=== PATIENT | female | born 1940 | race Caucasian/White ===

== ENCOUNTER → 2022-07-02 | Outpatient (REF) | payer MEDICARE, SELFPAY ==
[2022-07-02 08:35] LABS: Hematocrit 31.5 % (37-47); Hemoglobin 9.5 g/dL (12.0-15.0); Mean Corp Hgb Conc 30.2 g/dL (32-36); Mean Corpuscular Hgb 27.4 pg (27.0-32.0); Mean Corpuscular Volume 90.8 fL (81-99); Mean Platelet Vol. 10.4 fl (6.2-12.0); Platelet Count 353 K/mm3 (150-450); RBC Distribution Width CV 15.1 % (11.6-14.6); RBC Distribution Width SD 50.3 fl (35.1-43.9); Red Blood Count 3.47 M/mm3 (4.2-5.4); White Blood Count 7.6 K/mm3 (4.4-11.0)
[2022-07-02 08:52] LABS: Vitamin B12 322 pg/mL (211-911); Vitamin D,25 Hydroxy 29.4 ng/mL
[2022-07-02 08:53] LABS: Hemoglobin A1c 5.7 % (3.8-5.6)
[2022-07-02 09:10] LABS: Anion Gap 8 (5-15); BUN 31 mg/dL (7-18); BUN/Creat Ratio 37.1 RATIO (10-20); Calcium,Total 9.1 mg/dL (8.5-10.1); Chloride 106 mmol/L (98-107); Cholesterol 157 mg/dL (200); Creatinine, Serum 0.84 mg/dL (0.55-1.02); EST Glomerular Filtration Rate 69 mL/min (>60); Est Glom Filt Rate - Afr Amer 84 mL/min (>60); Glucose 108 mg/dL (74-106); High Density Lipoprotein 48 mg/dL; Potassium 4.1 mmol/L (3.5-5.1); Sodium Level 137 mmol/L (136-145); Triglycerides 130 mg/dL; Very Low Density Lipoprotein 26 mg/dL (5-40)
== END ==
LOC: OLS.SW 05:00
PROVIDERS: Visit Provider Internal Medicine
DX: I12.9 Hypertensive chronic kidney disease with stage 1 through stage 4 chronic kidney disease, or unspecified chronic kidney disease (principal); E78.5 Hyperlipidemia, unspecified; N18.9 Chronic kidney disease, unspecified; E55.9 Vitamin D deficiency, unspecified; Z86.73 Personal history of transient ischemic attack (TIA), and cerebral infarction without residual deficits; Z85.3 Personal history of malignant neoplasm of breast; Z79.899 Other long term (current) drug therapy
CPT/HCPCS: 36415; 80048; 80061; 82306; 82607; 83036; 84443; 85027

== ENCOUNTER → 2022-07-14 | Outpatient (REF) | payer MEDICARE, SELFPAY ==
[2022-07-14 08:37] LABS: Absolute Lymphocyte Count 1.99 X10^3/uL (0.83-4.51); Absolute Neutrophil Count 3.3 X10^3/uL (2.0-7.7); Basophil# 0.05 X10^3/uL; Basophil% 0.8 % (0-1); Eosinophil# 0.06 X10^3/uL; Hemoglobin 9.5 g/dL (12.0-15.0); Lymphocyte # 1.99 X10^3/ul (0.83-4.51); Lymphocyte % 33.3 % (19-41); Mean Corp Hgb Conc 27.9 g/dL (32-36); Mean Corpuscular Hgb 26.8 pg (27.0-32.0); Mean Corpuscular Volume 95.8 fL (81-99); Mean Platelet Vol. 10.7 fl (6.2-12.0); Monocyte# 0.58 X10^3/uL; Monocyte% 9.7 % (0-10); NRBC Flagged by Analyzer 0 % (0-5); Neutrophil # 3.28 X10^3/uL (2.7-7.7); Neutrophil % 54.9 % (47-70); Platelet Count 228 K/mm3 (150-450); RBC Distribution Width CV 16.3 % (11.6-14.6); RBC Distribution Width SD 57.5 fl (35.1-43.9); Red Blood Count 3.55 M/mm3 (4.2-5.4)
[2022-07-14 08:56] LABS: Anion Gap 8 (5-15); BUN 66 mg/dL (7-18); BUN/Creat Ratio 61.7 RATIO (10-20); Calcium,Total 8.7 mg/dL (8.5-10.1); Chloride 116 mmol/L (98-107); Creatinine, Serum 1.07 mg/dL (0.55-1.02); EST Glomerular Filtration Rate 52 mL/min (>60); Est Glom Filt Rate - Afr Amer 63 mL/min (>60); Glucose 97 mg/dL (74-106); Potassium 4.7 mmol/L (3.5-5.1); Sodium Level 142 mmol/L (136-145)
== END ==
LOC: OLS.SW 05:00
PROVIDERS: Visit Provider Internal Medicine
DX: I10 Essential (primary) hypertension (principal); E87.6 Hypokalemia; E78.5 Hyperlipidemia, unspecified
CPT/HCPCS: 36415; 80048; 85025

== ENCOUNTER → 2022-07-21 | Outpatient (REF) | payer MEDICARE, MEDICAID, SELFPAY ==
[2022-07-21 08:21] LABS: Absolute Lymphocyte Count 1.92 X10^3/uL (0.83-4.51); Absolute Neutrophil Count 5.2 X10^3/uL (2.0-7.7); Basophil# 0.02 X10^3/uL; Basophil% 0.2 % (0-1); Eosinophil# 0.11 X10^3/uL; Eosinophils% 1.4 % (0-5); Hematocrit 28.3 % (37-47); Hemoglobin 8.6 g/dL (12.0-15.0); Lymphocyte # 1.92 X10^3/ul (0.83-4.51); Lymphocyte % 23.9 % (19-41); Mean Corp Hgb Conc 30.4 g/dL (32-36); Mean Corpuscular Hgb 27.8 pg (27.0-32.0); Mean Corpuscular Volume 91.6 fL (81-99); Monocyte# 0.76 X10^3/uL; Monocyte% 9.5 % (0-10); NRBC Flagged by Analyzer 0 % (0-5); Neutrophil % 64.8 % (47-70); Platelet Count 198 K/mm3 (150-450); RBC Distribution Width CV 17.2 % (11.6-14.6); RBC Distribution Width SD 57.5 fl (35.1-43.9); Red Blood Count 3.09 M/mm3 (4.2-5.4)
[2022-07-21 08:38] LABS: Anion Gap 6 (5-15); BUN 69 mg/dL (7-18); Calcium,Total 8.9 mg/dL (8.5-10.1); Chloride 113 mmol/L (98-107); Creatinine, Serum 1.15 mg/dL (0.55-1.02); EST Glomerular Filtration Rate 48 mL/min (>60); Est Glom Filt Rate - Afr Amer 58 mL/min (>60); Glucose 112 mg/dL (74-106); Potassium 4.1 mmol/L (3.5-5.1); Sodium Level 142 mmol/L (136-145)
== END ==
LOC: OLS.SW 05:00
PROVIDERS: Visit Provider Internal Medicine
DX: I63.9 Cerebral infarction, unspecified (principal)
CPT/HCPCS: 36415; 80048; 85025

== ENCOUNTER → 2022-07-25 | Outpatient (REF) | payer MEDICARE, MEDICAID, SELFPAY | LOC: OLS.SW 05:00 | PROVIDERS: Visit Provider Internal Medicine | DX: A04.71 Enterocolitis due to Clostridium difficile, recurrent (principal) | CPT/HCPCS: 87493 ==

== ENCOUNTER → 2022-08-18 | Outpatient (REF) | payer MEDICARE, MEDICAID, SELFPAY ==
[2022-08-18 09:04] LABS: Ferritin 35 ng/mL (8-252); Iron 32 ug/dL (50-170)
== END ==
LOC: OLS.SW 05:00
PROVIDERS: Visit Provider Internal Medicine
DX: E46 Unspecified protein-calorie malnutrition (principal); R53.1 Weakness; I10 Essential (primary) hypertension; E78.5 Hyperlipidemia, unspecified; Z79.899 Other long term (current) drug therapy
CPT/HCPCS: 36415; 82728; 83540

== ENCOUNTER → 2023-02-22 | Outpatient (REF) | payer MEDICARE, MEDICAID, SELFPAY ==
[2023-02-22 09:20] LABS: Absolute Lymphocyte Count 1.99 X10^3/uL (0.83-4.51); Absolute Neutrophil Count 2.7 X10^3/uL (2.0-7.7); Basophil# 0.02 X10^3/uL; Basophil% 0.4 % (0-1); Eosinophil# 0.06 X10^3/uL; Eosinophils% 1.1 % (0-5); Hematocrit 32.2 % (37-47); Hemoglobin 9.4 g/dL (12.0-15.0); Lymphocyte # 1.99 X10^3/ul (0.83-4.51); Lymphocyte % 35.9 % (19-41); Mean Corp Hgb Conc 29.2 g/dL (32-36); Mean Corpuscular Volume 92.5 fL (81-99); Mean Platelet Vol. 11.3 fl (6.2-12.0); Monocyte# 0.72 X10^3/uL; NRBC Flagged by Analyzer 0 % (0-5); Neutrophil # 2.74 X10^3/uL (2.7-7.7); Neutrophil % 49.2 % (47-70); Platelet Count 249 K/mm3 (150-450); RBC Distribution Width CV 15.6 % (11.6-14.6); RBC Distribution Width SD 52.8 fl (35.1-43.9); Red Blood Count 3.48 M/mm3 (4.2-5.4); White Blood Count 5.6 K/mm3 (4.4-11.0)
[2023-02-22 09:45] LABS: Anion Gap 6 (5-15); BUN 24 mg/dL (7-18); BUN/Creat Ratio 22.6 RATIO (10-20); Calcium,Total 9.2 mg/dL (8.5-10.1); Chloride 109 mmol/L (98-107); Creatinine, Serum 1.06 mg/dL (0.55-1.02); EST Glomerular Filtration Rate 53 mL/min (>60); Est Glom Filt Rate - Afr Amer 64 mL/min (>60); Glucose 103 mg/dL (74-106); Potassium 4.5 mmol/L (3.5-5.1); Sodium Level 141 mmol/L (136-145)
== END ==
LOC: OLS.SW 05:00
PROVIDERS: Visit Provider Internal Medicine
DX: I10 Essential (primary) hypertension (principal); E78.5 Hyperlipidemia, unspecified
CPT/HCPCS: 36415; 80048; 85025

== ENCOUNTER → 2023-03-22 | Outpatient (REF) | payer MEDICARE, MEDICAID, SELFPAY ==
[2023-03-23 09:23] LABS: Color, Urine Yellow (Yellow); Glucose, Dipstick Normal (Normal); Ketone-Dipstick Negative (Negative); Leukocyte Esterase-Dipstick 500 /ul (Negative); Nitrite-Dipstick Positive (Negative); Occult Blood-Urine 50 /ul (Negative); Protein-Dipstick 100 mg/dl (Negative); Urine Clarity Cloudy (Clear); Urine Urobilinogen Normal (Normal)
[2023-03-23 09:25] LABS: Urine Bilirubin Dipstick 1 mg/dL (Negative)
== END ==
LOC: OLS.SW 08:56
PROVIDERS: Visit Provider Internal Medicine
DX: R41.82 Altered mental status, unspecified (principal); R39.81 Functional urinary incontinence
CPT/HCPCS: 81002; 87077; 87086; 87088; 87186

== ENCOUNTER 2023-04-16 20:44 | Inpatient (IN) | payer MEDICARE, MEDICAID, SELFPAY ==
[2023-04-16] VITALS (7 sets, daily range): BP systolic 126–196; BP diastolic 62–101; PULSE 80–91; RESP 15–26; TEMP 36.2–37.4; O2SAT 91–99; BMI 23.1
--- NOTE | 2023-04-16 21:09 | RAD_ITS ---
STUDY: X-RAY - PELVIS REASON FOR EXAM: Female, 83 years old. fall/pain TECHNIQUE: One view of the pelvis was obtained. COMPARISON: None. FINDINGS: There is a non-specific bowel gas pattern. Normal visualized soft tissue structures. Normal bilateral iliac wings, sacroiliac joints and visualized sacrum. Normal visualized bilateral superior and inferior pubic rami. Normal pubic symphysis. Normal ischial tuberosities. Normal visualized right femoral head. Normal right acetabulum. Normal right hip joint. Normal visualized left femoral head. Normal left acetabulum. Normal left hip joint. RAD/Pelvis 1 or 2 Views IMPRESSION: Normal x-ray examination of the pelvis. Electronically Signed: Isaac Scanlon MD at 22:23 [facility] ,
--- NOTE | 2023-04-16 21:09 | RAD_ITS ---
STUDY: X-RAY - LUMBAR SPINE REASON FOR EXAM: Female, 83 years old. fall/pain TECHNIQUE: 2 view(s) of the lumbar spine were obtained. COMPARISON: None FINDINGS: Normal lumbar lordosis. There is no substantial scoliosis. Status post transpedicular fixation from L2 through S1 with anatomic alignment. Normal vertebral bodies and endplates. Focal disc space narrowing and osteophyte formation at L1/L2 with 5 mm retrolisthesis of L1 on L2. The soft tissue structures are unremarkable. RAD/Lumbar Spine 2 or 3 Views IMPRESSION: 1. No acute fracture or subluxation. 2. Status post transpedicular fixation from L2 through S1. 3. Focal degenerative disc disease L1/L2 with 5 mm retrolisthesis of L1 on L2. Electronically Signed: Isaac Scanlon MD at 22:22 EST ,
--- NOTE | 2023-04-16 21:10 | EKG12_ITS ---
Test Reason : DYSRHYTHMIA Blood Pressure : / mmHG Vent. Rate : 078 BPM Atrial Rate : 078 BPM P-R Int : 150 ms QRS Dur : 092 ms QT Int : 386 ms P-R-T Axes : 076 -26 101 degrees QTc Int : 440 ms Normal sinus rhythm ST & T wave abnormality, consider lateral ischemia Abnormal ECG Confirmed by HENRIETTA SINHA, SIMA ([id number]), photography editor KELVIN CADENA ([id number]) on 04/20/2023 8:28:43 AM Referred By: Mauricio Byrd Confirmed By:SIMA SHRESTHA MD
--- NOTE | 2023-04-16 21:12 | EDS_ITS ---
HPI HPI - Fall History of Present Illness Chief Complaint: Fall Informant: patient, family (son) and EMS Narrative Narrative: Patient states she was in her apartment and fell while heading toward the bathroom. She was on not carpeted floor, she does not know what made her fall but she denies any prodromal symptoms such as lightheadedness, headache, chest pain, shortness of breath although she admits she is short of breath right now, she has not felt like she has had an illness lately, no coughing more than usual, no chest discomfort. She fell onto her buttocks, states that is where she has pain. She denies injury elsewhere. Son is here with her and states she is at her baseline mental status, she has been a little confused ever since she had a skull fracture/traumatic intracranial injury earlier this year and resides in a senior care, not at home in an apartment. Today at the senior care her oxygen saturations were down to 80% so they applied oxygen to her which she is not usually on. [facility] Medical History (Updated 04/16/23 @ 23:[address] Mauricio Byrd MD) Full code status Generalized anxiety disorder Generalized muscle weakness Hyperlipidemia Hypertension Major depressive disorder, recurrent, unspecified Traumatic subarachnoid hemorrhage Unspecified protein-calorie malnutrition Home Medications aluminum-magnesium hydroxide 200 mg-200 mg/5 mL oral suspension 30 ml PO Q4H PRN GI distress 04/16/23 [History Last Taken Unknown] aspirin 25 mg-dipyridamole 200 mg capsule,ext.release 12 hr multiphase 1 cap PO BID 04/16/23 [History Last Taken Unknown] buspirone 5 mg tablet 2.5 mg PO DAILY 04/16/23 [History Last Taken Unknown] docusate sodium 100 mg capsule (Col-Rite) 100 mg PO BID 04/16/23 [History Last Taken Unknown] ergocalciferol (vitamin D2) 50 mcg (2,000 unit) capsule 50 mcg PO DAILY 04/16/23 [History Last Taken Unknown] escitalopram oxalate 20 mg tablet (Lexapro) 20 mg PO DAILY 04/16/23 [History Last Taken Unknown] glucagon HCl 1 mg solution for injection (Glucagon (HCl) Emergency Kit) 1 mg IM Q20M PRN hypoglycemia 04/16/23 [History Last Taken Unknown] guaifenesin 100 mg/5 mL oral liquid (Adult Tussin Chest Congestion) 200 mg PO Q4H PRN congestion 04/16/23 [History Last Taken Unknown] losartan 100 mg tablet 100 mg PO DAILY 04/16/23 [History Last Taken Unknown] magnesium hydroxide 400 mg/5 mL oral suspension (Dulcolax (magnesium hydroxide)) 30 ml PO DAILY PRN constipation 04/16/23 [History Last Taken Unknown] melatonin 3 mg capsule 3 mg PO QHS 04/16/23 [History Last Taken Unknown] memantine 5 mg tablet 5 mg PO BID 04/16/23 [History Last Taken Unknown] metoprolol tartrate 50 mg tablet 50 mg PO BID 04/16/23 [History Last Taken Unknown] mirtazapine 15 mg tablet (Remeron) 15 mg PO QHS 04/16/23 [History Last Taken Unknown] omega 9-yjz-lpw-fish oil 300 mg-1,000 mg capsule (Fish Oil) 1 cap PO DAILY 04/16/23 [History Last Taken Unknown] potassium chloride 10 mEq tablet,extended release 10 meq PO BID 04/16/23 [History Last Taken Unknown] simvastatin 80 mg tablet 80 mg PO QHS 04/16/23 [History Last Taken Unknown] Allergy/AdvReac Type Severity Reaction Status Date / Time lisinopril Allergy Unknown PT UNABLE Verified 04/16/23 20:48 TO RESPOND-NEEDS F/U Milk Containing Products Allergy Unknown PT UNABLE Verified 04/16/23 20:48 (Dairy) TO RESPOND-NEEDS F/U morphine Allergy Unknown PT UNABLE Verified 04/16/23 20:48 TO RESPOND-NEEDS F/U Social History Smoking Status: Never smoker ROS ROS ED Constitutional Constitutional ED: Denies chills or fever(s) Eyes Eyes: Denies change in vision or diplopia ENT ENT ED: Denies ear pain, epistaxis, facial pain or rhinorrhea Cardiovascular Cardiovascular: Denies chest pain or palpitations Respiratory/Chest Respiratory/Chest: Reports cough, dyspnea and other Details: Chronic cough unchanged Gastrointestinal Gastrointestinal: Denies abdominal pain, diarrhea, melena, nausea or vomiting Genitourinary Genitourinary ED: Denies dysuria or hematuria Musculoskeletal Musculoskeletal: Reports back pain; Denies extremity pain or neck pain Integumentary Denies abscess, Abrasions, laceration or rash Neurologic Neurologic: Denies confusion, headache(s), paresthesias or weakness EXAM Physical Exam Const Vital Signs: 04/16/23 20:48 04/16/23 21:19 04/16/23 20:59 Temperature 97.2 F L Temperature Source Temporal Pulse Rate 81 80 80 Respiratory Rate 20 H 26 H 24 H Respiratory Effort Respiratory Depth Respiratory Pattern Tachypnea Blood Pressure 196/101 H 151/68 H Blood Pressure Mean 132 95 Pulse Ox 96 93 Oxygen Delivery Method Nasal Cannula Nasal Cannula Oxygen Flow Rate (L/min) 4 4 04/16/23 22:09 04/16/23 22:22 04/16/23 22:24 Temperature Temperature Source Pulse Rate Respiratory Rate Respiratory Effort Short of Breath Short of Breath Respiratory Depth Normal Normal Respiratory Pattern Tachypnea Tachypnea Blood Pressure Blood Pressure Mean Pulse Ox 92 99 Oxygen Delivery Method Room Air Nasal Cannula Oxygen Flow Rate (L/min) 4 04/16/23 23:06 04/16/23 23:06 04/16/23 23:25 Temperature 99.4 F H Temperature Source Oral Pulse Rate 90 90 91 Respiratory Rate 18 18 15 Respiratory Effort Respiratory Depth Respiratory Pattern Blood Pressure 126/62 H 126/62 H 126/62 H Blood Pressure Mean 83 83 83 Pulse Ox 94 95 93 Oxygen Delivery Method Nasal Cannula Nasal Cannula Oxygen Flow Rate (L/min) 2 2 Positive well nourished and well developed General Appearance ED: well developed and NAD HEENT Reports TM's clear and nasal mucous membranes and turbinates normal atraumatic Face and Sinus: Negative for facial tenderness Tympanic Membrane ED: Yes TM's clear Eyes PERRL and EOMs intact bilaterally Visual Acuity: other Other Details: no entrapment or pain with extraocular movements Neck full ROM and supple General: Negative for tenderness Chest Wall inspection of chest normal and palpation of chest normal Chest: symmetrical chest wall rise; Negative for crepitus or tenderness Resp Resp Narrative: Tachypneic without respiratory distress, but some accessory muscle use. Coarse breath sounds in all miller. Equal breath sounds bilaterally. Percussion: other equal BS bilat Cardio no murmurs Rate: regular rate Rhythm: regular rhythm GI normal to inspection, nondistended, normoactive bowel sounds, soft to palpation and non-tender Back/Spine normal ROM Back/Spine Narrative: Tenderness in the lumbar midline where there is a well-healed surgical scar, no palpable step-off, she does not have tenderness in the pelvic brim over the sacrum otherwise, but there is tenderness in the right ischial tuberosity and the left ASIS. Pelvis is stable to AP compression. Cervical Spine: Negative for cervical spine tenderness Thoracic Spine / Upper Back: Negative for thoracic spinal tenderness Lumbar Spine / Lower Back: lumbar spinal tenderness Extremity normal to inspection and full ROM Extremity Narrative: Full range of motion all joints of all 4 extremities without pain. General Extremety ED: Negative for tenderness Neuro oriented x3, CN's II-XII intact bilaterally, moves all extremities, no focal motor deficits and no sensory deficits noted [place] Coma Scale: document GCS findings Spontaneous Obeys Commands Oriented 15 Sensorium / Orientation: awake and alert Psych mental status grossly normal and thought process normal Skin no wounds Lesions: no lesions Rashes: no rashes MDM MDM MDM Narrative Medical decision making narrative: X-rays of the patient's injuries are all negative for fractures on my interpretation, 1 view pelvis, 3 view lumbosacral. Radiology in agreement. Patient is a lot of pain trying to sit up, I reevaluated her back, she has no tenderness higher up than where she first indicated and we x-rayed. She still not able to sit up at all due to pain, but I think this is probably due to contusion in context. 1 view chest x-ray appears to show an infiltrate in right lower lobe, this is consistent with her dyspnea. After nebulizer treatment she is breathing a little better but still requiring more nebulizer treatment, after removing her oxygen after this she desatted quick to the mid 80s, so I placed her back on 2 L she is 92% there. Given all of this and the fact that it is acute, she will need to be admitted to the hospital acutely. Antibiotic started. Apparently the [facility] new COVID and influenza testing includes RSV as well, and although these 2 were negative, her RSV antigen returned positive. She still is hypoxemic and HCAP antibiotics are indicated. Lab Data Attestation: I reviewed the patient's lab results. Labs: Laboratory Results - last 24 hr 04/16/23 21:00 WBC 11.7 H RBC 3.49 L Hgb 9.8 L Hct 31.4 L MCV 90.0 MCH 28.1 MCHC 31.2 L RDW Std Deviation 50.0 H RDW Coeff of Han 15.2 H Plt Count 196 MPV 11.6 Immature Gran % (Auto) 0.900 Neut % (Auto) 74.5 H Lymph % (Auto) 14.8 L Piatt % (Auto) 9.6 Eos % (Auto) 0.0 Baso % (Auto) 0.2 Absolute Neuts (auto) 8.7 H Absolute Lymphs (auto) 1.74 Nucleated RBC % 0 Sodium 138 Potassium 4.6 Chloride 109 H Carbon Dioxide 23.0 Anion Gap 6 BUN 43 H Creatinine 1.30 H Estim Creat Clear Calc 28.99 Est GFR (MDRD) Af Amer 50 L Est GFR (MDRD) Non-Af 42 L BUN/Creatinine Ratio 33.1 H Glucose 156 H Calcium 9.1 Troponin I High Sens 12 B-Natriuretic Peptide 89.1 Radiography Diagnostic Testing: Clinical Impression(s) from Imaging Studies Lumbar Spine X-Ray 04/16/23 21:09 IMPRESSION: 1. No acute fracture or subluxation. 2. Status post transpedicular fixation from L2 through S1. 3. Focal degenerative disc disease L1/L2 with 5 mm retrolisthesis of L1 on L2. Electronically Signed: Isaac Scanlon MD at 22:22 EST Reading Location ID and State: [employer] / [employer] Tel , Service support , Pelvis X-Ray 04/16/23 21:09 IMPRESSION: Normal x-ray examination of the pelvis. Electronically Signed: Isaac Scanlon MD at 22:23 EST Reading Location ID and State: [employer] / [employer] Tel , Service support , Chest X-Ray 04/16/23 21:51 IMPRESSION: 1. Focal right lower lobe pneumonia or atelectasis.. 2. Cardiomegaly. Electronically Signed: Isaac Scanlon MD at 22:21 EST Reading Location ID and State: [employer] / [employer] Tel , Service support , Rhythm Strip Rhythm Strip: Sinus Rhythm Rate: 80 Ectopy: None EKG Initial EKG: Attestation: I personally reviewed and interpreted this EKG as follows: Interpretation: Sinus Rhythm, No Acute Injury Pattern and Non-Specific ST Changes (laterally) Prior EKG tracings: not available for review Prior: No Prior Management Discussion w/another healthcare provider: Hospitalist Discharge Plan Dx/Rx/DC Orders Clinical Impression: Acute renal insufficiency, HCAP (healthcare-associated pneumonia), Acute hypoxemic respiratory failure, Contusion of lower back and pelvis, initial encounter, Fall, RSV infection Disposition Disposition: Acute Care Hospital [facility]
[2023-04-16] MEDS: Ipratropium/Albuterol Sulfate 3 ML AMPUL.NEB INHALATION (21:19)
[2023-04-16 21:45] LABS: Absolute Lymphocyte Count 1.74 X10^3/uL (0.83-4.51); Absolute Neutrophil Count 8.7 X10^3/uL (2.0-7.7); Basophil# 0.02 X10^3/uL; Basophil% 0.2 % (0-1); Hematocrit 31.4 % (37-47); Hemoglobin 9.8 g/dL (12.0-15.0); Lymphocyte # 1.74 X10^3/ul (0.83-4.51); Lymphocyte % 14.8 % (19-41); Mean Corp Hgb Conc 31.2 g/dL (32-36); Mean Corpuscular Hgb 28.1 pg (27.0-32.0); Mean Platelet Vol. 11.6 fl (6.2-12.0); Monocyte# 1.13 X10^3/uL; Monocyte% 9.6 % (0-10); NRBC Flagged by Analyzer 0 % (0-5); Neutrophil # 8.72 X10^3/uL (2.7-7.7); Neutrophil % 74.5 % (47-70); Platelet Count 196 K/mm3 (150-450); RBC Distribution Width CV 15.2 % (11.6-14.6); Red Blood Count 3.49 M/mm3 (4.2-5.4); White Blood Count 11.7 K/mm3 (4.4-11.0)
--- NOTE | 2023-04-16 21:51 | RAD_ITS ---
STUDY: X-RAY CHEST REASON FOR EXAM: Female, 83 years old. sob TECHNIQUE: Single AP portable view of the chest. COMPARISON: None. FINDINGS: Alveolar opacity in the lower right lung consistent with focal pneumonia or atelectasis. There is no demonstrated pleural abnormality. There is moderate cardiac enlargement. Normal mediastinum and carl. Normal visualized pulmonary arteries. Normal visualized aortic arch and descending thoracic aorta. Normal visualized thoracic spine. Normal visualized ribs, clavicles, and shoulders. There is no demonstrated abnormality of the visualized soft tissue structures of the upper abdomen. RAD/Chest 1 View (Portable) IMPRESSION: 1. Focal right lower lobe pneumonia or atelectasis.. 2. Cardiomegaly. Electronically Signed: Isaac Scanlon MD at 22:21 EST ,
[2023-04-16 21:58] LABS: Anion Gap 6 (5-15); BUN 43 mg/dL (7-18); BUN/Creat Ratio 33.1 RATIO (10-20); Calcium,Total 9.1 mg/dL (8.5-10.1); Chloride 109 mmol/L (98-107); EST Glomerular Filtration Rate 42 mL/min (>60); Est Glom Filt Rate - Afr Amer 50 mL/min (>60); Estimated Creatinine Clearance 28.99 ml/min; Glucose 156 mg/dL (74-106); Potassium 4.6 mmol/L (3.5-5.1); Sodium Level 138 mmol/L (136-145); Troponin-I HS 12 pg/mL (3.0-54.0)
[2023-04-16] MEDS: Albuterol 2.5 MG/3 ML VIAL.NEB. INHALATION ×3 (22:03→22:38)
--- OUTSIDE RECORDS SUMMARY | 2023-04-16 22:53 | XMS RPT_ITS | CCD ---
Author Name Unknown Address [id number] [place] [address] Organization [facility] Care Team Providers Care Staff Development Manager Name Role Phone JEREMIAS VALERIO DO Primary Care Physician JEREMIAS VALERIO DO Attending Unavailable JEREMIAS VALERIO DO Primary Care Unavailable JEREMIAS VALERIO DO Attending Unavailable JEREMIAS VALERIO DO Primary Care Unavailable TRISTON RODRIGUEZ Admitting Unavai JEREMIAS Montiel DO Primary Care Unavailable CARLOS QUESADA, DR DANIELS Attending Unavailable JEREMIAS VALERIO DO Primary Care Unavailable ADALID HOFF Attending Unavailable CLAUDETTE LIMON MD Attending Unavailable JEREMIAS VALERIO DO Primary Care Unavailable JEREMIAS VALERIO DO Attending Unavailable JEREMIAS VALERIO DO Primary Care Unavailable JEREMIAS VALERIO DO Attending Unavailable JEREMIAS VALERIO DO Primary Care Unavailable JEREMIAS VALERIO DO Primary Care Unavailable WES JUSTIN MD Admitting Unavailable CARLOS QUESADA, DR DANIELS Attending Unavailable NATALIO RICHARDSON MD Consulting Unavailable JIMMY CAMARILLO MD Consulting Unavailable CHOLO CRAIG MD Consulting Unavailable ARMAAN VERDIN DMD Consulting UnaJACOBY Ivey MD, I Consulting Unavailable RENETTA FANG MD Consulting Unavailable DR GERARDO SIDHU MD Consulting Unavailable JEREMIAS VALERIO DO Attending Unavailable JEREMIAS VALERIO DO Primary Care Unavailable JEREMIAS VALERIO DO Attending Unavailable JEREMIAS VALERIO DO Primary Care Unavailable Allergies Allergy Classification Reported Allergen(s) Allergy Type Date of Onset Reaction(s) Facility (8 sources) Lisinopril; Translations: [lisinopril] Drug Allergy Cough [facility] Work Phone: (8 sources) Morphine; Translations: [morphine] Drug Allergy Paranoid [facility] Work Phone: (8 sources) Milk Products Food allergy Diarrhea - Adult [facility] Work Phone: Medications Current Medications Medication Drug Class(es) Dates Sig (Normalized) Sig (Original) acetaminophen 500 mg / diphenhydrAMINE hydrochloride 25 mg oral tablet (7 sources) Histamine-1 Receptor Antagonist Start: 01-18-2014 take 1 tablet by mouth once daily at bedtime as needed for sleep Tylenol PM Extra Strength oral tablet Dose = 1 tab(s), Oral, qHS, PRN for sleep, 0 Refill(s) Start Date: 01/18/14 Status: Ordered 12 hr aspirin 25 mg / dipyridamole 200 mg extended release oral capsule (7 sources) Platelet Aggregation Inhibitor, Nonsteroidal Anti-inflammatory Drug Start: 07-01-2022 take 1 capsule by mouth twice daily Aggrenox 25-200 mg oral capsule Dose = 1 cap(s), Oral, BID, 0 Refill(s) Start Date: 07/01/22 Status: Ordered Completed/Discontinued Medications Medication Drug Class(es) Dates Sig (Normalized) Sig (Original) Augmentin (1 source) Penicillin-class Antibacterial Start: 06-17-2022 End: 06-21-2022 Augmentin Dose : 875 mg = 1 tab(s), Oral, BIDM, 0 Refill(s), 56.1 Start Date: 06/17/22 Stop Date: 06/21/22 Status: Ordered 1 ml denosumab 60 mg/ml prefilled syringe (1 source) RANK Ligand Inhibitor Start: 08-12-2021 Prolia 60 mg/mL subcutaneous solution Dose : 60 mg = 1 mL, Subcutaneous, q6mo, # 1 mL, 1 Refill(s) Start Date: 08/12/21 Status: Ordered metoprolol tartrate 25 mg oral tablet (5 sources) beta-Adrenergic Patrizia Start: 06-30-2022 End: 07-01-2022 Metoprolol Tartrate 25 mg oral tablet Start: 07/01/22 8:00:00 EDT, Dose = 50 mg, = 2 tab(s), Oral, 06/18/22 13:50:00 EST Start Date: 07/01/22 Stop Date: 07/01/22 Status: Completed Problems Problem Classification Problem Date Documented Date Episodic/Chronic Acute cerebrovascular disease (3 sources) Cerebrovascular accident; Translations: [Cerebral infarction] Onset: 06-14-2022 08-04-2019 Chronic Cancer of breast (8 sources) History of malignant neoplasm of breast 03-09-2019 Episodic Chronic kidney disease (9 sources) Chronic kidney disease stage 3B ; Translations: [Chronic kidney disease] 01-31-2021 Chronic Chronic ulcer of skin (1 source) Pressure ulcer of buttock stage 3; Translations: [Pressure ulcer of right buttock, stage 3] Chronic Coagulation and hemorrhagic disorders (1 source) Blood coagulation disorder; Translations: [Coagulation defect, unspecified] Chronic Disorders of lipid metabolism (9 sources) Mixed hyperlipidemia; Translations: [Hyperlipidemia] Onset: 06-14-2022 08-04-2019 Chronic E Codes: Fall (1 source) Fall on same level; Translations: [Fall on same level, unspecified, initial encounter] Episodic E Codes: Fall (3 sources) Fall in home 06-01-2022 Essential hypertension (11 sources) Essential hypertension; Translations: [Essential (primary) hypertension] Onset: 06-14-2022 03-09-2019 Chronic Fluid and electrolyte disorders (16 sources) Hypokalemia; Translations: [Hyponatremia] 03-09-2019 Episodic Genitourinary symptoms and ill-defined conditions (2 sources) Unspecified abnormal findings in urine; Translations: [Unspecified abnormal findings in urine] Onset: 06-01-2022 Episodic Hypertension with complications and secondary hypertension (1 source) Chronic kidney disease due to hypertension; Translations: [Hypertensive chronic kidney disease with stage 1 through stage 4 chronic kidney disease, or unspecified chronic kidney disease] Chronic Intracranial injury (1 source) Subarachnoid hemorrhage due to traumatic injury; Translations: [Traumatic subarachnoid hemorrhage without loss of consciousness, initial encounter] Episodic Late effects of cerebrovascular disease (1 source) Aphasia as late effect of cerebrovascular accident; 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 Malaise and fatigue (2 sources) Asthenia; Translations: [Weakness] Onset: 05-04-2022 Episodic Nutritional deficiencies (8 sources) Vitamin D deficiency 08-04-2019 Chronic Open wounds of head; neck; and trunk (1 source) Laceration of head; Translations: [Laceration without foreign body of other part of head, initial encounter] Episodic Osteoporosis (9 sources) Osteoporosis; Translations: [Primary osteoporosis] 03-09-2019 Chronic Other circulatory disease (11 sources) History of cerebrovascular accident 03-09-2019 Episodic Other circulatory disease (1 source) History of transient ischemic attack; Translations: [Personal history of transient ischemic attack (TIA), and cerebral infarction without residual deficits] Onset: 06-26-2022 Episodic Other connective tissue disease (3 sources) Muscle weakness 05-21-2022 Episodic Other injuries and conditions due to external causes (1 source) Injury of head; Translations: [Unspecified injury of head, initial encounter] Episodic Other lower respiratory disease (1 source) Abnormal breathing; Translations: [Other abnormalities of breathing] Onset: 06-22-2022 Episodic Other nervous system disorders (1 source) Disorder of brain; Translations: [Encephalopathy, unspecified] Chronic Other nervous system disorders (1 source) Aphasia; Translations: [Aphasia] Chronic Other nervous system disorders (3 sources) Abnormal gait 05-21-2022 Episodic Other non-traumatic joint disorders (8 sources) Hip pain 01-31-2021 Episodic Residual codes; unclassified (8 sources) Immunization due 01-31-2021 Episodic Residual codes; unclassified (7 sources) Edema 08-11-2021 Episodic Residual codes; unclassified (3 sources) At high risk for fall 05-21-2022 Episodic Residual codes; unclassified (1 source) Altered mental status; Translations: [Altered mental status, unspecified] Onset: 06-14-2022 Episodic Residual codes; unclassified (1 source) Amnesia; Translations: [Other amnesia] Onset: 06-18-2022 Episodic Skull and face fractures (3 sources) Fracture of zygoma; Translations: [Zygomatic fracture, left side, sequela] Onset: 06-14-2022 Episodic Superficial injury; contusion (1 source) Right knee abrasion; Translations: [Abrasion, right knee, initial encounter] Episodic Unclassified (8 sources) Patient encounter status 02-02-2020 Urinary tract infections (3 sources) Escherichia coli urinary tract infection 06-04-2022 Episodic Results Test Name Value Interpretation Reference Range Facil ity Vital Signs Date Time Vital Sign Value Performing Clinician Slick peña 07-01-2022 09:48-0400 Heart rate 84 /min TRISTON CHICAS [facility] 06-30-2022 21:10-0400 Body temperature 97.16 [degF] TRISTON CHATMAN SENIOR JAVASCRIPT DEVELOPER-MACHINE DESIGN ENGINEER [facility] 06-30-2022 21:10-0400 Diastolic Blood Pressure Non-Invasive 70 1 TRISTON CHATMAN SENIOR JAVASCRIPT DEVELOPER-MACHINE DESIGN ENGINEER [facility] 06-30-2022 21:10-0400 Heart rate 83 /min TRISTON CHATMAN SENIOR JAVASCRIPT DEVELOPER-MACHINE DESIGN ENGINEER [facility] 06-30-2022 21:10-0400 Reason For Taking VItal Signs TRISTON CHATMAN SENIOR JAVASCRIPT DEVELOPER-MACHINE DESIGN ENGINEER [facility] 06-30-2022 21:10-0400 Respiratory rate 18 /min TRISTON CHTAMAN SENIOR JAVASCRIPT DEVELOPER-MACHINE DESIGN ENGINEER [facility] 06-30-2022 21:10-0400 Systolic Blood Pressure Non-Invasive 153 1 TRISTON CHATMAN SENIOR JAVASCRIPT DEVELOPER-MACHINE DESIGN ENGINEER [facility] 06-30-2022 17:36-0400 Heart rate 92 /min TRISTON CHATMAN SENIOR JAVASCRIPT DEVELOPER-MACHINE DESIGN ENGINEER [facility] 06-30-2022 11:30-0400 Body temperature 99.68 [degF] TRISTON CHATMAN SENIOR JAVASCRIPT DEVELOPER-MACHINE DESIGN ENGINEER [facility] 06-30-2022 11:30-0400 Diastolic Blood Pressure Non-Invasive 74 1 TRISTON CHATMAN SENIOR JAVASCRIPT DEVELOPER-MACHINE DESIGN ENGINEER [facility] 06-30-2022 11:30-0400 Heart rate 104 /min TRISTON CHATMAN SENIOR JAVASCRIPT DEVELOPER-MACHINE DESIGN ENGINEER [facility] 06-30-2022 11:30-0400 Reason For Taking VItal Signs TRISTON CHATMAN SENIOR JAVASCRIPT DEVELOPER-MACHINE DESIGN ENGINEER [facility] 06-30-2022 11:30-0400 Respiratory rate 18 /min TRISTON CHATMAN SENIOR JAVASCRIPT DEVELOPER-MACHINE DESIGN ENGINEER [facility] 06-30-2022 11:30-0400 Systolic Blood Pressure Non-Invasive 153 1 TRISTON CHATMAN SENIOR JAVASCRIPT DEVELOPER-MACHINE DESIGN ENGINEER [facility] 06-30-2022 06:25-0400 Body temperature 98.42 [degF] TRISTON CHATMAN SENIOR JAVASCRIPT DEVELOPER-MACHINE DESIGN ENGINEER [facility] 06-30-2022 06:25-0400 Diastolic Blood Pressure Non-Invasive 94 1 TRISTON CHATMAN SENIOR JAVASCRIPT DEVELOPER-MACHINE DESIGN ENGINEER [facility] 06-30-2022 06:25-0400 Heart rate 88 /min TRISTON CHATMAN SENIOR JAVASCRIPT DEVELOPER-MACHINE DESIGN ENGINEER [facility] 06-30-2022 06:25-0400 Reason For Taking VItal Signs TRISTON CHATMAN SENIOR JAVASCRIPT DEVELOPER-MACHINE DESIGN ENGINEER [facility] 06-30-2022 06:25-0400 Respiratory rate 18 /min TRISTON CHATMAN SENIOR JAVASCRIPT DEVELOPER-MACHINE DESIGN ENGINEER [facility] 06-30-2022 06:25-0400 Systolic Blood Pressure Non-Invasive 155 1 TRISTON CHATMAN SENIOR JAVASCRIPT DEVELOPER-MACHINE DESIGN ENGINEER [facility] 06-29-2022 15:45-0400 Heart rate 79 /min TRISTON CHATMAN SENIOR JAVASCRIPT DEVELOPER-MACHINE DESIGN ENGINEER [facility] 06-29-2022 07:30-0400 Heart rate 89 /min TRISTON CHATMAN SENIOR JAVASCRIPT DEVELOPER-MACHINE DESIGN ENGINEER [facility] 03-13-2023 04:47-0400 Heart rate 81 /min TRISTON CHATMAN SENIOR JAVASCRIPT DEVELOPER-MACHINE DESIGN ENGINEER [facility] 06-28-2022 19:41-0400 Heart rate 89 /min TRISTON CHATMAN SENIOR JAVASCRIPT DEVELOPER-MACHINE DESIGN ENGINEER [facility] 06-26-2022 06:00-0500 Body weight 54.2 kg TRISTON CHATMAN SENIOR JAVASCRIPT DEVELOPER-MACHINE DESIGN ENGINEER [facility] 06-23-2022 10:08-0500 Blood Pressure Cuff Size TRISTON CHATMAN SENIOR JAVASCRIPT DEVELOPER-MACHINE DESIGN ENGINEER [facility] 06-23-2022 10:08-0500 Blood Pressure Location TRISTONDELMY CHATMAN SENIOR JAVASCRIPT DEVELOPER-MACHINE DESIGN ENGINEER [facility] 06-23-2022 10:08-0500 Blood Pressure Method TRISTONDELMY RUBION SENIOR JAVASCRIPT DEVELOPER-MACHINE DESIGN ENGINEER [facility] 06-23-2022 07:39-0500 Blood Pressure Cuff Size TRISTON CHATMAN SENIOR JAVASCRIPT DEVELOPER-MACHINE DESIGN ENGINEER [facility] 06-23-2022 07:39-0500 Blood Pressure Location TRISTONDELMY CHATMAN SENIOR JAVASCRIPT DEVELOPER-MACHINE DESIGN ENGINEER [facility] 06-23-2022 07:39-0500 Blood Pressure Method TRISTON CHATMAN SENIOR JAVASCRIPT DEVELOPER-MACHINE DESIGN ENGINEER [facility] 06-23-2022 06:15-0500 Body temperature 98.24 [degF] TRISTON CHATMAN SENIOR JAVASCRIPT DEVELOPER-MACHINE DESIGN ENGINEER [facility] 06-23-2022 04:30-0500 Body temperature 97.52 [degF] TRISTONDELMY RUBION SENIOR JAVASCRIPT DEVELOPER-MACHINE DESIGN ENGINEER [facility] 06-22-2022 02:45-0500 Body temperature 97.52 [degF] TRISTON CHATMAN SENIOR JAVASCRIPT DEVELOPER-MACHINE DESIGN ENGINEER [facility] 06-21-2022 19:31-0500 Blood Pressure Location TRISTON CHATMAN SENIOR JAVASCRIPT DEVELOPER-MACHINE DESIGN ENGINEER [facility] 06-21-2022 19:31-0500 Blood Pressure Method TRISTON CHATMAN SENIOR JAVASCRIPT DEVELOPER-MACHINE DESIGN ENGINEER [facility] 06-19-2022 05:03-0500 Body weight 54 kg TRISTON CHATMAN SENIOR JAVASCRIPT DEVELOPER-MACHINE DESIGN ENGINEER [facility] 06-18-2022 12:36-0500 Body height 162.6 cm TRISTON CHATMAN SENIOR JAVASCRIPT DEVELOPER-MACHINE DESIGN ENGINEER [facility] 06-18-2022 12:36-0500 Body weight 55.6 kg TRISTON CHATMAN SENIOR JAVASCRIPT DEVELOPER-MACHINE DESIGN ENGINEER [facility] 06-18-2022 12:36-0500 Body weight 21.03 kg/m2 TRISTON CHATMAN SENIOR JAVASCRIPT DEVELOPER-MACHINE DESIGN ENGINEER [facility] 06-18-2022 07:54-0500 Heart rate 98 /min DR WES JUSTIN MD [facility] 06-18-2022 07:38-0500 Body temperature 98.24 [degF] DR WES JUSTIN MD [facility] 06-18-2022 07:38-0500 Diastolic Blood Pressure Non-Invasive [address] WES JUST[address] [facility] 06-18-2022 07:38-0500 Heart rate 95 /min DR WES JUSTIN MD [facility] 06-18-2022 07:38-0500 Mean blood pressure 81 mm[Hg] DR WES JUSTIN MD [facility] 06-18-2022 07:38-0500 Reason For Taking VItal Signs DR WES JUSTIN MD [address] [place] [address] 06-18-2022 07:38-0500 Respiratory rate 19 /min DR WES JUSTIN MD [address] [place] [address] 06-18-2022 07:38-0500 Systolic Blood Pressure Non-Invasive [address] WES JUSTIN MD [address] [place] [address] 06-18-2022 03:58-0500 Body temperature 98.6 [degF] DR WES JUSTIN MD [address] [place] [address] 06-18-2022 03:58-0500 Diastolic Blood Pressure Non-Invasive [address] WES JUSTIN MD [address] [place] [address] 06-18-2022 03:58-0500 Heart rate 77 /min DR WES JUSTIN MD [address] [place] [address] 06-18-2022 03:58-0500 Mean blood pressure 65 mm[Hg] DR WES JUSTIN MD [address] [place] [address] 06-18-2022 03:58-0500 Reason For Taking VItal Signs DR WES JUSTIN MD [address] [place] [address] 06-18-2022 03:58-0500 Respiratory rate 16 /min DR WES JUSTIN MD [address] [place] [address] 06-18-2022 03:58-0500 Systolic Blood Pressure Non-Invasive [address] WES JUSTIN MD [address] 06-18-2022 02:02-0500 Diastolic Blood Pressure Non-Invasive [address] WES JUSTIN MD [address] [place] [address] 06-18-2022 02:02-0500 Heart rate 88 /min DR WES JUSTIN MD [address] 06-18-2022 02:02-0500 Mean blood pressure 90 mm[Hg] DR WES JUSTIN MD [address] [place] [address] 06-18-2022 02:02-0500 Respiratory rate 24 /min DR WES JUSTIN MD [address] [place] [address] 06-18-2022 02:02-0500 Systolic Blood Pressure Non-Invasive [address] WES JUSTIN MD [address] [place] [address] 06-17-2022 23:27-0500 Body temperature 98.78 [degF] DR WES JUSTIN MD [address] [place] [address] 06-17-2022 23:27-0500 Heart rate 91 /min DR WES JUSTIN MD [address] [place] [address] 06-17-2022 23:27-0500 Reason For Taking VItal Signs DR WES JUSTIN MD [address] [place] [address] 06-17-2022 21:10-0500 Heart rate 80 /min DR WES JUSTIN MD [address] [place] [address] 06-16-2022 08:09-0500 Heart rate 93 /min DR WES JUSTIN MD [address] [place] [address] 06-16-2022 06:36-0500 Heart rate 97 /min DR WES JUSTIN MD [address] [place] [address] 06-15-2022 08:00-0500 Body temperature 98.42 [degF] DR WES JUSTIN MD [address] [place] [address] 06-15-2022 00:30-0500 Body temperature 98.24 [degF] DR WES JUSTIN MD [address] [place] [address] 06-12-2022 13:55-[address] WES JUSTIN MD [address] [place] [address] 06-12-2022 13:55-0500 Body temperature 98.78 [degF] DR WES JUSTIN MD [address] [place] [address] 06-12-2022 11:43-[address] WES JUSTIN MD [address] [place] [address] 06-10-2022 14:30-0500 Body height [address] WES JUSTIN MD [facility] 06-10-2022 14:30-0500 Body weight 56.[address] WES JUSTIN MD [facility] 06-10-2022 14:30-0500 Body weight 21.11 kg/m2 DR WES JUSTIN MD [facility] 06-10-2022 11:06-0500 Body weight 56.[address] WES JUSTIN MD [facility] 06-10-2022 11:06-0500 Heart rate 112 /min DR WES JUSTIN MD [facility] 06-10-2022 10:04-0500 Diastolic Blood Pressure Non-Invasive 99 1 ADALID HOFF MD [facility] 06-10-2022 10:04-0500 Heart rate 123 /min ADALID HOFF MD [facility] 06-10-2022 10:04-0500 Systolic Blood Pressure Non-Invasive 134 1 ADALID HOFF MD [facility] 06-10-2022 07:54-0500 Body height 167.6 cm ADALID HOFF MD [facility] 06-10-2022 07:54-0500 Body temperature 98.42 [degF] ADALID HOFF MD [facility] 06-10-2022 07:54-0500 Body weight 75 kg ADALID HOFF MD [facility] 06-10-2022 07:54-0500 Diastolic Blood Pressure Non-Invasive 99 1 ADALID HOFF MD [facility] 06-10-2022 07:54-0500 Heart rate 133 /min ADALID HOFF MD [facility] 06-10-2022 07:54-0500 Systolic Blood Pressure Non-Invasive 171 1 ADALID HOFF MD [facility] 05-04-2022 15:33-0500 Diastolic Blood Pressure Non-Invasive 78 1 CLAUDETTE LIMON MD [facility] 05-04-2022 15:33-0500 Heart rate 96 /min CLAUDETTE LIMON MD [facility] 05-04-2022 15:33-0500 Reason For Taking VItal Signs CLAUDETTE LIMON MD [facility] 05-04-2022 15:33-0500 Respiratory rate 20 /min CLAUDETTE LIMON MD [facility] 05-04-2022 15:33-0500 Systolic Blood Pressure Non-Invasive 145 1 CLAUDETTE LIMON MD [facility] 05-04-2022 14:53-0500 Diastolic Blood Pressure Non-Invasive 69 1 CLAUDETTE LIMON MD [facility] 05-04-2022 14:53-0500 Heart rate 108 /min CLAUDETTE LIMON MD [facility] 05-04-2022 14:53-0500 Reason For Taking VItal Signs CLAUDETTE LIMON MD [facility] 05-04-2022 14:53-0500 Respiratory rate 20 /min CLAUDETTE LIMON MD [facility] 05-04-2022 14:53-0500 Systolic Blood Pressure Non-Invasive 143 1 CLAUDETTE LIMON MD [facility] 05-04-2022 12:30-0500 Body temperature 97.88 [degF] CLAUDETTE LIMON MD [facility] 05-04-2022 12:30-0500 Diastolic Blood Pressure Non-Invasive 75 1 CLAUDETTE LIMON MD [facility] 05-04-2022 12:30-0500 Heart rate 114 /min CLAUDETTE LIMON MD [facility] 05-04-2022 12:30-0500 Respiratory rate 24 /min CLAUDETTE LIMON MD [facility] 05-04-2022 12:30-0500 Systolic Blood Pressure Non-Invasive 165 1 CLAUDETTE LIMON MD [facility] Encounters Encounter Date Encounter Type Care Provider Facility Start: 06-18-2022 End: 07-01-2022 Evaluation and management of inpatient TRISTON CHATMAN SENIOR JAVASCRIPT DEVELOPER-MACHINE DESIGN ENGINEER Facility:B Start: 06-18-2022 End: 07-01-2022 Evaluation and management of inpatient TRISTON CHATMAN SENIOR JAVASCRIPT DEVELOPER-MACHINE DESIGN ENGINEER [facility] Start: 06-10-2022 End: 06-18-2022 Evaluation and management of inpatient JEREMIAS AMADOY Facility:A Start: 06-10-2022 End: 06-18-2022 Evaluation and management of inpatient DR WES JUSTIN MD [facility] Start: 06-10-2022 End: 06-10-2022 Emergency department patient visit JEREMIAS VALERIO Facility:[facility] Start: 06-10-2022 End: 06-10-2022 Emergency department patient visit ADALID HOFF MD [facility] Start: 06-01-2022 End: 06-06-2022 ambulatory JEREMIAS TEODORO DO Facility:[facility] Start: 05-27-2022 End: 06-18-2022 ambulatory JEREMIAS VALERIO DO Facility:R Start: 05-04-2022 End: 05-04-2022 Emergency department patient visit CLAUDETTE LIMON MD Facility:B Start: 05-04-2022 End: 05-04-2022 Emergency department patient visit CLAUDETTE LIMON MD [facility] Start: 03-13-2022 End: 03-14-2022 ambulatory JEREMIAS VALERIO DO Facility:B Start: 03-13-2022 End: 03-13-2022 Patient encounter procedure JEREMIAS VALERIO DO [facility] Start: 02-09-2022 End: 02-10-2022 ambulatory JEREMIAS VALERIO DO Facility:B Start: 02-09-2022 End: 02-09-2022 Patient encounter procedure JEREMIAS VALERIO DO [facility] Start: 08-18-2021 End: 08-19-2021 ambulatory JEREMIAS VALERIO DO Facility:B Start: 08-18-2021 End: 08-18-2021 Patient encounter procedure JEREMIAS VALERIO DO [facility] Start: 08-11-2021 End: 08-12-2021 ambulatory JEREMIAS VALERIO DO Facility:B Start: 01-31-2021 End: 01-31-2021 Patient encounter procedure JEREMIAS VALERIO DO [facility] Procedures Date Procedure Procedure Detail Performing Clinician Back fusion JEREMIAS VALERIO DO Lumpectomy of breast DR LEANA JUSTIN MD Immunizations Immunization Date Immunization Notes Care Provider Fa cility 06-10-2022 tetanus toxoid, redu melquiades diphtheria toxoid, and acellular pertussis vaccine, adsorbed ADALID HOFF MD [facility] 02-09-2022 influenza, high dose seasonal, preservative-free JEREMIAS VALERIO DO [facility] 03-24-2021 COVID-19, mRNA, LNP- S, PF, 100 mcg or 50 mcg dose; Translations: [Moderna COVID-19 Vaccine] JEREMIAS VALERIO DO [facility] 01-31-2021 influenza, high dose seasonal, preservative-free; Translations: [Fluad Quadrivalent PF ] JEREMIAS VALERIO DO [facility] 06-12-2020 COVID-19, mRNA, LNP- S, PF, 100 mcg/ 0.5 mL dose; Translations: [Moderna COVID-19 Vaccine] JEREMIAS VALERIO DO [facility] Payers Date Payer Category Payer Medicare [id number] 2021 Unknown [id number] 1940 Unknown [id number] 2.16.8 [id number] 1940 Unknown [id number] 2.16.8 [id number] 1939 Unknown [id number] 2.16.8 [id number] 1939 Unknown [id number] 2.16.8 [id number] 1939 Unknown [id number] 2.16.8 [id number] 1939 Unknown [id number] 2.16.8 [id number] 1939 Unknown [id number] 2.16.8 [id number] 1939 Unknown [id number] 2.16.8 [id number] 1939 Unknown [id number] 2.16.8 [id number] Social History Date Type Detail Facility Start: 01-31-2019 Never smoked t obacco (finding) [facility] Sex Assigned At [facility] Functional Status Date Assessment Result Facility 07-01-2022 Functional Status Room check performed [facility] 07-01-2022 Functional Status [facility] 07-01-2022 Functional Status Demonstrates C orrect Call Light Use No [facility] 06-30-2022 Functional Status 50 [facility] 06-29-2022 Functional Status SCD Removed/Of f bilateral knee high [facility] 06-29-2022 Functional Status [facility] 06-29-2022 Functional Status Assistive Shae ce Gait belt, Walker, Wheelchair, Sit to stand aid [facility] 06-29-2022 Functional Status [facility] 06-29-2022 Functional Status [facility] 06-29-2022 Functional Status [facility] 06-29-2022 [facility] Status [facility] Functional Status [facility] 06-27-2022 [facility] 06-26-2022 Functional Status [facility] 06-26-2022 Functional Status [facility] 06-26-2022 Functional Status Annyjos busby [facility] 06-25-2022 Functional Status Annyjos busby [facility] 06-25-2022 Functional Status Max A Anny Guerra [facility] 06-25-2022 Functional Status SCD On/Re-appl ied bilateral knee high [facility] 06-25-2022 Functional Status Protective ointment [facility] 06-25-2022 Functional Status Anny busby [facility] 06-24-2022 Functional Status Anny Guerra [facility] 06-24-2022 Functional Status Anny Guerra [facility] 06-23-2022 Functional Status Anny Guerra [facility] 06-22-2022 Functional Status Anny Guerra [facility] 06-22-2022 Functional Status [facility] 06-22-2022 Functional Status Anny Guerra [facility] 06-19-2022 Functional Status Anny Guerra [facility] 06-19-2022 Functional Status Living Situati on Home with family care [facility] 06-19-2022 Functional Status Anny Guerra [facility] 06-18-2022 Functional Status Family present during evaluation and able to answer majority of questions regarding prior level of function and baseline status. [facility] 06-18-2022 Functional Status Anny Guerra [facility] 06-18-2022 Functional Status Unable to assess [facility] 06-18-2022 Functional Status Room check performed [facility] 06-18-2022 Functional Status [facility]ny [facility] 06-18-2022 Functional Status [facility]ny [facility] 06-17-2022 Functional Status Refused Anny Gu[facility] 06-17-2022 Functional Status Total 7 Anny Guerra [facility] 06-16-2022 Functional Status An[facility] 06-16-2022 Functional Status Lunch Percent 25 [facility] 06-16-2022 Functional Status Anny [facility] 06-16-2022 Functional Status Anny [facility] 06-16-2022 Functional Status Anny [facility] 06-16-2022 Functional Status COVID 19 Surge in Effec t Yes [facility] 06-15-2022 Functional Status [facility] 06-15-[facility] [facility] [address] [facility]-15[facility]2022 Functional Status Anny [facility] 06-15-2022 Functional Status Anny [facility] 06-14-[address] [facility] [address] [facility] 06-13-[address] [facility] [address] [facility] 06-12-[address] [facility] [address] [facility] 06-12-[address] [facility] 06-11-2022 Functional Status [facility] 06-11-2022 Functional Status Oral Care Oral care pro tocol [facility] 06-11-2022 Functional Status Family present during evaluation and able to answer majority of questions regarding prior level of function and baseline status. [facility] 06-10-2022 Functional Status Sensory Deficits None A [facility] 06-10-2022 Functional Status Resting [facility] 05-04-2022 Functional Status ID band on, Call device within reach, Bed in low position, Wheels locked, Bedside Cart Locked, Visitor at bedside, Safety level maintained [facility] 05-04-2022 Functional Status [facility] Mental Status Date Assessment Result Facility 07-01-2022 Mental Status Orientation Not oriented to place, Not oriented to time, Not oriented to situation, Forgetful, Follows simple commands [facility] 06-30-2022 Mental Status Orientation Asse ssment Oriented x 4 [facility] 06-30-2022 Mental Status [facility] 06-29-2022 Mental Status [facility] 06-29-2022 Mental Status [facility] 06-18-2022 Mental Status Orientation Oriented x 4 [facility] 06-18-2022 Mental Status [facility] 06-18-2022 Mental Status [facility] 06-17-2022 Mental Status Confused, Not oriented to situation, Oriented to person, Oriented to place, Oriented to time [facility] 06-16-2022 Mental Status [facility] 06-10-2022 Mental Status Orientation Disoriented x 4 [facility] 05-04-2022 Mental Status Orientation Oriented x 4 [facility] 05-04-2022 Mental Status [facility] Clinical Notes 05-04-2022 to 07-01-2022 Note Date & Type Note Facility 07-01-2022 Nurse Discharge summary Discharged to [facility]. Transported by [facility] service. Left at 1315. [facility] 07-01-2022 Note Discharge Instructions Thank you for allowing [facility] to assist you with your healthcare needs. The following is important discharge information regarding your hospital visit. Your Care Team JEREMIAS VALERIO LISA APRN-AB Your Diagnosis Asthenia Essential hypertension Memory impairment Status post CVA Abnormal breath sounds What to do next Scheduled Follow-Up Appointments Appointment Type When With Where Contact InformationPC OV 08/03/2022 09:30 AM EDT JEREMIAS VALERIO [facility] [address] [id number] Follow Up Appointments Follow Up with VICKIE AMES PA-C When 09/01/2022 12:40 PM EDT Why: This appointment is your neurosurgery follow-up appointment and it is in the [facility] office. Where: [address] [place] [id number]- The Following Activity and Diet Have Been Ordered for You Discharge Activity - Ordered -- Resume your pre-hospitalization activity, 07/01/22 8:36:00 EDT Discharge Diet - Ordered -- Type of Diet: Regular Diet, 07/01/22 8:36:00 EDT The Following Equipment Has Been Ordered for You No qualifying data available. The Following Treatments Have Been Ordered for You Discharge Labs No qualifying data available. Discharge Radiology No qualifying data available. Other Therapies No qualifying data available. Post Acute Orders No qualifying data available. Someone Will Contact You Regarding These Home Health Referrals No home referrals have been ordered for you. No one will call you. Allergies Milk Products (Diarrhea - Adult) lisinopril (Cough) morphine (Paranoid) Medications Please ask your primary doctor or pharmacist before taking any other medication not listed, including over the counter drugs, herbal medications, vitamins and or supplements as they may interact with your home medications. What How Much When Why Instructions Last Dose New aspirin-dipyridamole (Aggrenox 25-200 mg oral capsule) 1 cap by mouth Two (2) times a day 07/01 9AM Unchanged acetaminophen-diphenhydramine (Tylenol PM Extra Strength oral tablet) 1 tab(s) by mouth Daily at bedtime as needed for for sleep None Unchanged docusate (Colace 100 mg oral capsule) 1 cap by mouth Two (2) times a day as needed for Constipation None Unchanged ergocalciferol (Vitamin D2 2000 intl units oral capsule) 1 cap by mouth Once a day with food None Unchanged losartan (losartan 100 mg oral tablet) 1 tab(s) by mouth Once a day Essential hypertension 07/01 9AM Unchanged magnesium hydroxide (Milk of Magnesia) 30 Milliliter by mouth Daily at bedtime as needed for Constipation None Unchanged metoprolol 50 Milligram by mouth Two (2) times a day 07/01 9AM Unchanged omega-3 polyunsaturated fatty acids ([place]-3 350 mg oral capsule) 1 cap by mouth Once a day None Unchanged potassium chloride (potassium chloride 10 mEq oral capsule, extended release) 1 cap by mouth Two (2) times a day 07/01 9AM Unchanged simvastatin (simvastatin 80 mg oral tablet) 1 tab(s) by mouth Daily at bedtime 06/30 10PM What How Much When Comments Stop Taking amoxicillin-clavulanate (Augmentin) 875 Milligram by mouth Twice daily with meals Stop Taking QUEtiapine (SEROquel 25 mg oral tablet) 0.5 tab(s) by mouth Daily at bedtime Duration: 14 Days Please take this list to your next doctor s visit. Bring all medications you take, including over the counter medications, herbals and other supplements with you to your doctor s visit. Patients and families are reminded to discard old lists and to update any records with all medication providers or retail pharmacies. Additional Information VACCINATE! IT SAVES LIVES! Members of the community who have not yet received the COVID-19 vaccine and would like to receive it can visit one of [facility] vaccine clinics. There are many vaccine clinic locations within the [facility]. For locations and available times, please visit [email or web address].o pro.gov/. It is important to note that some COVID mobile vaccine clinics are held outdoors and may be canceled in rainy or stormy conditions. To learn more about pediatric vaccinations (ages 5-11), we invite you to visit the [facility] webpage. [email or web address] [email or web address]-Freq [email or web address] To learn more about the COVID-19 vaccine, we invite you to visit the CDC website for a list of frequently asked questions. https://www.cdc.gov/coronavirus/ 2019-ncov/vaccines/faq.html [facility] Patient [facility] Access Instructions: Stay connected with your healthcare team and access your personal medical information anytime with the [facility] Patient Portal.If you would like a full copy of your medical records, please contact the [facility] Medical Records Department, Wednesday through Wednesday between 8a.m. and 4:30p.m. Please follow the directions below to access the portal: 1.Access the email account you provided upon registration to the hospital.2.Look for an invitation email from [facility].3.Open the email and access the invitation link: Accept Invitation to [facility]4.Fill in the required miller to create your account. Sign into www.[employer] with your username and password that you created in the above steps to stay up to date. You can then view a summary of results, a summary of your visits, and the ability to download your summaries to your computer or send the information securely to a physician. Remember that your healthcare information is confidential, so carefully consider who you will allow to register on the [facility] Patient Portal for access to your information. You can also access the [facility] Patient Portal on the [employer] mitra. Simply click on Health Records under Health Data and then click on the [employer] logo. HOW TO SAFELY DISPOSE OF PRESCRIPTION MEDICATIONS Please use one of the following methods to safely dispose of your unused medications. 1.Use a drug disposal kit: the drug disposal pouch allows you to safely discard your old and unused drugs. Ask your nurse to give you one when you are discharged.2.Visit a local take-back location: Many local pharmacies and police departments have programs that collect old and unwanted prescription drugs. Call your local pharmacy or go to http://CPower.VNG/9N8Rb6r to find one close to you.3.Make use of household items: Use cat litter or old coffee grounds to dispose medications if other options are not available. Mix your drugs with these household products, seal them in an airtight container and throw it into the garbage. Call [facility]: [phone] to be sure your drugs can be disposed of in this way. Some medicines may require a different approach.4.Never flush your medications down the toilet. IF YOU HAVE BEEN PRESCRIBED AN OPIOID FOR PAIN If you have been prescribed an opioid (such as hydrocodone, oxycodone or morphine), it is critical to understand the possible side effects and risks of opioid pain medications. Even when taken as directed, opioids can have several side effects including: Tolerance, meaning you might need to take more of a medication for the same pain relief. Nausea, vomiting and/or constipation. Sleepiness, dizziness, dry mouth, confusion, depression or itching. Physical dependence, meaning you have withdrawal symptoms when a medication is stopped, can develop within a few days. KNOW YOUR RESPONSIBILITIES It is important to know exactly how much and how often to take the opioid pain medications you are prescribed. Never take opioids in higher amounts or more often than prescribed. Do not combine opioids with alcohol or other drugs that cause drowsiness, such as benzodiazepines, also known as benzos, including diazepam and alprazolam, muscle relaxants or sleep aids. Never sell or share prescription opioids. This is illegal. Store opioids in a secure place and out of reach of others (including children, family, friends and visitors). The last page of this document has been signed and retained as a CHART COPY. Signatures Patient Education Materials Medication Leaflets My discharge plan and instructions have been reviewed and explained to me and IDONNIE LOIS A understand my current condition and have read and understand these discharge instructions. I have received a written copy of the plan/instructions. If I have questions, I am aware that I should contact my doctor. 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 Asthenia (R53.1 - ICD-10-CM) 2. Essential hypertension (I10 - ICD-10-CM) 3. Memory impairment (R41.3 - ICD-10-CM) 4. Status post CVA (Z86.73 - ICD-10-CM) 5. Abnormal breath sounds (R06.89 - ICD-10-CM) Additional Orders: Ordered: Communication Order (scheduled),07/01/22 8:25:00 EDT, Once, 07/01/22 8:25:00 EDT, Please remove stitches on the left side of forehead prior to d/c. Hospital Course 82-year-old female with past medical history significant for hypertension, CKD, breast cancer, dyslipidemia, CVA. Patient originally presented to [facility] emergency department on 06/10/2022 after sustaining a fall. She was admitted for subarachnoid hemorrhage she sustained a left frontal subarachnoid hematoma, left ZMC fracture with left maxillary hemosinus. Left periorbital and left supraorbital hematomas. Aggrenox was held until cleared by neurosurgery. ENT recommended antibiotics prophylactically for 1 week. She was treated for a UTI. Patient was evaluated by therapy services with recommendation for inpatient rehab. PLAN: 1. Asthenia Acute, s/p left subarachnoid hemorrhage *Continue PT and OT at therapy direction. *Family had originally wanted patient to return home, however, may now require long-term care. She had been getting around at home in a wheelchair. 2. Essential hypertension Chronic, controlled *SBP goal of 140 or less. *Continue current home medications. *Vital signs per protocol. 3. Memory impairment Acute vs chronic, questionable dementia vs delirium *Seroquel was discontinued at family's request. *Patient is still only alert and oriented x 1, however, has been more pleasant and agreeable to working with therapy. *Per therapy, patient had made some small improvements but still requires cues to take a second step. 4. Status post CVA Acute, s/p fall, improving *Continue Aggrenox as noted in neurosurgery note. *Stitches to be removed from left side of forehead prior to d/c today. Patient seen and evaluated this morning while resting in bed. She states that she has no problems or concerns this morning. She denies any fever, chills, cough, shortness of breath, chest pain,, abdominal pain, nausea or dysuria. She reports that she is cold this morning. Patient is stable for discharge to [facility] for long-term care. All questions answered. This case was discussed with collaborating physician, Dr. Jeremiah Jarrell. Allergies Milk Products (Diarrhea - Adult) lisinopril (Cough) morphine (Paranoid) Consults No qualifying data available. Imaging Results and Diagnostics XR Chest 1 View Result Date: June 22, 2022 Verified By: CARMEN TORIBIO MD CLINICAL STATEMENT: IMPRESSION: Clear lungs. Physical Exam Vitals and Measurements T: 36.2 C (Oral) TMIN: 36.2 C (Oral) TMAX: 37.6 C (Oral) HR: 83 RR: 18 BP: 153/70 SpO2: 93% Weight Dosing Weight: 54.2 kg (06/26/22) Dosing Weight: 54 kg (06/19/22) General: No acute distress. Patient is alert and appropriate. Skin: No rash. Skin is warm, dry and intact. HEENT: Head is normocephalic, atraumatic. Pupils are equal, round and reactive. Neck: Supple. No lymphadenopathy, thyromegaly. Lungs: Bilaterally clear but diminished without crepitation or wheeze. Unlabored. Heart: Heart is regular rhythm, S1, S2. No murmurs, gallops or rubs. Abdomen: Abdomen is soft, nontender. Bowels sounds present in all quadrants. Extremities: No clubbing, cyanosis, or edema. Peripheral pulses palpable. No calf tenderness. Neurological: Patient is awake and alert to person. Following simple commands, moving all extremities. Code Status Code Status - Ordered -- 06/18/22 12:54:00 EST, Full Code, Constant Order Admission Date 06/18/2022 Discharge Date 07/01/2022 Patient Instructions Follow-up with Neurosurgery as scheduled on 09/01/2022. Medications Unchanged acetaminophen-diphenhydramine (Tylenol PM Extra Strength oral tablet)1 tab(s) by mouth daily at bedtime as needed for sleep. amoxicillin-clavulanate (Augmentin)875 Milligram by mouth twice daily with meals. docusate (Colace 100 mg oral capsule)1 cap by mouth two (2) times a day as needed Constipation. ergocalciferol (Vitamin D2 2000 intl units oral capsule)1 cap by mouth once a day. with food. Refills: 3. losartan (losartan 100 mg oral tablet)1 tab(s) by mouth once a day. Refills: 0. magnesium hydroxide (Milk of Magnesia)30 Milliliter by mouth daily at bedtime as needed Constipation. [id number] Milligram by mouth two (2) times a day. omega-3 polyunsaturated fatty acids ([place]-3 350 mg oral capsule)1 cap by mouth once a day. potassium chloride (potassium chloride 10 mEq oral capsule, extended release)1 cap by mouth two (2) times a day. Refills: 3. QUEtiapine (SEROquel 25 mg oral tablet)0.5 tab(s) by mouth daily at bedtime for 14 Days. simvastatin (simvastatin 80 mg oral tablet)1 tab(s) by mouth daily at bedtime. Refills: 3. Follow Up Follow Up with VICKIE AMES PA-C When 09/01/2022 12:40 PM EDT Why: This appointment is your neurosurgery follow-up appointment and it is in the [facility] office. Where: [address] [place] [address]- Follow Up Appointments No qualifying data available. Follow Up Labs/Studies Discharge Labs No Follow-up Labs Discharge Studies No Follow-up Studies Discharge Diet No qualifying data available. Discharge Activity No qualifying data available. Condition on Discharge Stable Discharge Disposition [facility] Information Provided To Caregiver Time Spent 30 minutes Digitally Signed by JOAN HDZ on 07/01/2022 11:52 AM [facility] 06-28-2022 Nurse Progress note Patient asked to be toileted. When attempting to get her to the side of the bed she was willing to use the link steady to go to the bathroom. Once patient made it into the bathroom she refused to sit on the toilet because she didn't want to use the link steady anymore. Patient then became agitated. Patient was safely put back into bed and offered to use a bedpan. Patient refused and became agitated. Family was present during this process and witnessed the patient refusing to get up and use the bathroom. Patient stated she'd rather go in her pants than get up with the PCT and the nurse. When offered different staff to toilet her she refused and stated I don't want no body else I want you but continued to refuse to use a bedpan or the link steady. Digitally Signed by Amalia Cortes LPN on 06/28/2022 07:38 PM [facility] 06-27-2022 Nurse Progress note PT asked for assistance with getting patient out of bed to take a few steps. When we attempted to get the patient to stand she refused to move because she was too cold Attempted to get patient to do exercises in bed and she refused again because she was too cold Patient's daughter and grandson were present and attempted to encourage patient to participate in therapy and patient became agitated. Patient repositioned in bed with more blankets. Digitally Signed by Amalia Cortes LPN on 06/27/2022 12:35 PM [facility] 06-26-2022 Note Date of Service 06/26/2022 Chief Complaint Cold Subjective Patient seen and evaluated this morning while resting in bed. She states she is cold this morning. Offered to turn up her room temperature or get her another blanket but she said that's ok. Patient denies any problems or concerns this morning. She states that therapy is going well. She denies any fever, chills, cough, shortness of breath, chest pain, abdominal pain, nausea, constipation or dysuria. All questions answered. Patient reminded that she has a care conference this afternoon and explained what that is. She is unsure whether family will be coming in or not for the care conference. She denies any needs at this time. Objective Vitals and Measurements T: 36.9 C (Oral) TMIN: 36.5 C (Oral) TMAX: 36.9 C (Oral) HR: 86(Monitored) RR: 18 BP: 156/83 SpO2: 96% WT: 54.2 kg Intake and Output 7AM Yesterday to 7AM Today Intake and Output (Last 24 hours) Intake Output Stool Count 1.00 Diaper Count 2.00 Total Summary Total Intake 0.00 Total Output 0.00 Fluid Balance 0.00 Physical Exam General: No acute distress. Patient is alert and appropriate. Skin: No rash. Skin is warm, dry and intact. HEENT: Head is normocephalic, atraumatic. Pupils are equal, round and reactive. Neck: Supple. No lymphadenopathy, thyromegaly. Lungs: Bilaterally clear but diminished without crepitation or wheeze. Unlabored. Heart: Heart is regular rhythm, S1, S2. No murmurs, gallops or rubs. Abdomen: Abdomen is soft, nontender. Bowels sounds present in all quadrants. Extremities: No clubbing, cyanosis, or edema. Peripheral pulses palpable. No calf tenderness. Neurological: Patient is awake and alert to person. Following simple commands, moving all extremities. Weight Dosing Weight: 54.2 kg (06/26/22) Dosing Weight: 54 kg (06/19/22) Medications Medications (15) Active Scheduled: (5) aspirin-dipyridamole 25 mg-200 mg ER 1 cap(s), Oral, BID atorvastatin 40 mg tablet 40 mg 1 tab(s), Oral, qHS losartan 50 mg tablet 100 mg 2 tab(s), Oral, qDay metoprolol tartrate 25 mg tablet 50 mg 2 tab(s), Oral, BID potassium chloride 10 mEq ER capsule 10 mEq 1 cap(s), Oral, BID Continuous: (0) PRN: (10) acetaminophen 325 mg Tablet 650 mg 2 tab(s), Oral, q4h acetaminophen 325 mg Tablet 650 mg 2 tab(s), Oral, q4h Al hydrox/Mg hydrox/simethicone 200-200-20 mg/5 mL Susp UD 15 mL, Oral, q4h docusate sodium 100 mg Capsule 100 mg 1 cap(s), Oral, BID emollients (Desitin) 1 mitra, Topical, AsDirected guaifenesin 100 mg/5 mL 120 mL liquid 200 mg 10 mL, Oral, q4h magnesium hydroxide 8% Suspension 30 mL UD 30 mL, Oral, qHS melatonin 3 mg tablet 6 mg 2 tab(s), Oral, qHS menthol (Biofreeze) gel packet 1 mitra, Topical, TID polyethylene glycol 3350 - UD packet 17 gram(s) 15 mL, Oral, BID Lab Results No 36 Hour Lab Data Imaging Results and Diagnostics XR Chest 1 View Result Date: June 22, 2022 Verified By: CARMEN TORIBIO MD CLINICAL STATEMENT: IMPRESSION: Clear lungs. EKG No qualifying data available. Assessment/Plan 1. Asthenia Acute, s/p left subarachnoid hemorrhage *Continue PT and OT at therapy direction. *Family had originally wanted patient to return home, however, may now require long-term care. She had been getting around at home in a wheelchair. *Care conference scheduled for this afternoon. 2. Essential hypertension Chronic, controlled *SBP goal of 140 or less. *Continue current home medications. *Vital signs per protocol. 3. Memory impairment Acute vs chronic, questionable dementia vs delirium *Seroquel was discontinued at family's request. *Patient is still only alert and oriented x 1, however, has been more pleasant and agreeable to working with therapy. *Per therapy, patient had made some small improvements but still requires cues to take a second step. 4. Status post CVA Acute, s/p fall, improving *Continue Aggrenox as noted in neurosurgery note. 5. Abnormal breath sounds Resolved *Lungs clear to auscultation and sats excellent on room air. *Continue to monitor. DVT prophylaxis with SCDs. Code status: Full Code. Labs, diagnostic test and progress notes reviewed as noted in HPI. Plan of care discussed with patient. All questions answered. Patient verbalizes understanding and is agreeable with plan of care. This case was discussed with collaborating physician, Dr. Lady Meyers. Time Spent 35 minutes Digitally Signed by JOAN HDZ on 06/26/2022 11:31 AM [facility] 06-22-2022 Note ORIGINAL HISTORY: Coarse crackles COMPARISON: 10 June 2022 FINDINGS: The film is mildly limited by positioning. The film is rotated. The lungs are clear. The pulmonary vasculature is unremarkable in appearance. IMPRESSION: Clear lungs. Interpreted by: Carmen Toribio MD Preliminary Report By: Carmen Toribio MD Electronically signed By Carmen Toribio MD Dictated Date: 06/22/2022 11:58:10 AM Prelim Date: 06/22/2022 11:58:38 AM Sign Date: 06/22/2022 11:58:38 AM Ordering Provider: [facility] 06-22-2022 Note ORIGINAL HISTORY: Coarse crackles COMPARISON: 10 June 2022 FINDINGS: The film is mildly limited by positioning. The film is rotated. The lungs are clear. The pulmonary vasculature is unremarkable in appearance. IMPRESSION: Clear lungs. Interpreted by: Carmen Toribio MD Preliminary Report By: Carmen Toribio MD Electronically signed By Carmen Toribio MD Dictated Date: 06/22/2022 11:58:10 AM Prelim Date: 06/22/2022 11:58:38 AM Sign Date: 06/22/2022 11:58:38 AM Ordering Provider: [facility] 06-22-2022 Note Date of Service 06/22/2022 Subjective 82-year-old female with past medical history significant for hypertension, CKD, breast cancer, dyslipidemia, CVA. Patient originally presented to [facility] emergency department on 06/10/2022 after sustaining a fall. She was admitted for subarachnoid hemorrhage she sustained a left frontal subarachnoid hematoma, left ZMC fracture with left maxillary hemosinus. Left periorbital and left supraorbital hematomas. Aggrenox was held until cleared by neurosurgery. ENT recommended antibiotics prophylactically for 1 week. She was treated for a UTI. Patient was evaluated by therapy services with recommendation for inpatient rehab. Patient has been quite agitated over the weekend. Seroquel was increased to 25 mg nightly. Patient is tolerating this well. Unable to complete review of systems as patient is not participating. Objective Vitals and Measurements T: 36.7 C (Oral) TMIN: 36.4 C (Axillary) TMAX: 37.0 C (Oral) HR: 96(Apical) RR: 20 BP: 151/71 SpO2: 96% Intake and Output 7AM Yesterday to 7AM Today Intake and Output (Last 24 hours) Intake Output Stool Count 4.00 Diaper Count 2.00 Total Summary Total Intake 0.00 Total Output 0.00 Fluid Balance 0.00 Physical Exam GEN: Appears chronically ill CHEST: Normal S1 and S2. Rhythm is regular. Coarse crackles upper lobes. Patient has a very weak cough and is unable to clear. ABD: Positive bowel sounds x 4 quads. Soft, nondistended, nontender. EXT: No significant deformity or joint abnormality. No edema. Peripheral pulses intact. NEURO: Sensation grossly intact SKIN: Skin color normal. Abrasions on face. left hand bruise from infiltrated IV. PSYCH: The mental examination revealed the patient was alert and oriented x 1. More pleasant and interactive today. Weight Dosing Weight: 54 kg (06/19/22) Dosing Weight: 55.6 kg (06/18/22) Medications Medications (16) Active Scheduled: (7) amoxicillin-clavulanate 875 mg - 125 mg tablet 875 mg 1 tab(s), Oral, BIDM atorvastatin 40 mg tablet 40 mg 1 tab(s), Oral, qHS losartan 50 mg tablet 100 mg 2 tab(s), Oral, qDay metoprolol tartrate 25 mg tablet 50 mg 2 tab(s), Oral, BID potassium chloride 10 mEq ER capsule 10 mEq 1 cap(s), Oral, BID QUEtiapine 25 mg tablet 12.5 mg 0.5 tab(s), Oral, qAM QUEtiapine 25 mg tablet 25 mg 1 tab(s), Oral, qHS Continuous: (0) PRN: (9) acetaminophen 325 mg Tablet 650 mg 2 tab(s), Oral, q4h acetaminophen 325 mg Tablet 650 mg 2 tab(s), Oral, q4h Al hydrox/Mg hydrox/simethicone 200-200-20 mg/5 mL Susp UD 15 mL, Oral, q4h docusate sodium 100 mg Capsule 100 mg 1 cap(s), Oral, BID guaifenesin 100 mg/5 mL 120 mL liquid 200 mg 10 mL, Oral, q4h magnesium hydroxide 8% Suspension 30 mL UD 30 mL, Oral, qHS melatonin 3 mg tablet 6 mg 2 tab(s), Oral, qHS menthol (Biofreeze) gel packet 1 mitra, Topical, TID polyethylene glycol 3350 - UD packet 17 gram(s) 15 mL, Oral, BID Assessment/Plan 1. Asthenia 2. Essential hypertension 3. Memory impairment Asthenia-continue PT and OT. Family would like for patient to return home eventually. At home she was getting around in a wheelchair. Focus will be on wheelchair transfers. HTN- SBP goal 140 or less. Continue home antihypertensives. Memory impairment- Dementia vs. delirium. Continue seroquel 25mg qhs. Add seroquel 12.5mg qam. Patient is more pleasant and less combative today. CVA continue Aggrenox as noted in neurosurgery note. Abnormal breath sounds patient had coarse crackles and has a weak cough. She is unable to clear secretions will obtain chest x-ray. She has been afebrile and hemodynamically stable with adequate oxygen saturations on room air. Code Status:Full Code Plan of care discussed with patient. This dictation was performed using voice recognition software and may include grammatical and/or spelling errors. Digitally Signed by TRISTON CHATMAN on 06/22/2022 09:55 AM [facility] 06-20-2022 Note Date of Service 06/20/2022 Subjective 82-year-old female with past medical history significant for hypertension, CKD, breast cancer, dyslipidemia, CVA. Patient originally presented to [facility] emergency department on 06/10/2022 after sustaining a fall. She was admitted for subarachnoid hemorrhage she sustained a left frontal subarachnoid hematoma, left ZMC fracture with left maxillary hemosinus. Left periorbital and left supraorbital hematomas. Aggrenox was held until cleared by neurosurgery. ENT recommended antibiotics prophylactically for 1 week. She was treated for a UTI. Patient was evaluated by therapy services with recommendation for inpatient rehab. Patient is working with therapy services but required Marycarmen lift for transfer on 06/19/2022. Patient was having quite a bit of agitation and behavioral disturbances yesterday. Overnight 06/19 she required a one-time dose of Haldol. Patient is nonparticipatory in the review of systems Objective Vitals and Measurements T: 36.6 C (Oral) TMIN: 36.6 C (Oral) TMAX: 36.9 C (Oral) HR: 92(Apical) RR: 16 BP: 157/61 SpO2: 97% Intake and Output 7AM Yesterday to 7AM Today Intake and Output (Last 24 hours) Intake Output Stool Count 1.00 Urine Count 1.00 Diaper Count 1.00 Total Summary Total Intake 0.00 Total Output 0.00 Fluid Balance 0.00 Physical Exam GEN: Appears chronically ill CHEST: Normal S1 and S2. Rhythm is regular. Clear to auscultation, without rales, rhonchi, wheezing. ABD: Positive bowel sounds x 4 quads. Soft, nondistended, nontender. EXT: No significant deformity or joint abnormality. No edema. Peripheral pulses intact. NEURO: Sensation grossly intact SKIN: Skin color normal. Abrasions on face. left hand bruise from infiltrated IV. PSYCH: The mental examination revealed the patient was alert and oriented x 1. Very easily agitated. Weight Dosing Weight: 54 kg (06/19/22) Dosing Weight: 55.6 kg (06/18/22) Medications Medications (15) Active Scheduled: (6) amoxicillin-clavulanate 875 mg - 125 mg tablet 875 mg 1 tab(s), Oral, BIDM atorvastatin 40 mg tablet 40 mg 1 tab(s), Oral, qHS losartan 50 mg tablet 100 mg 2 tab(s), Oral, qDay metoprolol tartrate 25 mg tablet 50 mg 2 tab(s), Oral, BID potassium chloride 10 mEq ER capsule 10 mEq 1 cap(s), Oral, BID QUEtiapine 25 mg tablet 25 mg 1 tab(s), Oral, qHS Continuous: (0) PRN: (9) acetaminophen 325 mg Tablet 650 mg 2 tab(s), Oral, q4h acetaminophen 325 mg Tablet 650 mg 2 tab(s), Oral, q4h Al hydrox/Mg hydrox/simethicone 200-200-20 mg/5 mL Susp UD 15 mL, Oral, q4h docusate sodium 100 mg Capsule 100 mg 1 cap(s), Oral, BID guaifenesin 100 mg/5 mL 120 mL liquid 200 mg 10 mL, Oral, q4h magnesium hydroxide 8% Suspension 30 mL UD 30 mL, Oral, qHS melatonin 3 mg tablet 6 mg 2 tab(s), Oral, qHS menthol (Biofreeze) gel packet 1 mitra, Topical, TID polyethylene glycol 3350 - UD packet 17 gram(s) 15 mL, Oral, BID Assessment/Plan 1. Asthenia 2. Essential hypertension 3. Memory impairment Asthenia-continue PT and OT. Family would like for patient to return home eventually. At home she was getting around in a wheelchair. Focus will be on wheelchair transfers. HTN- SBP goal 140 or less. Continue home antihypertensives. Memory impairment-patient experienced some behavioral disturbance yesterday during the day and last night as well. Will increase quetiapine to 25 mg nightly. Quetiapine 12.5 mg p.o. x1. CVA continue Aggrenox as noted in neurosurgery note. Code Status:Full Code Plan of care discussed with patient. This dictation was performed using voice recognition software and may include grammatical and/or spelling errors. Digitally Signed by TRISTON CHATMAN on 06/20/2022 02:12 PM [facility] 06-18-2022 Note Date of Service 06/18/2022 Chief Complaint Weakness History of Present Illness 82-year-old female with past medical history significant for hypertension, CKD, breast cancer, dyslipidemia, CVA. Patient originally presented to [facility] emergency department on 06/10/2022 after sustaining a fall. She was admitted for subarachnoid hemorrhage she sustained a left frontal subarachnoid hematoma, left ZMC fracture with left maxillary hemosinus. Left periorbital and left supraorbital hematomas. Aggrenox was held until cleared by neurosurgery. ENT recommended antibiotics prophylactically for 1 week. She was treated for a UTI. Patient was evaluated by therapy services with recommendation for inpatient rehab. On exam today, pt denies any fever or chills. No headache or dizziness. Denies chest pain, palpitations. No cough, dyspnea, sputum production. Denies N/V/D/C. No melena/hematochezia. No dysuria or hematuria. No new paresthesias. Review of Systems See HPI for specific ROS. All other systems reviewed and negative. Physical Exam Vitals and Measurements T: 36.9 C (Oral) TMIN: 36.7 C (Oral) TMAX: 36.9 C (Oral) HR: 74(Apical) RR: 22 BP: 129/69 SpO2: 97% HT: 162.6 cm WT: 55.6 kg BMI: 21.03 Weight Dosing Weight: 55.6 kg (06/18/22) GEN: Appears chronically ill EYES: No conjunctival erythema, drainage. EOMI EARS: Hearing grossly intact. NOSE: No nasal discharge. THROAT: Oral cavity and pharynx pink and moist. CHEST: Normal S1 and S2. Rhythm is regular. Clear to auscultation, without rales, rhonchi, wheezing. ABD: Positive bowel sounds x 4 quads. Soft, nondistended, nontender. EXT: No significant deformity or joint abnormality. No edema. Peripheral pulses intact. NEURO: Sensation grossly intact SKIN: Skin color normal. Abrasions on face. left hand bruise from infiltrated IV. PSYCH: The mental examination revealed the patient was alert and oriented x 4 Assessment/Plan 1. Asthenia 2. Essential hypertension Ordered: losartan, Start: 06/19/22 9:00:00 EST, Dose = 100 mg, = 2 tab(s), Oral, qDay, 0, 06/18/22 12:55:00 EST 3. Memory impairment Asthenia-Consult PT and OT. Family would like for patient to return home eventually. At home she was getting around in a wheelchair. HTN- SBP goal 140 or less. Continue home antihypertensives. Memory impairment patient was alert and oriented for me- . Apparently she does have episodes of increased confusion at night. CVA Aggrenox on hold until cleared by neurosurgeon. Code Status:Full Code Plan of care discussed with patient. All questions answered. Patient verbalizes understanding is agreeable to plan of care. This dictation was performed using voice recognition software and may include grammatical and/or spelling errors. Problem List/Past Medical History Ongoing At high risk for falls Breast cancer screening by mammogram Chronic edema Chronic renal failure, stage 3b E. coli UTI (urinary tract infection) Essential hypertension Fall at home Generalized muscle weakness History of breast cancer History of CVA in adulthood Hypokalemia Hyponatremia Immunization due Impaired gait and mobility Left hip pain Mixed hyperlipidemia Osteoporosis Status post CVA Vitamin D deficiency Historical Breast ca Clostridioides difficile carrier Hyperlipidemia Procedure/Surgical History Breast lumpectomy Back fusion Medications Home Medications (11) Active Augmentin 875 mg = 1 tab(s), Oral, BIDM Colace 100 mg oral capsule 100 mg = 1 cap(s), PRN, Oral, BID losartan 100 mg oral tablet 100 mg = 1 tab(s), Oral, qDay metoprolol 50 mg, Oral, BID Milk of Magnesia 30 mL, PRN, Oral, qHS [place]-3 350 mg oral capsule 350 mg = 1 cap(s), Oral, qDay potassium chloride 10 mEq oral capsule, extended release 10 mEq = 1 cap(s), Oral, BID SEROquel 25 mg oral tablet 12.5 mg = 0.5 tab(s), Oral, qHS simvastatin 80 mg oral tablet 80 mg = 1 tab(s), Oral, qHS Tylenol PM Extra Strength oral tablet 1 tab(s), PRN, Oral, qHS Vitamin D2 2000 intl units oral capsule 2,000 International_Unit = 1 cap(s), Oral, qDay Allergies Milk Products (Diarrhea - Adult) lisinopril (Cough) morphine (Paranoid) Social History Smoking Status - 01/30/2014 Former smoker Alcohol Use: Never., 01/31/2019 Employment/School Status: Retired., 08/04/2019 Exercise Home/Environment Domestic Concerns: None. Living situation: Home/Independent. Lives In: Single level home., 06/18/2022 None Domestic Concerns:. Living situation: Home/Independent. Single level home Lives In:., 01/31/2019 Nutrition/Health Type of diet: Regular. Good Appetite. None Eating Difficulties., 01/31/2019 Substance Abuse Use: Never., 01/31/2019 Tobacco Tobacco Use: Never (less than 100 in lifetime)., 01/31/2019 Family History Family history is negative Immunizations pneumococcal 13-valent conjugate vaccine: 0 unknown unit (02/15/17) pneumococcal 23-valent vaccine(Pneumovax: 0 unknown unit (10/17/05) pneumococcal 23-valent vaccine(Pneumovax: 0 unknown unit (04/19/05) pneumococcal 23-valent vaccine(Pneumovax: 0 unknown unit (03/18/05) SARS-CoV-2 (COVID-19) mRNA-1273 vaccine: 50 mcg (03/24/21) SARS-CoV-2 (COVID-19) mRNA-1273 vaccine: 100 mcg (06/12/20) SARS-CoV-2 (COVID-19) mRNA-1273 vaccine: 0 unknown unit (05/15/20) tetanus/diphth/pertuss (Tdap) adult/adol: 0.5 mL (06/10/22) zoster vaccine live: 0 unknown unit (04/19/05) zoster vaccine live: 0 unknown unit (04/19/05) zoster vaccine live: 0 unknown unit (03/18/05) Code Status Code Status - Ordered -- 06/18/22 12:54:00 EST, Full Code, Constant Order Digitally Signed by TRISTON CHATMAN on 06/18/2022 06:16 PM [facility] 06-18-2022 Hospital Discharg e instructions Follow Up Care 06/18/2022 12:23:43 With:VICKIE AMES PA-C Address: [address] [place] [id number] When:09/01/2022 12:40:00 Comments:This appointment is your neurosurgery follow-up appointment and it is in the [facility] office. [facility] 1. Asthenia 2. Essential hypertension Ordered: losartan, Start: 06/19/22 9:00:00 EST, Dose = 100 mg, = 2 tab(s), Oral, qDay, 0, 06/18/22 12:55:00 EST 3. Memory impairment Asthenia-Consult PT and OT. Family would like for patient to return home eventually. At home she was getting around in a wheelchair. HTN- SBP goal 140 or less. Continue home antihypertensives. Memory impairment patient was alert and oriented for me- . Apparently she does have episodes of increased confusion at night. CVA Aggrenox on hold until cleared by neurosurgeon. Code Status:Full Code Plan of care discussed with patient. All questions answered. Patient verbalizes understanding is agreeable to plan of care. This dictation was performed using voice recognition software and may include grammatical and/or spelling errors. Future Appointments Appointment Date:08/03/2022 09:30:00 AM Scheduled Provider:JEREMIAS VALERIO DO Location:[facility] Appointment Type:PC OV [facility] 03-02-2023 Note Date of Service 06/18/2022 Discharge orders were placed yesterday, 06/17/2022 however pre-CERT was not obtained and patient did not leave. Today, pre-CERT was obtained and the patient left for [facility] before I was able tosee the patient this morning. Please refer to discharge summary from 06/17/2022 for further details. Digitally Signed by JAMISON BECK on 06/18/2022 12:[address] [facility] [id number] Dis[facility] Patient Education 06/18/2022 09:52:48 Subarachnoid Hemorrhage Subarachnoid Hemorrhage Subarachnoid hemorrhage is bleeding in the area between the brain and the membrane that covers the brain (subarachnoid space). This bleeding increases the pressure on the brain and decreases blood flow to certain areas of the brain. Subarachnoid hemorrhage is a medical emergency. If this condition is not treated, it may cause permanent brain damage, stroke, or even . What are the causes? This condition may be caused by: A burst blood vessel in the brain (ruptured brain aneurysm). A head injury. Bleeding from blood vessels that have developed abnormally (arteriovenous malformation). A bleeding disorder. Use of blood-thinning medicines (anticoagulants). Use of certain drugs, such as cocaine. In some cases, the cause is not known. What increases the risk? You are more likely to develop this condition if: You smoke. You have high blood pressure (hypertension). You abuse alcohol. You are older than age 50. You are female, especially if you have gone through menopause. You have a family history of aneurysms. You have a certain genetic syndrome that results in kidney disease (autosomal dominant polycystic kidney disease) or connective tissue disease. What are the signs or symptoms? Symptoms of this condition include: A sudden, severe headache. The headache is often described as the worst headache ever experienced. Nausea or vomiting, especially when combined with other symptoms such as a headache. Sudden weakness or numbness of the face, arm, or leg, especially on one side of the body. Sudden trouble walking or difficulty moving an arm or leg. Sudden confusion. Trouble speaking (expressive aphasia) or understanding speech (receptive aphasia). Difficulty swallowing. Sudden trouble seeing out of one or both eyes. Double vision. Dizziness. Loss of balance or coordination. Sensitivity to light. Stiff neck. Drowsiness. Loss of consciousness. How is this diagnosed? This condition is diagnosed based on a physical exam and your symptoms. You may have tests, such as: CT scan. MRI. A procedure to examine the blood vessels in the brain and neck (cerebral angiogram). For this test,a dye is injected into your bloodstream before X-rays are taken to examine blood flow. Dye makes the blood vessels easier to see. A procedure to remove and examine a small amount of the fluid that surrounds the brain and spinal cord (lumbar puncture). Blood tests. An ultrasound to monitor blood flow in the brain (transcranial Doppler). How is this treated? This condition often requires immediate treatment in the hospital to lower the risk of brain damage. Treatment depends on the cause, severity, and location of the bleeding and any damage that it has caused. Treatment goals are to stop bleeding, repair the cause of bleeding, relieve symptoms, and prevent problems. Treatment may include: Medicines that: ?Reverse the effects of blood thinners, if you were taking blood thinners before the subarachnoid hemorrhage. ?Lower the blood pressure (antihypertensives). ?Relieve pain (analgesics). ?Relieve nausea or vomiting. ?Prevent seizures. Surgery to stop bleeding, repair the cause of the bleeding, or remove blood that has collected. This may involve: ?A procedure that is done from inside the blood vessel, in which the aneurysm is filled with small,[place] coils (endovascular coiling). ?Opening the skull (craniotomy) to reach the aneurysm and put a clip at the base of the aneurysm (surgical clipping). Surgery to relieve pressure on the brain by placing a tube (external ventricular drain, EVD) in thebrain to drain blood. Physical, occupational, or speech-language therapy to improve any mental (cognitive) and [id number]-we-[id number] that are affected by your condition. Other treatment depends on the cause and severity of symptoms, and how long the symptoms have lasted. Actions may be taken to prevent short-term and long-term problems, including lung infection (pneumonia) and blood clots in your legs. Follow these instructions at home: Medicines Take [id number] and prescription medicines only as told by your health care provider. Do not take any medicines that contain aspirin or NSAIDs unless your health care provider approves. Lifestyle Do not use any products that contain nicotine or tobacco, such as cigarettes and e-cigarettes. If you need help quitting, ask your health care provider. Limit alcohol intake to no more than 1 drink a day for non women and 2 drinks a day for men. One drink equals 12 oz of beer, 5 oz of wine, or 1 oz of hard liquor. Eating and drinking Follow instructions from your health care provider about whether eating and drinking are safe for you. You may need tests to make sure that you can swallow safely (swallow studies). Driving Do not drive until your health care provider approves. Do not drive or use heavy machinery while taking prescription pain medicine. General instructions Do physical, occupational, and speech-language therapy as recommended. Rest and limit activities as directed. Rest helps the brain to heal. Make sure you: ?Get plenty of sleep. ?Avoid activities that cause physical or mental stress. Check and write down your blood pressure as told by your health care provider. Keep all follow-up visits as told by your health care providers. This is important. Contact a health care provider if: You have a stiff neck. You have a cough. You have a fever. Get help right away if: You have any symptoms of a stroke. BE FAST is an easy way to remember the main warning signs of astroke: ?B - Balance. Signs are dizziness, sudden trouble walking, or loss of balance. ?E - Eyes. Signs are trouble seeing or a sudden change in vision. ?F - Face. Signs are sudden weakness or numbness of the face, or the face or eyelid drooping on oneside. ?A - Arms. Signs are weakness or numbness in an arm. This happens suddenly and usually on one side of the body. ?S - Speech. Signs are sudden trouble speaking, slurred speech, or trouble understanding what people say. ?T - Time. Time to call emergency services. Write down what time symptoms started. You have other signs of a stroke, such as: ?A sudden, severe headache with no known cause. ?Nausea or vomiting. ?Seizure. These symptoms may represent a serious problem that is an emergency. Do not wait to see if the symptoms will go away. Get medical help right away. Call your local emergency services (911 in the [place] Do not drive yourself to the hospital. Summary Subarachnoid hemorrhage is bleeding in the area between the brain and the membrane that covers the brain (subarachnoid space). Subarachnoid hemorrhage is a medical emergency. Treatment may include procedures to stop bleeding or reduce pressure in the skull, and medicines to prevent complications. Follow instructions from your health care provider about diet restrictions, activity restrictions, and medicines. This information is not intended to replace advice given to you by your health care provider. Make sure you discuss any questions you have with your health care provider. Document Released: 02/20/2005 Document Revised: 09/25/2019 Document Reviewed: 01/13/2018 [employer] Patient Education 2020 [employer]. Follow Up Care 06/10/2022 11:08:46 With:[facility] Address:Unknown When:1-2 days With:JEREMIAS VALERIO DO Address: [address] [place] [phone] When:5 to 7 days With:[facility] Address: [address] [place] [address]- When: Unknown Comments:4-6 weeks to discuss follow up MRI brain [facility] 03-02-2023 Note Discharge Instructions Thank you for allowing [facility] to assist you with your healthcare needs. The following is importantdischarge information regarding your hospital visit. Your Care Team JEREMIAS VALERIO DO Your Diagnosis Subarachnoid hemorrhage Change in mental status Zygomatic fracture, left side, sequela HTN (hypertension), Essential hypertension CVA (cerebrovascular accident) Dyslipidemia Fall What to do next Scheduled Follow-Up Appointments Appointment Type When With Where Contact InformationPC OV 08/03/2022 09:30 AM EDT JEREMIAS VALERIO DO [facility] [address] [phone] Follow Up Appointments Follow Up with [facility] When Within 1-2 days Follow Up with JEREMIAS VALERIO DO When Within 5 to 7 days Where: [address] [place] [phone] Follow Up with [facility] When Why: 4-6 weeks to discuss follow up MRI brain Where: [address] [place] [address]- The Following Activity and Diet Have Been Ordered for You Transfer of Care Activity - Ordered -- Activity As Tolerated, 06/17/22 10:27:00 EST Transfer of Care Diet - Ordered -- Type of Diet: [id number], 06/17/22 10:27:00 EST The Following Equipment Has Been Ordered for You Discharge Home Equipment Discharge Communication Order - Ordered -- remove sutures from left amish on 3-6, 06/17/22 10:27:29 EST Discharge Communication Order - Ordered -- Per kieran Lindsay to resume aggrenox 3-2., 06/17/22 10:28:01 EST The Following Treatments Have Been Ordered for You Discharge Labs No qualifying data available. Discharge Radiology No qualifying data available. Other Therapies Transfer of Care OT - Ordered -- Reason for therapy: debility, fall, 06/17/22 10:27:00 EST Transfer of Care PT - Ordered -- Reason for therapy: debility, fall, 06/17/22 10:27:00 EST Transfer of Care Speech Therapy - Ordered -- Reason for therapy: dysphagia, on modified diet., 06/17/22 10:27:00 EST Post Acute Orders Transfer of Care Code Status - Ordered -- DNRCC-Arrest Do Not Intubate, Constant Order Transfer of Care Orders Electronically Signed By - Ordered -- 06/17/22 10:27:00 EST, JEREMIAH JARRELL DO Transfer of Care Palliative Care - Ordered Transfer of Care Prognosis - Ordered -- Good, Patient Aware: Yes Transfer of Care Rehab Potential - Ordered -- Rehab potential good, 06/17/22 10:28:01 EST Someone Will Contact You Regarding These Home Health Referrals No home referrals have been ordered for you. No one will call you. Allergies Milk Products (Diarrhea - Adult) lisinopril (Cough) morphine (Paranoid) Medications Please ask your primary doctor or pharmacist before taking any other medication not listed, including over the counter drugs, herbal medications, vitamins and or supplements as they may interact withyour home medications. What How Much When Why Instructions Last Dose New amoxicillin-clavulanate (Augmentin) 875 Milligram by mouth Twice daily with meals New docusate (Colace 100 mg oral capsule) 1 cap by mouth Two (2) times a day as needed for Constipation New magnesium hydroxide (Milk of Magnesia) 30 Milliliter by mouth Daily at bedtime as needed for Constipation New metoprolol 50 Milligram by mouth Two (2) times a day New QUEtiapine (SEROquel 25 mg oral tablet) 0.5 tab(s) by mouth Daily at bedtime Duration: 14 Days Unchanged acetaminophen-diphenhydramine (Tylenol PM Extra Strength oral tablet) 1 tab(s) by mouth Daily at bedtime as needed for for sleep Unchanged ergocalciferol (Vitamin D2 2000 intl units oral capsule) 1 cap by mouth Once a day with food Unchanged losartan (losartan 100 mg oral tablet) 1 tab(s) by mouth Once a day Essential hypertension Unchanged omega-3 polyunsaturated fatty acids ([place]-3 350 mg oral capsule) 1 cap by mouth Once a day Unchanged potassium chloride (potassium chloride 10 mEq oral capsule, extended release) 1 cap by mouth Two (2) times a day Unchanged simvastatin (simvastatin 80 mg oral tablet) 1 tab(s) by mouth Daily at bedtime What How Much When Comments Stop Taking aspirin-dipyridamole (Aggrenox 25-200 mg oral capsule) 1 cap by mouth Two (2) times a day Stop Taking atenolol (atenolol 50 mg oral tablet) 1 tab(s) by mouth Once a day Please take this list to your next doctor s visit. Bring all medications you take, including over the counter medications, herbals and other supplements with you to your doctor s visit. Patients and families are reminded to discard old lists and to update any records with all medication providers or retail pharmacies. Education Materials Subarachnoid Hemorrhage Subarachnoid hemorrhage is bleeding in the area between the brain and the membrane that covers the brain (subarachnoid space). This bleeding increases the pressure on the brain and decreases blood flow to certain areas of the brain. Subarachnoid hemorrhage is a medical emergency. If this condition is not treated, it may cause permanent brain damage, stroke, or even . What are the causes? This condition may be caused by: A burst blood vessel in the brain (ruptured brain aneurysm). A head injury. Bleeding from blood vessels that have developed abnormally (arteriovenous malformation). A bleeding disorder. Use of blood-thinning medicines (anticoagulants). Use of certain drugs, such as cocaine. In some cases, the cause is not known. What increases the risk? You are more likely to develop this condition if: You smoke. You have high blood pressure (hypertension). You abuse alcohol. You are older than age 50. You are female, especially if you have gone through menopause. You have a family history of aneurysms. You have a certain genetic syndrome that results in kidney disease (autosomal dominant polycystic kidney disease) or connective tissue disease. What are the signs or symptoms? Symptoms of this condition include: A sudden, severe headache. The headache is often described as the worst headache ever experienced. Nausea or vomiting, especially when combined with other symptoms such as a headache. Sudden weakness or numbness of the face, arm, or leg, especially on one side of the body. Sudden trouble walking or difficulty moving an arm or leg. Sudden confusion. Trouble speaking (expressive aphasia) or understanding speech (receptive aphasia). Difficulty swallowing. Sudden trouble seeing out of one or both eyes. Double vision. Dizziness. Loss of balance or coordination. Sensitivity to light. Stiff neck. Drowsiness. Loss of consciousness. How is this diagnosed? This condition is diagnosed based on a physical exam and your symptoms. You may have tests, such as: CT scan. MRI. A procedure to examine the blood vessels in the brain and neck (cerebral angiogram). For this test,a dye is injected into your bloodstream before X-rays are taken to examine blood flow. Dye makes the blood vessels easier to see. A procedure to remove and examine a small amount of the fluid that surrounds the brain and spinal cord (lumbar puncture). Blood tests. An ultrasound to monitor blood flow in the brain (transcranial Doppler). How is this treated? This condition often requires immediate treatment in the hospital to lower the risk of brain damage. Treatment depends on the cause, severity, and location of the bleeding and any damage that it has caused. Treatment goals are to stop bleeding, repair the cause of bleeding, relieve symptoms, and prevent problems. Treatment may include: Medicines that: ? Reverse the effects of blood thinners, if you were taking blood thinners before the subarachnoid hemorrhage. ? Lower the blood pressure (antihypertensives). ? Relieve pain (analgesics). ? Relieve nausea or vomiting. ? Prevent seizures. Surgery to stop bleeding, repair the cause of the bleeding, or remove blood that has collected. This may involve: ? A procedure that is done from inside the blood vessel, in which the aneurysm is filled with small, [place] coils (endovascular coiling). ? Opening the skull (craniotomy) to reach the aneurysm and put a clip at the base of the aneurysm (surgical clipping). Surgery to relieve pressure on the brain by placing a tube (external ventricular drain, EVD) in thebrain to drain blood. Physical, occupational, or speech-language therapy to improve any mental (cognitive) and ndu-kv-zeduwwvbbydv that are affected by your condition. Other treatment depends on the cause and severity of symptoms, and how long the symptoms have lasted. Actions may be taken to prevent short-term and long-term problems, including lung infection (pneumonia) and blood clots in your legs. Follow these instructions at home: Medicines Take wbhf-ymt-rkhzros and prescription medicines only as told by your health care provider. Do not take any medicines that contain aspirin or NSAIDs unless your health care provider approves. Lifestyle Do not use any products that contain nicotine or tobacco, such as cigarettes and e-cigarettes. If you need help quitting, ask your health care provider. Limit alcohol intake to no more than 1 drink a day for non women and 2 drinks a day for men. One drink equals 12 oz of beer, 5 oz of wine, or 1 oz of hard liquor. Eating and drinking Follow instructions from your health care provider about whether eating and drinking are safe for you. You may need tests to make sure that you can swallow safely (swallow studies). Driving Do not drive until your health care provider approves. Do not drive or use heavy machinery while taking prescription pain medicine. General instructions Do physical, occupational, and speech-language therapy as recommended. Rest and limit activities as directed. Rest helps the brain to heal. Make sure you: ? Get plenty of sleep. ? Avoid activities that cause physical or mental stress. Check and write down your blood pressure as told by your health care provider. Keep all follow-up visits as told by your health care providers. This is important. Contact a health care provider if: You have a stiff neck. You have a cough. You have a fever. Get help right away if: You have any symptoms of a stroke. BE FAST is an easy way to remember the main warning signs of astroke: ? B - Balance. Signs are dizziness, sudden trouble walking, or loss of balance. ? E - Eyes. Signs are trouble seeing or a sudden change in vision. ? F - Face. Signs are sudden weakness or numbness of the face, or the face or eyelid drooping on one side. ? A - Arms. Signs are weakness or numbness in an arm. This happens suddenly and usually on one side of the body. ? S - Speech. Signs are sudden trouble speaking, slurred speech, or trouble understanding what peoplesay. ? T - Time. Time to call emergency services. Write down what time symptoms started. You have other signs of a stroke, such as: ? A sudden, severe headache with no known cause. ? Nausea or vomiting. ? Seizure. These symptoms may represent a serious problem that is an emergency. Do not wait to see if the symptoms will go away. Get medical help right away. Call your local emergency services (911 in the [place] Do not drive yourself to the hospital. Summary Subarachnoid hemorrhage is bleeding in the area between the brain and the membrane that covers the brain (subarachnoid space). Subarachnoid hemorrhage is a medical emergency. Treatment may include procedures to stop bleeding or reduce pressure in the skull, and medicines to prevent complications. Follow instructions from your health care provider about diet restrictions, activity restrictions, and medicines. This information is not intended to replace advice given to you by your health care provider. Make sure you discuss any questions you have with your health care provider. Document Released: 02/20/2005 Document Revised: 09/25/2019 Document Reviewed: 01/13/2018 [employer] Patient Education 2020 [employer]. Additional Information VACCINATE! IT SAVES LIVES! Members of the community who have not yet received the COVID-19 vaccine and would like to receive it can visit one of [facility] vaccine clinics. There are many vaccine clinic locations within the [facility]. For locations and available times, please visit https://[email or web address].[place].gov/. It is important to note that some COVID mobile vaccine clinics are held outdoors and may be canceled in rainy or stormy conditions. To learn more about pediatric vaccinations (ages 5-11), we invite you to visit the [facility] webpage. https://www.[facility].org/pages/5526-Rkodx-Nlxzhhmahnw-Ltabdurxew-Lpndd-Ynm stions.htmlTo learn more about the COVID-19 vaccine, we invite you to visit the CDC website for a list of frequently asked questions. https://www.cdc.gov/coronavirus/2019-ncov/vaccines/faq.html [facility] Patient Portal Access Instructions: Stay connected with your healthcare team and access your personal medical information anytime with the [facility] Patient Portal.If you would like a full copy of your medical records, please contact the [facility] Medical Records Department, Wednesday through Wednesday between 8a.m. and 4:30p.m. Please follow the directions below to access the portal: 1.Access the email account you provided upon registration to the hospital.2.Look for an invitation email from [facility].3.Open the email and access the invitation link: Accept Invitation to [facility]4.Fill in the required miller to create your account. Sign into [email or web address] with your username and password that you created in the above steps to stay up to date. You can then view a summary of results, a summary of your visits, and the ability to download your summaries to your computer or send the information securely to a physician. Remember that your healthcare information is confidential, so carefully consider who you will allow to register on the [facility] Patient Portal for access to your information. You can also access the [facility] Patient Portal on the [employer]. Simply click on Health Records under [employer] and then click on the [facility] logo. HOW TO SAFELY DISPOSE OF PRESCRIPTION MEDICATIONS Please use one of the following methods to safely dispose of your unused medications. 1.Use a drug disposal kit: the drug disposal pouch allows you to safely discard your old and unuseddrugs. Ask your nurse to give you one when you are discharged.2.Visit a local take-back location: Many local pharmacies and police departments have programs that collect old and unwanted prescriptiondrugs. Call your local pharmacy or go to http://CPower.VNG/7O3Fm4u to find one close to you.3.Make use of household items: Use cat litter or old coffee grounds to dispose medications if other options arenot available. Mix your drugs with these household products, seal them in an airtight container andthrow it into the garbage. Call [facility]: [phone] to be sure your drugs can be disposed of in this way. Some medicines may require a different approach.4.Never flush your medications down the toilet. IF YOU HAVE BEEN PRESCRIBED AN OPIOID FOR PAIN If you have been prescribed an opioid (such as hydrocodone, oxycodone or morphine), it is critical to understand the possible side effects and risks of opioid pain medications. Even when taken as directed, opioids can have several side effects including: Tolerance, meaning you might need to take more of a medication for the same pain relief. Nausea, vomiting and/or constipation. Sleepiness, dizziness, dry mouth, confusion, depression or itching. Physical dependence, meaning you have withdrawal symptoms when a medication is stopped, can develop within a few days. KNOW YOUR RESPONSIBILITIES It is important to know exactly how much and how often to take the opioid pain medications you are prescribed. Never take opioids in higher amounts or more often than prescribed. Do not combine opioids with alcohol or other drugs that cause drowsiness, such as benzodiazepines, also known as benzos, including diazepam and alprazolam, muscle relaxants or sleep aids. Never sell or share prescription opioids. This is illegal. Store opioids in a secure place and out of reach of others (including children, family, friends and visitors). The last page of this document has been signed and retained as a CHART COPY. Signatures Patient Education Materials Subarachnoid Hemorrhage Medication Leaflets My discharge plan and instructions have been reviewed and explained to me and I,DARIUSZ FIELDS understand my current condition and have read and understand these discharge instructions. I have received a written copy of the plan/instructions. If I have questions, I am aware that I should contact my doctor. Patient/Master Control Supervisor Signature: Date/Time: Relationship to Patient: Witness Name/Signature: [id number] Note Discharge Instructions Thank you for allowing [facility] to assist you with your healthcare needs. The following is importantdischarge information regarding your hospital visit. Your Care Team JEREMIAS VALERIO DO Your Diagnosis Subarachnoid hemorrhage Change in mental status Zygomatic fracture, left side, sequela HTN (hypertension), Essential hypertension CVA (cerebrovascular accident) Dyslipidemia Fall What to do next Scheduled Follow-Up Appointments Appointment Type When With Where Contact InformationPC OV 08/03/2022 09:30 AM EDT JEREMIAS VALERIO DO [facility] [place] [address] [place] [address] Follow Up Appointments Follow Up with [facility] When Within 1-2 days Follow Up with JEREMIAS VALERIO DO When Within 5 to 7 days Where: [address] [place] [phone] Follow Up with [facility] When Why: 4-6 weeks to discuss follow up MRI brain Where: [address] [place] [address]- The Following Activity and Diet Have Been Ordered for You Transfer of Care Activity - Ordered -- Activity As Tolerated, 06/17/22 10:27:00 EST Transfer of Care Diet - Ordered -- Type of Diet: [id number], 06/17/22 10:27:00 EST The Following Equipment Has Been Ordered for You Discharge Home Equipment Discharge Communication Order - Ordered -- remove sutures from left amish on 3-6, 06/17/22 10:27:29 EST Discharge Communication Order - Ordered -- Per kieran Linsday to resume aggrenox 3-2., 06/17/22 10:28:01 EST The Following Treatments Have Been Ordered for You Discharge Labs No qualifying data available. Discharge Radiology No qualifying data available. Other Therapies Transfer of Care OT - Ordered -- Reason for therapy: debility, fall, 06/17/22 10:27:00 EST Transfer of Care PT - Ordered -- Reason for therapy: debility, fall, 06/17/22 10:27:00 EST Transfer of Care Speech Therapy - Ordered -- Reason for therapy: dysphagia, on modified diet., 06/17/22 10:27:00 EST Post Acute Orders Transfer of Care Code Status - Ordered -- DNRCC-Arrest Do Not Intubate, Constant Order Transfer of Care Orders Electronically Signed By - Ordered -- 06/17/22 10:27:00 EST, JEREMIAH JARRELL DO Transfer of Care Palliative Care - Ordered Transfer of Care Prognosis - Ordered -- Good, Patient Aware: Yes Transfer of Care Rehab Potential - Ordered -- Rehab potential good, 06/17/22 10:28:01 EST Someone Will Contact You Regarding These Home Health Referrals No home referrals have been ordered for you. No one will call you. Allergies Milk Products (Diarrhea - Adult) lisinopril (Cough) morphine (Paranoid) Medications Please ask your primary doctor or pharmacist before taking any other medication not listed, including over the counter drugs, herbal medications, vitamins and or supplements as they may interact withyour home medications. What How Much When Why Instructions Last Dose New amoxicillin-clavulanate (Augmentin) 875 Milligram by mouth Twice daily with meals New docusate (Colace 100 mg oral capsule) 1 cap by mouth Two (2) times a day as needed for Constipation New magnesium hydroxide (Milk of Magnesia) 30 Milliliter by mouth Daily at bedtime as needed for Constipation New metoprolol 50 Milligram by mouth Two (2) times a day New QUEtiapine (SEROquel 25 mg oral tablet) 0.5 tab(s) by mouth Daily at bedtime Duration: 14 Days Unchanged acetaminophen-diphenhydramine (Tylenol PM Extra Strength oral tablet) 1 tab(s) by mouth Daily at bedtime as needed for for sleep Unchanged ergocalciferol (Vitamin D2 2000 intl units oral capsule) 1 cap by mouth Once a day with food Unchanged losartan (losartan 100 mg oral tablet) 1 tab(s) by mouth Once a day Essential hypertension Unchanged omega-3 polyunsaturated fatty acids ([place]-3 350 mg oral capsule) 1 cap by mouth Once a day Unchanged potassium chloride (potassium chloride 10 mEq oral capsule, extended release) 1 cap by mouth Two (2) times a day Unchanged simvastatin (simvastatin 80 mg oral tablet) 1 tab(s) by mouth Daily at bedtime What How Much When Comments Stop Taking aspirin-dipyridamole (Aggrenox 25-200 mg oral capsule) 1 cap by mouth Two (2) times a day Stop Taking atenolol (atenolol 50 mg oral tablet) 1 tab(s) by mouth Once a day Please take this list to your next doctor s visit. Bring all medications you take, including over the counter medications, herbals and other supplements with you to your doctor s visit. Patients and families are reminded to discard old lists and to update any records with all medication providers or retail pharmacies. Additional Information VACCINATE! IT SAVES LIVES! Members of the community who have not yet received the COVID-19 vaccine and would like to receive it can visit one of [facility] vaccine clinics. There are many vaccine clinic locations within the [facility]. For locations and available times, please visit https://[email or web address].[place].gov/. It is important to note that some COVID mobile vaccine clinics are held outdoors and may be canceled in rainy or stormy conditions. To learn more about pediatric vaccinations (ages 5-11), we invite you to visit the [facility] webpage. https://www.[email or web address].org/pages/[email or web address]-Ewwql-Qkqnefycknh-Tjfpnqzbvu-[email or web address] stions.htmlTo learn more about the COVID-19 vaccine, we invite you to visit the CDC website for a list of frequently asked questions. https://www.cdc.gov/coronavirus/2019-ncov/vaccines/faq.html [facility] Patient Portal Access Instructions: Stay connected with your healthcare team and access your personal medical information anytime with the [facility] Patient Portal.If you would like a full copy of your medical records, please contact the [facility] Medical Records Department, Wednesday through Wednesday between 8a.m. and 4:30p.m. Please follow the directions below to access the portal: 1.Access the email account you provided upon registration to the hospital.2.Look for an invitation email from [facility].3.Open the email and access the invitation link: Accept Invitation to [facility]4.Fill in the required miller to create your account. Sign into [email or web address] with your username and password that you created in the above steps to stay up to date. You can then view a summary of results, a summary of your visits, and the ability to download your summaries to your computer or send the information securely to a physician. Remember that your healthcare information is confidential, so carefully consider who you will allow to register on the [facility] for access to your information. You can also access the [facility] on the [employer] mitra. Simply click on Health Records under [employer] and then click on the [employer] logo. HOW TO SAFELY DISPOSE OF PRESCRIPTION MEDICATIONS Please use one of the following methods to safely dispose of your unused medications. 1.Use a drug disposal kit: the drug disposal pouch allows you to safely discard your old and unuseddrugs. Ask your nurse to give you one when you are discharged.2.Visit a local take-back location: Many local pharmacies and police departments have programs that collect old and unwanted prescriptiondrugs. Call your local pharmacy or go to http://CPower.VNG/1K2Er1q to find one close to you.3.Make use of household items: Use cat litter or old coffee grounds to dispose medications if other options arenot available. Mix your drugs with these household products, seal them in an airtight container andthrow it into the garbage. Call [facility]: [phone] to be sure your drugs can be disposed of in this way. Some medicines may require a different approach.4.Never flush your medications down the toilet. IF YOU HAVE BEEN PRESCRIBED AN OPIOID FOR PAIN If you have been prescribed an opioid (such as hydrocodone, oxycodone or morphine), it is critical to understand the possible side effects and risks of opioid pain medications. Even when taken as directed, opioids can have several side effects including: Tolerance, meaning you might need to take more of a medication for the same pain relief. Nausea, vomiting and/or constipation. Sleepiness, dizziness, dry mouth, confusion, depression or itching. Physical dependence, meaning you have withdrawal symptoms when a medication is stopped, can develop within a few days. KNOW YOUR RESPONSIBILITIES It is important to know exactly how much and how often to take the opioid pain medications you are prescribed. Never take opioids in higher amounts or more often than prescribed. Do not combine opioids with alcohol or other drugs that cause drowsiness, such as benzodiazepines, also known as benzos, including diazepam and alprazolam, muscle relaxants or sleep aids. Never sell or share prescription opioids. This is illegal. Store opioids in a secure place and out of reach of others (including children, family, friends and visitors). The last page of this document has been signed and retained as a CHART COPY. Signatures Patient Education Materials Medication Leaflets My discharge plan and instructions have been reviewed and explained to me and IDONNIE LOIS A understand my current condition and have read and understand these discharge instructions. I have received a written copy of the plan/instructions. If I have questions, I am aware that I should contact my doctor. Patient/Master Control Supervisor Signature: Date/Time: Relationship to Patient: Witness Name/Signature: [id number] Discharge summary Date of Service 06-17-2022 Discharge Diagnosis 1. Subarachnoid hemorrhage (I60.9 - ICD-10-CM) 2. Change in mental status (R41.82 - ICD-10-CM) 3. Zygomatic fracture, left side, sequela (S02.40FS - ICD-10-CM) 4. HTN (hypertension) (I10 - ICD-10-CM) 5. CVA (cerebrovascular accident) (I63.9 - ICD-10-CM) 6. 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) Abrasion, right knee, initial encounter (S80.211A - ICD-10-CM) Age-related osteoporosis without current pathological fracture (M81.0 - ICD-10-CM) Laceration without foreign body of other part of head, initial encounter (S01.81XA - ICD-10-CM) Unspecified injury of head, initial encounter (S09.90XA - ICD-10-CM) Maxillary fracture, left side, initial encounter for closed fracture (S02.40DA - ICD-10-CM) Fall on same level, unspecified, initial encounter (W18.30XA - ICD-10-CM) Zygomatic fracture, left side, initial encounter for closed fracture (S02.40FA - ICD-10-CM) Chronic kidney disease, unspecified (N18.9 - ICD-10-CM) Hypertensive chronic kidney disease with stage 1 through stage 4 chronic kidney disease, or unspecified chronic kidney disease (I12.9 - ICD-10-CM) Essential hypertension (I10 - ICD-10-CM) Fall ([id number] - PNED) Additional Orders: Ordered: Augmentin,Dose : 875 mg = 1 tab(s), Oral, BIDM, 0 Refill(s), 56.1 Other status: Calorie Count,06/14/22 16:02:00 EST, Daily for 3 day(s), Stop date 06/17/22 9:00:00 EST(Status Change) Ordered: Colace 100 mg oral capsule,Dose : 100 mg = 1 cap(s), Oral, BID, PRN Constipation, 0 Refill(s) Ordered: Discharge,06/17/22 10:27:00 EST, Discharged to: [facility] Facility Ordered: Discharge Communication Order,Per kieran Lindsay to resume aggrenox 3-2., 06/17/22 10:28:01 EST Ordered: Discharge Communication Order,remove sutures from left amish on 3-6, 06/17/22 10:27:29 EST Other status: Discontinue Order,06/15/22 10:56:00 EST, Once, dobhoff, 06/15/22 10:56:00 EST(Complete) Other status: Discontinue Order,06/15/22 10:56:00 EST, Once, mitts, 06/15/22 10:56:00 EST(Complete) Ordered: Milk of Magnesia,Dose = 30 mL, Oral, qHS, PRN Constipation, 0 Refill(s) Ordered: SEROquel 25 mg oral tablet,Dose : 12.5 mg = 0.5 tab(s), Oral, qHS, 0 Refill(s) Ordered: Transfer of Care Activity,Activity As Tolerated, 06/17/22 10:27:00 EST Ordered: Transfer of Care Code Status,DNRCC-Arrest Do Not Intubate, Constant Order Ordered: Transfer of Care Diet,Type of Diet: Airdiv-CUFIR-3, 06/17/22 10:27:00 EST Ordered: Transfer of Care OT,Reason for therapy: debility, fall, 06/17/22 10:27:00 EST Ordered: Transfer of Care Orders Electronically Signed By,06/17/22 10:27:00 EST, JEREMIAH JARRELL DO Ordered: Transfer of Care PT,Reason for therapy: debility, fall, 06/17/22 10:27:00 EST Ordered: Transfer of Care Palliative Care, Ordered: Transfer of Care Prognosis,Good, Patient Aware: Yes Ordered: Transfer of Care Rehab Potential,Rehab potential good, 06/17/22 10:28:01 EST Ordered: Transfer of Care Speech Therapy,Reason for therapy: dysphagia, on modified diet., 06/17/2309:27:00 EST Modified: metoprolol,Dose : 50 mg =, Oral, BID, 0 Refill(s) Hospital Course Patient is an 82-year-old female with past medical history of hypertension, CKD, breast cancer, dyslipidemia, prior stroke on Aggrenox, recent UTI and fall who was admitted to the hospital on June 10 due to subarachnoid hemorrhage. Has been seen by neurosurgery, video tape transferrer, and neurology as well as ENT. Imaging on arrival showed traumatic small left frontal subarachnoid hematoma, left ZMC fra cture with left maxillary hemosinus. Associated left periorbital and left supraorbital hematomas. No acute abnormality of cervical spine. Patient was evaluated by neurosurgery secondary to small acute traumatic subarachnoid hemorrhage. They are recommending to keep blood pressure less than systolicof 140. Avoid NSAID use. Aggrenox on hold until cleared by Dr. Justin. Patient was evaluated by ENT due to left zygomatic fracture, no surgical intervention needed, recommending prophylactic sinus antibiotics for 1 week. Also evaluated by neurology due to mental status change, acute encephalopathy due to concussion and subarachnoid hemorrhage compounded by recent urinary tract infection and progressive trouble with memory. Suspect she may have a vascular dementia or mild cognitive impairment. MRIwas ordered but this has been canceled as there would be no immediate benefit to sedating her for MRI. Patient seen and evaluated today, her son is at the bedside. Nurse reports some difficulty with g etting the patient to take her medications this morning, patient took her medications for me without any issues. Arrangements are being made for patient to be discharged to [facility] bed. Reviewed neurosurgery documentation, patient will be cleared to start Aggrenox starting tomorrow. She should have her sutures removed sometime next week. Follow-up with [facility] to discuss any indication of MRI, follow cognitively. Discussed with Dr. Jarrell Allergies Milk Products (Diarrhea - Adult) lisinopril (Cough) morphine (Paranoid) Consults Consult to Physician - Ordered -- 06/10/22 13:59:00 EST, CHOLO CRAIG MD, Routine, follow medically, Please medically manage patient while in SICU Consult to Physician - Ordered -- 06/10/22 13:59:00 EST, ZITA OCASIO MD, Routine, Tertiary survery s/p same level fall Consult to Physician - Ordered -- 06/10/22 15:26:00 EST, JACOBY SORENSON MD, Routine, L zygomatic fx s/p fall Consult to Physician - Ordered -- 06/11/22 15:32:00 EST, AIMEE MONTGOMERY MD, Routine, 5 week functional and mentation decline; AMS, prior strokes; Imaging Results and Diagnostics XR Enteric Tube Placement Result Date: June 11, 2022 Verified By: ALFIE SINHA, BILL Ma CLINICAL STATEMENT: IMPRESSION: Dobbhoff tube tip is in distal gastric body. CT Head or Brain w/o Contrast Result Date: June 11, 2022 Verified By: ANURAG WORTHINGTON DO CLINICAL STATEMENT: IMPRESSION: Unchanged acute left frontal subarachnoid blood. Left-sided ZMC fracture as seen previously. Chronic changes as above. I have personally reviewed the images of this examination and agree with theresident's findings and interpretation. CT Head or Brain w/o Contrast Result Date: June 10, 2022 Verified By: CARMEN TORIBIO MD CLINICAL STATEMENT: IMPRESSION: Significantly degraded by motion. Otherwise, no significant change. Smallleft frontal subarachnoid hemorrhage. Physical Exam Vitals and Measurements T: 36.8 C (Oral) HR: 86(Apical) RR: 18 BP: 158/73 SpO2: 99% Weight Dosing Weight: 56.1 kg (06/10/22) Dosing Weight: 56.1 kg (06/10/22) Constitutional: Patient is alert, cooperative, forgetful. In no acute distress. bruising to left side of face, sutures to left amish. ENT: hearing grossly intact, mucous membranes moist, Respiratory: Breathing nonlabored, lungs clear to auscultation bilaterally. Heart: Regular rate and rhythm. S1 S2 heard. GI: Bowel sounds x4 quadrants. No rebound tenderness or guarding. Neuro: speech clear. NOBLES equally. memory impaired Code Status Code Status - Ordered -- 06/10/22 12:26:00 EST, DNRCC-Arrest Do Not Intubate, Constant Order Admission Date 06-10-2022 Discharge Date 06-17-2022 Medications New Prescription amoxicillin-clavulanate (Augmentin)875 Milligram by mouth twice daily with meals. docusate (Colace 100 mg oral capsule)1 cap by mouth two (2) times a day as needed Constipation. magnesium hydroxide (Milk of Magnesia)30 Milliliter by mouth daily at bedtime as needed Constipation. [id number] Milligram by mouth two (2) times a day. QUEtiapine (SEROquel 25 mg oral tablet)0.5 tab(s) by mouth daily at bedtime for 14 Days. Unchanged acetaminophen-diphenhydramine (Tylenol PM Extra Strength oral tablet)1 tab(s) by mouth daily at bedtime as needed for sleep. ergocalciferol (Vitamin D2 2000 intl units oral capsule)1 cap by mouth once a day. with food. Refills: 3. losartan (losartan 100 mg oral tablet)1 tab(s) by mouth once a day. Refills: 0. omega-3 polyunsaturated fatty acids ([place]-3 350 mg oral capsule)1 cap by mouth once a day. potassium chloride (potassium chloride 10 mEq oral capsule, extended release)1 cap by mouth two (2)times a day. Refills: 3. simvastatin (simvastatin 80 mg oral tablet)1 tab(s) by mouth daily at bedtime. Refills: 3. Discontinued aspirin-dipyridamole (Aggrenox 25-200 mg oral capsule)1 cap by mouth two (2) times a day. Refills: 3. atenolol (atenolol 50 mg oral tablet)1 tab(s) by mouth once a day. Refills: 3. Follow Up Follow Up with [facility] When Why: 4-6 weeks to discuss follow up MRI brain [address]: [address] [place] [address]- Follow Up Appointments Transfer of Care OT - Ordered -- Reason for therapy: debility, fall, 06/17/22 10:27:00 EST Transfer of Care PT - Ordered -- Reason for therapy: debility, fall, 06/17/22 10:27:00 EST Transfer of Care Speech Therapy - Ordered -- Reason for therapy: dysphagia, on modified diet., 06/17/22 10:27:00 EST Discharge Diet Transfer of Care Diet - Ordered -- Type of Diet: [id number]-[id number]-1, 06/17/22 10:27:00 EST Discharge Activity Transfer of Care Activity - Ordered -- Activity As Tolerated, 06/17/22 10:27:00 EST Condition on Discharge stable Discharge Disposition [facility] Information Provided To patient, son Time Spent A total of 35 minutes reviewing patient's diagnostic, labs/tests, seeing and examining the patient and documenting in the medical record, please see assessment for further details. Digitally Signed by KAELYN GASPAR on 06/17/2022 01:[address] [id number] Note Date of Service 06/16/2022 Chief Complaint Hypertension, weakness Subjective Patient is an 82-year-old female with past medical history of hypertension, CKD, breast cancer, dyslipidemia, prior stroke on Aggrenox, recent UTI and fall who was admitted to the hospital on June 10 due to subarachnoid hemorrhage. Has been seen by neurosurgery, video tape transferrer, and neurology as well as ENT. Imaging on arrival showed traumatic small left frontal subarachnoid hematoma, left ZMC fra cture with left maxillary hemosinus. Associated left periorbital and left supraorbital hematomas. No acute abnormality of cervical spine. Patient was evaluated by neurosurgery secondary to small acute traumatic subarachnoid hemorrhage. They are recommending to keep blood pressure less than systolicof 140. Avoid NSAID use. Aggrenox on hold until cleared by Dr. Justin. Patient was evaluated by ENT due to left zygomatic fracture, no surgical intervention needed, recommending prophylactic sinus antibiotics for 1 week. Also evaluated by neurology due to mental status change, acute encephalopathy due to concussion and subarachnoid hemorrhage compounded by recent urinary tract infection and progressive trouble with memory. Suspect she may have a vascular dementia or mild cognitive impairment. MRIwas ordered but this has been canceled as there would be no immediate benefit to sedating her for MRI. Patient seen and evaluated today, her son is at the bedside. Patient reports she has no complaint s at this time. Reports she is at [facility] but unsure of the day. Son reports she was up most of the night and has been sleeping mostly this morning. Is asking about discharge, we are planning for discharge to [facility] tomorrow, patient and son are in agreement. Objective Vitals and Measurements T: 36.9 C (Oral) TMIN: 36.7 C (Oral) TMAX: 36.9 C (Oral) HR: 93(Apical) RR: 18 BP: 116/92 SpO2: 97% Intake and Output 7AM Yesterday to 7AM Today Intake and Output (Last 24 hours) Intake Oral Intake 150.00 Output Urinary Catheter Output: 650.00 Total Summary Total Intake 150.00 Total Output 650.00 Fluid Balance -500.00 Physical Exam Constitutional: Patient is alert, forgetful. In no acute distress. Bruising to left side of face. sutures intact. Eyes: PERRLA, EOM intact. ENT: hearing grossly intact, mucous membranes moist, Respiratory: Breathing nonlabored, lungs clear to auscultation bilaterally. Heart: Regular rate and rhythm. S1 S2 heard. GI: Bowel sounds x4 quadrants. No rebound tenderness or guarding. Neuro: speech clear. NOBLES equally. memory intact Skin: no rashes or lesions noted. skin warm, dry and intact. Weight Dosing Weight: 56.1 kg (06/10/22) Dosing Weight: 56.1 kg (06/10/22) Medications Medications (11) Active Scheduled: (7) amoxicillin-clavulanate 875 mg - 125 mg tablet 875 mg 1 tab(s), Oral, BIDM atorvastatin 40 mg tablet 40 mg 1 tab(s), Oral, qHS heparin 5,000 units/mL (1 mL) vial 5,000 unit(s) 1 mL, Subcutaneous, q8h losartan 100 mg tablet 100 mg 1 tab(s), Oral, qDay metoprolol tartrate 50 mg tablet 50 mg 1 tab(s), Dobhoff, BID mupirocin 2% Ointment 22 Gram(s) tube 1 mitra, Topical, BID QUEtiapine 25 mg tablet 12.5 mg 0.5 tab(s), Oral, qHS Continuous: (0) PRN: (4) docusate sodium 100 mg Capsule 100 mg 1 cap(s), Oral, BID magnesium hydroxide 8% Suspension 30 mL UD 30 mL, Oral, qHS ondansetron 2 mg/ 1 mL 2 mL INJ 4 mg 2 mL, IV Push, q4h tramadol 50 mg Tablet 50 mg 1 tab(s), Oral, q4h Lab Results 06/16 03:11 Glucose Level: 110 Sodium Level: 134 L Potassium Level: 3.5 BUN: 31.0 H Creatinine Lvl (s): 0.96 06/15 05:19 Glucose Level: 90 Sodium Level: 137 Potassium Level: 3.5 BUN: 24.0 H Creatinine Lvl (s): 0.76 Imaging Results and Diagnostics XR Enteric Tube Placement Result Date: June 11, 2022 Verified By: ALFIE SINHA, BILL Ma CLINICAL STATEMENT: IMPRESSION: Dobbhoff tube tip is in distal gastric body. CT Head or Brain w/o Contrast Result Date: June 11, 2022 Verified By: ANURAG WORTHINGTON DO CLINICAL STATEMENT: IMPRESSION: Unchanged acute left frontal subarachnoid blood. Left-sided ZMC fracture as seen previously. Chronic changes as above. I have personally reviewed the images of this examination and agree with theresident's findings and interpretation. CT Head or Brain w/o Contrast Result Date: June 10, 2022 Verified By: CARMEN TORIBIO MD CLINICAL STATEMENT: IMPRESSION: Significantly degraded by motion. Otherwise, no significant change. Smallleft frontal subarachnoid hemorrhage. EKG No qualifying data available. Assessment/Plan 1. Subarachnoid hemorrhage 2. Change in mental status 3. Zygomatic fracture, left side, sequela 4. HTN (hypertension) Ordered: losartan, Start: 06/17/22 9:00:00 EST, Dose = 100 mg, = 1 tab(s), Oral, qDay, 0, 06/16/22 8:50:00 EST 5. CVA (cerebrovascular accident) 6. Dyslipidemia imaging on arrival showed traumatic small left frontal subarachnoid hematoma, left ZMC fracture with left maxillary hemosinus. Associated left periorbital and left supraorbital hematomas. No acute abnormality of cervical spine. Patient was evaluated by neurosurgery secondary to small acute traumatic subarachnoid hemorrhage. They are recommending to keep blood pressure less than systolic of 140. Avoid NSAID use. Aggrenox on hold until cleared by Dr. Justin Patient was evaluated by ENT due to left zygomatic fracture, no surgical intervention needed, recommending prophylactic sinus antibiotics for 1 week. Continue topical bactroban to nares, po augmentinx7 days. She will need her sutures are removed in the near future. evaluated by neurology due to mental status change, acute encephalopathy due to concussion and subarachnoid hemorrhage compounded by recent urinary tract infection and progressive trouble with memory. Suspect she may have a vascular dementia or mild cognitive impairment. MRI was ordered but this has been canceled as there would be no immediate benefit to sedating her for MRI and would likely worsen her delirium and prolong her hospitalization. Could consider outpatient if still warranted when patient is doing much better and would be cooperative. Continue low-dose Seroquel to assist with delirium symptoms. Patient was removed from her restraints yesterday, her NG tube was also removed and she is tolerating p.o. intake. Calorie count in process. Hypertension blood pressure slightly elevated, will increase losartan to 100 mg as at home. Continue to monitor blood pressure. HR elevated, yesterday- metoprolol dose increased History of CVA. Dyslipidemia continue statin Heparin for DVT prophylaxis. Anticipate discharge to [facility] tomorrow Discussed w/ Dr. Jarrell Discussed w/ Son at bedside Time Spent A total of 35 minutes reviewing patient's diagnostic, labs/tests, seeing and examining the patient and documenting in the medical record, please see assessment for further details. Digitally Signed by KAELYN GASPAR on 06/16/2022 02:[address] [id number] Neurology Progress note Date of Service June 15, 2022 Chief Complaint Confusion Subjective Patient is off ventilator. Eating. Up to chair. Marked confusion. Son at bedside. Objective Vitals and Measurements T: 36.8 C (Oral) TMIN: 36.8 C (Oral) TMAX: 36.9 C (Oral) HR: 104(Monitored) RR: 18 BP: 134/64 SpO2:97% Intake and Output 7AM Yesterday to 7AM Today Intake and Output (Last 24 hours) Intake Enteral Tube Flush: 40.00 Oral Intake 150.00 Output Stool Count 0.00 Diaper Count 2.00 Total Summary Total Intake 190.00 Total Output 0.00 Fluid Balance 190.00 Physical Exam Weight Dosing Weight: 56.1 kg (06/10/22) Dosing Weight: 56.1 kg (06/10/22) Patient has poor insight -1 I discussed with her following her as an outpatient to monitor her mental status she said she did not think she would be here very long. Her was leaving her and she had to move in with her father. She indicated that her son next to her was her . And her father is passed Medications Medications (11) Active Scheduled: (7) amoxicillin-clavulanate 875 mg - 125 mg tablet 875 mg 1 tab(s), Oral, BIDM atorvastatin 40 mg tablet 40 mg 1 tab(s), Oral, qHS heparin 5,000 units/mL (1 mL) vial 5,000 unit(s) 1 mL, Subcutaneous, q8h losartan 50 mg tablet 50 mg 1 tab(s), Oral, qDay metoprolol tartrate 50 mg tablet 50 mg 1 tab(s), Dobhoff, BID mupirocin 2% Ointment 22 Gram(s) tube 1 mitra, Topical, BID QUEtiapine 25 mg tablet 12.5 mg 0.5 tab(s), Oral, qHS Continuous: (0) PRN: (4) docusate sodium 100 mg Capsule 100 mg 1 cap(s), Oral, BID magnesium hydroxide 8% Suspension 30 mL UD 30 mL, Oral, qHS ondansetron 2 mg/ 1 mL 2 mL INJ 4 mg 2 mL, IV Push, q4h tramadol 50 mg Tablet 50 mg 1 tab(s), Oral, q4h Lab Results 06/15 05:19 Glucose Level: 90 Sodium Level: 137 Potassium Level: 3.5 BUN: 24.0 H Creatinine Lvl (s): 0.76 06/14 05:31 Glucose Level: 94 Sodium Level: 139 Potassium Level: 4.0 BUN: 23.0 H Creatinine Lvl (s): 0.78 EKG No qualifying data available. Assessment/Plan 1. Subarachnoid hemorrhage 2. Change in mental status Acute on chronic encephalopathy. Concern for baseline dementia. We will need to watch her cognitivefunction over time. Nothing to do acutely but will see her as an outpatient 3. Zygomatic fracture, left side, sequela 4. HTN (hypertension) 5. CVA (cerebrovascular accident) 6. Dyslipidemia Digitally Signed by JUAN J GOMEZ MD on 06/15/2022 04:[address] [id number] Note Date of Service 04/14/2023 Chief Complaint weak Subjective Patient is an 82-year-old female with past medical history of hypertension, CKD, breast cancer, dyslipidemia, prior stroke on Aggrenox, recent UTI and fall who was admitted to the hospital on June 10 due to subarachnoid hemorrhage. Has been seen by neurosurgery, video tape transferrer, and neurology as well as ENT. Imaging on arrival showed traumatic small left frontal subarachnoid hematoma, left ZMC fra cture with left maxillary hemosinus. Associated left periorbital and left supraorbital hematomas. No acute abnormality of cervical spine. Patient was evaluated by neurosurgery secondary to small acute traumatic subarachnoid hemorrhage. They are recommending to keep blood pressure less than systolicof 140. Avoid NSAID use. Aggrenox on hold until cleared by Dr. Justin. Patient was evaluated by ENT due to left zygomatic fracture, no surgical intervention needed, recommending prophylactic sinus antibiotics for 1 week. Also evaluated by neurology due to mental status change, acute encephalopathy due to concussion and subarachnoid hemorrhage compounded by recent urinary tract infection and progressive trouble with memory. Suspect she may have a vascular dementia or mild cognitive impairment. MRIwas ordered but this has been canceled as there would be no immediate benefit to sedating her for MRI. Patient seen and evaluated today, her son is at the bedside. Patient is sitting up in the chair. She is awake, does converse and tell me her name and that she is at [facility]. Reports she ate peaches for breakfast today. Patient appears calm during my evaluation. Discussed with her son atthe bedside who is asking about [facility] paperwork, I asked him to please call his primary care provider for further assistance. Objective Vitals and Measurements T: 36.9 C (Axillary) TMIN: 36.8 C (Axillary) TMAX: 36.9 C (Oral) HR: 106(Monitored) RR: 18 BP: 137/62 SpO2: 99% Intake and Output 7AM Yesterday to 7AM Today Intake and Output (Last 24 hours) Intake Enteral Tube Flush: 40.00 Oral Intake 250.00 Output Stool Count 0.00 Diaper Count 5.00 Total Summary Total Intake 290.00 Total Output 0.00 Fluid Balance 290.00 Physical Exam Constitutional: Patient is alert and oriented to person, place, forgetful to time. In no acute distress. Bruising to left side of face. ENT: hearing grossly intact, mucous membranes moist, Respiratory: Breathing nonlabored, lungs clear to auscultation bilaterally. Heart: Regular rate and rhythm. S1 S2 heard. GI: Bowel sounds x4 quadrants. No rebound tenderness or guarding. Neuro: speech clear. NOBLES equally. memory intact Skin: no rashes or lesions noted. skin warm, dry and intact. Weight Dosing Weight: 56.1 kg (06/10/22) Dosing Weight: 56.1 kg (06/10/22) Medications Medications (11) Active Scheduled: (7) amoxicillin-clavulanate 875 mg - 125 mg tablet 875 mg 1 tab(s), Oral, BIDM atorvastatin 40 mg tablet 40 mg 1 tab(s), Oral, qHS heparin 5,000 units/mL (1 mL) vial 5,000 unit(s) 1 mL, Subcutaneous, q8h losartan 50 mg tablet 50 mg 1 tab(s), Oral, qDay metoprolol tartrate 12.5 mg ( HALF-TAB ) 12.5 mg 1 EA, Dobhoff, BID mupirocin 2% Ointment 22 Gram(s) tube 1 mitra, Topical, BID QUEtiapine 25 mg tablet 12.5 mg 0.5 tab(s), Oral, qHS Continuous: (0) PRN: (4) docusate sodium 100 mg Capsule 100 mg 1 cap(s), Oral, BID magnesium hydroxide 8% Suspension 30 mL UD 30 mL, Oral, qHS ondansetron 2 mg/ 1 mL 2 mL INJ 4 mg 2 mL, IV Push, q4h tramadol 50 mg Tablet 50 mg 1 tab(s), Oral, q4h Lab Results 06/15 05:19 Glucose Level: 90 Sodium Level: 137 Potassium Level: 3.5 BUN: 24.0 H Creatinine Lvl (s): 0.76 06/14 05:31 Glucose Level: 94 Sodium Level: 139 Potassium Level: 4.0 BUN: 23.0 H Creatinine Lvl (s): 0.78 Imaging Results and Diagnostics XR Enteric Tube Placement Result Date: June 11, 2022 Verified By: ALFIE SINHA, BILL Ma CLINICAL STATEMENT: IMPRESSION: Dobbhoff tube tip is in distal gastric body. CT Head or Brain w/o Contrast Result Date: June 11, 2022 Verified By: ANURAG WORTHINGTON DO CLINICAL STATEMENT: IMPRESSION: Unchanged acute left frontal subarachnoid blood. Left-sided ZMC fracture as seen previously. Chronic changes as above. I have personally reviewed the images of this examination and agree with theresident's findings and interpretation. CT Head or Brain w/o Contrast Result Date: June 10, 2022 Verified By: CARMEN TORIBIO MD CLINICAL STATEMENT: IMPRESSION: Significantly degraded by motion. Otherwise, no significant change. Smallleft frontal subarachnoid hemorrhage. EKG No qualifying data available. Assessment/Plan 1. Subarachnoid hemorrhage 2. Change in mental status 3. Zygomatic fracture, left side, sequela 4. HTN (hypertension) Ordered: losartan, Start: 06/15/22 9:06:00 EST, Dose = 50 mg, = 1 tab(s), Oral, qDay, 06/15/22 9:06:00 EST 5. CVA (cerebrovascular accident) 6. Dyslipidemia imaging on arrival showed traumatic small left frontal subarachnoid hematoma, left ZMC fracture with left maxillary hemosinus. Associated left periorbital and left supraorbital hematomas. No acute abnormality of cervical spine. Patient was evaluated by neurosurgery secondary to small acute traumatic subarachnoid hemorrhage. They are recommending to keep blood pressure less than systolic of 140. Avoid NSAID use. Aggrenox on hold until cleared by Dr. Justin Patient was evaluated by ENT due to left zygomatic fracture, no surgical intervention needed, recommending prophylactic sinus antibiotics for 1 week. Will add topical bactroban to nares, po augmentinx7 days. She will need her sutures are removed in the near future. evaluated by neurology due to mental status change, acute encephalopathy due to concussion and subarachnoid hemorrhage compounded by recent urinary tract infection and progressive trouble with memory. Suspect she may have a vascular dementia or mild cognitive impairment. MRI was ordered but this has been canceled as there would be no immediate benefit to sedating her for MRI and would likely worsen her delirium and prolong her hospitalization. Could consider outpatient if still warranted when patient is doing much better and would be cooperative. This was discussed with her son at the bedsideand he agrees. Continue to avoid IV benzodiazepines, patient appears to tolerate the Seroquel last night. She is awake this morning sitting in the chair. She was able to eat breakfast. She seems to be cooperative with care. We will take her out of restraints. Hypertension blood pressure reviewed, patient required IV hydralazine overnight, will start back her losartan 50 mg, patient takes 100 mg at home, discontinue IV medications. History of CVA. Dyslipidemia resume statin Heparin for DVT prophylaxis. Patient is eating, mentation seems to be improved now that she was not receiving IV Ativan. Would like to remove her NG tube and take her out of restraints, will transition to regular floor, hopeful for discharge as early as tomorrow for rehab. Patient son agreeable at the bedside. [facility] bed. Reviewed telemetry. Discussed w/ Dr. Meyers Digitally Signed by KAELYN GASPAR on 06/15/2022 12:[address] [id number] Note Date of Service 06/14/2022 Chief Complaint Delirium Subjective Patient is an 82-year-old female with past medical history of hypertension, CKD, breast cancer, dyslipidemia, prior stroke on Aggrenox, recent UTI and fall who was admitted to the hospital on June 10 due to subarachnoid hemorrhage. Has been seen by neurosurgery, video tape transferrer, and neurology as well as ENT. Imaging on arrival showed traumatic small left frontal subarachnoid hematoma, left ZMC fra cture with left maxillary hemosinus. Associated left periorbital and left supraorbital hematomas. No acute abnormality of cervical spine. Patient was evaluated by neurosurgery secondary to small acute traumatic subarachnoid hemorrhage. They are recommending to keep blood pressure less than systolicof 140. Avoid NSAID use. Aggrenox on hold until cleared by Dr. Justin. Patient was evaluated by ENT due to left zygomatic fracture, no surgical intervention needed, recommending prophylactic sinus antibiotics for 1 week. Also evaluated by neurology due to mental status change, acute encephalopathy due to concussion and subarachnoid hemorrhage compounded by recent urinary tract infection and progressive trouble with memory. Suspect she may have a vascular dementia or mild cognitive impairment. MRIwas ordered but this has been canceled as there would be no immediate benefit to sedating her for MRI. Patient seen and evaluated today, her son is at the bedside. She remains medicated as she has bee n quite cantankerous with staff. She also remains restrained. She has not been eating much and has a Dobbhoff in place for medication administration. Objective Vitals and Measurements T: 36.6 C (Oral) TMIN: 36.6 C (Oral) TMAX: 36.9 C (Oral) HR: 111(Apical) RR: 16 BP: 102/53 SpO2: 95% Intake and Output 7AM Yesterday to 7AM Today Intake and Output (Last 24 hours) Intake Enteral Tube Flush: 50.00 Oral Intake 100.00 Supplement Intake 0.00 Output Urine Voided 0.00 Stool Count 0.00 Diaper Count 3.00 Total Summary Total Intake 150.00 Total Output 0.00 Fluid Balance 150.00 Physical Exam Constitutional: Patient is somnolent, medicated. In no acute distress. abrasion left side of face. ENT:Dobhoff left nare. Respiratory: Breathing nonlabored, lungs clear to auscultation bilaterally. Heart: Regular rate and rhythm. S1 S2 heard. GI: Bowel sounds x4 quadrants. No rebound tenderness or guarding. Neuro: NOBLES equally. confused. Skin: no rashes or lesions noted. skin warm, dry and intact. Weight Dosing Weight: 56.1 kg (06/10/22) Dosing Weight: 56.1 kg (06/10/22) Medications Medications (8) Active Scheduled: (3) heparin 5,000 units/mL (1 mL) vial 5,000 unit(s) 1 mL, Subcutaneous, q8h metoprolol tartrate 12.5 mg ( HALF-TAB ) 12.5 mg 1 EA, Dobhoff, BID QUEtiapine 25 mg tablet 12.5 mg 0.5 tab(s), Oral, qHS Continuous: (0) PRN: (5) docusate sodium 100 mg Capsule 100 mg 1 cap(s), Oral, BID hydralazine 20 mg/mL (1mL) vial 10 mg 0.5 mL, IV Push, q2h magnesium hydroxide 8% Suspension 30 mL UD 30 mL, Oral, qHS ondansetron 2 mg/ 1 mL 2 mL INJ 4 mg 2 mL, IV Push, q4h tramadol 50 mg Tablet 50 mg 1 tab(s), Oral, q4h Lab Results 06/14 05:31 Glucose Level: 94 Sodium Level: 139 Potassium Level: 4.0 BUN: 23.0 H Creatinine Lvl (s): 0.78 Imaging Results and Diagnostics XR Enteric Tube Placement Result Date: June 11, 2022 Verified By: ALFIE SINHA, BILL L CLINICAL STATEMENT: IMPRESSION: Dobbhoff tube tip is in distal gastric body. CT Head or Brain w/o Contrast Result Date: June 11, 2022 Verified By: ANURAG WORTHINGTON DO CLINICAL STATEMENT: IMPRESSION: Unchanged acute left frontal subarachnoid blood. Left-sided ZMC fracture as seen previously. Chronic changes as above. I have personally reviewed the images of this examination and agree with theresident's findings and interpretation. CT Head or Brain w/o Contrast Result Date: June 10, 2022 Verified By: CARMEN TORIBIO MD CLINICAL STATEMENT: IMPRESSION: Significantly degraded by motion. Otherwise, no significant change. Smallleft frontal subarachnoid hemorrhage. EKG No qualifying data available. Assessment/Plan 1. Subarachnoid hemorrhage 2. Change in mental status 3. Zygomatic fracture, left side, sequela 4. HTN (hypertension) 5. CVA (cerebrovascular accident) 6. Dyslipidemia Imaging on arrival showed traumatic small left frontal subarachnoid hematoma, left ZMC fracture with left maxillary hemosinus. Associated left periorbital and left supraorbital hematomas. No acute abnormality of cervical spine. Patient was evaluated by neurosurgery secondary to small acute traumatic subarachnoid hemorrhage. They are recommending to keep blood pressure less than systolic of 140. Avoid NSAID use. Aggrenox on hold until cleared by Dr. Justin Patient was evaluated by ENT due to left zygomatic fracture, no surgical intervention needed, recommending prophylactic sinus antibiotics for 1 week. Will add topical bactroban to nares, po augmentinx7 days. evaluated by neurology due to mental status change, acute encephalopathy due to concussion and subarachnoid hemorrhage compounded by recent urinary tract infection and progressive trouble with memory. Suspect she may have a vascular dementia or mild cognitive impairment. MRI was ordered but this has been canceled as there would be no immediate benefit to sedating her for MRI and would likely worsen her delirium and prolong her hospitalization. Could consider outpatient if still warranted when patient is doing much better and would be cooperative. This was discussed with her son at the bedsideand he agrees. Would like to avoid IV benzodiazepines moving forward, can trial a low-dose Seroquelat night. Trial taking her out of restraints when appropriate. Hypertension blood pressure reviewed, Stable. History of CVA. Dyslipidemia statin on hold. Heparin for DVT prophylaxis. NG tube in place, patient son reports very little oral intake. Will monitor her oral intake over the next day or so. Will ask for a calorie count. Consider palliative care consult. Discussed w/ Dr. Meyers Time Spent A total of 35 minutes reviewing patient's diagnostic, labs/tests, seeing and examining the patient and documenting in the medical record, please see assessment for further details. Digitally Signed by KAELYN GASPAR on 06/14/2022 04:05 PM Digitally Signed by KAELYN GASPAR on 06/14/2022 04:[address] [id number] Note. MICRO - Microbiology PROCEDURE: Urine Culture [*1] SOURCE: Urine, Clean Catch BODY SITE: COLLECTED DATE/TIME: 06/10/2022 07:42 EST RECEIVED DATE/TIME: 06/11/2022 13:56 EST START DATE/TIME: 06/11/2022 13:56 EST FREE TEXT SOURCE: FINAL REPORTS Final Report [] Verified Date/Time/Personnel: 06/13/2022 07:44 EST No growth at 48 hours. PRELIMINARY REPORTS Preliminary Report [] Verified Date/Time/Personnel: 06/12/2022 09:08 EST No growth to date Performing Locations *1: This test was performed at: [facility], [address] [place] [address], [facility] , [facility] ([place])06-13-2022 Note Date of Service 06/13/2022 Day #4 and SICU Subjective 81 years old lady with history of hypertension, chronic kidney disease, stage III breast cancer, which is remote, dyslipidemia and also prior history of stroke on Aggrenox, the last month or so patient has been ambulating via wheelchair, today she fell while in the bathroom, brought to our emergency department, CAT scan of the brain reveals very small tiny left frontal bleed few millimeters, leftzygomatic fracture for which has been observed intensive care unit, no other injuries identified , Subsequently CAT scan of the brain was repeated and this revealed no significant change with a smallleft frontal subarachnoid bleed. Last 24 hours: Patient alert, follows command, oriented x3, moves all 4 extremities and she is normotensive. Objective Vitals and Measurements T: 36.8 C (Oral) TMIN: 36.8 C (Oral) TMAX: 37.1 C (Axillary) HR: 103(Apical) RR: 16 BP: 131/68 SpO2: 96% Physical Exam HEENT: Abrasion eft-sided face. Eyes: Sclerae clear, eye movements normal, Neck: No JVD no adenopathy. Heart: Regular rhythm, no murmur, no S3 or S4. Lungs: Clear breath sounds bilaterally, Chest wall: Moving symmetrically with respiration. Abdomen: Soft, nondistended, no organomegaly, no tenderness no rigidity Lower extremities: No edema or erythema. Neuro : Alert, follows command and moves all 4 extremities Weight Dosing Weight: 56.1 kg (06/10/22) Dosing Weight: 56.1 kg (06/10/22) Medications Medications (8) Active Scheduled: (2) heparin 5,000 units/mL (1 mL) vial 5,000 unit(s) 1 mL, Subcutaneous, q8h metoprolol tartrate 12.5 mg ( HALF-TAB ) 12.5 mg 1 EA, Dobhoff, BID Continuous: (1) NS (0.9% nacl) 1,000 mL 1,000 mL, Intravenous, 50 mL/hr PRN: (5) docusate sodium 100 mg Capsule 100 mg 1 cap(s), Oral, BID hydralazine 20 mg/mL (1mL) vial 10 mg 0.5 mL, IV Push, q2h magnesium hydroxide 8% Suspension 30 mL UD 30 mL, Oral, qHS ondansetron 2 mg/ 1 mL 2 mL INJ 4 mg 2 mL, IV Push, q4h tramadol 50 mg Tablet 50 mg 1 tab(s), Oral, q4h Lab Results 06/13 02:58 WBC: 5.8 Hgb: 10.3 L Hct: 31.8 L Platelet: 224 Neutrophil %: 61.0 Glucose Level: 110 Sodium Level: 136 Potassium Level: 4.1 BUN: 20.0 Creatinine Lvl (s): 0.79 06/12 03:18 WBC: 7.3 Hgb: 10.8 L Hct: 33.2 L Platelet: 235 Neutrophil %: 77.4 H Glucose Level: 164 H Sodium Level: 138 Potassium Level: 3.8 BUN: 18.0 Creatinine Lvl (s): 0.82 EKG No qualifying data available. Assessment/Plan 1. Fall with a small tiny left frontal few millimeters bleed, subarachnoid. Bleed 2. Left-sided zygomatic fracture. 3. History of hypertension. 4. Prior history of CVA on Aggrenox. 5. History of dyslipidemia. 6. Remote history of breast cancer. 7. Deteriorating functional status, as of recently patient has been ambulating via wheelchair . Plan: 1. Interrupt enteral feeding, and start patient on the recommended diet per speech which is modified pur ed diet, and will give a nutritional supplement if he consume less than 50% of her meal. 2. Lopressor 12.5 mg twice daily. 3. Stop IV fluid. 4. Heparin for DVT prophylaxis. 5. If she tolerates oral diet well then NG tube will be removed. 6. MRI of the brain was ordered per neurosurgery. 7. Transfer patient stepdown floor, once on the floor no further follow-up by pulmonary/critical care services recommended Digitally Signed by RENETTA FANG MD on 06/13/2022 09:[address] [id number] Neurology Consult note Date of Service June 12, 2022 Reason for Consultation Change in mental status Referring Physician Dr. Justin History of Present Illness 82-year-old woman who lives at home with her . She suffered a fall. Small subarachnoid hemorrhage. No surgical intervention required felt to be traumatic. Family outlined she has had some cognitive changes for several weeks leading up to the fall. In the hospital she has had confusion and some belligerence according ICU nurse. Patient has poor insight. She has had no seizure no loss consciousness and denies mental status changes. She has previous stroke and was on Aggrenox. Review of Systems Fusion for 5 weeks leading up to the event Physical Exam Vitals and Measurements T: 37.1 C (Axillary) TMIN: 36.5 C (Axillary) TMAX: 37.1 C (Axillary) HR: 107(Apical) RR: 16 BP: 120/57 SpO2: 98% Weight Dosing Weight: 56.1 kg (06/10/22) Dosing Weight: 56.1 kg (06/10/22) Patient is in the intensive care unit. She is in soft restraints with mitts. She has a Dobbhoff feeding tube in place. She is oriented to self and [facility]. She said it was summer instead of winter. Her concentration and memory is poor. No focal motor weakness no frontal release signs. Gaitataxia could not be assessed due to restraints. No pathologic reflexes. Lab Results 06/12 03:18 WBC: 7.3 Hgb: 10.8 L Hct: 33.2 L Platelet: 235 Neutrophil %: 77.4 H Glucose Level: 164 H Sodium Level: 138 Potassium Level: 3.8 BUN: 18.0 Creatinine Lvl (s): 0.82 06/11 03:31 WBC: 6.0 Hgb: 10.9 L Hct: 33.4 L Platelet: 207 Neutrophil %: 74.4 Glucose Level: 101 Sodium Level: 136 Potassium Level: 3.8 BUN: 13.0 Creatinine Lvl (s): 0.80 Imaging Results and Diagnostics XR Enteric Tube Placement Result Date: June 11, 2022 Verified By: BILL BURROUGHS MD CLINICAL STATEMENT: IMPRESSION: Dobbhoff tube tip is in distal gastric body. CT Head or Brain w/o Contrast Result Date: June 11, 2022 Verified By: ANURAG WORTHINGTON DO CLINICAL STATEMENT: IMPRESSION: Unchanged acute left frontal subarachnoid blood. Left-sided ZMC fracture as seen previously. Chronic changes as above. I have personally reviewed the images of this examination and agree with theresident's findings and interpretation. CT Head or Brain w/o Contrast Result Date: June 10, 2022 Verified By: CARMEN TORIBIO MD CLINICAL STATEMENT: IMPRESSION: Significantly degraded by motion. Otherwise, no significant change. Smallleft frontal subarachnoid hemorrhage. Assessment/Plan Mental status change. She has acute encephalopathy due to concussion and subarachnoid hemorrhage. This is on top of a progressive memory trouble over the past month. She has extensive vascular changes on her noncontrast CT scan with atrophy and microvascular periventricular disease. This coupled with known history of ischemic stroke. It is possible that patient has a vascular dementia or mild cognitive impairment is made worse in the setting of her acute concussive injury. We will need to monitor over time to see how she plateaus. Treatment for vascular dementia same history for stroke with treatment of vascular risk factors. She will continue off her antiplatelet agents until cleared by neurosurgery. We will need more supervision to help fall prevention. I am off service for the weekend. I will return on Wednesday to review her case again. If there are urgent issues over the weekend please call neurology. Critical care visit 31 minutes in duration spent for subarachnoid hemorrhage encephalopathy dementia reviewing chart providing documentation and talking with the ICU nurse. For completeness in her cognitive assessment a B12 and thyroid should be obtained. She has been ordered for an MRI though it is unlikely she will sit still and there may not be an immediate benefit to sedating her for an MRI if it could be done in the future without sedation. Problem List/Past Medical History Ongoing At high risk for falls Breast cancer screening by mammogram Chronic edema Chronic renal failure, stage 3b E. coli UTI (urinary tract infection) Essential hypertension Fall at home Generalized muscle weakness History of breast cancer History of CVA in adulthood Hypokalemia Hyponatremia Immunization due Impaired gait and mobility Left hip pain Mixed hyperlipidemia Osteoporosis Status post CVA Vitamin D deficiency Historical Breast ca Hyperlipidemia Procedure/Surgical History Back fusion Medications Inpatient Apresoline, 10 mg= 0.5 mL, IV Push, q2h, PRN Colace, 100 mg= 1 cap(s), Oral, BID, PRN heparin 5000 units/mL injection, 5000 unit(s)= 1 mL, Subcutaneous, q8h metoprolol tartrate 1 mg/mL injectable solution, 5 mg= 5 mL, IV Push, q6h Milk of Magnesia, 30 mL, Oral, qHS, PRN NS 1,000 mL, 1000 mL, Intravenous PHARMACY TO DOSE, 1 EA, Miscellaneous, Daily Tylenol, 650 mg= 20.31 mL, Nasogastric, q6h Ultram, 50 mg= 1 tab(s), Oral, q4h, PRN Zofran, 4 mg= 2 mL, IV Push, q4h, PRN Home Aggrenox 25-200 mg oral capsule, 1 cap(s), Oral, BID, 3 refills atenolol 50 mg oral tablet, 50 mg= 1 tab(s), Oral, qDay, 3 refills losartan 100 mg oral tablet, 100 mg= 1 tab(s), Oral, qDay [place]-3 350 mg oral capsule, 350 mg= 1 cap(s), Oral, qDay potassium chloride 10 mEq oral capsule, extended release, 10 mEq= 1 cap(s), Oral, BID, 3 refills simvastatin 80 mg oral tablet, 80 mg= 1 tab(s), Oral, qHS, 3 refills Tylenol PM Extra Strength oral tablet, 1 tab(s), Oral, qHS, PRN Vitamin D2 2000 intl units oral capsule, 2000 International_Unit= 1 cap(s), Oral, qDay, 3 refills Allergies Milk Products (Diarrhea - Adult) lisinopril (Cough) morphine (Paranoid) Social History Smoking Status - 01/30/2014 Former smoker Alcohol Use: Never., 01/31/2019 Employment/School Status: Retired., 08/04/2019 Exercise Home/Environment None Domestic Concerns:. Living situation: Home/Independent. Single level home Lives In:., 01/31/2019 Nutrition/Health Type of diet: Regular. Good Appetite. None Eating Difficulties., 01/31/2019 Substance Abuse Use: Never., 01/31/2019 Tobacco Tobacco Use: Never (less than 100 in lifetime)., 01/31/2019 Family History Family history is negative Immunizations pneumococcal 13-valent conjugate vaccine: 0 unknown unit (02/15/17) pneumococcal 23-valent vaccine(Pneumovax: 0 unknown unit (10/17/05) pneumococcal 23-valent vaccine(Pneumovax: 0 unknown unit (04/19/05) pneumococcal 23-valent vaccine(Pneumovax: 0 unknown unit (03/18/05) SARS-CoV-2 (COVID-19) mRNA-1273 vaccine: 50 mcg (03/24/21) SARS-CoV-2 (COVID-19) mRNA-1273 vaccine: 100 mcg (06/12/20) SARS-CoV-2 (COVID-19) mRNA-1273 vaccine: 0 unknown unit (05/15/20) tetanus/diphth/pertuss (Tdap) adult/adol: 0.5 mL (06/10/22) zoster vaccine live: 0 unknown unit (04/19/05) zoster vaccine live: 0 unknown unit (04/19/05) zoster vaccine live: 0 unknown unit (03/18/05) Digitally Signed by JUAN J GOMEZ MD on 06/12/2022 03:[address] [id number] Note Date of Service 06/12/2022 Subjective 81 years old lady with history of hypertension, chronic kidney disease, stage III breast cancer, which is remote, dyslipidemia and also prior history of stroke on Aggrenox, the last month or so patient has been ambulating via wheelchair, today she fell while in the bathroom, brought to our emergency department, CAT scan of the brain reveals very small tiny left frontal bleed few millimeters, leftzygomatic fracture for which has been observed intensive care unit, no other injuries identified. Last 24 hours, patient a bit more responsive. She still confused, but is verbalizing better today. Did have a Dobbhoff placed yesterday. Swallowing evaluation is being performed today as well. Today I rounded on the patient with the nursing staff, rounding critical care nurse, and the entirecritical care team available. I've reviewed the detailed handwritten notes as well as any dictations performed. In addition to this I would like to add the following: Objective Vitals and Measurements T: 37.1 C (Axillary) TMIN: 36.5 C (Axillary) TMAX: 37.1 C (Axillary) HR: 107(Monitored) RR: 18 BP:110/57 SpO2: 98% Intake and Output 7AM Yesterday to 7AM Today Intake and Output (Last 24 hours) Intake Tube Feeding Intake 286.00 Administration Information 1200.00 Output Stool Count 2.00 Urine Count 1.00 Total Summary Total Intake 1486.00 Total Output 0.00 Fluid Balance 1486.00 Physical Exam Skin: No rash no ulceration. HEENT: Abrasion and swelling left-sided face. Eyes: Sclerae clear, eye movements normal, Neck: No JVD no adenopathy. Heart: Regular rhythm, no murmur, no S3 or S4. Lungs: Clear breath sounds bilaterally, no rales no rhonchi's no wheeze no dullness Chest wall: Moving symmetrically with respiration. Abdomen: Soft, nondistended, no organomegaly, no tenderness no rigidity Lower extremities: No edema or erythema. Neuro: More awake today, following some commands. Weight Dosing Weight: 56.1 kg (06/10/22) Dosing Weight: 56.1 kg (06/10/22) Medications Medications (8) Active Scheduled: (2) acetaminophen 160 mg/5 mL Suspension 650 mg 20.31 mL, Nasogastric, q6h metoprolol 1 mg/mL (5mL) vial 5 mg 5 mL, IV Push, q6h Continuous: (1) NS (0.9% nacl) 1,000 mL 1,000 mL, Intravenous, 50 mL/hr PRN: (5) docusate sodium 100 mg Capsule 100 mg 1 cap(s), Oral, BID hydralazine 20 mg/mL (1mL) vial 10 mg 0.5 mL, IV Push, q2h magnesium hydroxide 8% Suspension 30 mL UD 30 mL, Oral, qHS ondansetron 2 mg/ 1 mL 2 mL INJ 4 mg 2 mL, IV Push, q4h tramadol 50 mg Tablet 50 mg 1 tab(s), Oral, q4h Lab Results 06/12 03:18 WBC: 7.3 Hgb: 10.8 L Hct: 33.2 L Platelet: 235 Neutrophil %: 77.4 H Glucose Level: 164 H Sodium Level: 138 Potassium Level: 3.8 BUN: 18.0 Creatinine Lvl (s): 0.82 06/11 03:31 WBC: 6.0 Hgb: 10.9 L Hct: 33.4 L Platelet: 207 Neutrophil %: 74.4 Glucose Level: 101 Sodium Level: 136 Potassium Level: 3.8 BUN: 13.0 Creatinine Lvl (s): 0.80 EKG No qualifying data available. Assessment/Plan Fall Orders: MRA/MRI Brain w/ + w/o Contrast Assessment 1. Fall with a small tiny left frontal few millimeters bleed, parenchymal/subarachnoid. 2. Left-sided zygomatic fracture. 3. History of hypertension. 4. Prior history of CVA on Aggrenox. 5. History of dyslipidemia. 6. Remote history of breast cancer. 7. Deteriorating functional status, as of recently patient has been ambulating via wheelchair. Plan: 1. Patient can transfer out of ICU today 2. If she passes a swallowing evaluation, can initiate diet and discontinue Dobbhoff 3. Normal saline 50 cc an hour. 4. Acetaminophen 1 g IV every 6 hours for 24 hours for pain control. 5. We will order MRI/MRA of the brain and consult anesthesia to help facilitate this test 6. CODE STATUS DNR arrest DO NOT INTUBATE. 7. Physical therapy and Occupational Therapy Discussed at length with the patient's son at the bedside Natalio Richardson M.D., [facility] Digitally Signed by NATALIO RICHARDSON MD on 06/12/2022 12:[address] [id number] Progress note Date of Service 06/11/2022 Chief Complaint S/P Fall sustaining poly-traumatic injuries Subjective This is a split shared visit between myself and Dr. Ocasio Patient seen resting supine in bed with nursing and her son present at the bedside. The patient wasrestless and was in soft mitt restraints to the upper extremities. She answered every question thatI asked with yes. Objective Vitals and Measurements T: 36.7 C (Axillary) TMIN: 36.5 C (Oral) TMAX: 37.0 C (Axillary) HR: 95(Monitored) RR: 20 BP: 115/56 SpO2: 100% HT: 163 cm WT: 56.1 kg BMI: 21.11 Intake and Output 7AM Yesterday to 7AM Today Intake and Output (Last 24 hours) Intake Oral Intake 0.00 Administration Information 755.00 Output Urinary Catheter Output: 1300.00 Stool Count 2.00 Total Summary Total Intake 755.00 Total Output 1300.00 Fluid Balance -545.00 Physical Exam General: Awake and alert. Confused and restless. Answers every question with yes. Supine in bed. HEENT: Sclera anicteric. Left sided facial abrasions/ecchymosis noted. Heart: S1 and S2 present. Lungs: Chest rise symmetrical. Respirations unlabored. Lungs clear/diminished upon auscultation. Abdomen: Soft and nontender. Nondistended. No rigidity or guarding noted. Bowel sounds hypoactive. Extremities: Moves all extremities. Upper extremities in soft mitt restraints. Psychiatric: Restless. Weight Dosing Weight: 56.1 kg (06/10/22) Dosing Weight: 56.1 kg (06/10/22) Medications Medications (9) Active Scheduled: (2) acetaminophen PMX 1,000 mg 100 mL, IV Piggyback, q6hr metoprolol 1 mg/mL (5mL) vial 5 mg 5 mL, IV Push, q6h Continuous: (1) NS (0.9% nacl) 1,000 mL 1,000 mL, Intravenous, 50 mL/hr PRN: (6) acetaminophen 325 mg Tablet 650 mg 2 tab(s), Oral, q4h docusate sodium 100 mg Capsule 100 mg 1 cap(s), Oral, BID hydralazine 20 mg/mL (1mL) vial 10 mg 0.5 mL, IV Push, q2h magnesium hydroxide 8% Suspension 30 mL UD 30 mL, Oral, qHS ondansetron 2 mg/ 1 mL 2 mL INJ 4 mg 2 mL, IV Push, q4h tramadol 50 mg Tablet 50 mg 1 tab(s), Oral, q4h Lab Results 06/11 03:31 WBC: 6.0 Hgb: 10.9 L Hct: 33.4 L Platelet: 207 Neutrophil %: 74.4 Glucose Level: 101 Sodium Level: 136 Potassium Level: 3.8 BUN: 13.0 Creatinine Lvl (s): 0.80 Imaging Results and Diagnostics CT Head or Brain w/o Contrast Result Date: June 11, 2022 Verified By: ANURAG WORTHINGTON DO CLINICAL STATEMENT: IMPRESSION: Unchanged acute left frontal subarachnoid blood. Left-sided ZMC fracture as seen previously. Chronic changes as above. I have personally reviewed the images of this examination and agree with the resident's findings and interpretation. EKG No qualifying data available. Assessment/Plan Fall This patient is an 82-year-old female who is post trauma day #1 following a fall that resulted in poly-traumatic injuries that included left-sided facial fractures and a subarachnoid hemorrhage. She was admitted to the hospital under the neurosurgery service with consultations placed to trauma surgery given her multisystem injuries and to the surgeon covering maxillofacial call given her facial fractures. A repeat CT scan of her head was performed this morning showing unchanged left frontal subarachnoidblood products with the fracture of the left zygomatic arch. On examination, she was seen resting supine in bed in the SICU with her son and nursing present at the bedside. She was restless and moving all extremities. Her upper extremities were in soft mitts. She answered every question with yes. She did not appear in discomfort with palpation of her abdomen. She has had multiple bowel movements over the last 24 hours. Plan: No new orders from a trauma standpoint. Further management of her subarachnoid hemorrhage per the neurosurgery service. At this time trauma surgery will sign off. Thank you for allowing us to participate in the care of this patient. The case has been discussed with Dr. Ocasio. Please see his addendum for further details. Digitally Signed by YAS ROSALES on 06/11/2022 08:[address] [id number] Note ORIGINAL EXAMINATION: ONE SUPINE XRAY VIEW(S) OF THE ABDOMEN 06/11/2022 11:12 am COMPARISON: Pelvis x-ray on 06/10/2022 HISTORY: ORDERING SYSTEM PROVIDED HISTORY: Reason for Exam: NG tube placement FINDINGS: Dobbhoff tube tip weighted end is in distal portion of the gastric body directed towards the gastric antrum. No dilated loops of intestine are present. IMPRESSION: Dobbhoff tube tip is in distal gastric body. Interpreted by: Bill Burroughs MD Preliminary Report By: Bill Burroughs MD Electronically signed By Bill Burroughs MD Dictated Date: 06/11/2022 11:24:57 AM Prelim Date: 06/11/2022 11:26:11 AM Sign Date: 06/11/2022 11:26:11 AM Ordering Provider: [facility]02-23-2023 Note ORIGINAL EXAMINATION: ONE SUPINE XRAY VIEW(S) OF THE ABDOMEN 06/11/2022 11:12 am COMPARISON: Pelvis x-ray on 06/10/2022 HISTORY: ORDERING SYSTEM PROVIDED HISTORY: Reason for Exam: NG tube placement FINDINGS: Dobbhoff tube tip weighted end is in distal portion of the gastric body directed towards the gastric antrum. No dilated loops of intestine are present. IMPRESSION: Dobbhoff tube tip is in distal gastric body. Interpreted by: Bill Burroughs MD Preliminary Report By: Bill Burroughs MD Electronically signed By Bill Burroughs MD Dictated Date: 06/11/2022 11:24:57 AM Prelim Date: 06/11/2022 11:26:11 AM Sign Date: 06/11/2022 11:26:11 AM Ordering Provider: [facility]02-23-2023 Note Date of Service 06/11/2022 Split/shared visit with Dr Justin Neurosurgery CC: Small acute traumatic subarachnoid hemorrhage s/p witnessed fall without LOC. Coagulopathy secondary to Aggrenox use. 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 Patient lives at home with her nephew and had gone into the bathroom with her wheelchair. Nephew was having difficult timewith the patient following instructions and phoned the patient's son. During that telephone call, the patient had let go of her wheelchair and face planted onto the bathroom floor. Nephew provided patient had no loss of consciousness. EMS was contacted and patient was transported to [place] ED. Family reports patient with altered mental status and agitation with cognitive and functional decline over the past 5 weeks. Treated for UTI with course of Keflex, however her symptoms continued to progress; UA rechecked and then prescribed Cipro. However patient did not finish course, and not compliant with her medications at home. Patient prescribed Aggrenox, although family indicates she has not been compliant with taking prescribed medications, and it is unknown when she last had a dose.Family concerned due to increased confused and agitated over last several days with decreased oral intake, family and patient repeatedly stating she does not want to be alive anymore. Head CT at outside hospital showed evidence of a small left frontal subarachnoid hemorrhage. Also found with a left zygomatic fracture with associated left maxillary hemosinus. Had a 1.5 cm left forehead laceration repaired with sutures. UA Negative for evidence of UTI. Dr. Justin was notified of these findings, and recommended patient be transferred to [place] for further evaluation and care. Admitted to SICU; video tape transferrer, maxillofacial surgery and trauma physicians consulted. Patient presented to [place] with altered mental status, repeatedly stated help me and was also quite agitated; she received several doses of IV Ativan prior to transfer to [place] ED. Upon arrival to [place] ED, patient was noted to be drowsy, nonverbal and had a decreased GCS of 8.Not following any commands. Head CT repeated here, and showed no significant change, in fact left frontal subarachnoid hemorrhage slightly improved from initial CT. This morning, patient evaluated and on exam keeps eyes closed. She follows only some simple commands. She is able to state her name for me and that she is at the hospital. Disoriented to time and circumstances. Moves all 4 extremities spontaneously. Left pupil oval-shaped and now sluggishly reactive to light. Patient repeatedly states, Help me. Objective Vitals and Measurements T: 36.7 C (Axillary) TMIN: 36.5 C (Oral) TMAX: 37.0 C (Axillary) HR: 95(Monitored) RR: 16 BP: 115/56 SpO2: 98% HT: 163 cm WT: 56.1 kg BMI: 21.11 Intake and Output 7AM Yesterday to 7AM Today Intake and Output (Last 24 hours) Intake Oral Intake 0.00 Administration Information 755.00 Output Urinary Catheter Output: 1300.00 Stool Count 2.00 Total Summary Total Intake 755.00 Total Output 1300.00 Fluid Balance -545.00 Physical Exam See above. In addition: Right pupil is round and 3mm in size; reacts briskly to light. Left periorbital ecchymosis. Left frontal laceration, sutures intact. Left cheek superficial skin tear. Abdomen is soft, nondistended. BS x4. Tachycardic, HR low 100s; 108 bpm currently. Lungs are CTA. Even and unlabored respirations; no respiratory distress. Weight Dosing Weight: 56.1 kg (06/10/22) Dosing Weight: 56.1 kg (06/10/22) Medications Medications (9) Active Scheduled: (2) acetaminophen PMX 1,000 mg 100 mL, IV Piggyback, q6hr metoprolol 1 mg/mL (5mL) vial 5 mg 5 mL, IV Push, q6h Continuous: (1) NS (0.9% nacl) 1,000 mL 1,000 mL, Intravenous, 50 mL/hr PRN: (6) acetaminophen 325 mg Tablet 650 mg 2 tab(s), Oral, q4h docusate sodium 100 mg Capsule 100 mg 1 cap(s), Oral, BID hydralazine 20 mg/mL (1mL) vial 10 mg 0.5 mL, IV Push, q2h magnesium hydroxide 8% Suspension 30 mL UD 30 mL, Oral, qHS ondansetron 2 mg/ 1 mL 2 mL INJ 4 mg 2 mL, IV Push, q4h tramadol 50 mg Tablet 50 mg 1 tab(s), Oral, q4h Lab Results 06/11 03:31 WBC: 6.0 Hgb: 10.9 L Hct: 33.4 L Platelet: 207 Neutrophil %: 74.4 Glucose Level: 101 Sodium Level: 136 Potassium Level: 3.8 BUN: 13.0 Creatinine Lvl (s): 0.80 EKG No qualifying data available. Assessment/Plan Small acute traumatic subarachnoid hemorrhage s/p witnessed fall without LOC Initial head CT at outside hospital showed evidence of a very small left frontal subarachnoid hemorrhage, traumatic secondary to her fall. Repeat head CT yesterday showed improvement of Left tiny SAH. Today, head CT is stable to 2nd CT yesterday; no significant changes. No evidence of new hemorrhages. Acute encephalopathy, likely multifactorial mildly improved today; Ativan effects likely contributed to exam yesterday. However, patient still with altered MS, and not at baseline. Has had 5 week decline; Dr Justin recommending Neurology consult for additional evaluation and to determine if aditionaltesting is needed. Per Dr. Justin patient can be transferred out of the ICU today, if also cleared by medicine. Dr Justin requests transfer of primary service to medicine. No neurosurgical interventions needed; hemorrhage expected to resolve on it's own. [employer] physicians following for assistance with medical management. Keep systolic blood pressure less than 140 mmHg. Coagulopathy secondary to Aggrenox use Patient on Aggrenox secondary to history of prior CVAs Aggrenox stopped on admission. Patient has not been compliant with prescribed medications at home and it is questionable if she had been taking Aggrenox as ordered; unknown last dose. Aggrenox may have contributed to acute SAH, although primary mechanism was traumatic fall. No reversal agents given. INR 1.0 Aggrenox be held x1 week per Dr. Justin, then patient may resume; no follow-up head CT necessary per Dr Justin. Avoid NSAID use. Left frontal contusion and laceration Left frontal laceration was repaired with suture closure. Keep site clean and dry at all times. Will require suture removal in approximately 10 to 14 days, this can be completed either by PCP. orneurosurgery Left zygomatic fracture with associated left maxillary hemosinus Patient found with a left zygomatic fracture with associated left maxillary hemosinus Consult maxillofacial surgery for evaluation and treatment recommendations. Note reviewed; No surgical intervention planned. Recommendations for prophylactic sinus antibioticsfor 1 week. Trauma, same level fall Dr. Justin requested trauma consult for tertiary survey. Due to patient's impaired MS yesterday, complete tertiary survey difficult to obtain; no new ordersfrom trauma team. DVT prophylaxis Repeat CT stable Per Dr Justin, patient cleared for chemical DVT prophylaxis starting today; discussed with ICU STERILE PREPARATION TECHNICIAN. Please refer to Dr. Justin's addendum for additional information and details regarding neurosurgical input and recommendations. Patient's son/[id number], and nephew were updated at the bedside today. Digitally Signed by SAUL GASPAR on 06/11/2022 10:20 PM Digitally Signed by WES JUSTIN MD on 06/15/2022 12:[address] [id number] Note Date of Service 06/11/2022 Reason for Consultation Skin Team Consult Reason: Pressure wound Admission From: Home Skin Team Findings Vitals and Measurements T: 36.7 C (Axillary) TMIN: 36.5 C (Oral) TMAX: 37.0 C (Axillary) HR: 95(Monitored) RR: 20 BP: 115/56 SpO2: 100% HT: 163 cm WT: 56.1 kg BMI: 21.11 Pressure Area Details ------Pressure Area------ Buttock Right - Pressure Area Description: Red, non blanchable, Denuded, Drainage/Exudate, Edges Buttock Right - Pressure Area Drainage: Serosanguineous Buttock Right - Pressure Area Dressing Description: Intact, Drainage present Buttock Right - Pressure Area Dressing Type: Foam Buttock Right - Pressure Area Surrounding Tissue: Erythema, Denuded; epithelial bridging present Buttock Right - Pressure Ulcer Present On Admission: Yes Buttock Right - Pressure Ulcer Stage: Chronic healing Stage 3 ------Pressure Area Measurements------ Buttock Right - Pressure Area Depth: 0.1 cm Buttock Right - Pressure Area Length: 1.5 cm Buttock Right - Pressure Area Width: 2.5 cm ------Incision/Wound------ Face Left - Incision, Wound Dressing/Activity: Open to air Face Left - Skin Abnormality Color: [place], Purple, Red Face Left - Skin Abnormality Type: Abrasion Face Left - Wound Status: Unchanged Assessments and Recommendations ------Assessments------ Barrier(s) To Healing: Cognitive deficits, Cardiovascular disease, Respiratory disease, Other: chronic right buttocks wound per son (they have been attempting to heal for months); CVA; Left frontal SAH s/p fall, wheelchair use in home Current Skin/Wound Interventions: Hospital bed, Low air loss mattress Present For Wound Observation: Other: nursing professor ------Recommendations------ Recommended Skin/Wound Interventions: Low air loss mattress, Turn and position system, Prophylacticfoam, Turn and reposition every 2 hours Digitally Signed by HELLEN Rivera July06/11/2022 09:[address] [id number] Note Date of Service 06/11/2022 Subjective 81 years old lady with history of hypertension, chronic kidney disease, stage III breast cancer, which is remote, dyslipidemia and also prior history of stroke on Aggrenox, the last month or so patient has been ambulating via wheelchair, today she fell while in the bathroom, brought to our emergency department, CAT scan of the brain reveals very small tiny left frontal bleed few millimeters, leftzygomatic fracture for which has been observed intensive care unit, no other injuries identified. Last 24 hours, patient has remained somewhat restless. This morning there was some difficulty in getting the repeat head CT due to this. There is also some suspicion of the possibility of underlying stroke and MRI is being requested. Blood pressure has been acceptable. Long discussion with the patient's son at the bedside who notes significant deterioration in overall mentation over the last 30 days and especially over the last week. Initial thought was that this was related to UTI but the patient's son is not sure that that fully explains the degree of neurologic change. Today I rounded on the patient with the nursing staff, rounding critical care nurse, and the entirecritical care team available. I've reviewed the detailed handwritten notes as well as any dictations performed. In addition to this I would like to add the following: Objective Vitals and Measurements T: 36.7 C (Axillary) TMIN: 36.5 C (Oral) TMAX: 37.0 C (Axillary) HR: 95(Monitored) RR: 20 BP: 115/56 SpO2: 100% HT: 163 cm WT: 56.1 kg BMI: 21.11 Intake and Output 7AM Yesterday to 7AM Today Intake and Output (Last 24 hours) Intake Oral Intake 0.00 Administration Information 755.00 Output Urinary Catheter Output: 1300.00 Stool Count 2.00 Total Summary Total Intake 755.00 Total Output 1300.00 Fluid Balance -545.00 Physical Exam Skin: No rash no ulceration. HEENT: Abrasion and swelling left-sided face. Eyes: Sclerae clear, eye movements normal, Neck: No JVD no adenopathy. Heart: Regular rhythm, no murmur, no S3 or S4. Lungs: Clear breath sounds bilaterally, no rales no rhonchi's no wheeze no dullness Chest wall: Moving symmetrically with respiration. Abdomen: Soft, nondistended, no organomegaly, no tenderness no rigidity Lower extremities: No edema or erythema. Neuro: Eyes are closed, opens eyes intermittently, moves all 4 EXTR spontaneously, did not follow commands for me Weight Dosing Weight: 56.1 kg (06/10/22) Dosing Weight: 56.1 kg (06/10/22) Medications Medications (9) Active Scheduled: (2) acetaminophen PMX 1,000 mg 100 mL, IV Piggyback, q6hr metoprolol 1 mg/mL (5mL) vial 5 mg 5 mL, IV Push, q6h Continuous: (1) NS (0.9% nacl) 1,000 mL 1,000 mL, Intravenous, 50 mL/hr PRN: (6) acetaminophen 325 mg Tablet 650 mg 2 tab(s), Oral, q4h docusate sodium 100 mg Capsule 100 mg 1 cap(s), Oral, BID hydralazine 20 mg/mL (1mL) vial 10 mg 0.5 mL, IV Push, q2h magnesium hydroxide 8% Suspension 30 mL UD 30 mL, Oral, qHS ondansetron 2 mg/ 1 mL 2 mL INJ 4 mg 2 mL, IV Push, q4h tramadol 50 mg Tablet 50 mg 1 tab(s), Oral, q4h Lab Results 06/11 03:31 WBC: 6.0 Hgb: 10.9 L Hct: 33.4 L Platelet: 207 Neutrophil %: 74.4 Glucose Level: 101 Sodium Level: 136 Potassium Level: 3.8 BUN: 13.0 Creatinine Lvl (s): 0.80 EKG No qualifying data available. Assessment/Plan Fall 1. Fall with a small tiny left frontal few millimeters bleed, parenchymal/subarachnoid. 2. Left-sided zygomatic fracture. 3. History of hypertension. 4. Prior history of CVA on Aggrenox. 5. History of dyslipidemia. 6. Remote history of breast cancer. 7. Deteriorating functional status, as of recently patient has been ambulating via wheelchair. Plan: 1. Continue to observe the patient in the surgical intensive care. 2. She is n.p.o. we will consider placement of a Dobbhoff for enteral nutrition 3. Normal saline 50 cc an hour. 4. Acetaminophen 1 g IV every 6 hours for 24 hours for pain control. 5. I agree with the MRI of the brain. We may need to consult anesthesia to help facilitate this test. 6. CODE STATUS DNR arrest DO NOT INTUBATE. 35 minutes critical care time Natalio Richardson M.D., [facility] Digitally Signed by NATALIO RICHARDSON MD on 06/11/2022 10:[address] [facility] [id number] Progress note Date of Service 06/11/2022 Chief Complaint S/P Fall sustaining poly-traumatic injuries Subjective This is a split shared visit between myself and Dr. Ocasio Patient seen resting supine in bed with nursing and her son present at the bedside. The patient wasrestless and was in soft mitt restraints to the upper extremities. She answered every question thatI asked with yes. Objective Vitals and Measurements T: 36.7 C (Axillary) TMIN: 36.5 C (Oral) TMAX: 37.0 C (Axillary) HR: 95(Monitored) RR: 20 BP: 115/56 SpO2: 100% HT: 163 cm WT: 56.1 kg BMI: 21.11 Intake and Output 7AM Yesterday to 7AM Today Intake and Output (Last 24 hours) Intake Oral Intake 0.00 Administration Information 755.00 Output Urinary Catheter Output: 1300.00 Stool Count 2.00 Total Summary Total Intake 755.00 Total Output 1300.00 Fluid Balance -545.00 Physical Exam General: Awake and alert. Confused and restless. Answers every question with yes. Supine in bed. HEENT: Sclera anicteric. Left sided facial abrasions/ecchymosis noted. Heart: S1 and S2 present. Lungs: Chest rise symmetrical. Respirations unlabored. Lungs clear/diminished upon auscultation. Abdomen: Soft and nontender. Nondistended. No rigidity or guarding noted. Bowel sounds hypoactive. Extremities: Moves all extremities. Upper extremities in soft mitt restraints. Psychiatric: Restless. Weight Dosing Weight: 56.1 kg (06/10/22) Dosing Weight: 56.1 kg (06/10/22) Medications Medications (9) Active Scheduled: (2) acetaminophen PMX 1,000 mg 100 mL, IV Piggyback, q6hr metoprolol 1 mg/mL (5mL) vial 5 mg 5 mL, IV Push, q6h Continuous: (1) NS (0.9% nacl) 1,000 mL 1,000 mL, Intravenous, 50 mL/hr PRN: (6) acetaminophen 325 mg Tablet 650 mg 2 tab(s), Oral, q4h docusate sodium 100 mg Capsule 100 mg 1 cap(s), Oral, BID hydralazine 20 mg/mL (1mL) vial 10 mg 0.5 mL, IV Push, q2h magnesium hydroxide 8% Suspension 30 mL UD 30 mL, Oral, qHS ondansetron 2 mg/ 1 mL 2 mL INJ 4 mg 2 mL, IV Push, q4h tramadol 50 mg Tablet 50 mg 1 tab(s), Oral, q4h Lab Results 06/11 03:31 WBC: 6.0 Hgb: 10.9 L Hct: 33.4 L Platelet: 207 Neutrophil %: 74.4 Glucose Level: 101 Sodium Level: 136 Potassium Level: 3.8 BUN: 13.0 Creatinine Lvl (s): 0.80 Imaging Results and Diagnostics CT Head or Brain w/o Contrast Result Date: June 11, 2022 Verified By: ANURAG WORTHINGTON DO CLINICAL STATEMENT: IMPRESSION: Unchanged acute left frontal subarachnoid blood. Left-sided ZMC fracture as seen previously. Chronic changes as above. I have personally reviewed the images of this examination and agree with the resident's findings and interpretation. EKG No qualifying data available. Assessment/Plan Fall This patient is an 82-year-old female who is post trauma day #1 following a fall that resulted in poly-traumatic injuries that included left-sided facial fractures and a subarachnoid hemorrhage. She was admitted to the hospital under the neurosurgery service with consultations placed to trauma surgery given her multisystem injuries and to the surgeon covering maxillofacial call given her facial fractures. A repeat CT scan of her head was performed this morning showing unchanged left frontal subarachnoidblood products with the fracture of the left zygomatic arch. On examination, she was seen resting supine in bed in the SICU with her son and nursing present at the bedside. She was restless and moving all extremities. Her upper extremities were in soft mitts. She answered every question with yes. She did not appear in discomfort with palpation of her abdomen. She has had multiple bowel movements over the last 24 hours. Plan: No new orders from a trauma standpoint. Further management of her subarachnoid hemorrhage per the neurosurgery service. At this time trauma surgery will sign off. Thank you for allowing us to participate in the care of this patient. The case has been discussed with Dr. Ocasio. Please see his addendum for further details. Digitally Signed by YAS ROSALES on 06/11/2022 08:[address] [id number] Otolaryngology Consult note Date of Service 06/11/2022 Reason for Consultation Fall/Left Zygomatic Fracture Referring Physician Dr. Justin History of Present Illness Dariusz is a 82 year old female whom presented to [facility] ER yesterday after a fall at home where she stuck her face on the floor. Apparently her mental status has been declining over the past several weeks secondary to a UTI. She lives with her nephew whom witnesses the fall. Work up revealed subarachnoid hemorrhage and a left zygomatic fracture. ENT has been consulted for further evaluation of the facial fracture. Patient is in the surgical ICU this morning. She is not completely alert, in soft mitts, and keeps repeating help me . She is able to answer some of my yes and no questions. He son is present in theroom. She answers yes to pain of cheek and non to pain of forehead. She says yes to nosebleedwhen she fell. Review of Systems See HPI Physical Exam Vitals and Measurements T: 37 C (Oral) TMIN: 36.5 C (Oral) TMAX: 37.0 C (Axillary) HR: 94(Monitored) RR: 20 BP: 121/41 SpO2: 100% HT: 163 cm WT: 56.1 kg BMI: 21.11 Weight Dosing Weight: 56.1 kg (06/10/22) Dosing Weight: 56.1 kg (06/10/22) General: alert, awake, confused. Repeating help me . Resp: no resp distress ENT: There is diffuse ecchymosis and multiple skin Tears of the left side of her face. Sutures in place left forehead lesion. There is dried blood in her left nasal cavity. Tender over the left cheek. Nontender to palpation over left forehead. Lab Results 06/11 03:31 WBC: 6.0 Hgb: 10.9 L Hct: 33.4 L Platelet: 207 Neutrophil %: 74.4 Glucose Level: 101 Sodium Level: 136 Potassium Level: 3.8 BUN: 13.0 Creatinine Lvl (s): 0.80 Imaging Results and Diagnostics (06/10/2022 08:[address] Head or Brain w/o Contrast) Left ZMC fracture with left maxillary hemosinus. Associated left periorbital and left supraorbital hematomas. [1] Assessment/Plan Fall Left [facility]ygomatic Facture 82 [facility] at [facility]. Landed on face. CT images reviewed/discussed with my supervising physician, Dr. Juan J Etienne. Patient has left, non-depressed zygomatic fracture with hemosinus. Associated left periorbital and supraorbital hematomas. Recommendations: No surgical intervention needed (non-depressed). Would recommend prophylactic sinus antibiotics for 1 week. Problem List/Past Medical History Ongoing At high risk for falls Breast cancer screening by mammogram Chronic edema Chronic renal failure, stage 3b E. coli UTI (urinary tract infection) Essential hypertension Fall at home Generalized muscle weakness History of breast cancer History of CVA in adulthood Hypokalemia Hyponatremia Immunization due Impaired gait and mobility Left hip pain Mixed hyperlipidemia Osteoporosis Status post CVA Vitamin D deficiency Historical Breast ca Hyperlipidemia Procedure/Surgical History Back fusion Medications Inpatient Apresoline, 10 mg= 0.5 mL, IV Push, q2h, PRN Colace, 100 mg= 1 cap(s), Oral, BID, PRN metoprolol tartrate 1 mg/mL injectable solution, 5 mg= 5 mL, IV Push, q6h Milk of Magnesia, 30 mL, Oral, qHS, PRN NS 1,000 mL, 1000 mL, Intravenous Ofirmev IVPB, 1000 mg= 100 mL, IV Piggyback, q6hr potassium acetate bolus Tylenol, 650 mg= 2 tab(s), Oral, q4h, PRN Ultram, 50 mg= 1 tab(s), Oral, q4h, PRN Zofran, 4 mg= 2 mL, IV Push, q4h, PRN Home Aggrenox 25-200 mg oral capsule, 1 cap(s), Oral, BID, 3 refills atenolol 50 mg oral tablet, 50 mg= 1 tab(s), Oral, qDay, 3 refills losartan 100 mg oral tablet, 100 mg= 1 tab(s), Oral, qDay [place]-3 350 mg oral capsule, 350 mg= 1 cap(s), Oral, qDay potassium chloride 10 mEq oral capsule, extended release, 10 mEq= 1 cap(s), Oral, BID, 3 refills simvastatin 80 mg oral tablet, 80 mg= 1 tab(s), Oral, qHS, 3 refills Tylenol PM Extra Strength oral tablet, 1 tab(s), Oral, qHS, PRN Vitamin D2 2000 intl units oral capsule, 2000 International_Unit= 1 cap(s), Oral, qDay, 3 refills Allergies Milk Products (Diarrhea - Adult) lisinopril (Cough) morphine (Paranoid) Social History Smoking Status - 01/30/2014 Former smoker Alcohol Use: Never., 01/31/2019 Employment/School Status: Retired., 08/04/2019 Exercise Home/Environment None Domestic Concerns:. Living situation: Home/Independent. Single level home Lives In:., 01/31/2019 Nutrition/Health Type of diet: Regular. Good Appetite. None Eating Difficulties., 01/31/2019 Substance Abuse Use: Never., 01/31/2019 Tobacco Tobacco Use: Never (less than 100 in lifetime)., 01/31/2019 Family History Family history is negative Immunizations pneumococcal 13-valent conjugate vaccine: 0 unknown unit (02/15/17) pneumococcal 23-valent vaccine(Pneumovax: 0 unknown unit (10/17/05) pneumococcal 23-valent vaccine(Pneumovax: 0 unknown unit (04/19/05) pneumococcal 23-valent vaccine(Pneumovax: 0 unknown unit (03/18/05) SARS-CoV-2 (COVID-19) mRNA-1273 vaccine: 50 mcg (03/24/21) SARS-CoV-2 (COVID-19) mRNA-1273 vaccine: 100 mcg (06/12/20) SARS-CoV-2 (COVID-19) mRNA-1273 vaccine: 0 unknown unit (05/15/20) tetanus/diphth/pertuss (Tdap) adult/adol: 0.5 mL (06/10/22) zoster vaccine live: 0 unknown unit (04/19/05) zoster vaccine live: 0 unknown unit (04/19/05) zoster vaccine live: 0 unknown unit (03/18/05) [1] CT Head or Brain w/o Contrast; ANURAG WORTHINGTON DO 06/10/2022 08:43 EST Digitally Signed by ALDEN CLEMENTS PA-C on 06/11/2022 09:47 AM Digitally Signed by JUAN J ETIENNE MD on 06/13/2022 09:[address] [id number] Note ORIGINAL EXAMINATION: CT OF THE HEAD WITHOUT CONTRAST06/11/2022 5:36 am TECHNIQUE: CT of the head was performed without the administration of intravenous contrast. Automated exposure control, iterative reconstruction, and/or weight based adjustment of the mA/kV was utilized to reduce the radiation dose to as low as reasonably achievable. COMPARISON: Multiple CT head examinations on 06/10/2022, CT head 01/22/2014 HISTORY: ORDERING SYSTEM PROVIDED HISTORY: Reason for Exam: FOLLOW UP ON TRAUMATIC SAH, BEST IMAGES POSSIBLE DUE PT MOTION AND DID NOT FOLLOW INSTRUCTIONS Traumatic SAH s/p fall FINDINGS: Motion artifact obscures some details. Unchanged subcentimeter hyperdense foci of the left frontal region, most notably anteriorly, consistent with acute subarachnoid hemorrhage. No evidence of acute large territorial infarction. Right basal ganglia lacunar infarct, stable when compared to the remote 2013 CT head. Patchy to confluent supratentorial and periventricular white matter hypodensities consistent moderate to severe chronic microvascular angiopathy. Moderate to severe parenchymal volume loss with concordant ventricular, sulcal, and cisternal size. Mildly displaced fractures of the left lateral orbital wall, anterior maxillary wall, and posterior maxillary wall. Slight irregularity of the left zygomatic arch. Fluid level containing foci of air within the left maxillary sinus, likely traumatic hemorrhage/hemosinus. Left periorbital and supraorbital hematomas are present. IMPRESSION: Unchanged acute left frontal subarachnoid blood. Left-sided ZMC fracture as seen previously. Chronic changes as above. I have personally reviewed the images of this examination and agree with the resident's findings and interpretation. Interpreted by: Anurag Worthington Preliminary Report By: Duke Woods Electronically signed By Anurag Worthington Dictated Date: 06/11/2022 5:47:22 AM Prelim Date: 06/11/2022 6:09:07 AM Sign Date: 06/11/2022 8:07:25 AM Ordering Provider: SAUL GASPAR [id number] Note ORIGINAL EXAMINATION: CT OF THE HEAD WITHOUT CONTRAST06/11/2022 5:36 am TECHNIQUE: CT of the head was performed without the administration of intravenous contrast. Automated exposure control, iterative reconstruction, and/or weight based adjustment of the mA/kV was utilized to reduce the radiation dose to as low as reasonably achievable. COMPARISON: Multiple CT head examinations on 06/10/2022, CT head 01/22/2014 HISTORY: ORDERING SYSTEM PROVIDED HISTORY: Reason for Exam: FOLLOW UP ON TRAUMATIC SAH, BEST IMAGES POSSIBLE DUE PT MOTION AND DID NOT FOLLOW INSTRUCTIONS Traumatic SAH s/p fall FINDINGS: Motion artifact obscures some details. Unchanged subcentimeter hyperdense foci of the left frontal region, most notably anteriorly, consistent with acute subarachnoid hemorrhage. No evidence of acute large territorial infarction. Right basal ganglia lacunar infarct, stable when compared to the remote 2013 CT head. Patchy to confluent supratentorial and periventricular white matter hypodensities consistent moderate to severe chronic microvascular angiopathy. Moderate to severe parenchymal volume loss with concordant ventricular, sulcal, and cisternal size. Mildly displaced fractures of the left lateral orbital wall, anterior maxillary wall, and posterior maxillary wall. Slight irregularity of the left zygomatic arch. Fluid level containing foci of air within the left maxillary sinus, likely traumatic hemorrhage/hemosinus. Left periorbital and supraorbital hematomas are present. IMPRESSION: Unchanged acute left frontal subarachnoid blood. Left-sided ZMC fracture as seen previously. Chronic changes as above. I have personally reviewed the images of this examination and agree with the resident's findings and interpretation. Interpreted by: Anurag Worthington Preliminary Report By: Duke Woods Electronically signed By Anurag Worthington Dictated Date: 06/11/2022 5:47:22 AM Prelim Date: 06/11/2022 6:09:07 AM Sign Date: 06/11/2022 8:07:25 AM Ordering Provider: SAUL [facility]02-22-2023 Consult note Date of Service 06/10/2022 Reason for Consultation Same level fall, tertiary trauma survey Referring Physician Dr. Justin History of Present Illness This is a split shared visit between myself and Dr. Ocasio. This is an 82-year-old female with past medical history of breast cancer, chronic edema, CKD, hypertension, CVA, hyperlipidemia and osteoporosis. Patient originally presented to [facility] ED after experiencing a witnessed same level fall in her home. Per family report she lives alone but is helped frequently by a family member. She was standing between her recliner and wheelchair when she lost her balance and fell forward landing on her face. Patient's family denied any loss of consciousness. 911 was called and she was taken to the closest ER in [place]. Patient has been significantly declining over the past several weeks per family report. Progressively getting weaker with frequent falls. During her work-up at [place] ER had a CT scan of her head that showed is of small left frontal subarachnoid hemorrhage with left zygomatic fracture and left maxillary hemosinus per radiology dictation. Also found to have a 1.5 cm forehead laceration repaired with sutures by ER physician. Due to her head bleed patient was [facility] admitted under neurosurgery service. General surgery has been asked for a tertiary trauma survey. Patient is resting supine in bed. She is somewhat restless, family at bedside. Does not follow commands appropriately or interact appropriately. Pupils do react but left is slower than right. Moving all 4 extremities. Review of Systems Review of systems is difficult to obtain given patient's status. Does not interact or answer questions appropriately. Appears restless in bed. Moving all 4 extremities. Physical Exam Vitals and Measurements T: 36.8 C (Oral) HR: 109(Monitored) HR: 117(Apical) RR: 17 BP: 158/94 SpO2: 99% HT: 163 cm WT: 56.1kg BMI: 21.11 Weight Dosing Weight: 56.1 kg (06/10/22) Dosing Weight: 56.1 kg (06/10/22) General -arousable but does not interact or answer questions appropriately. Moving all 4 extremities. In no acute distress. HEENT -left facial ecchymosis with forehead laceration, sutures in place. Cardiovascular -S1-S2, irregular rate and rhythm. Tachycardic. Respiratory -easy unlabored respirations. Chest rise symmetrical. Abdomen/GI -soft, nontender, bowel sounds present. Nondistended. Musculoskeletal -NOBLES x4. Psychiatric - Restless. Skin -normal for ethnicity. Lab Results No 36 Hour Lab Data Imaging Results and Diagnostics CT Head or Brain w/o Contrast Result Date: June 10, 2022 Verified By: CARMEN TORIBIO MD CLINICAL STATEMENT: IMPRESSION: Significantly degraded by motion. Otherwise, no significant change. Smallleft frontal subarachnoid hemorrhage. X-rays of her chest and pelvis reviewed. CT scans of her cervical spine reviewed. Assessment/Plan Fall 82-year-old female admitted under neurosurgical service after experiencing a same level fall landing on her face found to have left-sided facial fractures and subarachnoid hemorrhage. General surgeryhas been asked for a tertiary survey to rule out any missed injuries. Tertiary survey is somewhat difficult given her current status. She does not interact or follow commands appropriately. When palpating chest abdomen and spine patient had no grimacing. She does have small abrasions to her bilateral knees. She is moving all 4 extremities and does appear somewhat restless in bed. She had no pelvic instability or pain with pelvic rock. Per family report she has had significant decline over the past several weeks with frequent falls and increasing weakness. Plan: -Does not appear to have any other obvious missed injuries currently. But again exam is very limited due to her current mental status. -No new orders from a trauma standpoint. Please call with any further questions or concerns. Will discuss case with Dr. Ocasio, please see his addendum to follow. Problem List/Past Medical History Ongoing At high risk for falls Breast cancer screening by mammogram Chronic edema Chronic renal failure, stage 3b E. coli UTI (urinary tract infection) Essential hypertension Fall at home Generalized muscle weakness History of breast cancer History of CVA in adulthood Hypokalemia Hyponatremia Immunization due Impaired gait and mobility Left hip pain Mixed hyperlipidemia Osteoporosis Status post CVA Vitamin D deficiency Historical Breast ca Hyperlipidemia Procedure/Surgical History Back fusion Medications Inpatient Apresoline, 10 mg= 0.5 mL, IV Push, q2h, PRN atenolol, 50 mg= 1 tab(s), Oral, qDay Colace, 100 mg= 1 cap(s), Oral, BID, PRN Milk of Magnesia, 30 mL, Oral, qHS, PRN NS 1,000 mL, 1000 mL, Intravenous Tylenol, 650 mg= 2 tab(s), Oral, q4h, PRN Ultram, 50 mg= 1 tab(s), Oral, q4h, PRN Zofran, 4 mg= 2 mL, IV Push, q4h, PRN Home Aggrenox 25-200 mg oral capsule, 1 cap(s), Oral, BID, 3 refills atenolol 50 mg oral tablet, 50 mg= 1 tab(s), Oral, qDay, 3 refills losartan 100 mg oral tablet, 100 mg= 1 tab(s), Oral, qDay [place]-3 350 mg oral capsule, 350 mg= 1 cap(s), Oral, qDay potassium chloride 10 mEq oral capsule, extended release, 10 mEq= 1 cap(s), Oral, BID, 3 refills simvastatin 80 mg oral tablet, 80 mg= 1 tab(s), Oral, qHS, 3 refills Tylenol PM Extra Strength oral tablet, 1 tab(s), Oral, qHS, PRN Vitamin D2 2000 intl units oral capsule, 2000 International_Unit= 1 cap(s), Oral, qDay, 3 refills Allergies Milk Products (Diarrhea - Adult) lisinopril (Cough) morphine (Paranoid) Social History Smoking Status - 01/30/2014 Former smoker Alcohol Use: Never., 01/31/2019 Employment/School Status: Retired., 08/04/2019 Exercise Home/Environment None Domestic Concerns:. Living situation: Home/Independent. Single level home Lives In:., 01/31/2019 Nutrition/Health Type of diet: Regular. Good Appetite. None Eating Difficulties., 01/31/2019 Substance Abuse Use: Never., 01/31/2019 Tobacco Tobacco Use: Never (less than 100 in lifetime)., 01/31/2019 Family History Family history is negative Immunizations pneumococcal 13-valent conjugate vaccine: 0 unknown unit (02/15/17) pneumococcal 23-valent vaccine(Pneumovax: 0 unknown unit (10/17/05) pneumococcal 23-valent vaccine(Pneumovax: 0 unknown unit (04/19/05) pneumococcal 23-valent vaccine(Pneumovax: 0 unknown unit (03/18/05) SARS-CoV-2 (COVID-19) mRNA-1273 vaccine: 50 mcg (03/24/21) SARS-CoV-2 (COVID-19) mRNA-1273 vaccine: 100 mcg (06/12/20) SARS-CoV-2 (COVID-19) mRNA-1273 vaccine: 0 unknown unit (05/15/20) tetanus/diphth/pertuss (Tdap) adult/adol: 0.5 mL (06/10/22) zoster vaccine live: 0 unknown unit (04/19/05) zoster vaccine live: 0 unknown unit (04/19/05) zoster vaccine live: 0 unknown unit (03/18/05) Digitally Signed by LOBO RAMOS on 06/10/2022 03:[address] [id number] Critical care medicine Consult note Date of Service 06/10/2022. Reason for Consultation Critical care management Dr. Wes Justin Referring Physician Dr. Wes Justin History of Present Illness 81 years old lady with history of hypertension, chronic kidney disease, stage III breast cancer, which is remote, dyslipidemia and also prior history of stroke on Aggrenox, the last month or so patient has been ambulating via wheelchair, today she fell while in the bathroom, brought to our emergency department, CAT scan of the brain reveals very small tiny left frontal bleed few millimeters, leftzygomatic fracture for which has been observed intensive care unit, no other injuries identified. Eyes are closed, full moves all 4 extremities, does not follow commands for me, O2 saturation 98% on room air, she is normotensive, family at the bedside we discussed the case with them. Review of Systems Extensive review of system was obtained, pertinent findings were described in the history of present illness otherwise all negative Physical Exam Vitals and Measurements T: 36.9 C (Oral) TMIN: 36.8 C (Oral) TMAX: 36.9 C (Oral) HR: 119(Monitored) RR: 24 BP: 127/68 SpO2:99% HT: 163 cm WT: 56.1 kg BMI: 21.11 Weight Dosing Weight: 56.1 kg (06/10/22) Dosing Weight: 56.1 kg (06/10/22) Skin: No rash no ulceration. HEENT: Abrasion and swelling left-sided face. Eyes: Sclerae clear, eye movements normal, Neck: No JVD no adenopathy. Heart: Regular rhythm, no murmur, no S3 or S4. Lungs: Clear breath sounds bilaterally, no rales no rhonchi's no wheeze no dullness Chest wall: Moving symmetrically with respiration. Abdomen: Soft, nondistended, no organomegaly, no tenderness no rigidity Lower extremities: No edema or erythema. Neuro: Eyes are closed, opens eyes intermittently, moves all 4 EXTR spontaneously, did not follow commands for me Lab Results No 36 Hour Lab Data Assessment/Plan 1. Fall with a small tiny left frontal few millimeters bleed, parenchymal/subarachnoid. 2. Left-sided zygomatic fracture. 3. History of hypertension. 4. Prior history of CVA on Aggrenox. 5. History of dyslipidemia. 6. Remote history of breast cancer. 7. Deteriorating functional status, as of recently patient has been ambulating via wheelchair. Plan: 1. Patient be observed in the surgical intensive care. 2. She is n.p.o. 3. Normal saline 50 cc an hour. 4. Acetaminophen 1 g IV every 6 hours for 24 hours for pain control. 5. CAT scan of the brain without IV contrast in the morning via neurosurgery. 6. CODE STATUS DNR arrest DO NOT INTUBATE. Discussed with family at the bedside along with the critical care medicine team Problem List/Past Medical History Ongoing At high risk for falls Breast cancer screening by mammogram Chronic edema Chronic renal failure, stage 3b E. coli UTI (urinary tract infection) Essential hypertension Fall at home Generalized muscle weakness History of breast cancer History of CVA in adulthood Hypokalemia Hyponatremia Immunization due Impaired gait and mobility Left hip pain Mixed hyperlipidemia Osteoporosis Status post CVA Vitamin D deficiency Historical Breast ca Hyperlipidemia Procedure/Surgical History Back fusion Medications Inpatient Apresoline, 10 mg= 0.5 mL, IV Push, q2h, PRN Colace, 100 mg= 1 cap(s), Oral, BID, PRN metoprolol tartrate 1 mg/mL injectable solution, 5 mg= 5 mL, IV Push, q6h Milk of Magnesia, 30 mL, Oral, qHS, PRN NS 1,000 mL, 1000 mL, Intravenous Ofirmev IVPB, 1000 mg= 100 mL, IV Piggyback, q6hr Tylenol, 650 mg= 2 tab(s), Oral, q4h, PRN Ultram, 50 mg= 1 tab(s), Oral, q4h, PRN Zofran, 4 mg= 2 mL, IV Push, q4h, PRN Home Aggrenox 25-200 mg oral capsule, 1 cap(s), Oral, BID, 3 refills atenolol 50 mg oral tablet, 50 mg= 1 tab(s), Oral, qDay, 3 refills losartan 100 mg oral tablet, 100 mg= 1 tab(s), Oral, qDay [place]-3 350 mg oral capsule, 350 mg= 1 cap(s), Oral, qDay potassium chloride 10 mEq oral capsule, extended release, 10 mEq= 1 cap(s), Oral, BID, 3 refills simvastatin 80 mg oral tablet, 80 mg= 1 tab(s), Oral, qHS, 3 refills Tylenol PM Extra Strength oral tablet, 1 tab(s), Oral, qHS, PRN Vitamin D2 2000 intl units oral capsule, 2000 International_Unit= 1 cap(s), Oral, qDay, 3 refills Allergies Milk Products (Diarrhea - Adult) lisinopril (Cough) morphine (Paranoid) Social History Smoking Status - 01/30/2014 Former smoker Alcohol Use: Never., 01/31/2019 Employment/School Status: Retired., 08/04/2019 Exercise Home/Environment None Domestic Concerns:. Living situation: Home/Independent. Single level home Lives In:., 01/31/2019 Nutrition/Health Type of diet: Regular. Good Appetite. None Eating Difficulties., 01/31/2019 Substance Abuse Use: Never., 01/31/2019 Tobacco Tobacco Use: Never (less than 100 in lifetime)., 01/31/2019 Family History Family history is negative Immunizations pneumococcal 13-valent conjugate vaccine: 0 unknown unit (02/15/17) pneumococcal 23-valent vaccine(Pneumovax: 0 unknown unit (10/17/05) pneumococcal 23-valent vaccine(Pneumovax: 0 unknown unit (04/19/05) pneumococcal 23-valent vaccine(Pneumovax: 0 unknown unit (03/18/05) SARS-CoV-2 (COVID-19) mRNA-1273 vaccine: 50 mcg (03/24/21) SARS-CoV-2 (COVID-19) mRNA-1273 vaccine: 100 mcg (06/12/20) SARS-CoV-2 (COVID-19) mRNA-1273 vaccine: 0 unknown unit (05/15/20) tetanus/diphth/pertuss (Tdap) adult/adol: 0.5 mL (06/10/22) zoster vaccine live: 0 unknown unit (04/19/05) zoster vaccine live: 0 unknown unit (04/19/05) zoster vaccine live: 0 unknown unit (03/18/05) Digitally Signed by RENETTA FANG MD on 06/10/2022 03:[address] [id number] Consult note Date of Service 06/10/2022 Reason for Consultation Same level fall, tertiary trauma survey Referring Physician Dr. Justin History of Present Illness This is a split shared visit between myself and Dr. Ocasio. This is an 82-year-old female with past medical history of breast cancer, chronic edema, CKD, hypertension, CVA, hyperlipidemia and osteoporosis. Patient originally presented to [facility] ED after experiencing a witnessed same level fall in her home. Per family report she lives alone but is helped frequently by a family member. She was standing between her recliner and wheelchair when she lost her balance and fell forward landing on her face. Patient's family denied any loss of consciousness. 911 was called and she was taken to the closest ER in [place]. Patient has been significantly declining over the past several weeks per family report. Progressively getting weaker with frequent falls. During her work-up at [place] ER had a CT scan of her head that showed is of small left frontal subarachnoid hemorrhage with left zygomatic fracture and left maxillary hemosinus per radiology dictation. Also found to have a 1.5 cm forehead laceration repaired with sutures by ER physician. Due to her head bleed patient was to [facility] admitted under neurosurgery service. General surgery has been asked for a tertiary trauma survey. Patient is resting supine in bed. She is somewhat restless, family at bedside. Does not follow commands appropriately or interact appropriately. Pupils do react but left is slower than right. Moving all 4 extremities. Review of Systems Review of systems is difficult to obtain given patient's status. Does not interact or answer questions appropriately. Appears restless in bed. Moving all 4 extremities. Physical Exam Vitals and Measurements T: 36.8 C (Oral) HR: 109(Monitored) HR: 117(Apical) RR: 17 BP: 158/94 SpO2: 99% HT: 163 cm WT: 56.1kg BMI: 21.11 Weight Dosing Weight: 56.1 kg (06/10/22) Dosing Weight: 56.1 kg (06/10/22) General -arousable but does not interact or answer questions appropriately. Moving all 4 extremities. In no acute distress. HEENT -left facial ecchymosis with forehead laceration, sutures in place. Cardiovascular -S1-S2, irregular rate and rhythm. Tachycardic. Respiratory -easy unlabored respirations. Chest rise symmetrical. Abdomen/GI -soft, nontender, bowel sounds present. Nondistended. Musculoskeletal -NOBLES x4. Psychiatric - Restless. Skin -normal for ethnicity. Lab Results No 36 Hour Lab Data Imaging Results and Diagnostics CT Head or Brain w/o Contrast Result Date: June 10, 2022 Verified By: CARMEN TORIBIO MD CLINICAL STATEMENT: IMPRESSION: Significantly degraded by motion. Otherwise, no significant change. Smallleft frontal subarachnoid hemorrhage. X-rays of her chest and pelvis reviewed. CT scans of her cervical spine reviewed. Assessment/Plan Fall 82-year-old female admitted under neurosurgical service after experiencing a same level fall landing on her face found to have left-sided facial fractures and subarachnoid hemorrhage. General surgeryhas been asked for a tertiary survey to rule out any missed injuries. Tertiary survey is somewhat difficult given her current status. She does not interact or follow commands appropriately. When palpating chest abdomen and spine patient had no grimacing. She does have small abrasions to her bilateral knees. She is moving all 4 extremities and does appear somewhat restless in bed. She had no pelvic instability or pain with pelvic rock. Per family report she has had significant decline over the past several weeks with frequent falls and increasing weakness. Plan: -Does not appear to have any other obvious missed injuries currently. But again exam is very limited due to her current mental status. -No new orders from a trauma standpoint. Please call with any further questions or concerns. Will discuss case with Dr. Ocasio, please see his addendum to follow. Problem List/Past Medical History Ongoing At high risk for falls Breast cancer screening by mammogram Chronic edema Chronic renal failure, stage 3b E. coli UTI (urinary tract infection) Essential hypertension Fall at home Generalized muscle weakness History of breast cancer History of CVA in adulthood Hypokalemia Hyponatremia Immunization due Impaired gait and mobility Left hip pain Mixed hyperlipidemia Osteoporosis Status post CVA Vitamin D deficiency Historical Breast ca Hyperlipidemia Procedure/Surgical History Back fusion Medications Inpatient Apresoline, 10 mg= 0.5 mL, IV Push, q2h, PRN atenolol, 50 mg= 1 tab(s), Oral, qDay Colace, 100 mg= 1 cap(s), Oral, BID, PRN Milk of Magnesia, 30 mL, Oral, qHS, PRN NS 1,000 mL, 1000 mL, Intravenous Tylenol, 650 mg= 2 tab(s), Oral, q4h, PRN Ultram, 50 mg= 1 tab(s), Oral, q4h, PRN Zofran, 4 mg= 2 mL, IV Push, q4h, PRN Home Aggrenox 25-200 mg oral capsule, 1 cap(s), Oral, BID, 3 refills atenolol 50 mg oral tablet, 50 mg= 1 tab(s), Oral, qDay, 3 refills losartan 100 mg oral tablet, 100 mg= 1 tab(s), Oral, qDay [place]-3 350 mg oral capsule, 350 mg= 1 cap(s), Oral, qDay potassium chloride 10 mEq oral capsule, extended release, 10 mEq= 1 cap(s), Oral, BID, 3 refills simvastatin 80 mg oral tablet, 80 mg= 1 tab(s), Oral, qHS, 3 refills Tylenol PM Extra Strength oral tablet, 1 tab(s), Oral, qHS, PRN Vitamin D2 2000 intl units oral capsule, 2000 International_Unit= 1 cap(s), Oral, qDay, 3 refills Allergies Milk Products (Diarrhea - Adult) lisinopril (Cough) morphine (Paranoid) Social History Smoking Status - 01/30/2014 Former smoker Alcohol Use: Never., 01/31/2019 Employment/School Status: Retired., 08/04/2019 Exercise Home/Environment None Domestic Concerns:. Living situation: Home/Independent. Single level home Lives In:., 01/31/2019 Nutrition/Health Type of diet: Regular. Good Appetite. None Eating Difficulties., 01/31/2019 Substance Abuse Use: Never., 01/31/2019 Tobacco Tobacco Use: Never (less than 100 in lifetime)., 01/31/2019 Family History Family history is negative Immunizations pneumococcal 13-valent conjugate vaccine: 0 unknown unit (02/15/17) pneumococcal 23-valent vaccine(Pneumovax: 0 unknown unit (10/17/05) pneumococcal 23-valent vaccine(Pneumovax: 0 unknown unit (04/19/05) pneumococcal 23-valent vaccine(Pneumovax: 0 unknown unit (03/18/05) SARS-CoV-2 (COVID-19) mRNA-1273 vaccine: 50 mcg (03/24/21) SARS-CoV-2 (COVID-19) mRNA-1273 vaccine: 100 mcg (06/12/20) SARS-CoV-2 (COVID-19) mRNA-1273 vaccine: 0 unknown unit (05/15/20) tetanus/diphth/pertuss (Tdap) adult/adol: 0.5 mL (06/10/22) zoster vaccine live: 0 unknown unit (04/19/05) zoster vaccine live: 0 unknown unit (04/19/05) zoster vaccine live: 0 unknown unit (03/18/05) Digitally Signed by LOBO RAMOS on 06/10/2022 03:[address] [id number] History and physical note Date of Service 06/10/2022 Split shared H&P with Dr. Justin Chief Complaint Fall History of Present Illness This is an 82-year-old female with has medical history significant for prior CVA x2 on Aggrenox (noresidual deficits per family), history of breast cancer, history of recurrent UTIs, hypertension, hyperlipidemia, osteoporosis, vitamin D deficiency who presented initially to [facility] emergency department after suffering a witnessed fall at home earlier this morning. Patient lives at home with her nephew and had gone into the bathroom with her wheelchair. Nephew was having difficult timewith the patient following instructions and phoned the patient's son. During that telephone call, the patient had let go of her wheelchair and face planted onto the bathroom floor. Nephew provided patient had no loss of consciousness. EMS was contacted and patient was transported to [place] ED. Family provided that patient has had altered mental status and agitation with cognitive and functional decline over the past 5 weeks. She was diagnosed with a UTI at that time and completed a course of Keflex however her symptoms continued to progress and did not improve. UA was rechecked by PCP and noted to still have evidence of UTI, and was then prescribed Cipro. However patient reportedly hasnot been compliant with her medications at home and has not taken these as prescribed. Over the last few days, patient has been even more so confused and agitated according to the family. At baselineshe typically uses a walker for assistance with ambulation but more recently has required wheelchair. She has had decreased appetite and p.o. intake. She also has repeatedly told her family that her right knee she does not want to be alive anymore. A head CT was performed at outside hospital, and showed evidence of a small left frontal subarachnoid hemorrhage. Also found with a left zygomatic fracture with associated left maxillary hemosinus. Had a 1.5 cm left forehead laceration repaired with sutures. Dr. Justin was notified of these findings,and recommended patient be transferred to [place] for further evaluation and care. UA Negative for nitrites, leukocyte esterase, bacteria; WBC 0-5. Reportedly, patient presented with altered mental status and repeatedly stated help me at [place]. She was also quite agitated and received several doses of IV Ativan prior to transfer to [place] ED. Patient is prescribed Aggrenox, although family indicates she has not been compliant with taking prescribed medications, and it is unknown when she last had a dose. Upon arrival to [place] ED, patient was noted to be drowsy, nonverbal and had a decreased GCS of 8.Not following any commands. Head CT was repeated here, and shows no significant change, in fact left frontal subarachnoid hemorrhage is slightly improved from initial CT. Patient evaluated in the emergency department in conjunction with Dr. Justin. Patient is drowsy, and does not open her eyes. She follows no commands. She is seen moving all 4 extremities although does not follow any instructions or move extremities to command. Left pupil is oval-shaped and nonreactive to light; family provides patient has had prior bilateral cataract surgery, otherwise no other prior eye injuries or operations. She is protecting her own airway. Blood pressure is elevated in the 160s systolically, and is tachycardic with heart rate in the 120s. She received a dose of labetalol at the time of my exam. Review of Systems Unable to obtain due to patient's current clinical condition and significant acute encephalopathy. Patient patient does not offer any verbal responses, and is currently nonverbal. Physical Exam Vitals and Measurements HR: 130(Apical) RR: 18 BP: 141/95 SpO2: 96% WT: 56.1 kg Weight Dosing Weight: 56.1 kg (06/10/22) General survey: 82-year-old female. Well developed. Patient's son/[id number]-owm presentat the bedside. Patient does not cooperate with with exam. She is in no acute distress. Lying supine in bed. Fidgety and restless. Skin: Skin is warm and dry. Has scattered bruising; bruises easily according to family. No rashes. HEENT: Has left frontal scalp contusion and laceration with sutures intact; site is bloody. Also has a superficial skin tear to her left cheek. Left periorbital ecchymosis. Unable to test extraocularmovement or visual miller as patient does not cooperate or participate in exam, and does not followinstructions. Has no nystagmus or gaze deviation. Right pupil is round and 3 mm, reacts briskly to l ight. Left pupil is oval-shaped, 3-4 mm, and does not react to light testing. No otorrhea or rhinorrhea. Oral mucosa is pink and moist. MS: No obvious joint deformities, redness or swelling. She has a reddened abrasion to her right knee. Cardiovascular: Heart rate is tachycardic. Sinus rhythm. S1-S2 present.. No peripheral edema. Respiratory: Respirations even and unlabored. Lungs are clear bilaterally. Abdomen: Abdomen is soft, nontender and nondistended with active bowel sounds 4 quadrants. Peripheral vascular: Extremities are warm and without edema. Radial and pedal pulses are 2+ and symmetric. Neurological: See HPI. Patient spontaneously moves all 4 extremities, but follows no commands. Unable to test pronator drift, Leo, or finger-nose testing. Not cooperative with exam, and provides no verbal responses. She does moan however, grimaces and withdraws all 4 extremities to noxious stimuli. GCS is 11-12. Lab Results No 36 Hour Lab Data WBC: 7.5 10^3/mcL (06/10/22 07:42:00) RBC: 4.22 10^6/mcL (06/10/22 07:42:00) Hgb: 11.7 G/dL Low (06/10/22 07:42:00) Hct: 35.3 % Low (06/10/22 07:42:00) MCV: 83.8 fL (06/10/22 07:42:00) MCH: 27.7 pg (06/10/22 07:42:00) MCHC: 33.1 G/dL (06/10/22 07:42:00) RDW: 15.4 % High (06/10/22 07:42:00) Platelet: 294 10^3/mcL (06/10/22 07:42:00) MPV: 8.1 fL (06/10/22 07:42:00) Monocyte Distribution Width: 17.26 (06/10/22 07:42:00) Neutrophil %: 49.2 % (06/10/22 07:42:00) Lymphocyte %: 41.7 % (06/10/22 07:42:00) Monocyte %: 7.6 % (06/10/22 07:42:00) Eosinophil %: 0.8 % (06/10/22 07:42:00) Basophil %: 0.7 % (06/10/22 07:42:00) Neutrophil, Absolute: 3.7 10^3/mcL (06/10/22 07:42:00) Lymphocyte, Absolute: 3.1 10^3/mcL (06/10/22 07:42:00) Monocyte, Absolute: 0.6 10^3/mcL (06/10/22 07:42:00) Eosinophil, Absolute: 0.1 10^3/mcL (06/10/22 07:42:00) Basophil, Absolute: 0.1 10^3/mcL (06/10/22 07:42:00) Heparin dose (APTT): None (06/10/22 09:54:00) APTT: 31.1 seconds (06/10/22 09:54:00) Protime: 11.2 seconds (06/10/22 09:54:00) PT International Ratio: 1 (06/10/22 09:54:00) UA Specimen Type: Void (06/10/22 07:42:00) UA Color: Yellow (06/10/22 07:42:00) UA Appear: Clear (06/10/22 07:42:00) UA Spec Grav: >=1.030 Abnormal (06/10/22 07:42:00) UA Glucose: Negative. (06/10/22 07:42:00) UA Bili: Negative. (06/10/22 07:42:00) UA Ketones: Negative. (06/10/22 07:42:00) UA Blood: Trace3 Abnormal (06/10/22 07:42:00) UA pH: 6.0 (06/10/22 07:42:00) UA Protein: Negative.1 (06/10/22 07:42:00) UA Urobilinogen: 0.2 (06/10/22 07:42:00) UA Nitrite: Negative. (06/10/22 07:42:00) UA Leuk Est: Negative. (06/10/22 07:42:00) UA RBC: 0-5 Abnormal (06/10/22 07:42:00) UA WBC: 0-5 Abnormal (06/10/22 07:42:00) UA Squam Epithelial: None Seen (06/10/22 07:42:00) UA Renal Epithelial: 0-5 Abnormal (06/01/22 19:30:00) UA Bacteria: 4+ Abnormal (06/01/22 19:30:00) Glucose Level: 137 mg/dL High (06/10/22 07:42:00) Sodium Level: 140 mmol/L (06/10/22 07:42:00) Potassium Level: 3.6 mmol/L (06/10/22 07:42:00) Chloride: 102 mmol/L (06/10/22 07:42:00) CO2: 25 mmol/L (06/10/22:42:00) Electrolyte Balance: 13 mEq/L (06/10/22 07:42:00) BUN: 21 mg/dL High (06/10/22 07:42:00) Creatinine Lvl (s): 1 mg/dL (06/10/22 07:42:00) BUN/Creatinine Ratio: 21 ratio (06/10/22 07:42:00) Calcium Lvl: 9.2 mg/dL (06/10/22 07:42:00) Total Protein: 8 G/dL (06/10/22 07:42:00) Albumin Level: 4 G/dL (06/10/22 07:42:00) Globulin: 4 G/dL (06/10/22 07:42:00) A/G Ratio: 1 ratio Low (06/10/22 07:42:00) Bili Total: 0.6 mg/dL (06/10/22 07:42:00) Alk Phos: 107 U/L (06/10/22 07:42:00) AST/SGOT: 17 U/L (06/10/22 07:42:00) ALT/SGPT: 14 U/L (06/10/22 07:42:00) GFR Non-: 53 ml/min/1.73sqm (06/10/22 07:42:00) GFR : 64 ml/min/1.73sqm (06/10/22 07:42:00) Troponin I High Sensitivity: 13.5 ng/L (06/10/22 07:42:00) Ethanol Level: <10.0 (06/10/22 12:40:00) COVID-19 Result: Negative. (06/10/22 08:13:00) COVID-19 Int: COVID-19 Int (06/10/22 08:13:00) Flu A PCR (AO): Negative.1 (06/10/22 08:13:00) Flu B PCR (AO): Negative.1 (06/10/22 08:13:00) RSV PCR (AO): Negative.1 (06/10/22 08:13:00) Culture Urine: POS Critical (06/01/22 19:30:00) Imaging Results and Diagnostics See above, in addition: CT Head or Brain w/o Contrast Result Date: June 10, 2022 Verified By: CARMEN TORIBIO MD CLINICAL STATEMENT: IMPRESSION: Significantly degraded by motion. Otherwise, no significant change. Small left frontal subarachnoid hemorrhage. Assessment/Plan Small acute traumatic subarachnoid hemorrhage s/p witnessed fall without LOC Patient suffered fall at home in her bathroom which was witnessed by her nephew; it is reported that she had no LOC. Initial head CT at outside hospital showed evidence of a small left frontal subarachnoid hemorrhage, traumatic secondary to her fall. Acute encephalopathy, likely multifactorial. Patient was noted to have increased drowsiness, and nonverbal upon arrival to [place] ED. Another head CT was obtained. This showed no significant changes or new intracranial hemorrhages, and displayed slight improvement of left frontal subarachnoid hemorrhage previously seen on initial CT. It is noted that she was given several doses of IV Ativan prior to transfer to [place] ED and this may be contributing to her decreased mental status. Dr. Justin will admit patient under his primary service to the surgical intensive care unit for closeobservation and care. [facility] [employer] physicians will be consulted for assistance with medical management. Keep systolic blood pressure less than 140 mmHg. We will obtain repeat head CT in a.m. No neurosurgical intervention is required at this time. It is expected that patient's subarachnoid hemorrhage will resolve on its own. Coagulopathy secondary to Aggrenox use Patient noted to be prescribed Aggrenox secondary to history of prior CVAs Aggrenox stopped on admission. According to family patient has not been compliant with her prescribed medications at home and it is questionable if she had been taking this daily; unknown last dose. Aggrenox may have contributed to acute SAH, although primary mechanism was traumatic fall. Repeat CT shows subarachnoid hemorrhage slightly improved, therefore Dr. Justin provides we will hold off on any reversal agents. INR 1.0 Aggrenox will need to be held until cleared by Dr. Justin. Avoid NSAID use. Left frontal contusion and laceration Left frontal laceration was repaired at [facility] with suture closure. Keep site clean and dry at all times. Patient will require suture removal in approximately 10 to 14 days, this can be completed either atneurosurgery follow-up or by PCP. Left zygomatic fracture with associated left maxillary hemosinus Patient found with a left zygomatic fracture with associated left maxillary hemosinus; will consultmaxillofacial surgery for evaluation and treatment recommendations. Trauma, same level fall Dr. Justin is requesting trauma consult for tertiary survey. DVT prophylaxis Mechanical prophylaxis with SCDs to bilateral lower extremities while in bed. We will repeat head CT tomorrow, and if stable then patient will likely be cleared for chemical DVTprophylaxis by Dr. Justin. Please refer to Dr. Justin's addendum for additional information details regarding neurosurgical input and recommendations. Patient's son/[id number]-[id number]-jsb were provided updates at the bedside, and plan of care was discussed. They are in agreement. Patient's son provides CODE STATUS is DNR CCA/DNI. Problem List/Past Medical History Ongoing At high risk for falls Breast cancer screening by mammogram Chronic edema Chronic renal failure, stage 3b E. coli UTI (urinary tract infection) Essential hypertension Fall at home Generalized muscle weakness History of breast cancer History of CVA in adulthood Hypokalemia Hyponatremia Immunization due Impaired gait and mobility Left hip pain Mixed hyperlipidemia Osteoporosis Status post CVA Vitamin D deficiency Historical Breast ca Hyperlipidemia Procedure/Surgical History Back fusion Medications Home Medications (8) Active Aggrenox 25-200 mg oral capsule 1 cap(s), Oral, BID atenolol 50 mg oral tablet 50 mg = 1 tab(s), Oral, qDay losartan 100 mg oral tablet 100 mg = 1 tab(s), Oral, qDay [place]-3 350 mg oral capsule , Oral, qDay potassium chloride 10 mEq oral capsule, extended release 10 mEq = 1 cap(s), Oral, BID simvastatin 80 mg oral tablet 80 mg = 1 tab(s), Oral, qHS Tylenol PM Extra Strength oral tablet 1 tab(s), PRN, Oral, qHS Vitamin D2 2000 intl units oral capsule 2,000 International_Unit = 1 cap(s), Oral, qDay Allergies Milk Products (Diarrhea - Adult) lisinopril (Cough) morphine (Paranoid) Social History Smoking Status - 01/30/2014 Former smoker Alcohol Use: Never., 01/31/2019 Employment/School Status: Retired., 08/04/2019 Exercise Home/Environment None Domestic Concerns:. Living situation: Home/Independent. Single level home Lives In:., 01/31/2019 Nutrition/Health Type of diet: Regular. Good Appetite. None Eating Difficulties., 01/31/2019 Substance Abuse Use: Never., 01/31/2019 Tobacco Tobacco Use: Never (less than 100 in lifetime)., 01/31/2019 Family History Family history is negative Immunizations pneumococcal 13-valent conjugate vaccine: 0 unknown unit (02/15/17) pneumococcal 23-valent vaccine(Pneumovax: 0 unknown unit (10/17/05) pneumococcal 23-valent vaccine(Pneumovax: 0 unknown unit (04/19/05) pneumococcal 23-valent vaccine(Pneumovax: 0 unknown unit (03/18/05) SARS-CoV-2 (COVID-19) mRNA-1273 vaccine: 50 mcg (03/24/21) SARS-CoV-2 (COVID-19) mRNA-1273 vaccine: 100 mcg (06/12/20) SARS-CoV-2 (COVID-19) mRNA-1273 vaccine: 0 unknown unit (05/15/20) tetanus/diphth/pertuss (Tdap) adult/adol: 0.5 mL (06/10/22) zoster vaccine live: 0 unknown unit (04/19/05) zoster vaccine live: 0 unknown unit (04/19/05) zoster vaccine live: 0 unknown unit (03/18/05) Code Status Code Status - Ordered -- 06/10/22 12:26:00 EST, DNRCC-Arrest Do Not Intubate, Constant Order Digitally Signed by SAUL GASPAR on 06/10/2022 01:[address] [id number] Evaluation + Plan noteExtracted from: Title:History and Physical Author:CHASITY SAULMONY Llamas APRN-AB Date:06/10/22 Small acute traumatic subara chnoid hemorrhage s/p witnessed fall without LOC Patient suffered fall at home in her bathroom which was witnessed by her nephew; it is reported that she had no LOC. Initial head CT at outside hospital showed evidence of a small left frontal subarachnoid hemorrhage, traumatic secondary to her fall. Acute encephalopathy, likely multifactorial. Patient was noted to have increased drowsiness, and nonverbal upon arrival to [place] ED. Another head CT was obtained. This showed no significant changes or new intracranial hemorrhages, and displayed slight improvement of left frontal subarachnoid hemorrhage previously seen on initial CT. It is noted that she was given several doses of IV Ativan prior to transfer to [place] ED and this may be contributing to her decreased mental status. Dr. Justin will admit patient under his primary service to the surgical intensive care unit for close observation and care. [employer] physicians will be consulted for assistance with medical management. Keep systolic blood pressure less than 140 mmHg. We will obtain repeat head CT in a.m. No neurosurgical intervention is required at this time. It is expected that patient's subarachnoid hemorrhage will resolve on its own. Coagulopathy secondary to Aggrenox use Patient noted to be prescribed Aggrenox secondary to history of prior CVAs Aggrenox stopped on admission. According to family patient has not been compliant with her prescribed medications at home and it is questionable if she had been taking this daily; unknown last dose. Aggrenox may have contributed to acute SAH, although primary mechanism was traumatic fall. Repeat CT shows subarachnoid hemorrhage slightly improved, therefore Dr. Justin provides we will hold off on any reversal agents. INR 1.0 Aggrenox will need to be held until cleared by Dr. Justin. Avoid NSAID use. Left frontal contusion and laceration Left frontal laceration was repaired at [facility] with suture closure. Keep site clean and dry at all times. Patient will require suture removal in approximately 10 to 14 days, this can be completed either at neurosurgery follow-up or by PCP. Left zygomatic fracture with associated left maxillary hemosinus Patient found with a left zygomatic fracture with associated left maxillary hemosinus; will consult maxillofacial surgery for evaluation and treatment recommendations. Trauma, same level fall Dr. Justin is requesting trauma consult for tertiary survey. DVT prophylaxis Mechanical prophylaxis with SCDs to bilateral lower extremities while in bed. We will repeat head CT tomorrow, and if stable then patient will likely be cleared for chemical DVT prophylaxis by Dr. Justin. Please refer to Dr. Justin's addendum for additional information details regarding neurosurgical input and recommendations. Patient's son/zzjusozf-bu-nam were provided updates at the bedside, and plan of care was discussed. They are in agreement. Patient's son provides CODE STATUS is DNR CCA/DNI. Addendum by SAUL GASPAR APRN-MACHINE DESIGN ENGINEER on June 10, 2022 13:56:[address] Justin, if patient's mentation does not improve and CT is stable tomorrow then may consider obtaining brain MRI for further assessment, mayelin given prior history of strokes. Addendum by ARLETTE SINHA, WES Vidal on June 10, 2022 14:13:27 EST This is a split shared note between myself and the nurse practitioner. This is a woman status post fall from standing. She has trace subarachnoid hemorrhage. There is no mass effect or shift. She had a repeat CT scan done in the emergency room at [facility] this was compared to her prior CT scan would always shows is partial resolution of the traumatic subarachnoid hemorrhage. She has facial fractures as well. No other injuries. On examination, she is lethargic, she is moving all extremities but not to command. She withdraws to noxious stimulus. Her left eye is swollen shut. She has had prior cataract surgery, her left pupil is oval in shape. She is not following commands. She is not answering questions appropriately. Plan at this point time is admitted to the ICU, get a repeat CT scan tomorrow. She has a history of stroke. If the CT scan tomorrow shows resolution of the hemorrhage, then an MRI would may be ordered to rule out the presence of an underlying stroke that the CT scan may be missing. Keppra is not needed. Cardene may be started if her blood pressure becomes elevated. Future Appointments Appointment Date:08/03/2022 09:30:00 AM Scheduled Provider:JEREMIAS VALERIO DO Location:[facility] Appointment Type:PC OV [facility] 02-22-2023 History and physical note Date of Service 06/10/2022 Split shared H&P with Dr. Justin Chief Complaint Fall History of Present Illness This is an 82-year-old female with has medical history significant for prior CVA x2 on Aggrenox (noresidual deficits per family), history of breast cancer, history of recurrent UTIs, hypertension, hyperlipidemia, osteoporosis, vitamin D deficiency who presented initially to [facility] emergency department after suffering a witnessed fall at home earlier this morning. Patient lives at home with her nephew and had gone into the bathroom with her wheelchair. Nephew was having difficult timewith the patient following instructions and phoned the patient's son. During that telephone call, the patient had let go of her wheelchair and face planted onto the bathroom floor. Nephew provided patient had no loss of consciousness. EMS was contacted and patient was transported to [place] ED. Family provided that patient has had altered mental status and agitation with cognitive and functional decline over the past 5 weeks. She was diagnosed with a UTI at that time and completed a course of Keflex however her symptoms continued to progress and did not improve. UA was rechecked by PCP and noted to still have evidence of UTI, and was then prescribed Cipro. However patient reportedly hasnot been compliant with her medications at home and has not taken these as prescribed. Over the last few days, patient has been even more so confused and agitated according to the family. At baselineshe typically uses a walker for assistance with ambulation but more recently has required wheelchair. She has had decreased appetite and p.o. intake. She also has repeatedly told her family that her right knee she does not want to be alive anymore. A head CT was performed at outside hospital, and showed evidence of a small left frontal subarachnoid hemorrhage. Also found with a left zygomatic fracture with associated left maxillary hemosinus. Had a 1.5 cm left forehead laceration repaired with sutures. Dr. Justin was notified of these findings,and recommended patient be transferred to [place] for further evaluation and care. UA Negative for nitrites, leukocyte esterase, bacteria; WBC 0-5. Reportedly, patient presented with altered mental status and repeatedly stated help me at [place]. She was also quite agitated and received several doses of IV Ativan prior to transfer to [place] ED. Patient is prescribed Aggrenox, although family indicates she has not been compliant with taking prescribed medications, and it is unknown when she last had a dose. Upon arrival to [place] ED, patient was noted to be drowsy, nonverbal and had a decreased GCS of 8.Not following any commands. Head CT was repeated here, and shows no significant change, in fact left frontal subarachnoid hemorrhage is slightly improved from initial CT. Patient evaluated in the emergency department in conjunction with Dr. Justin. Patient is drowsy, and does not open her eyes. She follows no commands. She is seen moving all 4 extremities although does not follow any instructions or move extremities to command. Left pupil is oval-shaped and nonreactive to light; family provides patient has had prior bilateral cataract surgery, otherwise no other prior eye injuries or operations. She is protecting her own airway. Blood pressure is elevated in the 160s systolically, and is tachycardic with heart rate in the 120s. She received a dose of labetalol at the time of my exam. Review of Systems Unable to obtain due to patient's current clinical condition and significant acute encephalopathy. Patient patient does not offer any verbal responses, and is currently nonverbal. Physical Exam Vitals and Measurements HR: 130(Apical) RR: 18 BP: 141/95 SpO2: 96% WT: 56.1 kg Weight Dosing Weight: 56.1 kg (06/10/22) General survey: 82-year-old female. Well developed. Patient's son/erovlysc-le-ing presentat the bedside. Patient does not cooperate with with exam. She is in no acute distress. Lying supine in bed. Fidgety and restless. Skin: Skin is warm and dry. Has scattered bruising; bruises easily according to family. No rashes. HEENT: Has left frontal scalp contusion and laceration with sutures intact; site is bloody. Also has a superficial skin tear to her left cheek. Left periorbital ecchymosis. Unable to test extraocularmovement or visual miller as patient does not cooperate or participate in exam, and does not followinstructions. Has no nystagmus or gaze deviation. Right pupil is round and 3 mm, reacts briskly to l ight. Left pupil is oval-shaped, 3-4 mm, and does not react to light testing. No otorrhea or rhinorrhea. Oral mucosa is pink and moist. MS: No obvious joint deformities, redness or swelling. She has a reddened abrasion to her right knee. Cardiovascular: Heart rate is tachycardic. Sinus rhythm. S1-S2 present.. No peripheral edema. Respiratory: Respirations even and unlabored. Lungs are clear bilaterally. Abdomen: Abdomen is soft, nontender and nondistended with active bowel sounds 4 quadrants. Peripheral vascular: Extremities are warm and without edema. Radial and pedal pulses are 2+ and symmetric. Neurological: See HPI. Patient spontaneously moves all 4 extremities, but follows no commands. Unable to test pronator drift, Leo, or finger-nose testing. Not cooperative with exam, and provides no verbal responses. She does moan however, grimaces and withdraws all 4 extremities to noxious stimuli. GCS is 11-12. Lab Results No 36 Hour Lab Data WBC: 7.5 10^3/mcL (06/10/22 07:42:00) RBC: 4.22 10^6/mcL (06/10/22 07:42:00) Hgb: 11.7 G/dL Low (06/10/22 07:42:00) Hct: 35.3 % Low (06/10/22 07:42:00) MCV: 83.8 fL (06/10/22 07:42:00) MCH: 27.7 pg (06/10/22 07:42:00) MCHC: 33.1 G/dL (06/10/22 07:42:00) RDW: 15.4 % High (06/10/22 07:42:00) Platelet: 294 10^3/mcL (06/10/22 07:42:00) MPV: 8.1 fL (06/10/22 07:42:00) Monocyte Distribution Width: 17.26 (06/10/22 07:42:00) Neutrophil %: 49.2 % (06/10/22 07:42:00) Lymphocyte %: 41.7 % (06/10/22 07:42:00) Monocyte %: 7.6 % (06/10/22 07:42:00) Eosinophil %: 0.8 % (06/10/22 07:42:00) Basophil %: 0.7 % (06/10/22 07:42:00) Neutrophil, Absolute: 3.7 10^3/mcL (06/10/22 07:42:00) Lymphocyte, Absolute: 3.1 10^3/mcL (06/10/22 07:42:00) Monocyte, Absolute: 0.6 10^3/mcL (06/10/22 07:42:00) Eosinophil, Absolute: 0.1 10^3/mcL (06/10/22 07:42:00) Basophil, Absolute: 0.1 10^3/mcL (06/10/22 07:42:00) Heparin dose (APTT): None (06/10/22 09:54:00) APTT: 31.1 seconds (06/10/22 09:54:00) Protime: 11.2 seconds (06/10/22 09:54:00) PT International Ratio: 1 (06/10/22 09:54:00) UA Specimen Type: Void (06/10/22 07:42:00) UA Color: Yellow (06/10/22 07:42:00) UA Appear: Clear (06/10/22 07:42:00) UA Spec Grav: >=1.030 Abnormal (06/10/22 07:42:00) UA Glucose: Negative. (06/10/22 07:42:00) UA Bili: Negative. (06/10/22 07:42:00) UA Ketones: Negative. (06/10/22 07:42:00) UA Blood: Trace3 Abnormal (06/10/22 07:42:00) UA pH: 6.0 (06/10/22 07:42:00) UA Protein: Negative.1 (06/10/22 07:42:00) UA Urobilinogen: 0.2 (06/10/22 07:42:00) UA Nitrite: Negative. (06/10/22 07:42:00) UA Leuk Est: Negative. (06/10/22 07:42:00) UA RBC: 0-5 Abnormal (06/10/22 07:42:00) UA WBC: 0-5 Abnormal (06/10/22 07:42:00) UA Squam Epithelial: None Seen (06/10/22 07:42:00) UA Renal Epithelial: 0-5 Abnormal (06/01/22 19:30:00) UA Bacteria: 4+ Abnormal (06/01/22 19:30:00) Glucose Level: 137 mg/dL High (06/10/22 07:42:00) Sodium Level: 140 mmol/L (06/10/22 07:42:00) Potassium Level: 3.6 mmol/L (06/10/22 07:42:00) Chloride: 102 mmol/L (06/10/22 07:42:00) CO2: 25 mmol/L (06/10/22 07:42:00) Electrolyte Balance: 13 mEq/L (06/10/22 07:42:00) BUN: 21 mg/dL High (06/10/22 07:42:00) Creatinine Lvl (s): 1 mg/dL (06/10/22 07:42:00) BUN/Creatinine Ratio: 21 ratio (06/10/22 07:42:00) Calcium Lvl: 9.2 mg/dL (06/10/22 07:42:00) Total Protein: 8 G/dL (06/10/22 07:42:00) Albumin Level: 4 G/dL (06/10/22 07:42:00) Globulin: 4 G/dL (06/10/22 07:42:00) A/G Ratio: 1 ratio Low (06/10/22 07:42:00) Bili Total: 0.6 mg/dL (06/10/22 07:42:00) Alk Phos: 107 U/L (06/10/22 07:42:00) AST/SGOT: 17 U/L (06/10/22 07:42:00) ALT/SGPT: 14 U/L (06/10/22 07:42:00) GFR Non-: 53 ml/min/1.73sqm (06/10/22 07:42:00) GFR : 64 ml/min/1.73sqm (06/10/22 07:42:00) Troponin I High Sensitivity: 13.5 ng/L (06/10/22 07:42:00) Ethanol Level: <10.0 (06/10/22 12:40:00) COVID-19 Result: Negative. (06/10/22 08:13:00) COVID-19 Int: COVID-19 Int (06/10/22 08:13:00) Flu A PCR (AO): Negative.1 (06/10/22 08:13:00) Flu B PCR (AO): Negative.1 (06/10/22 08:13:00) RSV PCR (AO): Negative.1 (06/10/22 08:13:00) Culture Urine: POS Critical (06/01/22 19:30:00) Imaging Results and Diagnostics See above, in addition: CT Head or Brain w/o Contrast Result Date: June 10, 2022 Verified By: CARMEN TORIBIO MD CLINICAL STATEMENT: IMPRESSION: Significantly degraded by motion. Otherwise, no significant change. Small left frontal subarachnoid hemorrhage. Assessment/Plan Small acute traumatic subarachnoid hemorrhage s/p witnessed fall without LOC Patient suffered fall at home in her bathroom which was witnessed by her nephew; it is reported that she had no LOC. Initial head CT at outside hospital showed evidence of a small left frontal subarachnoid hemorrhage, traumatic secondary to her fall. Acute encephalopathy, likely multifactorial. Patient was noted to have increased drowsiness, and nonverbal upon arrival to [place] ED. Another head CT was obtained. This showed no significant changes or new intracranial hemorrhages, and displayed slight improvement of left frontal subarachnoid hemorrhage previously seen on initial CT. It is noted that she was given several doses of IV Ativan prior to transfer to [place] ED and this may be contributing to her decreased mental status. Dr. Justin will admit patient under his primary service to the surgical intensive care unit for closeobservation and care. [employer] physicians will be consulted for assistance with medical management. Keep systolic blood pressure less than 140 mmHg. We will obtain repeat head CT in a.m. No neurosurgical intervention is required at this time. It is expected that patient's subarachnoid hemorrhage will resolve on its own. Coagulopathy secondary to Aggrenox use Patient noted to be prescribed Aggrenox secondary to history of prior CVAs Aggrenox stopped on admission. According to family patient has not been compliant with her prescribed medications at home and it is questionable if she had been taking this daily; unknown last dose. Aggrenox may have contributed to acute SAH, although primary mechanism was traumatic fall. Repeat CT shows subarachnoid hemorrhage slightly improved, therefore Dr. Justin provides we will hold off on any reversal agents. INR 1.0 Aggrenox will need to be held until cleared by Dr. Justin. Avoid NSAID use. Left frontal contusion and laceration Left frontal laceration was repaired at [facility] with suture closure. Keep site clean and dry at all times. Patient will require suture removal in approximately 10 to 14 days, this can be completed either atneurosurgery follow-up or by PCP. Left zygomatic fracture with associated left maxillary hemosinus Patient found with a left zygomatic fracture with associated left maxillary hemosinus; will consultmaxillofacial surgery for evaluation and treatment recommendations. Trauma, same level fall Dr. Justin is requesting trauma consult for tertiary survey. DVT prophylaxis Mechanical prophylaxis with SCDs to bilateral lower extremities while in bed. We will repeat head CT tomorrow, and if stable then patient will likely be cleared for chemical DVTprophylaxis by Dr. Justin. Please refer to Dr. Justin's addendum for additional information details regarding neurosurgical input and recommendations. Patient's son/cnanrizx-oe-hxx were provided updates at the bedside, and plan of care was discussed. They are in agreement. Patient's son provides CODE STATUS is DNR CCA/DNI. Problem List/Past Medical History Ongoing At high risk for falls Breast cancer screening by mammogram Chronic edema Chronic renal failure, stage 3b E. coli UTI (urinary tract infection) Essential hypertension Fall at home Generalized muscle weakness History of breast cancer History of CVA in adulthood Hypokalemia Hyponatremia Immunization due Impaired gait and mobility Left hip pain Mixed hyperlipidemia Osteoporosis Status post CVA Vitamin D deficiency Historical Breast ca Hyperlipidemia Procedure/Surgical History Back fusion Medications Home Medications (8) Active Aggrenox 25-200 mg oral capsule 1 cap(s), Oral, BID atenolol 50 mg oral tablet 50 mg = 1 tab(s), Oral, qDay losartan 100 mg oral tablet 100 mg = 1 tab(s), Oral, qDay [place]-3 350 mg oral capsule , Oral, qDay potassium chloride 10 mEq oral capsule, extended release 10 mEq = 1 cap(s), Oral, BID simvastatin 80 mg oral tablet 80 mg = 1 tab(s), Oral, qHS Tylenol PM Extra Strength oral tablet 1 tab(s), PRN, Oral, qHS Vitamin D2 2000 intl units oral capsule 2,000 International_Unit = 1 cap(s), Oral, qDay Allergies Milk Products (Diarrhea - Adult) lisinopril (Cough) morphine (Paranoid) Social History Smoking Status - 01/30/2014 Former smoker Alcohol Use: Never., 01/31/2019 Employment/School Status: Retired., 08/04/2019 Exercise Home/Environment None Domestic Concerns:. Living situation: Home/Independent. Single level home Lives In:., 01/31/2019 Nutrition/Health Type of diet: Regular. Good Appetite. None Eating Difficulties., 01/31/2019 Substance Abuse Use: Never., 01/31/2019 Tobacco Tobacco Use: Never (less than 100 in lifetime)., 01/31/2019 Family History Family history is negative Immunizations pneumococcal 13-valent conjugate vaccine: 0 unknown unit (02/15/17) pneumococcal 23-valent vaccine(Pneumovax: 0 unknown unit (10/17/05) pneumococcal 23-valent vaccine(Pneumovax: 0 unknown unit (04/19/05) pneumococcal 23-valent vaccine(Pneumovax: 0 unknown unit (03/18/05) SARS-CoV-2 (COVID-19) mRNA-1273 vaccine: 50 mcg (03/24/21) SARS-CoV-2 (COVID-19) mRNA-1273 vaccine: 100 mcg (06/12/20) SARS-CoV-2 (COVID-19) mRNA-1273 vaccine: 0 unknown unit (05/15/20) tetanus/diphth/pertuss (Tdap) adult/adol: 0.5 mL (06/10/22) zoster vaccine live: 0 unknown unit (04/19/05) zoster vaccine live: 0 unknown unit (04/19/05) zoster vaccine live: 0 unknown unit (03/18/05) Code Status Code Status - Ordered -- 06/10/22 12:26:00 EST, DNRCC-Arrest Do Not Intubate, Constant Order Digitally Signed by SAUL GASPAR on 06/10/2022 01:[address] [id number] History and physical note Date of Service 06/10/2022 Split shared H&P with Dr. Justin Chief Complaint Fall History of Present Illness This is an 82-year-old female with has medical history significant for prior CVA x2 on Aggrenox (noresidual deficits per family), history of breast cancer, history of recurrent UTIs, hypertension, hyperlipidemia, osteoporosis, vitamin D deficiency who presented initially to [facility] emergency department after suffering a witnessed fall at home earlier this morning. Patient lives at home with her nephew and had gone into the bathroom with her wheelchair. Nephew was having difficult timewith the patient following instructions and phoned the patient's son. During that telephone call, the patient had let go of her wheelchair and face planted onto the bathroom floor. Nephew provided patient had no loss of consciousness. EMS was contacted and patient was transported to [place] ED. Family provided that patient has had altered mental status and agitation with cognitive and functional decline over the past 5 weeks. She was diagnosed with a UTI at that time and completed a course of Keflex however her symptoms continued to progress and did not improve. UA was rechecked by PCP and noted to still have evidence of UTI, and was then prescribed Cipro. However patient reportedly hasnot been compliant with her medications at home and has not taken these as prescribed. Over the last few days, patient has been even more so confused and agitated according to the family. At baselineshe typically uses a walker for assistance with ambulation but more recently has required wheelchair. She has had decreased appetite and p.o. intake. She also has repeatedly told her family that her right knee she does not want to be alive anymore. A head CT was performed at outside hospital, and showed evidence of a small left frontal subarachnoid hemorrhage. Also found with a left zygomatic fracture with associated left maxillary hemosinus. Had a 1.5 cm left forehead laceration repaired with sutures. Dr. Justin was notified of these findings,and recommended patient be transferred to [place] for further evaluation and care. UA Negative for nitrites, leukocyte esterase, bacteria; WBC 0-5. Reportedly, patient presented with altered mental status and repeatedly stated help me at [place]. She was also quite agitated and received several doses of IV Ativan prior to transfer to [place] ED. Patient is prescribed Aggrenox, although family indicates she has not been compliant with taking prescribed medications, and it is unknown when she last had a dose. Upon arrival to [place] ED, patient was noted to be drowsy, nonverbal and had a decreased GCS of 8.Not following any commands. Head CT was repeated here, and shows no significant change, in fact left frontal subarachnoid hemorrhage is slightly improved from initial CT. Patient evaluated in the emergency department in conjunction with Dr. Justin. Patient is drowsy, and does not open her eyes. She follows no commands. She is seen moving all 4 extremities although does not follow any instructions or move extremities to command. Left pupil is oval-shaped and nonreactive to light; family provides patient has had prior bilateral cataract surgery, otherwise no other prior eye injuries or operations. She is protecting her own airway. Blood pressure is elevated in the 160s systolically, and is tachycardic with heart rate in the 120s. She received a dose of labetalol at the time of my exam. Review of Systems Unable to obtain due to patient's current clinical condition and significant acute encephalopathy. Patient patient does not offer any verbal responses, and is currently nonverbal. Physical Exam Vitals and Measurements HR: 130(Apical) RR: 18 BP: 141/95 SpO2: 96% WT: 56.1 kg Weight Dosing Weight: 56.1 kg (06/10/22) General survey: 82-year-old female. Well developed. Patient's son/gqhnzolc-bc-rqn presentat the bedside. Patient does not cooperate with with exam. She is in no acute distress. Lying supine in bed. Fidgety and restless. Skin: Skin is warm and dry. Has scattered bruising; bruises easily according to family. No rashes. HEENT: Has left frontal scalp contusion and laceration with sutures intact; site is bloody. Also has a superficial skin tear to her left cheek. Left periorbital ecchymosis. Unable to test extraocularmovement or visual miller as patient does not cooperate or participate in exam, and does not followinstructions. Has no nystagmus or gaze deviation. Right pupil is round and 3 mm, reacts briskly to l ight. Left pupil is oval-shaped, 3-4 mm, and does not react to light testing. No otorrhea or rhinorrhea. Oral mucosa is pink and moist. MS: No obvious joint deformities, redness or swelling. She has a reddened abrasion to her right knee. Cardiovascular: Heart rate is tachycardic. Sinus rhythm. S1-S2 present.. No peripheral edema. Respiratory: Respirations even and unlabored. Lungs are clear bilaterally. Abdomen: Abdomen is soft, nontender and nondistended with active bowel sounds 4 quadrants. Peripheral vascular: Extremities are warm and without edema. Radial and pedal pulses are 2+ and symmetric. Neurological: See HPI. Patient spontaneously moves all 4 extremities, but follows no commands. Unable to test pronator drift, Leo, or finger-nose testing. Not cooperative with exam, and provides no verbal responses. She does moan however, grimaces and withdraws all 4 extremities to noxious stimuli. GCS is 11-12. Lab Results No 36 Hour Lab Data WBC: 7.5 10^3/mcL (06/10/22 07:42:00) RBC: 4.22 10^6/mcL (06/10/22 07:42:00) Hgb: 11.7 G/dL Low (06/10/22 07:42:00) Hct: 35.3 % Low (06/10/22 07:42:00) MCV: 83.8 fL (06/10/22 07:42:00) MCH: 27.7 pg (06/10/22 07:42:00) MCHC: 33.1 G/dL (06/10/22 07:42:00) RDW: 15.4 % High (06/10/22 07:42:00) Platelet: 294 10^3/mcL (06/10/22 07:42:00) MPV: 8.1 fL (06/10/22 07:42:00) Monocyte Distribution Width: 17.26 (06/10/22 07:42:00) Neutrophil %: 49.2 % (06/10/22 07:42:00) Lymphocyte %: 41.7 % (06/10/22 07:42:00) Monocyte %: 7.6 % (06/10/22 07:42:00) Eosinophil %: 0.8 % (06/10/22 07:42:00) Basophil %: 0.7 % (06/10/22 07:42:00) Neutrophil, Absolute: 3.7 10^3/mcL (06/10/22 07:42:00) Lymphocyte, Absolute: 3.1 10^3/mcL (06/10/22 07:42:00) Monocyte, Absolute: 0.6 10^3/mcL (06/10/22 07:42:00) Eosinophil, Absolute: 0.1 10^3/mcL (06/10/22 07:42:00) Basophil, Absolute: 0.1 10^3/mcL (06/10/22 07:42:00) Heparin dose (APTT): None (06/10/22 09:54:00) APTT: 31.1 seconds (06/10/22 09:54:00) Protime: 11.2 seconds (06/10/22 09:54:00) PT International Ratio: 1 (06/10/22 09:54:00) UA Specimen Type: Void (06/10/22 07:42:00) UA Color: Yellow (06/10/22 07:42:00) UA Appear: Clear (06/10/22 07:42:00) UA Spec Grav: >=1.030 Abnormal (06/10/22 07:42:00) UA Glucose: Negative. (06/10/22 07:42:00) UA Bili: Negative. (06/10/22 07:42:00) UA Ketones: Negative. (06/10/22 07:42:00) UA Blood: Trace3 Abnormal (06/10/22 07:42:00) UA pH: 6.0 (06/10/22 07:42:00) UA Protein: Negative.1 (06/10/22 07:42:00) UA Urobilinogen: 0.2 (06/10/22 07:42:00) UA Nitrite: Negative. (06/10/22 07:42:00) UA Leuk Est: Negative. (06/10/22 07:42:00) UA RBC: 0-5 Abnormal (06/10/22 07:42:00) UA WBC: 0-5 Abnormal (06/10/22 07:42:00) UA Squam Epithelial: None Seen (06/10/22 07:42:00) UA Renal Epithelial: 0-5 Abnormal (06/01/22 19:30:00) UA Bacteria: 4+ Abnormal (06/01/22 19:30:00) Glucose Level: 137 mg/dL High (06/10/22 07:42:00) Sodium Level: 140 mmol/L (06/10/22 07:42:00) Potassium Level: 3.6 mmol/L (06/10/22 07:42:00) Chloride: 102 mmol/L (06/10/22 07:42:00) CO2: 25 mmol/L (06/10/22 07:42:00) Electrolyte Balance: 13 mEq/L (06/10/22 07:42:00) BUN: 21 mg/dL High (06/10/22 07:42:00) Creatinine Lvl (s): 1 mg/dL (06/10/22 07:42:00) BUN/Creatinine Ratio: 21 ratio (06/10/22 07:42:00) Calcium Lvl: 9.2 mg/dL (06/10/22 07:42:00) Total Protein: 8 G/dL (06/10/22 07:42:00) Albumin Level: 4 G/dL (06/10/22 07:42:00) Globulin: 4 G/dL (06/10/22 07:42:00) A/G Ratio: 1 ratio Low (06/10/22 07:42:00) Bili Total: 0.6 mg/dL (06/10/22 07:42:00) Alk Phos: 107 U/L (06/10/22 07:42:00) AST/SGOT: 17 U/L (06/10/22 07:42:00) ALT/SGPT: 14 U/L (06/10/22 07:42:00) GFR Non-: 53 ml/min/1.73sqm (06/10/22 07:42:00) GFR : 64 ml/min/1.73sqm (06/10/22 07:42:00) Troponin I High Sensitivity: 13.5 ng/L (06/10/22 07:42:00) Ethanol Level: <10.0 (06/10/22 12:40:00) COVID-19 Result: Negative. (06/10/22 08:13:00) COVID-19 Int: COVID-19 Int (06/10/22 08:13:00) Flu A PCR (AO): Negative.1 (06/10/22 08:13:00) Flu B PCR (AO): Negative.1 (06/10/22 08:13:00) RSV PCR (AO): Negative.1 (06/10/22 08:13:00) Culture Urine: POS Critical (06/01/22 19:30:00) Imaging Results and Diagnostics See above, in addition: CT Head or Brain w/o Contrast Result Date: June 10, 2022 Verified By: CARMEN TORIBIO MD CLINICAL STATEMENT: IMPRESSION: Significantly degraded by motion. Otherwise, no significant change. Small left frontal subarachnoid hemorrhage. Assessment/Plan Small acute traumatic subarachnoid hemorrhage s/p witnessed fall without LOC Patient suffered fall at home in her bathroom which was witnessed by her nephew; it is reported that she had no LOC. Initial head CT at outside hospital showed evidence of a small left frontal subarachnoid hemorrhage, traumatic secondary to her fall. Acute encephalopathy, likely multifactorial. Patient was noted to have increased drowsiness, and nonverbal upon arrival to [place] ED. Another head CT was obtained. This showed no significant changes or new intracranial hemorrhages, and displayed slight improvement of left frontal subarachnoid hemorrhage previously seen on initial CT. It is noted that she was given several doses of IV Ativan prior to transfer to [place] ED and this may be contributing to her decreased mental status. Dr. Justin will admit patient under his primary service to the surgical intensive care unit for closeobservation and care. [employer] physicians will be consulted for assistance with medical management. Keep systolic blood pressure less than 140 mmHg. We will obtain repeat head CT in a.m. No neurosurgical intervention is required at this time. It is expected that patient's subarachnoid hemorrhage will resolve on its own. Coagulopathy secondary to Aggrenox use Patient noted to be prescribed Aggrenox secondary to history of prior CVAs Aggrenox stopped on admission. According to family patient has not been compliant with her prescribed medications at home and it is questionable if she had been taking this daily; unknown last dose. Aggrenox may have contributed to acute SAH, although primary mechanism was traumatic fall. Repeat CT shows subarachnoid hemorrhage slightly improved, therefore Dr. Justin provides we will hold off on any reversal agents. INR 1.0 Aggrenox will need to be held until cleared by Dr. Justin. Avoid NSAID use. Left frontal contusion and laceration Left frontal laceration was repaired at [facility] with suture closure. Keep site clean and dry at all times. Patient will require suture removal in approximately 10 to 14 days, this can be completed either atneurosurgery follow-up or by PCP. Left zygomatic fracture with associated left maxillary hemosinus Patient found with a left zygomatic fracture with associated left maxillary hemosinus; will consultmaxillofacial surgery for evaluation and treatment recommendations. Trauma, same level fall Dr. Justin is requesting trauma consult for tertiary survey. DVT prophylaxis Mechanical prophylaxis with SCDs to bilateral lower extremities while in bed. We will repeat head CT tomorrow, and if stable then patient will likely be cleared for chemical DVTprophylaxis by Dr. Justin. Please refer to Dr. Justin's addendum for additional information details regarding neurosurgical input and recommendations. Patient's son/zdowzfnk-ax-hkr were provided updates at the bedside, and plan of care was discussed. They are in agreement. Patient's son provides CODE STATUS is DNR CCA/DNI. Problem List/Past Medical History Ongoing At high risk for falls Breast cancer screening by mammogram Chronic edema Chronic renal failure, stage 3b E. coli UTI (urinary tract infection) Essential hypertension Fall at home Generalized muscle weakness History of breast cancer History of CVA in adulthood Hypokalemia Hyponatremia Immunization due Impaired gait and mobility Left hip pain Mixed hyperlipidemia Osteoporosis Status post CVA Vitamin D deficiency Historical Breast ca Hyperlipidemia Procedure/Surgical History Back fusion Medications Home Medications (8) Active Aggrenox 25-200 mg oral capsule 1 cap(s), Oral, BID atenolol 50 mg oral tablet 50 mg = 1 tab(s), Oral, qDay losartan 100 mg oral tablet 100 mg = 1 tab(s), Oral, qDay [place]-3 350 mg oral capsule , Oral, qDay potassium chloride 10 mEq oral capsule, extended release 10 mEq = 1 cap(s), Oral, BID simvastatin 80 mg oral tablet 80 mg = 1 tab(s), Oral, qHS Tylenol PM Extra Strength oral tablet 1 tab(s), PRN, Oral, qHS Vitamin D2 2000 intl units oral capsule 2,000 International_Unit = 1 cap(s), Oral, qDay Allergies Milk Products (Diarrhea - Adult) lisinopril (Cough) morphine (Paranoid) Social History Smoking Status - 01/30/2014 Former smoker Alcohol Use: Never., 01/31/2019 Employment/School Status: Retired., 08/04/2019 Exercise Home/Environment None Domestic Concerns:. Living situation: Home/Independent. Single level home Lives In:., 01/31/2019 Nutrition/Health Type of diet: Regular. Good Appetite. None Eating Difficulties., 01/31/2019 Substance Abuse Use: Never., 01/31/2019 Tobacco Tobacco Use: Never (less than 100 in lifetime)., 01/31/2019 Family History Family history is negative Immunizations pneumococcal 13-valent conjugate vaccine: 0 unknown unit (02/15/17) pneumococcal 23-valent vaccine(Pneumovax: 0 unknown unit (10/17/05) pneumococcal 23-valent vaccine(Pneumovax: 0 unknown unit (04/19/05) pneumococcal 23-valent vaccine(Pneumovax: 0 unknown unit (03/18/05) SARS-CoV-2 (COVID-19) mRNA-1273 vaccine: 50 mcg (03/24/21) SARS-CoV-2 (COVID-19) mRNA-1273 vaccine: 100 mcg (06/12/20) SARS-CoV-2 (COVID-19) mRNA-1273 vaccine: 0 unknown unit (05/15/20) tetanus/diphth/pertuss (Tdap) adult/adol: 0.5 mL (06/10/22) zoster vaccine live: 0 unknown unit (04/19/05) zoster vaccine live: 0 unknown unit (04/19/05) zoster vaccine live: 0 unknown unit (03/18/05) Code Status Code Status - Ordered -- 06/10/22 12:26:00 EST, DNRCC-Arrest Do Not Intubate, Constant Order Digitally Signed by SAUL GASPAR on 06/10/2022 01:[address] [id number] Note ORIGINAL HISTORY: Fall, injury COMPARISON: 3 hours previously TECHNIQUE: Routine non-contrast head CT with sagittal and coronal reconstructions This exam was performed according to our departmental dose optimization program, and includes the following measures where applicable: automated exposure control, adjustment of the mAs and/or kVp according to patient size and/or exam, and an iterative reconstruction algorithm. FINDINGS: The study is significantly degraded by motion. The ventricles and sulci are mildly to moderately enlarged. There are subcentimeter hyperdense foci in the left frontal region. There is moderate irregular decreased attenuation in the cerebral white matter. Within the limits of the examination stephenson-white matter differentiation is intact. The calvaria and the bones of the base of the skull are poorly evaluated due to motion, although no fracture is seen. IMPRESSION: Significantly degraded by motion. Otherwise, no significant change. Small left frontal subarachnoid hemorrhage. Interpreted by: Carmen Toribio MD Preliminary Report By: Carmen Toribio MD Electronically signed By Carmen Toribio MD Dictated Date: 06/10/2022 12:03:12 PM Prelim Date: 06/10/2022 12:05:41 PM Sign Date: 06/10/2022 12:05:41 PM Ordering Provider: [facility]02-22-2023 Note ORIGINAL HISTORY: Fall, injury COMPARISON: 3 hours previously TECHNIQUE: Routine non-contrast head CT with sagittal and coronal reconstructions This exam was performed according to our departmental dose optimization program, and includes the following measures where applicable: automated exposure control, adjustment of the mAs and/or kVp according to patient size and/or exam, and an iterative reconstruction algorithm. FINDINGS: The study is significantly degraded by motion. The ventricles and sulci are mildly to moderately enlarged. There are subcentimeter hyperdense foci in the left frontal region. There is moderate irregular decreased attenuation in the cerebral white matter. Within the limits of the examination stephenson-white matter differentiation is intact. The calvaria and the bones of the base of the skull are poorly evaluated due to motion, although no fracture is seen. IMPRESSION: Significantly degraded by motion. Otherwise, no significant change. Small left frontal subarachnoid hemorrhage. Interpreted by: Carmen Toribio MD Preliminary Report By: Carmen Toribio MD Electronically signed By Carmen Toribio MD Dictated Date: 06/10/2022 12:03:12 PM Prelim Date: 06/10/2022 12:05:41 PM Sign Date: 06/10/2022 12:05:41 PM Ordering Provider: [facility]02-22-2023 Note ORIGINAL EXAMINATION: CT OF THE HEAD WITHOUT CONTRAST; CT OF THE CERVICAL SPINE WITHOUT CONTRAST 06/10/2022 8:45 am TECHNIQUE: CT of the head was performed without the administration of intravenous contrast. Automated exposure control, iterative reconstruction, and/or weight based adjustment of the mA/kV was utilized to reduce the radiation dose to as low as reasonably achievable.; CT of the cervical spine was performed without the administration of intravenous contrast. Multiplanar reformatted images are provided for review. Automated exposure control, iterative reconstruction, and/or weight based adjustment of the mA/kV was utilized to reduce the radiation dose to as low as reasonably achievable. COMPARISON: 05/04/2022 HISTORY: ORDERING SYSTEM PROVIDED HISTORY: Reason for Exam: Altered mental status FINDINGS: Motion artifacts obscure some details. CT HEAD: BRAIN/VENTRICLES: Small traumatic left frontal subarachnoid hematoma. Chronic lacunar infarct right basal ganglia. No evidence acute large territorial infarction. Patchy white matter hypodensities are nonspecific but statistically most consistent with moderate chronic microvascular angiopathy. Ventricular size and morphology are unchanged with commensurate enlargement of the sulci most consistent with age-related volume loss. Carotid siphon calcifications are present. ORBITS: The visualized portion of the orbits demonstrate no acute abnormality. Bilateral ocular lens implants are present. SINUSES: Comminuted anterior and posterior maxillary sinus wall fractures with slight irregularity of the left zygomatic arch. Associated left maxillary hemosinus. Small left sphenoid sinus retention cysts. Chronic minimal left inferior mastoid opacification. SOFT TISSUES/SKULL: Gas emphysema in the left retro antral fat with mild stranding. Left periorbital and supraorbital scalp hematoma. CT CERVICAL SPINE: BONES/ALIGNMENT: There is no acute fracture or traumatic malalignment. Mild reversal of the cervical lordosis secondary to degenerative anterolisthesis from C3 through C5. Minimal degenerative retrolisthesis C5 on C6. DEGENERATIVE CHANGES: Multilevel disc osteophyte complexes and uncovertebral and facet arthropathy . No severe spinal canal stenosis. Variable foraminal stenosis. SOFT TISSUES: There is no prevertebral soft tissue swelling. Larger artery calcifications. Retropharyngeal course both common and probably the right internal carotid arteries. Thickening and calcification along the transverse cervical ligament can be seen with pannus formation. IMPRESSION: Traumatic small left frontal subarachnoid hematoma. Left ZMC fracture with left maxillary hemosinus. Associated left periorbital and left supraorbital hematomas. No acute abnormality of the cervical spine. Degenerative changes. Findings were discussed with Dr. ADALID HOFF at 8:53 am on 06/10/2022. Interpreted by: Anurag Worthington Preliminary Report By: Anurag Worthington Electronically signed By Anurag Worthington Dictated Date: 06/10/2022 8:46:19 AM Prelim Date: 06/10/2022 9:00:35 AM Sign Date: 06/10/2022 9:00:35 AM Ordering Provider: ADALID [facility]02-22-2023 Note ORIGINAL EXAMINATION: CT OF THE HEAD WITHOUT CONTRAST; CT OF THE CERVICAL SPINE WITHOUT CONTRAST 06/10/2022 8:45 am TECHNIQUE: CT of the head was performed without the administration of intravenous contrast. Automated exposure control, iterative reconstruction, and/or weight based adjustment of the mA/kV was utilized to reduce the radiation dose to as low as reasonably achievable.; CT of the cervical spine was performed without the administration of intravenous contrast. Multiplanar reformatted images are provided for review. Automated exposure control, iterative reconstruction, and/or weight based adjustment of the mA/kV was utilized to reduce the radiation dose to as low as reasonably achievable. COMPARISON: 05/04/2022 HISTORY: ORDERING SYSTEM PROVIDED HISTORY: Reason for Exam: Altered mental status FINDINGS: Motion artifacts obscure some details. CT HEAD: BRAIN/VENTRICLES: Small traumatic left frontal subarachnoid hematoma. Chronic lacunar infarct right basal ganglia. No evidence acute large territorial infarction. Patchy white matter hypodensities are nonspecific but statistically most consistent with moderate chronic microvascular angiopathy. Ventricular size and morphology are unchanged with commensurate enlargement of the sulci most consistent with age-related volume loss. Carotid siphon calcifications are present. ORBITS: The visualized portion of the orbits demonstrate no acute abnormality. Bilateral ocular lens implants are present. SINUSES: Comminuted anterior and posterior maxillary sinus wall fractures with slight irregularity of the left zygomatic arch. Associated left maxillary hemosinus. Small left sphenoid sinus retention cysts. Chronic minimal left inferior mastoid opacification. SOFT TISSUES/SKULL: Gas emphysema in the left retro antral fat with mild stranding. Left periorbital and supraorbital scalp hematoma. CT CERVICAL SPINE: BONES/ALIGNMENT: There is no acute fracture or traumatic malalignment. Mild reversal of the cervical lordosis secondary to degenerative anterolisthesis from C3 through C5. Minimal degenerative retrolisthesis C5 on C6. DEGENERATIVE CHANGES: Multilevel disc osteophyte complexes and uncovertebral and facet arthropathy . No severe spinal canal stenosis. Variable foraminal stenosis. SOFT TISSUES: There is no prevertebral soft tissue swelling. Larger artery calcifications. Retropharyngeal course both common and probably the right internal carotid arteries. Thickening and calcification along the transverse cervical ligament can be seen with pannus formation. IMPRESSION: Traumatic small left frontal subarachnoid hematoma. Left ZMC fracture with left maxillary hemosinus. Associated left periorbital and left supraorbital hematomas. No acute abnormality of the cervical spine. Degenerative changes. Findings were discussed with Dr. ADALID HOFF at 8:53 am on 06/10/2022. Interpreted by: Anurag Worthington Preliminary Report By: Anurag Worthington Electronically signed By Anurag Worthington Dictated Date: 06/10/2022 8:46:19 AM Prelim Date: 06/10/2022 9:00:35 AM Sign Date: 06/10/2022 9:00:35 AM Ordering Provider: ADALID HOFF [facility]02-22-2023 Note ORIGINAL EXAMINATION: CT OF THE HEAD WITHOUT CONTRAST; CT OF THE CERVICAL SPINE WITHOUT CONTRAST 06/10/2022 8:45 am TECHNIQUE: CT of the head was performed without the administration of intravenous contrast. Automated exposure control, iterative reconstruction, and/or weight based adjustment of the mA/kV was utilized to reduce the radiation dose to as low as reasonably achievable.; CT of the cervical spine was performed without the administration of intravenous contrast. Multiplanar reformatted images are provided for review. Automated exposure control, iterative reconstruction, and/or weight based adjustment of the mA/kV was utilized to reduce the radiation dose to as low as reasonably achievable. COMPARISON: 05/04/2022 HISTORY: ORDERING SYSTEM PROVIDED HISTORY: Reason for Exam: Altered mental status FINDINGS: Motion artifacts obscure some details. CT HEAD: BRAIN/VENTRICLES: Small traumatic left frontal subarachnoid hematoma. Chronic lacunar infarct right basal ganglia. No evidence acute large territorial infarction. Patchy white matter hypodensities are nonspecific but statistically most consistent with moderate chronic microvascular angiopathy. Ventricular size and morphology are unchanged with commensurate enlargement of the sulci most consistent with age-related volume loss. Carotid siphon calcifications are present. ORBITS: The visualized portion of the orbits demonstrate no acute abnormality. Bilateral ocular lens implants are present. SINUSES: Comminuted anterior and posterior maxillary sinus wall fractures with slight irregularity of the left zygomatic arch. Associated left maxillary hemosinus. Small left sphenoid sinus retention cysts. Chronic minimal left inferior mastoid opacification. SOFT TISSUES/SKULL: Gas emphysema in the left retro antral fat with mild stranding. Left periorbital and supraorbital scalp hematoma. CT CERVICAL SPINE: BONES/ALIGNMENT: There is no acute fracture or traumatic malalignment. Mild reversal of the cervical lordosis secondary to degenerative anterolisthesis from C3 through C5. Minimal degenerative retrolisthesis C5 on C6. DEGENERATIVE CHANGES: Multilevel disc osteophyte complexes and uncovertebral and facet arthropathy . No severe spinal canal stenosis. Variable foraminal stenosis. SOFT TISSUES: There is no prevertebral soft tissue swelling. Larger artery calcifications. Retropharyngeal course both common and probably the right internal carotid arteries. Thickening and calcification along the transverse cervical ligament can be seen with pannus formation. IMPRESSION: Traumatic small left frontal subarachnoid hematoma. Left ZMC fracture with left maxillary hemosinus. Associated left periorbital and left supraorbital hematomas. No acute abnormality of the cervical spine. Degenerative changes. Findings were discussed with Dr. ADALID HOFF at 8:53 am on 06/10/2022. Interpreted by: Anurag Worthington Preliminary Report By: Anurag Worthington Electronically signed By Anurag Worthington Dictated Date: 06/10/2022 8:46:19 AM Prelim Date: 06/10/2022 9:00:35 AM Sign Date: 06/10/2022 9:00:35 AM [facility] Note ORIGINAL EXAMINATION: CT OF THE HEAD WITHOUT CONTRAST; CT OF THE CERVICAL SPINE WITHOUT CONTRAST 06/10/2022 8:45 am TECHNIQUE: CT of the head was performed without the administration of intravenous contrast. Automated exposure control, iterative reconstruction, and/or weight based adjustment of the mA/kV was utilized to reduce the radiation dose to as low as reasonably achievable.; CT of the cervical spine was performed without the administration of intravenous contrast. Multiplanar reformatted images are provided for review. Automated exposure control, iterative reconstruction, and/or weight based adjustment of the mA/kV was utilized to reduce the radiation dose to as low as reasonably achievable. COMPARISON: 05/04/2022 HISTORY: ORDERING SYSTEM PROVIDED HISTORY: Reason for Exam: Altered mental status FINDINGS: Motion artifacts obscure some details. CT HEAD: BRAIN/VENTRICLES: Small traumatic left frontal subarachnoid hematoma. Chronic lacunar infarct right basal ganglia. No evidence acute large territorial infarction. Patchy white matter hypodensities are nonspecific but statistically most consistent with moderate chronic microvascular angiopathy. Ventricular size and morphology are unchanged with commensurate enlargement of the sulci most consistent with age-related volume loss. Carotid siphon calcifications are present. ORBITS: The visualized portion of the orbits demonstrate no acute abnormality. Bilateral ocular lens implants are present. SINUSES: Comminuted anterior and posterior maxillary sinus wall fractures with slight irregularity of the left zygomatic arch. Associated left maxillary hemosinus. Small left sphenoid sinus retention cysts. Chronic minimal left inferior mastoid opacification. SOFT TISSUES/SKULL: Gas emphysema in the left retro antral fat with mild stranding. Left periorbital and supraorbital scalp hematoma. CT CERVICAL SPINE: BONES/ALIGNMENT: There is no acute fracture or traumatic malalignment. Mild reversal of the cervical lordosis secondary to degenerative anterolisthesis from C3 through C5. Minimal degenerative retrolisthesis C5 on C6. DEGENERATIVE CHANGES: Multilevel disc osteophyte complexes and uncovertebral and facet arthropathy . No severe spinal canal stenosis. Variable foraminal stenosis. SOFT TISSUES: There is no prevertebral soft tissue swelling. Larger artery calcifications. Retropharyngeal course both common and probably the right internal carotid arteries. Thickening and calcification along the transverse cervical ligament can be seen with pannus formation. IMPRESSION: Traumatic small left frontal subarachnoid hematoma. Left ZMC fracture with left maxillary hemosinus. Associated left periorbital and left supraorbital hematomas. No acute abnormality of the cervical spine. Degenerative changes. Findings were discussed with Dr. ADALID HOFF at 8:53 am on 06/10/2022. Interpreted by: Anurag Worthington Preliminary Report By: Anurag Worthington Electronically signed By Anurag Worthington Dictated Date: 06/10/2022 8:46:19 AM Prelim Date: 06/10/2022 9:00:35 AM Sign Date: 06/10/2022 9:00:35 AM [facility] Note ORIGINAL HISTORY: Fall COMPARISON: No FINDINGS: No acute fracture is seen. There is an incompletely visualized lumbosacral fusion. There is lucency around the S1 screws consistent with loosening. IMPRESSION: No acute fracture. Interpreted by: Carmen Toribio MD Preliminary Report By: Carmen Toribio MD Electronically signed By Carmen Toribio MD Dictated Date: 06/10/2022 8:19:54 AM Prelim Date: 06/10/2022 8:20:47 AM Sign Date: 06/10/2022 8:20:47 AM Ordering Provider: [facility]02-22-2023 Note ORIGINAL HISTORY: Altered mental status COMPARISON: 04 May 2022 FINDINGS: The lungs are clear. The cardiac silhouette is within normal size limits. The pulmonary vasculature is unremarkable in appearance. IMPRESSION: Clear lungs. Interpreted by: Carmen Toribio MD Preliminary Report By: Carmen Toribio MD Electronically signed By Carmen Toribio MD Dictated Date: 06/10/2022 8:19:08 AM Prelim Date: 06/10/2022 8:19:44 AM Sign Date: 06/10/2022 8:19:44 AM Ordering Provider: [facility]02-22-2023 Note ORIGINAL HISTORY: Altered mental status COMPARISON: 04 May 2022 FINDINGS: The lungs are clear. The cardiac silhouette is within normal size limits. The pulmonary vasculature is unremarkable in appearance. IMPRESSION: Clear lungs. Interpreted by: Carmen Toribio MD Preliminary Report By: Carmen Toribio MD Electronically signed By Carmen Toribio MD Dictated Date: 06/10/2022 8:19:08 AM Prelim Date: 06/10/2022 8:19:44 AM Sign Date: 06/10/2022 8:19:44 AM Ordering Provider: [facility]02-22-2023 Note ORIGINAL HISTORY: Fall COMPARISON: No FINDINGS: No acute fracture is seen. There is an incompletely visualized lumbosacral fusion. There is lucency around the S1 screws consistent with loosening. IMPRESSION: No acute fracture. Interpreted by: Carmen Toribio MD Preliminary Report By: Carmen Toribio MD Electronically signed By Carmen Toribio MD Dictated Date: 06/10/2022 8:19:54 AM Prelim Date: 06/10/2022 8:20:47 AM Sign Date: 06/10/2022 8:20:47 AM Ordering Provider: [facility]02-22-2023 SARS-CoV-2 (COVID-19) RNA ANNABELLA+probe Ql (Nph)Negative *NA* (06/10/22 8:13 AM)AO Auto Urine [id number] Note. MICRO - Microbiology PROCEDURE: Urine Culture [*1] SOURCE: Urine, Clean Catch BODY SITE: COLLECTED DATE/TIME: 06/01/2022 19:30 EST RECEIVED DATE/TIME: 06/02/2022 19:56 EST START DATE/TIME: 06/02/2022 19:56 EST FREE TEXT SOURCE: FINAL REPORTS Final Report [] Verified Date/Time/Personnel: 06/04/2022 08:56 EST >100,000 cfu/ml Escherichia coli PRELIMINARY REPORTS Preliminary Report [] Verified Date/Time/Personnel: 06/03/2022 11:38 EST >100,000 cfu/ml Escherichia coli AZUCENA to follow SUSCEPTIBILITY RESULTS Escherichia coli Antibiotic AZUCENA Dilut AZUCENA Inter Ampicillin <=8 Susceptible Ampicillin/ <=4/2 Susceptible Sulbactam Aztreonam <=4 Susceptible Cefazolin 4 Susceptible Ciprofloxacin <=0.25 Susceptible Ertapenem <=0.5 Susceptible Gentamicin <=2 Susceptible Imipenem <=1 Susceptible Levofloxacin <=0.5 Susceptible Meropenem <=1 Susceptible Minocycline <=4 Susceptible Nitrofurantoin <=32 Susceptible Trimethoprim/ <=0.5/9.5 Susceptible Sulfa Performing Locations *1: This test was performed at: [address], [facility] , [facility] ([place])05-06-2022 Note. MICRO - Microbiology PROCEDURE: Urine Culture [*1] SOURCE: Urine, Straight BODY SITE: Catherized COLLECTED DATE/TIME: 05/04/2022 15:18 EST RECEIVED DATE/TIME: 05/04/2022 20:16 EST START DATE/TIME: 05/04/2022 20:16 EST FREE TEXT SOURCE: FINAL REPORTS Final Report [] Verified Date/Time/Personnel: 05/06/2022 10:13 EST >100,000 cfu/ml Escherichia coli PRELIMINARY REPORTS Preliminary Report [] Verified Date/Time/Personnel: 05/05/2022 14:31 EST >100,000 cfu/ml Escherichia coli AZUCENA to follow SUSCEPTIBILITY RESULTS Escherichia coli Antibiotic AZUCENA Dilut AZUCENA Inter Ampicillin <=8 Susceptible Ampicillin/ <=4/2 Susceptible Sulbactam Aztreonam <=4 Susceptible Cefazolin <=2 Susceptible Ciprofloxacin <=0.25 Susceptible Ertapenem <=0.5 Susceptible Gentamicin <=2 Susceptible Imipenem <=1 Susceptible Levofloxacin <=0.5 Susceptible Meropenem <=1 Susceptible Minocycline <=4 Susceptible Nitrofurantoin <=32 Susceptible Trimethoprim/ <=0.5/9.5 Susceptible Sulfa Performing Locations *1: This test was performed at: [facility], [address] [place] [address], [id number] , [facility] ([place])05-04-2022 Hospital Discharge instructions Patient Education 05/04/2022 15:10:21 Bladder Infection, Female (Adult) Bladder Infection, Female (Adult) Urine is normally doesn't have any bacteria in it. But bacteria can get into the urinary tract fromthe skin around the rectum. Or they can travel in the blood from elsewhere in the body. Once they are in your urinary tract, they can cause infection in the urethra (urethritis), the bladder (cystitis), or the kidneys (pyelonephritis). The most common place for an infection is in the bladder. This is called a bladder infection. This is one of the most common infections in women. Most bladder infections are easily treated. They are not serious unless the infection spreads to the kidney. The phrases bladder infection, UTI, and cystitis are often used to describe the same thing. But they are not always the same. Cystitis is an inflammation of the bladder. The most common cause of cystitis is an infection. Symptoms The infection causes inflammation in the urethra and bladder. This causes many of the symptoms. Themost common symptoms of a bladder infection are: Pain or burning when urinating Having to urinate more often than usual Urgent need to urinate Only a small amount of urine comes out Blood in urine Abdominal discomfort. This is usually in the lower abdomen above the pubic bone. Cloudy urine Strong- or bad-smelling urine Unable to urinate (urinary retention) Unable to hold urine in (urinary incontinence) Fever Loss of appetite Confusion (in older adults) Causes Bladder infections are not contagious. You can't get one from someone else, from a toilet seat, or from sharing a bath. The most common cause of bladder infections is bacteria from the bowels. The bacteria get onto the skin around the opening of the urethra. From there, they can get into the urine and travel up to thebladder, causing inflammation and infection. This usually happens because of: Wiping improperly after urinating. Always wipe from front to back. Bowel incontinence Procedures such as having a catheter inserted Older age Not emptying your bladder. This can allow bacteria a chance to grow in your urine. Dehydration Constipation Sex Use of a diaphragm for control Treatment Bladder infections are diagnosed by a urine test. They are treated with antibiotics and usually clear up quickly without complications. Treatment helps prevent a more serious kidney infection. Medicines Medicines can help in the treatment of a bladder infection: Take antibiotics until they are used up, even if you feel better. It is important to finish them tomake sure the infection has cleared. You can use acetaminophen or ibuprofen for pain, fever, or discomfort, unless another medicine was prescribed. If you have chronic liver or kidney disease, talk with your healthcare provider before using these medicines. Also talk with your provider if you've ever had a stomach ulcer or gastrointestinal bleeding, or are taking blood-thinner medicines. If you are given phenazopydridine to reduce burning with urination, it will cause your urine to become a bright orange color. This can stain clothing. Care and prevention These self-care steps can help prevent future infections: Drink plenty of fluids to prevent dehydration and flush out your bladder. Do this unless you must restrict fluids for other health reasons, or your doctor told you not to. Proper cleaning after going to the bathroom is important. Wipe from front to back after using the toilet to prevent the spread of bacteria. Urinate more often. Don't try to hold urine in for a long time. Wear loose-fitting clothes and cotton underwear. Avoid tight-fitting pants. Improve your diet and prevent constipation. Eat more fresh fruit and vegetables, and fiber, and less junk and fatty foods. Avoid sex until your symptoms are gone. Avoid caffeine, alcohol, and spicy foods. These can irritate your bladder. Urinate right after intercourse to flush out your bladder. If you use control pills and have frequent bladder infections, discuss it with your doctor. Follow-up care Call your healthcare provider if all symptoms are not gone after 3 days of treatment. This is especially important if you have repeat infections. If a culture was done, you will be told if your treatment needs to be changed. If directed, you cancall to find out the results. If X-rays were done, you will be told if the results will affect your treatment. Call 911 Call 911 if any of the following occur: Trouble breathing Hard to wake up or confusion Fainting or loss of consciousness Rapid heart rate When to seek medical advice Call your healthcare provider right away if any of these occur: Fever of 100.4 F (38.0 C) or higher, or as directed by your healthcare provider Symptoms are not better by the third day of treatment Back or belly (abdominal) pain that gets worse Repeated vomiting, or unable to keep medicine down Weakness or dizziness Vaginal discharge Pain, redness, or swelling in the outer vaginal area (labia) 1206-[address] [employer] [address] [place] [address]. All rights reserved. This information is not intended as a substitute for professional medical care. Always follow yourhealthcare professional's instructions. 05/04/2022 15:09:51 WEAKNESS, Unk Cause Weakness [Uncertain Cause] Based on your exam today, the exact cause of your weakness is not certain. However, your weakness does not seem to be a sign of a serious illness at this time. Sometimes the signs of a serious illness take more time to appear. Therefore, please watch for the warning signs listed below. Home Care: 1) Rest at home today. Do not over-exert yourself. 2) Take your medicine as prescribed. 3) For the next few days, drink extra fluids (unless your doctor wants you to restrict fluids for other reasons). Do not skip meals. Follow Up with your doctor or as advised if you are not starting to feel better within TWO days. Get Prompt Medical Attention if any of the following occur: Worsening of your symptoms Chest, arm, neck, jaw or upper back pain Dizziness or fainting Trouble breathing Unable to eat or drink normal amounts Nausea, frequent vomiting, frequent diarrhea Abdominal pain Numbness or weakness of the face, one arm or one leg Slurred speech, confusion, trouble speaking, walking or seeing Blood in vomit or stool (black or red color) Fever of 100.4 F (38 C) or higher, or as directed by your healthcare provider [phone] [employer] [address] [place] [address], [place] [address]. All rights reserved. This information is not intended as a substitute for professional medical care. Always follow yourhealthcare professional's instructions. Follow Up Care 05/04/2022 12:21:03 With:JEREMIAS VALERIO DO Address: [address] [place] [phone] When:2-4 days With:Go to emergency room if symptoms worsen Address:Unknown When:2-4 days [facility] 01-16-2023 Emergency department Discharge summary Discharge Instructions Thank you for allowing [facility] to assist you with your healthcare needs. The following is importantdischarge information regarding your hospital visit. Diagnosis from Today's Visit Weakness Weakness or fatigue What to Do Next Instructions from Your Care Team No qualifying data available. Post Acute Orders No qualifying data available. You Need to Schedule the Following Appointments Follow Up with JEREMIAS VALERIO DO When Within 2-4 days Where: [address] [place] [phone] Follow Up with Go to emergency room if symptoms worsen When Within 2-4 days Allergies Milk Products (Diarrhea - Adult) lisinopril (Cough) morphine (Paranoid) Medications Please ask your primary doctor or pharmacist before taking any other medication not listed, including over the counter drugs, herbal medications, vitamins and or supplements as they may interact withyour home medications. What How Much When Why Instructions Last Dose New cephalexin (cephalexin 500 mg oral capsule) 1 cap by mouth Three (3) times a day Duration: 7 Days Printed Prescription Unchanged acetaminophen-diphenhydrAMINE (Tylenol PM Extra Strength oral tablet) 1 tab(s) by mouth Daily at bedtime as needed for for sleep Unchanged aspirin-dipyridamole (Aggrenox 25-200 mg oral capsule) 1 cap by mouth Two (2) times a day Unchanged atenolol (atenolol 50 mg oral tablet) 1 tab(s) by mouth Once a day Unchanged ergocalciferol (Vitamin D2 2000 intl units oral capsule) 1 cap by mouth Once a day with food Unchanged losartan (losartan 100 mg oral tablet) 1 tab(s) by mouth Once a day Essential hypertension Unchanged omega-3 polyunsaturated fatty acids ([place]-3 350 mg oral capsule) by mouth Once a day Unchanged potassium chloride (potassium chloride 10 mEq oral capsule, extended release) 1 cap by mouth Two (2) times a day Unchanged simvastatin (simvastatin 80 mg oral tablet) 1 tab(s) by mouth Daily at bedtime Please take this list to your next doctor s visit. Bring all medications you take, including over the counter medications, herbals and other supplements with you to your doctor s visit. Patients and families are reminded to discard old lists and to update any records with all medication providers or retail pharmacies. Education Materials Bladder Infection, Female (Adult) Urine is normally doesn't have any bacteria in it. But bacteria can get into the urinary tract fromthe skin around the rectum. Or they can travel in the blood from elsewhere in the body. Once they are in your urinary tract, they can cause infection in the urethra (urethritis), the bladder (cystitis), or the kidneys (pyelonephritis). The most common place for an infection is in the bladder. This is called a bladder infection. This is one of the most common infections in women. Most bladder infections are easily treated. They are not serious unless the infection spreads to the kidney. The phrases bladder infection, UTI, and cystitis are often used to describe the same thing. But they are not always the same. Cystitis is an inflammation of the bladder. The most common cause of cystitis is an infection. Symptoms The infection causes inflammation in the urethra and bladder. This causes many of the symptoms. Themost common symptoms of a bladder infection are: Pain or burning when urinating Having to urinate more often than usual Urgent need to urinate Only a small amount of urine comes out Blood in urine Abdominal discomfort. This is usually in the lower abdomen above the pubic bone. Cloudy urine Strong- or bad-smelling urine Unable to urinate (urinary retention) Unable to hold urine in (urinary incontinence) Fever Loss of appetite Confusion (in older adults) Causes Bladder infections are not contagious. You can't get one from someone else, from a toilet seat, or from sharing a bath. The most common cause of bladder infections is bacteria from the bowels. The bacteria get onto the skin around the opening of the urethra. From there, they can get into the urine and travel up to thebladder, causing inflammation and infection. This usually happens because of: Wiping improperly after urinating. Always wipe from front to back. Bowel incontinence Procedures such as having a catheter inserted Older age Not emptying your bladder. This can allow bacteria a chance to grow in your urine. Dehydration Constipation Sex Use of a diaphragm for control Treatment Bladder infections are diagnosed by a urine test. They are treated with antibiotics and usually clear up quickly without complications. Treatment helps prevent a more serious kidney infection. Medicines Medicines can help in the treatment of a bladder infection: Take antibiotics until they are used up, even if you feel better. It is important to finish them tomake sure the infection has cleared. You can use acetaminophen or ibuprofen for pain, fever, or discomfort, unless another medicine was prescribed. If you have chronic liver or kidney disease, talk with your healthcare provider before using these medicines. Also talk with your provider if you've ever had a stomach ulcer or gastrointestinal bleeding, or are taking blood-thinner medicines. If you are given phenazopydridine to reduce burning with urination, it will cause your urine to become a bright orange color. This can stain clothing. Care and prevention These self-care steps can help prevent future infections: Drink plenty of fluids to prevent dehydration and flush out your bladder. Do this unless you must restrict fluids for other health reasons, or your doctor told you not to. Proper cleaning after going to the bathroom is important. Wipe from front to back after using the toilet to prevent the spread of bacteria. Urinate more often. Don't try to hold urine in for a long time. Wear loose-fitting clothes and cotton underwear. Avoid tight-fitting pants. Improve your diet and prevent constipation. Eat more fresh fruit and vegetables, and fiber, and less junk and fatty foods. Avoid sex until your symptoms are gone. Avoid caffeine, alcohol, and spicy foods. These can irritate your bladder. Urinate right after intercourse to flush out your bladder. If you use control pills and have frequent bladder infections, discuss it with your doctor. Follow-up care Call your healthcare provider if all symptoms are not gone after 3 days of treatment. This is especially important if you have repeat infections. If a culture was done, you will be told if your treatment needs to be changed. If directed, you cancall to find out the results. If X-rays were done, you will be told if the results will affect your treatment. Call 911 Call 911 if any of the following occur: Trouble breathing Hard to wake up or confusion Fainting or loss of consciousness Rapid heart rate When to seek medical advice Call your healthcare provider right away if any of these occur: Fever of 100.4 F (38.0 C) or higher, or as directed by your healthcare provider Symptoms are not better by the third day of treatment Back or belly (abdominal) pain that gets worse Repeated vomiting, or unable to keep medicine down Weakness or dizziness Vaginal discharge Pain, redness, or swelling in the outer vaginal area (labia) 4867-8630 [employer] [address] [place] [address], [place] [address]. All rights reserved. This information is not intended as a substitute for professional medical care. Always follow yourhealthcare professional's instructions. Weakness [Uncertain Cause] Based on your exam today, the exact cause of your weakness is not certain. However, your weakness does not seem to be a sign of a serious illness at this time. Sometimes the signs of a serious illness take more time to appear. Therefore, please watch for the warning signs listed below. Home Care: 1) Rest at home today. Do not over-exert yourself. 2) Take your medicine as prescribed. 3) For the next few days, drink extra fluids (unless your doctor wants you to restrict fluids for other reasons). Do not skip meals. Follow Up with your doctor or as advised if you are not starting to feel better within TWO days. Get Prompt Medical Attention if any of the following occur: Worsening of your symptoms Chest, arm, neck, jaw or upper back pain Dizziness or fainting Trouble breathing Unable to eat or drink normal amounts Nausea, frequent vomiting, frequent diarrhea Abdominal pain Numbness or weakness of the face, one arm or one leg Slurred speech, confusion, trouble speaking, walking or seeing Blood in vomit or stool (black or red color) Fever of 100.4 F (38 C) or higher, or as directed by your healthcare provider [phone] [employer] [address] [place] [address]. All rights reserved. This information is not intended as a substitute for professional medical care. Always follow yourhealthcare professional's instructions. Additional Information VACCINATE! IT SAVES LIVES! Members of the community who have not yet received the COVID-19 vaccine and would like to receive it can visit one of [facility] vaccine clinics. There are many vaccine clinic locations within the [facility]. For locations and available times, please visit [email or web address]. It is important to note that some COVID mobile vaccine clinics are held outdoors and may be canceled in rainy orstormy conditions. To learn more about pediatric vaccinations (ages 5-11), we invite you to visit the [facility] webpage. [email or web address] learn more about the COVID-19 vaccine, we invite you to visit the [facility] website for a list of frequently asked questions. [email or web address] [facility] Patient Portal Access Instructions: Stay connected with your healthcare team and access your personal medical information anytime with the [facility] Patient Portal. If you would like a full copy of your medical records please contact the [facility] Medical Records Department Wednesday through Wednesday between 8a.m. and 4:30p.m. Please follow the directions below to access the portal: 1.Access the email account you provided upon registration to the hospital.2.Look for an invitation email from [facility].3.Open the email and access the invitation link: Accept Invitation to [facility]4.Fill in the required miller to create your account. Sign into www.[employer] with your username and password that you created in the above steps to stay up to date. You can then view a summary of results, a summary of your visits, and the ability to download your summaries to your computer or send the information securely to a physician. Remember that your healthcare information is confidential, so carefully consider who you will allow to register on the [facility] Patient Portal for access to your information. You can also access the [facility] Patient Portal on the [employer] mitra. Simply click on Health Records under [employer] and then click on the [employer] logo. HOW TO SAFELY DISPOSE OF PRESCRIPTION MEDICATIONS Please use one of the following methods to safely dispose of your unused medications. 1.Use a drug disposal kit: the drug disposal pouch allows you to safely discard your old and unuseddrugs. Ask your nurse to give you one when you are discharged.2.Visit a local take-back location: Many local pharmacies and police departments have programs that collect old and unwanted prescriptiondrugs. Call your local pharmacy or go to http://CPower.VNG/8K9Lv1h to find one close to you.3.Make use of household items: Use cat litter or old coffee grounds to dispose medications if other options arenot available. Mix your drugs with these household products, seal them in an airtight container andthrow it into the garbage. Call [facility]: [phone] to be sure your drugs can be disposed of in this way. Some medicines may require a different approach.4.Never flush your medications down the toilet. IF YOU HAVE BEEN PRESCRIBED AN OPIOIDS FOR PAIN If you have been prescribed an opioid (such as hydrocodone, oxycodone or morphine), it is critical to understand the possible side effects and risks of opioid pain medications. Even when taken as directed, opioids can have several side effects including: Tolerance, meaning you might need to take more of a medication for the same pain relief. Nausea, vomiting and/or constipation. Sleepiness, dizziness, dry mouth, confusion, depression or itching. Physical dependence, meaning you have withdrawal symptoms when a medication is stopped ? this can develop within a few days. KNOW YOUR RESPONSIBILITIES It is important to know exactly how much and how often to take the opioid pain medications you are prescribed. Never take opioids in higher amounts or more often than prescribed. Do not combine opioids with alcohol or other drugs that cause drowsiness, such as benzodiazepines, also known as benzos,including diazepam and alprazolam, muscle relaxants or sleep aids. Never sell or share prescriptionopioids. This is illegal. Store opioids in a secure place and out of reach of others (including children, family, friends and visitors). The last page(s) of this document has been signed and retained as a CHART COPY Signatures Patient Education Materials Bladder Infection, Female (Adult) WEAKNESS, Unk Cause Medication Leaflets My discharge plan and instructions have been reviewed and explained to me and IDONNIE LOIS A understand my current condition and have read and understand these discharge instructions. I have received a written copy of the plan/instructions. If I have questions, I am aware that I should contact my doctor. 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 HISTORY: ORDERING SYSTEM PROVIDED HISTORY: Reason for Exam: Altered mental status FINDINGS: The cardiomediastinal silhouette demonstrates a normal appearance. No consolidative opacity is identified. There is no pleural effusion or pneumothorax. No free air seen beneath the level of the diaphragm. The bony thorax appears acutely intact. IMPRESSION: No evidence of an acute process. Interpreted by: Nader Carroll MD Preliminary Report By: Nader Carroll MD Electronically signed By Nader Carroll MD Dictated Date: 05/04/2022 2:24:26 PM Prelim Date: 05/04/2022 2:25:33 PM Sign Date: 05/04/2022 2:25:33 PM Ordering Provider: [facility]01-16-2023 Note ADDENDUM ADDENDUM: An additional impression should read: Aerated secretions and air-fluid level in the left sphenoid sinus which can be seen with acute sinusitis. Interpreted by: Ninfa Browne MD Preliminary Report By: Ninfa Browne MD Electronically signed By Ninfa Browne MD Dictated Date: 05/04/2022 2:16:31 PM Prelim Date: 05/04/2022 2:17:24 PM Sign Date: 05/04/2022 2:17:24 PM Ordering Provider: CLAUDETTE LIMON ORIGINAL EXAMINATION: CT OF THE HEAD WITHOUT CONTRAST 05/04/2022 1:58 pm TECHNIQUE: CT of the head was performed without the administration of intravenous contrast. Automated exposure control, iterative reconstruction, and/or weight based adjustment of the mA/kV was utilized to reduce the radiation dose to as low as reasonably achievable. COMPARISON: MRI brain 01/23/2014 HISTORY: ORDERING SYSTEM PROVIDED HISTORY: Reason for Exam: Altered mental status FINDINGS: No acute intracranial hemorrhage, hydrocephalus, mass effect. The ventricles are mildly enlarged with commensurate enlargement of the sulci most consistent with mild age-related volume loss. Confluent FLAIR hyperintensities in the cerebral white matter are nonspecific but statistically most consistent with severe chronic microvascular angiopathy. Atherosclerotic calcifications are present in the cavernous carotid arteries. A hypodensity in the right basal ganglia was also present on the prior MRI. There are aerated secretions and air-fluid level in the left sphenoid sinus which can be seen with acute sinusitis in the appropriate clinical setting. There is mild nonspecific opacification of the inferior left mastoids. The right mastoids appear clear. No acute calvarial abnormality. IMPRESSION: No acute intracranial hemorrhage, hydrocephalus, or mass effect. Interpreted by: Ninfa Browne MD Preliminary Report By: Ninfa Browne MD Electronically signed By Ninfa Browne MD Dictated Date: 05/04/2022 2:05:35 PM Prelim Date: 05/04/2022 2:09:20 PM Sign Date: 05/04/2022 2:09:20 PM Ordering Provider: CLAUDETTE LIMON [facility]01-16-2023 Note ORIGINAL EXAMINATION: TWO XRAY VIEWS OF THE CHEST 05/04/2022 1:57 pm COMPARISON: None. HISTORY: ORDERING SYSTEM PROVIDED HISTORY: Reason for Exam: Altered mental status FINDINGS: The cardiomediastinal silhouette demonstrates a normal appearance. No consolidative opacity is identified. There is no pleural effusion or pneumothorax. No free air seen beneath the level of the diaphragm. The bony thorax appears acutely intact. IMPRESSION: No evidence of an acute process. Interpreted by: Nader Carroll MD Preliminary Report By: Nader Carroll MD Electronically signed By Nader Carroll MD Dictated Date: 05/04/2022 2:24:26 PM Prelim Date: 05/04/2022 2:25:33 PM Sign Date: 05/04/2022 2:25:33 PM Ordering Provider: [facility]01-16-2023 Note ADDENDUM ADDENDUM: An additional impression should read: Aerated secretions and air-fluid level in the left sphenoid sinus which can be seen with acute sinusitis. Interpreted by: Ninfa Browne MD Preliminary Report By: Ninfa Browne MD Electronically signed By Ninfa Browne MD Dictated Date: 05/04/2022 2:16:31 PM Prelim Date: 05/04/2022 2:17:24 PM Sign Date: 05/04/2022 2:17:24 PM Ordering Provider: CLAUDETTE LIMON ORIGINAL EXAMINATION: CT OF THE HEAD WITHOUT CONTRAST 05/04/2022 1:58 pm TECHNIQUE: CT of the head was performed without the administration of intravenous contrast. Automated exposure control, iterative reconstruction, and/or weight based adjustment of the mA/kV was utilized to reduce the radiation dose to as low as reasonably achievable. COMPARISON: MRI brain 01/23/2014 HISTORY: ORDERING SYSTEM PROVIDED HISTORY: Reason for Exam: Altered mental status FINDINGS: No acute intracranial hemorrhage, hydrocephalus, mass effect. The ventricles are mildly enlarged with commensurate enlargement of the sulci most consistent with mild age-related volume loss. Confluent FLAIR hyperintensities in the cerebral white matter are nonspecific but statistically most consistent with severe chronic microvascular angiopathy. Atherosclerotic calcifications are present in the cavernous carotid arteries. A hypodensity in the right basal ganglia was also present on the prior MRI. There are aerated secretions and air-fluid level in the left sphenoid sinus which can be seen with acute sinusitis in the appropriate clinical setting. There is mild nonspecific opacification of the inferior left mastoids. The right mastoids appear clear. No acute calvarial abnormality. IMPRESSION: No acute intracranial hemorrhage, hydrocephalus, or mass effect. Interpreted by: Ninfa Browne MD Preliminary Report By: Ninfa Browne MD Electronically signed By Ninfa Browne MD Dictated Date: 05/04/2022 2:05:35 PM Prelim Date: 05/04/2022 2:09:20 PM Sign Date: 05/04/2022 2:09:20 PM [facility]ments Appointment Date:02/19/2021 08:30:00 AM Scheduled Provider: Location:[facility] Appointment Type:PC Nurse Injection Appointment Date:08/08/2021 11:00:00 AM Scheduled Provider:JEREMIAS VALERIO DO Location:[facility] Appointment Type:PC OV Follow Up Future Scheduled Tests Radiology* XR Hip Minimum 2 Views Left 01/31/21 [facility] Evaluation + Plan note Future Appointments Appointment Date:02/09/2022 10:00:00 AM Scheduled Provider:JEREMIAS VALERIO DO Location:[facility] Appointment Type:PC OV Future Scheduled Tests Radiology* XR Hip Minimum 2 Views Left 01/31/21 [facility] Evaluation + Plan note Future Appointments Appointment Date:08/03/2022 09:30:00 AM Scheduled Provider:JEREMIAS VALERIO DO Location:[facility] Appointment Type:PC OV [facility] Evaluation + Plan note Future Appointments Appointment Date:05/05/2022 09:30:00 AM Scheduled Provider:JEREMIAS VALERIO DO Location:[facility] Appointment Type:PC OV Appointment Date:08/03/2022 09:30:00 AM Scheduled Provider:JEREMIAS VALERIO DO Location:[facility] Appointment Type:PC OV Diagnostic Tests Pending * Urine Culture 05/04/22 [facility] Evaluation + Plan note Future Appointments Appointment Date:08/03/2022 09:30:00 AM Scheduled Provider:JEREMIAS VALERIO DO Location:[facility] Appointment Type:PC OV Diagnostic Tests Pending * Troponin I High Sensitivity 06/10/22 * Urine Culture 06/10/22 [facility] Hospital course Narrative No data available for this section [facility] Hospital Discharge instructions No data available for this section [facility] Note* CLAUDETTE LIMON MD: SIGN, VERIFY Event Display: EKG [ED AOH] - CV Authored Date: [id number] [facility] Note* ADALID HOFF MD: SIGN, VERIFY Event Display: EKG [ED AOH] - CV Authored Date: [id number] [facility] Progress note No data available for this section [facility] Summary Purpose Family History No Family History Records FoundNo Family History Records Found Advance Directives No Advanced Directives Records FoundNo Advanced Directives Records Found Additional Source Comments INFORMATION SOURCE (unrecogn ized section and content) DATE CREATED AUTHOR AUTHOR'S ORGANIZ ATION 07/06/2022 [facility] ([place]) Care Team (unrecognized sect ion and content) Personnel Name: JEREMIAS VALERIO DO Address: [address] [place] [address] Care Team Personnel Name: JEREMIAS VALERIO DO Position: P4 Physician - Primary Care Member Role: Primary Care Physician Address: Address: [address] [place] [address] Care Team Related Persons Name: GIGI RON Name: SMITA RON Name: SMITA RON Care Team (unrecognized sect ion and content) Care Team Personnel Name: JEREMIAS VALERIO DO Position: P4 Physician - Primary Care Member Role: Primary Care Physician Address: Address: [address] [place] [address] Care Team Related Persons Name: GIGI RON Name: SMITA RON Name: SMITA RON Care Team Personnel Name: JEREMIAS VALERIO DO Position: P4 Physician - Primary Care Member Role: Primary Care Physician Address: Address: [address] [place] [address] Care Team Related Persons Name: GIGI RON Name: SMITA RON Name: SMITA RNO Care Team Personnel Name: JEREMIAS VALERIO DO Position: P4 Physician - Primary Care Member Role: Primary Care Physician Address: Address: [address] [place] [id number] [place] [address] Name: CLAUDETTE LIMON MD Position: ED Physician Member Role: ED Physician Address: Address: [facility] [address] [place] [address] Name: Vee Ponce RN Position: ED RN Member Role: ED RN Care Team Related Persons Name: GIGI RON Name: SMITA RON Name: SMITA RON Care Team Personnel Name: JEREMIAS VALERIO DO Position: P4 Physician - Primary Care Member Role: Primary Care Physician Address: Address: [address] [place] [address] Name: ADALID HOFF MD Position: ED Physician Member Role: Attending Physician Address: Address: [address] Name: HELLEN Her Position: RN Member Role: ED RN Care Team Related Persons Name: GIGI RON Name: SMITA RON Name: SMITA RON Care Team Personnel Name: JEREMIAS VALERIO DO Position: P4 Physician - Primary Care Member Role: Primary Care Physician Address: Address: [address] [place] [address] Name: GENARO DOUGLAS DO Position: Resident Member Role: Resident Address: Address: [address] [place] [address] ED Resident [address] Name: Vickie Rendon RN Position: P3 physical therapy aide Member Role: physical therapy aide Name: Link Sagastume Position: P3 Registration- Rewind Operator Member Role: Registrar Name: FERNANDO SWIFT DO Position: Resident Member Role: Resident Address: Address: [address] [place] [address] ED Resident [place] [id number] Name: Es Pasotr rehabilitation services director Position: [employer]: Head Men'S Golf Coach/Tech Member Role: Signs And Displays Sales Representative Name: PABLO MONTES MD Position: ED Physician Member Role: ED Physician Address: Address: [address] [place] [address] [facility] [address] Care Team Related Persons Name: GIGI RON Name: SMITA RON Name: SMITA RON FOR RECORDS PERTAINING TO PATIENTS WHO ARE OR HAVE BEEN ENROLLED IN A CHEMICAL DEPENDENCY/SUBSTANCEABUSE PROGRAM, SOME INFORMATION MAY BE OMITTED. This clinical summary was aggregated from multiple sources. Caution should be exercised in using it in the provision of clinical care. This summary normalizes information from multiple sources, and as a consequence, information in this document may materially change the coding, format and clinical context of patient data. In addition, data may be omitted in some cases. CLINICAL DECISIONS SHOULD BE BASED ON THE PRIMARY CLINICAL RECORDS. [facility] [employer], [facility]. provides no warranty or guarantee of the accuracy or completeness of information in this document.
[2023-04-16 22:56] LABS: BNP,B-Type NATRIURETIC PEPTIDE 89.1 pg/mL (0-100)
--- NOTE | 2023-04-16 22:56 | CPS ---
[2203] x3 Albuterol given to pt. in ER. Pre-HR=80, RR=26 with audible wheezes. Post-HR=85, RR=26 with audible wheezes as well as rhonchi. Pt. does cough up thick, yellow secretions after her tx.'s, temporarily alleviating the audible wheezes.
[2023-04-16] MEDS: Piperacil/Tazobactam 4.5 GM in 0.9% Normal Saline (100mL MB+) 100 ML IV (23:22)
--- NOTE | 2023-04-16 23:24 | HP.PCM.HOS_ITS ---
HPI - General General Date of Admission: 04/16/23 Date of Service: 04/16/23 Chief Complaint: Fall, shortness of breath HPI Narrative DARIUSZ FIELDS, is a 83 F who presented to [facility] ED on 04/16/2023 from her longterm for a fall. Patient seen at bedside, son and [id number] present. Patient was laying fairly comfortably in bed, in no acute distress. 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 Family states the patient has lived in the longterm since May 2022. They state that patient had been doing fairly well recently. Son was at the facility on Wednesday and states the patient was in her usual state of health, had no acute concerns. Per nursing staff from the facility, patient apparently fell while heading toward the bathroom. Fell onto her buttocks, did not hit her head. On my interview, patient was able to tell me that she had a fall at the facility and she currently has fairly significant pelvic and low back pain particularly with sitting up or twisting movements. Patient does not remember what made her fall. Patient denies any shortness of breath at rest currently but does states she has felt mild shortness of breath with exertion over the past few days. Patient reports a cough with some sputum production as well, unable to characterize the color or consistency of the sputum. She otherwise denies any chest pain, abdominal pain or discomfort. No other acute concerns this time. [facility] Medical History (Updated 04/17/23 @ 02:[address] Rodger Carranza DO) Full code status Generalized anxiety disorder Generalized muscle weakness Hyperlipidemia Hypertension Major depressive disorder, recurrent, unspecified Traumatic subarachnoid hemorrhage Unspecified protein-calorie malnutrition Home Medications aluminum-magnesium hydroxide 200 mg-200 mg/5 mL oral suspension 30 ml PO Q4H PRN GI distress 04/16/23 [History Last Taken Unknown] aspirin 25 mg-dipyridamole 200 mg capsule,ext.release 12 hr multiphase 1 cap PO BID 04/16/23 [History Last Taken Unknown] buspirone 5 mg tablet 2.5 mg PO DAILY 04/16/23 [History Last Taken Unknown] docusate sodium 100 mg capsule (Col-Rite) 100 mg PO BID 04/16/23 [History Last Taken Unknown] ergocalciferol (vitamin D2) 50 mcg (2,000 unit) capsule 50 mcg PO DAILY 04/16/23 [History Last Taken Unknown] escitalopram oxalate 20 mg tablet (Lexapro) 20 mg PO DAILY 04/16/23 [History Last Taken Unknown] glucagon HCl 1 mg solution for injection (Glucagon (HCl) Emergency Kit) 1 mg IM Q20M PRN hypoglycemia 04/16/23 [History Last Taken Unknown] guaifenesin 100 mg/5 mL oral liquid (Adult Tussin Chest Congestion) 200 mg PO Q4H PRN congestion 04/16/23 [History Last Taken Unknown] losartan 100 mg tablet 100 mg PO DAILY 04/16/23 [History Last Taken Unknown] magnesium hydroxide 400 mg/5 mL oral suspension (Dulcolax (magnesium hydroxide)) 30 ml PO DAILY PRN constipation 04/16/23 [History Last Taken Unknown] melatonin 3 mg capsule 3 mg PO QHS 04/16/23 [History Last Taken Unknown] memantine 5 mg tablet 5 mg PO BID 04/16/23 [History Last Taken Unknown] metoprolol tartrate 50 mg tablet 50 mg PO BID 04/16/23 [History Last Taken Unknown] mirtazapine 15 mg tablet (Remeron) 15 mg PO QHS 04/16/23 [History Last Taken Unknown] omega 6-zel-efb-fish oil 300 mg-1,000 mg capsule (Fish Oil) 1 cap PO DAILY 04/16/23 [History Last Taken Unknown] potassium chloride 10 mEq tablet,extended release 10 meq PO BID 04/16/23 [History Last Taken Unknown] simvastatin 80 mg tablet 80 mg PO QHS 04/16/23 [History Last Taken Unknown] Allergy/AdvReac Type Severity Reaction Status Date / Time lisinopril Allergy Unknown PT UNABLE Verified 04/16/23 20:48 TO RESPOND-NEEDS F/U Milk Containing Products Allergy Unknown PT UNABLE Verified 04/16/23 20:48 (Dairy) TO RESPOND-NEEDS F/U morphine Allergy Unknown PT UNABLE Verified 04/16/23 20:48 TO RESPOND-NEEDS F/U Social History Smoking Status: Never smoker ROS Constitutional Constitutional: Denies chills, fatigue, fever(s) or weakness Eyes Eyes: Denies change in vision ENT HEENT: Reports nasal congestion Cardiovascular Cardiovascular: Reports dyspnea on exertion; Denies chest pain or lightheadedness Respiratory/Chest Respiratory/Chest: Reports productive cough; Denies shortness of breath at rest or wheezing Gastrointestinal Gastrointestinal: Denies abdominal pain Genitourinary Genitourinary: Denies dysuria Musculoskeletal Musculoskeletal: Reports back pain Neurologic Neurologic: Denies dizziness, focal weakness or headache(s) Vital Signs Vital Signs Vital Signs: 04/16/23 20:48 04/16/23 21:19 04/16/23 20:59 Temperature 97.2 F L Temperature Source Temporal Pulse Rate 81 80 80 Respiratory Rate 20 H 26 H 24 H Respiratory Effort Respiratory Depth Respiratory Pattern Tachypnea Blood Pressure 196/101 H 151/68 H Blood Pressure Mean 132 95 Pulse Ox 96 93 Oxygen Delivery Method Nasal Cannula Nasal Cannula Oxygen Flow Rate (L/min) 4 4 04/16/23 22:09 04/16/23 22:22 04/16/23 22:24 Temperature Temperature Source Pulse Rate Respiratory Rate Respiratory Effort Short of Breath Short of Breath Respiratory Depth Normal Normal Respiratory Pattern Tachypnea Tachypnea Blood Pressure Blood Pressure Mean Pulse Ox 92 99 Oxygen Delivery Method Room Air Nasal Cannula Oxygen Flow Rate (L/min) 4 Weight Weight: 62.9 kg Body Mass Index (BMI) 23.1 Physical Exam Const alert and no apparent distress Constitutional Narrative: Elderly female, fairly thin appearing, laying comfortably in bed, no acute distress. Conversing normally but not able to answer all questions appropriately. General Appearance: cooperative and comfortable HEENT normocephalic, head/scalp atraumatic, hearing grossly normal bilaterally and nasal mucous membranes and turbinates normal HEENT Narrative: Dry mucous membranes. Eyes PERRL, EOMs intact bilaterally and conjunctivae normal Neck full ROM, no lymphadenopathy and supple Lymph Lymphatic: no lymphadenopathy noted Chest inspection of chest normal Resp Resp Narrative: Moderate crackles noted in bilateral upper airways, with mild wheezing noted as well. Satting in mid 90s on 4 L nasal cannula at rest, no increased work of breathing noted. Cardio regular rate, regular rhythm, no murmurs and peripheral pulses 2+ throughout GI normal to inspection, nondistended, normoactive bowel sounds, soft to palpation, non-tender and non-distended Back/Spine Back/Spine Narrative: Patient appeared to be in moderate discomfort in low back to pelvic area when son raised the bed to about 45 degrees, improved with laying flat again. Mild diffuse tenderness noted on palpation, no significant point tenderness noted. Extremity normal to inspection and no pedal edema Skin no rashes or lesions noted Neuro moves all extremities and no focal motor deficits Speech: speech normal Psych mental status grossly normal Results Lab / Micro Data 04/16/23 21:00 04/16/23 21:00 Labs: Laboratory Results - last 24 hr 04/16/23 21:00: WBC 11.7 H, RBC 3.49 L, Hgb 9.8 L, Hct 31.4 L, MCV 90.0, MCH 28.1, MCHC 31.2 L, RDW Std Deviation 50.0 H, RDW Coeff of Han 15.2 H, Plt Count 196, MPV 11.6, Immature Gran % (Auto) 0.900, Neut % (Auto) 74.5 H, Lymph % (Auto) 14.8 L, [place] % (Auto) 9.6, Eos % (Auto) 0.0, Baso % (Auto) 0.2, Absolute Neuts (auto) 8.7 H, Absolute Lymphs (auto) 1.74, Nucleated RBC % 0, Sodium 138, Potassium 4.6, Chloride 109 H, Carbon Dioxide 23.0, Anion Gap 6, BUN 43 H, Creatinine 1.30 H, Estim Creat Clear Calc 28.99, Est GFR (MDRD) Af Amer 50 L, Est GFR (MDRD) Non-Af 42 L, BUN/Creatinine Ratio 33.1 H, Glucose 156 H, Calcium 9.1, Troponin I High Sens 12, B-Natriuretic Peptide 89.1 Micro: Microbiology 04/16/23 23:07 Mucosa - Nose RSV RNA Qualitative (PCR) - Final RSV 04/16/23 21:30 Nasal Secretion SARS-CoV-2 & FLU Antigen (Rapid) - Final Rhythm Strip Rhythm Strip: Sinus Rhythm Rate: 80 Ectopy: None Imagaing Radiology Impression Lumbar Spine X-Ray 04/16/23 21:09 IMPRESSION: 1. No acute fracture or subluxation. 2. Status post transpedicular fixation from L2 through S1. 3. Focal degenerative disc disease L1/L2 with 5 mm retrolisthesis of L1 on L2. Electronically Signed: Isaac Scanlon MD at 22:22 EST , Pelvis X-Ray 04/16/23 21:09 IMPRESSION: Normal x-ray examination of the pelvis. Electronically Signed: Isaac Scanlon MD at 22:23 EST , Chest X-Ray 04/16/23 21:51 IMPRESSION: 1. Focal right lower lobe pneumonia or atelectasis.. 2. Cardiomegaly. Electronically Signed: Isaac Scanlon MD at 22:21 EST , Assessment & Plan Assessment/Plan (1) RSV infection: (2) Fall: (3) Hypoxia: PLAN: Plan Patient is an 83-year-old female who presented to [facility] ED on 04/16/2023 from longterm after a fall. 1. RSV infection, concern for healthcare associated pneumonia with unknown organism, acute hypoxia RSV positive in the ED. Hypoxic to low 80s on room air, improved to mid 90s on 4 L nasal cannula. Does not wear oxygen at baseline. No diagnosis of COPD but patient does have extensive smoking history. Chest x-ray showed focal right lower lobe pneumonia. WBC count 11 K, low-grade fever on admit, did not meet sepsis criteria. ? Admit under inpatient status to PCU. Have concern for HCAP given patient's sputum production, significant upper airway phlegm noted on exam, focal pneumonia on chest x-ray. Will start vancomycin and Zosyn. Sputum culture ordered. Wean supplemental oxygen as able, will likely need ambulatory O2 evaluation prior to discharge. Scheduled DuoNebs for now. 2. Fall with low back and pelvic pain, debility Suspect mechanical fall at facility. L-spine and pelvis x-rays unremarkable. Patient does report significant pain with movement, has not gotten out of bed since arriving to the ED. ? PT/OT/case management consulted. Tylenol as needed, lidocaine patch for pain management. 3. Mild ALAINA ? Creatinine 1.30, BUN 43 on admit. Baseline creatinine 0.8-1.0. Presumed prerenal from hypovolemia in setting of respiratory infection. Held on IV fluids in ED given respiratory status, can consider as needed. Follow-up a.m. BMP. Chronic medical conditions: ? Mild cognitive impairment, history of traumatic subarachnoid hemorrhage: Continue home memantine. ? Depression/anxiety/insomnia: Continue home BuSpar, escitalopram, melatonin, mirtazapine. ? Hyperlipidemia: Continue home statin. ? Hypertension: Holding home losartan and Lopressor for now, restart as needed. DVT prophylaxis: Lovenox CODE STATUS: DNR CCA, DO NOT INTUBATE Expected disposition: Back to longterm vs. SNF, 2 to 3 days Total clinical time spent by myself addressing the patient's medical issues, reviewing all the data, and collaborating with patient's care team: 55 minutes. Charges/Coding Visit Charges Inpatient E&M: 87477 Init Hosp L2
--- OUTSIDE RECORDS SUMMARY | 2023-04-16 23:50 | XMS RPT_ITS | CCD ---
Author Name Unknown Address [id number] [place] [address] Organization [facility] Care Team Providers Care Viner Operator Name Role Phone JEREMIAS VALERIO DO Primary [...] sources) Lisinopril; Translations: [lisinopril] Drug Allergy Cough [facility] Work Phone: (8 sources) Morphine; Translations: [morphine] Drug Allergy Paranoid [facility] Work Phone: (8 sources) Milk Products Food allergy Diarrhea - Adult [facility] Work Phone: Medications Current Medications Medication [...] 09:48-0400 Heart rate 84 /min TRISTON CHICAS [facility] 06-30-2022 21:10-0400 Body temperature 97.16 [degF] TRISTON CHATMAN [employer]TER [employer] OPERATOR [facility] 06-30-2022 21:10-0400 Diastolic Blood Pressure Non-Invasive 70 1 TRISTON CHATMAN ST[employer]TER AND [employer]RI[employer] PR[employer] OPERATOR [facility] 06-30-2022 21:10-0400 Heart rate 83 /min TRISTON CHATMAN ST[employer]TER AND [employer]RI[employer] PR[employer] OPERATOR [facility] 06-30-2022 21:10-0400 Reason For Taking VItal Signs TRISTON CHATMAN ST[employer]TER [employer]RI[employer] PR[employer] OPERATOR [facility] 06-30-2022 21:10-0400 Respiratory rate 18 /min TRISTON CHATMAN ST[employer]TER AND [employer] PR[employer] OPERATOR [facility] 06-30-2022 21:10-0400 Systolic Blood Pressure Non-Invasive 153 1 TRISTON CHATMAN ST[employer]TER AND [employer]RI[employer]KE PRESS OPERATOR [facility] 06-30-2022 17:36-0400 Heart rate 92 /min TRISTON CHATMAN ST[employer]TER AND [employer]RI[employer]KE PRESS OPERATOR [facility] 06-30-2022 11:30-0400 Body temperature 99.68 [degF] TRISTON CHATMAN ST[employer]TER AND [employer] PR[employer] OPERATOR [facility] 06-30-2022 11:30-0400 Diastolic Blood Pressure Non-Invasive 74 1 TRISTON CHATMAN ST[employer]TER AND [employer]RI[employer] PR[employer] OPERATOR [facility] 06-30-2022 11:30-0400 Heart rate 104 /min TRISTON CHATMAN ST[employer]TER AND [employer] PR[employer] OPERATOR [facility] 06-30-2022 11:30-0400 Reason For Taking VItal Signs TRISTON CHATMAN ST[employer]TER AND [employer]RI[employer] PR[employer] OPERATOR [facility] 06-30-2022 11:30-0400 Respiratory rate 18 /min TRISTON CHATMAN ST[employer] SETTER AND [employer]RI[employer] PR[employer] OPERATOR [facility] 06-30-2022 11:30-0400 Systolic Blood Pressure Non-Invasive 153 1 TRISTON CHATMAN ST[employer]TER AND [employer] PR[employer] OPERATOR [facility] 06-30-2022 06:25-0400 Body temperature 98.42 [degF] TRISTON CHATMAN ST[employer] SETTER AND [employer] PR[employer] OPERATOR [facility] 06-30-2022 06:25-0400 Diastolic Blood Pressure Non-Invasive 94 1 TRISTON CHATMAN ST[employer]TER AND [employer]RI[employer]KE PR[employer] OPERATOR [facility] 06-30-2022 06:25-0400 Heart rate 88 /min TRISTON CHATMAN ST[employer] SETTER AND [employer]RI[employer] PR[employer] OPERATOR [facility] 06-30-2022 06:25-0400 Reason For Taking VItal Signs TRISTON CHATMAN ST[employer]TER AND [employer]RI[employer] PR[employer] OPERATOR [facility] 06-30-2022 06:25-0400 Respiratory rate 18 /min TRISTON CHATMAN ST[employer] SETTER AND [employer]RI[employer]KE PR[employer] OPERATOR [facility] 06-30-2022 06:25-0400 Systolic Blood Pressure Non-Invasive 155 1 TRISTON CHATMAN ST[employer]TER AND [employer]RI[employer] PR[employer] OPERATOR [facility] 06-29-2022 15:45-0400 Heart rate 79 /min TRISTON CHATAMN STAB SETTER AND [employer] OPERATOR [facility] 06-29-2022 07:30-0400 Heart rate 89 /min TRISTON CHATMAN ST[employer]TER AND [employer] PR[employer] OPERATOR [facility] 03-13-2023 04:47-0400 Heart rate 81 /min TRISTON CHATMAN STAB SETTER AND DRI[employer]KE PRESS OPERATOR [facility] 06-28-2022 19:41-0400 Heart rate 89 /min TRISTON CHATMAN ST[employer]TER AND [employer]RI[employer]KE PR[employer] OPERATOR [facility] 06-26-2022 06:00-0500 Body weight 54.2 kg TRISTON CHATMAN ST[employer]TER AND [employer] PR[employer] OPERATOR [facility] 06-23-2022 10:08-0500 Blood Pressure Cuff Size TRISTON CHATMAN ST[employer]TER AND [employer] PR[employer] OPERATOR [facility] 06-23-2022 10:08-0500 Blood Pressure Location TRISTONDELMY CHATMAN STAB SETTER AND [employer] PR[employer] OPERATOR [facility] 06-23-2022 10:08-0500 Blood Pressure Method TRISTONDELMY RUBION STAB SETTER AND DRILL[employer]KE PRESS OPERATOR [facility] 06-23-2022 07:39-0500 Blood Pressure Cuff Size TRISTON CHATMAN ST[employer]TER AND DRI[employer]KE PRESS OPERATOR [facility] 06-23-2022 07:39-0500 Blood Pressure Location TRISTONDELMY CHATMAN STAB SETTER AND DRI[employer]KE PRESS OPERATOR [facility] 06-23-2022 07:39-0500 Blood Pressure Method TRISTON CHATMAN ST[employer] SETTER AND [employer]RI[employer]KE PRESS OPERATOR [facility] 06-23-2022 06:15-0500 Body temperature 98.24 [degF] TRISTON CHATMAN ST[employer] SETTER AND [employer]RI[employer]KE PR[employer] OPERATOR [facility] 06-23-2022 04:30-0500 Body temperature 97.52 [degF] TRISTONDELMY RUBION STAB SETTER AND DRILL[employer]KE PRESS OPERATOR [facility] 06-22-2022 02:45-0500 Body temperature 97.52 [degF] TRISTON CHATMAN STAB SETTER AND [employer]RI[employer] PR[employer] OPERATOR [facility] 06-21-2022 19:31-0500 Blood Pressure Location TRISTON CHATMAN ST[employer]TER AND [employer]RI[employer]KE PRESS OPERATOR [facility] 06-21-2022 19:31-0500 Blood Pressure Method TRISTON CHATMAN STAB SETTER AND [employer]RI[employer] PR[employer] OPERATOR [facility] 06-19-2022 05:03-0500 Body weight 54 kg TRISTON CHATMAN STAB SETTER AND [employer]RI[employer]KE PR[employer] OPERATOR [facility] 06-18-2022 12:36-0500 Body height 162.6 cm TRISTON CHATMAN ST[employer] SETTER AND [employer]RI[employer]KE PR[employer] OPERATOR [facility] 06-18-2022 12:36-0500 Body weight 55.6 kg TRISTON CHATMAN STAB SETTER AND DRILL[employer]KE PRESS OPERATOR [facility] 06-18-2022 12:36-0500 Body weight 21.03 kg/m2 TRISTON CHATMAN STAB [employer]TER AND [employer]RI[employer]KE PR[employer] OPERATOR [facility] 06-18-2022 07:54-0500 Heart rate 98 /min DR WES JUSTIN MD [facility] 06-18-2022 07:38-0500 Body temperature 98.24 [degF] DR WES JUSTIN MD [facility] 06-18-2022 07:38-0500 Diastolic Blood Pressure Non-Invasive [address] WES JUSTIN MD [facility] 06-18-2022 07:38-0500 Heart rate 95 /min DR WES JUSTIN MD [facility] 06-18-2022 07:38-0500 Mean blood pressure 81 mm[Hg] DR WES JUSTIN MD [facility] 06-18-2022 07:38-0500 Reason For Taking VItal Signs DR WES JUSTIN MD [address] [place] [address] 06-18-2022 07:38-0500 Respiratory rate 19 /min DR WES JUSTIN MD [address] [place] [address] 06-18-2022 07:38-0500 Systolic Blood Pressure Non-Invasive [address] WES JUSTIN MD [address] [place] [address] 06-18-2022 03:58-0500 Body temperature 98.6 [degF] DR WES JUSTIN MD [address] [place] [address] 06-18-2022 03:58-0500 Diastolic Blood Pressure Non-Invasive [address] WES JUSTIN MD [address] [place] [address] 06-18-2022 03:58-0500 Heart rate 77 /min DR WES JUSTIN MD [address] [place] [address] 06-18-2022 03:58-0500 Mean blood pressure 65 mm[Hg] DR WES JUSTIN MD [address] [place] [address] 06-18-2022 03:58-0500 Reason For Taking VItal Signs DR WES JUSTIN MD [address] [place] [address] 06-18-2022 03:58-0500 Respiratory rate 16 /min DR WES JUSTIN MD [address] [place] [address] 06-18-2022 03:58-0500 Systolic Blood Pressure Non-Invasive [address] WES JUSTIN MD [address] 06-18-2022 02:02-0500 Diastolic Blood Pressure Non-Invasive [address] WES JUSTIN MD [address] [place] [address] 06-18-2022 02:02-0500 Heart rate 88 /min DR WES JUSTIN MD [address] 06-18-2022 02:02-0500 Mean blood pressure 90 mm[Hg] DR WES JUSTIN MD [address] [place] [address] 06-18-2022 02:02-0500 Respiratory rate 24 /min DR WES JUSTIN MD [address] [place] [address] 06-18-2022 02:02-0500 Systolic Blood Pressure Non-Invasive [address] WES JUSTIN MD [address] [place] [address] 06-17-2022 23:27-0500 Body temperature 98.78 [degF] DR WES JUSTIN MD [address] [place] [address] 06-17-2022 23:27-0500 Heart rate 91 /min DR WES JUSTIN MD [address] [place] [address] 06-17-2022 23:27-0500 Reason For Taking VItal Signs DR WES JUSTIN MD [address] [place] [address] 06-17-2022 21:10-0500 Heart rate 80 /min DR WES JUSTIN MD [address] [place] [address] 06-16-2022 08:09-0500 Heart rate 93 /min DR WES JUSTIN MD [address] [place] [address] 06-16-2022 06:36-0500 Heart rate 97 /min DR WES JUSTIN MD [address] [place] [address] 06-15-2022 08:00-0500 Body temperature 98.42 [degF] DR WES JUSTIN MD [address] [place] [address] 06-15-2022 00:30-0500 Body temperature 98.24 [degF] DR WES JUSTIN MD [address] [place] [address] 06-12-2022 13:55-[address] WES JUSTIN MD [address] [place] [address] 06-12-2022 13:55-0500 Body temperature 98.78 [degF] DR WES JUSTIN MD [address] [place] [address] 06-12-2022 11:43-[address] WES JUSTIN MD [address] [place] [address] 06-10-2022 14:30-0500 Body height [address] WES JUSTIN MD [facility] 06-10-2022 14:30-0500 Body weight 56.[address] WES JUSTIN MD [facility] 06-10-2022 14:30-0500 Body weight 21.11 kg/m2 DR WES JUSTIN MD [facility] 06-10-2022 11:06-0500 Body weight 56.[address] WES JUSTIN MD [facility] 06-10-2022 11:06-0500 Heart rate 112 /min DR WES JUSTIN MD [facility] 06-10-2022 10:04-0500 Diastolic Blood Pressure Non-Invasive 99 1 ADALID HOFF MD [facility] 06-10-2022 10:04-0500 Heart rate 123 /min ADALID HOFF MD [facility] 06-10-2022 10:04-0500 Systolic Blood Pressure Non-Invasive 134 1 ADALID HOFF MD [facility] 06-10-2022 07:54-0500 Body height 167.6 cm ADALID HOFF MD [facility] 06-10-2022 07:54-0500 Body temperature 98.42 [degF] ADALID HOFF MD [facility] 06-10-2022 07:54-0500 Body weight 75 kg ADALID HOFF MD [facility] 06-10-2022 07:54-0500 Diastolic Blood Pressure Non-Invasive 99 1 ADALID HOFF MD [facility] 06-10-2022 07:54-0500 Heart rate 133 /min ADALID HOFF MD [facility] 06-10-2022 07:54-0500 Systolic Blood Pressure Non-Invasive 171 1 ADALID HOFF MD [facility] 05-04-2022 15:33-0500 Diastolic Blood Pressure Non-Invasive 78 1 CLAUDETTE LIMON MD [facility] 05-04-2022 15:33-0500 Heart rate 96 /min CLAUDETTE LIMON MD [facility] 05-04-2022 15:33-0500 Reason For Taking VItal Signs CLAUDETTE LIMON MD [facility] 05-04-2022 15:33-0500 Respiratory rate 20 /min CLAUDETTE LIMON MD [facility] 05-04-2022 15:33-0500 Systolic Blood Pressure Non-Invasive 145 1 CLAUDETTE LIMON MD [facility] 05-04-2022 14:53-0500 Diastolic Blood Pressure Non-Invasive 69 1 CLAUDETTE LIMON MD [facility] 05-04-2022 14:53-0500 Heart rate 108 /min CLAUDETTE LIMON MD [facility] 05-04-2022 14:53-0500 Reason For Taking VItal Signs CLAUDETTE LIMON MD [facility] 05-04-2022 14:53-0500 Respiratory rate 20 /min CLAUDETTE LIMON MD [facility] 05-04-2022 14:53-0500 Systolic Blood Pressure Non-Invasive 143 1 CLAUDETTE LIMON MD [facility] 05-04-2022 12:30-0500 Body temperature 97.88 [degF] CLAUDETTE LIMON MD [facility] 05-04-2022 12:30-0500 Diastolic Blood Pressure Non-Invasive 75 1 CLAUDETTE LIMON MD [facility] 05-04-2022 12:30-0500 Heart rate 114 /min CLAUDETTE LIMON MD [facility] 05-04-2022 12:30-0500 Respiratory rate 24 /min CLAUDETTE LIMON MD [facility] 05-04-2022 12:30-0500 Systolic Blood Pressure Non-Invasive 165 1 CLAUDETTE LIMON MD [facility] Encounters Encounter Date Encounter Type Care Provider Facility Start: 06-18-2022 End: 07-01-2022 Evaluation and management of inpatient TRISTON CHATMAN STAB SETTER AND D[employer]LL[employer]KE PRESS OPERATOR Facility:B Start: 06-18-2022 End: 07-01-2022 Evaluation and management of inpatient TRISTON CHATMAN ST[employer]TER AND [employer]KE PR[employer] OPERATOR [facility] Start: 06-10-2022 End: 06-18-2022 Evaluation and management of inpatient JEREMIAS AMADOY Facility:A Start: 06-10-2022 End: 06-18-2022 Evaluation and management of inpatient DR WES JUSTIN MD [facility] Start: 06-10-2022 End: 06-10-2022 Emergency department patient visit JEREMIAS VALERIO Facility:B Start: 06-10-2022 End: 06-10-2022 Emergency department patient visit ADALID HOFF MD [facility] Start: 06-01-2022 End: 06-06-2022 ambulatory JEREMIAS TEODORO DO Facility:B Start: 05-27-2022 End: 06-18-2022 ambulatory JEREMIAS VALERIO DO Facility:R Start: 05-04-2022 End: 05-04-2022 Emergency department patient visit CLAUDETTE LIMON MD Facility:B Start: 05-04-2022 End: 05-04-2022 Emergency department patient visit CLAUDETTE LIMON MD [facility] Start: 03-13-2022 End: 03-14-2022 ambulatory JEREMIAS VALERIO DO Facility:B Start: 03-13-2022 End: 03-13-2022 Patient encounter procedure JEREMIAS VALERIO DO [facility] Start: 02-09-2022 End: 02-10-2022 ambulatory JEREMIAS VALERIO DO Facility:B Start: 02-09-2022 End: 02-09-2022 Patient encounter procedure JREEMIAS VALERIO DO [facility] Start: 08-18-2021 End: 08-19-2021 ambulatory JEREMIAS VALERIO DO Facility:B Start: 08-18-2021 End: 08-18-2021 Patient encounter procedure JEREMIAS VALERIO DO [facility] Start: 08-11-2021 End: 08-12-2021 ambulatory JEREMIAS VALERIO DO Facility:B Start: 01-31-2021 End: 01-31-2021 Patient encounter procedure JEREMIAS VALERIO DO [facility] Procedures Date Procedure Procedure Detail Performing Clinician Back fusion JEREMIAS VALERIO DO Lumpectomy of breast DR LEANA JUSTIN MD Immunizations Immunization Date Immunization Notes Care Provider Fa cility 06-10-2022 tetanus toxoid, redu melquiades diphtheria toxoid, and acellular pertussis vaccine, adsorbed ADALID HOFF MD [facility] 02-09-2022 influenza, high dose seasonal, preservative-free JEREMIAS VALERIO DO [facility] 03-24-2021 COVID-19, mRNA, LNP- S, PF, 100 mcg or 50 mcg dose; Translations: [Moderna COVID-19 Vaccine] JEREMIAS VALERIO DO [facility] 01-31-2021 influenza, high dose seasonal, preservative-free; Translations: [Fluad Quadrivalent PF ] JEREMIAS VALERIO DO [facility] 06-12-2020 COVID-19, mRNA, LNP- S, PF, 100 mcg/ 0.5 mL dose; Translations: [Moderna COVID-19 Vaccine] JEREMIAS VALERIO DO [facility] Payers Date Payer Category Payer Medicare [id number] 2021 Unknown [id number] 1940 Unknown [id number] 2.16.8 [id number] 1940 Unknown [id number] 2.16.8 [id number] 1939 Unknown [id number] 2.16.8 [id number] 1939 Unknown [id number] 2.16.8 [id number] 1939 Unknown [id number] 2.16.8 [id number] 1939 Unknown [id number] 2.16.8 [id number] 1939 Unknown [id number] 2.16.8 [id number] 1939 Unknown [id number] 2.16.8 [id number] 1940 Unknown [id number] 2.16.8 [id number] Social History Date Type Detail Facility Start: 01-31-2019 Never smoked t obacco (finding) [facility] Sex Assigned At [facility] Functional Status Date Assessment Result Facility 07-01-2022 Functional Status Room check performed [facility] 07-01-2022 Functional Status [facility] 07-01-2022 Functional Status Demonstrates C orrect Call Light Use No [facility] 06-30-2022 Functional Status 50 [facility] 06-29-2022 Functional Status SCD Removed/Of f bilateral knee high [facility] 06-29-2022 Functional Status [facility] 06-29-2022 Functional Status Assistive Shae ce Gait belt, Walker, Wheelchair, Sit to stand aid [facility] 06-29-2022 Functional Status Max A [facility] 06-29-2022 Functional Status Max A [facility] 06-29-2022 Functional Status [facility] 06-29-2022 [facility] Status [facility] 06-27-2022 [facility] Functional Status Total [facility] 06-26-2022 Functional Status [facility] 06-26-2022 Functional Status Annyjos busby [facility] 06-25-2022 Functional Status Annyjos busby [facility] 06-25-2022 Functional Status Max A Anny Guerra [facility] 06-25-2022 Functional Status SCD On/Re-appl ied bilateral knee high [facility] 06-25-2022 Functional Status Protective ointment [facility] 06-25-2022 Functional Status Anny busby [facility] 06-24-2022 Functional Status Anny Guerra [facility] 06-24-2022 Functional Status Anny Guerra [facility] 06-23-2022 Functional Status Anny Guerra [facility] 06-22-2022 Functional Status Anny Guerra [facility] 06-22-2022 Functional Status [facility] 06-22-2022 Functional Status Anny Guerra [facility] 06-19-2022 Functional Status Anny Guerra [facility] 06-19-2022 Functional Status Living Situati on Home with family care [facility] 06-19-2022 Functional Status Anny Guerra [facility] 06-18-2022 Functional Status Family present during evaluation and able to answer majority of questions regarding prior level of function and baseline status. [facility] 06-18-2022 Functional Status Anny Guerra [facility] 06-18-2022 Functional Status Unable to assess [facility] 06-18-2022 Functional Status Room check performed [facility] 06-18-2022 Functional Status nAny Guerra [facility] 06-18-2022 Functional Status Anny Guerra [facility] 06-17-2022 Functional Status Refused Anny Guerra [facility] 06-17-2022 Functional Status Total 7 Anny Guerra [facility] 06-16-2022 Functional Status Anny [facility] 06-16-2022 Functional Status Lunch Percent 25 [facility] 06-16-2022 Functional Status An[facility] 06-16-2022 Functional Status An[facility] 06-16-2022 Functional Status An[facility] 06-16-2022 Functional Status COVID 19 Surge in Effec t Yes [facility] 06-15-2022 Functional Status [facility] 06-15-2022 [facility] Status [facility] 06-15-2022 Functional Status [facility] 06-14-2022 [facility]13[facility]12[facility]-12[facility] 06-11-[facility]22 Functional Status [facility] 06-11-2022 Functional Status Oral Care Oral care pro tocol [facility] 06-11-2022 Functional Status Family present during evaluation and able to answer majority of questions regarding prior level of function and baseline status. [facility] 06-10-2022 Functional Status Sensory Deficits None A [facility] 06-10-2022 Functional Status Resting [facility] 05-04-2022 Functional Status ID band on, Call device within reach, Bed in low position, Wheels locked, Bedside Cart Locked, Visitor at bedside, Safety level maintained [facility] 05-04-2022 Functional Status [facility] Mental Status Date Assessment Result Facility 07-01-2022 Mental Status Orientation Not oriented to place, Not oriented to time, Not oriented to situation, Forgetful, Follows simple commands [facility] 06-30-2022 Mental Status Orientation Asse ssment Oriented x 4 [facility] 06-30-2022 Mental Status [facility] 06-29-2022 Mental Status [facility] 06-29-2022 Mental Status [facility] 06-18-2022 Mental Status Orientation Oriented x 4 [facility] 06-18-2022 Mental Status [facility] 06-18-2022 Mental Status [facility] 06-17-2022 Mental Status Confused, Not oriented to situation, Oriented to person, Oriented to place, Oriented to time [facility] 06-16-2022 Mental Status [facility] 06-10-2022 Mental Status Orientation Disoriented x 4 [facility] 05-04-2022 Mental Status Orientation Oriented x 4 [facility] 05-04-2022 Mental Status [facility] Clinical Notes 05-04-2022 to 07-01-2022 Note Date & Type Note Facility 07-01-2022 Nurse Discharge summary Discharged to [facility]. Transported by [facility] service. Left at 1315. [facility] 07-01-2022 Note Discharge Instructions Thank you for allowing [facility] to assist you with your healthcare needs. The following is important discharge information regarding your hospital visit. Your Care Team JEREMIAS VALERIO LISA APRN-AB Your Diagnosis [place] Essential hypertension Memory impairment Status post CVA Abnormal breath sounds What to do next Scheduled Follow-Up Appointments Appointment Type When With Where Contact InformationPC OV 08/03/2022 09:30 AM EDT JEREMIAS VALERIO [facility] [address] [address] Follow Up Appointments Follow Up with VICKIE AMES PA-C When 09/01/2022 12:40 PM EDT Why: This appointment is your neurosurgery follow-up appointment and it is in the [place] office. Where: [address] [place] [id number]- The Following Activity and Diet Have Been [...] 07/01 9AM Unchanged omega-3 polyunsaturated fatty acids ([place]-3 350 mg oral capsule) 1 cap by [...] to receive it can visit one of [facility] vaccine clinics. There are many vaccine clinic locations within the [facility]. For locations and available times, please visit [email or web address] It is important to note that some COVID mobile vaccine clinics are held outdoors and may be canceled in rainy or stormy conditions. To learn more about pediatric vaccinations (ages 5-11), we invite you to visit the [facility] webpage. [email or web address] To learn more about the COVID-19 vaccine, we invite you to visit the CDC website for a list of frequently asked questions. https://www.cdc.gov/coronavirus/ 2019-ncov/vaccines/faq.html [facility] Patient Portal Access Instructions: Stay connected with your healthcare team and access your personal medical information anytime with the [facility] Patient Portal.If you would like a full copy of your medical records, please contact the [facility] Medical Records Department, Wednesday through Wednesday between 8a.m. and 4:30p.m. Please follow the directions below to access the portal: 1.Access the email account you provided upon registration to the hospital.2.Look for an invitation email from [facility].3.Open the email and access the invitation link: Accept Invitation to AnnyE-Sign4.Fill in the required miller to create your account. Sign into [email or web address] with your username and password that you [...] you will allow to register on the AnnyE-Sign Patient Portal for access to your information. You can also access the AnnyE-Sign Patient Portal on the [employer] mitra. Simply click on Health Records under Health Data and then click on the The Kernel logo. HOW TO SAFELY DISPOSE OF PRESCRIPTION [...] Call your local pharmacy or go to [email or web address] Street/9M7My0w to find one close to you.3.Make use of household items: Use cat litter or old coffee grounds to dispose medications if other options are not available. Mix your drugs with these household products, seal them in an airtight container and throw it into the garbage. Call [facility]: [phone] to be sure your drugs can be [...] aware that I should contact my doctor. Patient/Account Contact Associate Signature: Date/Time: Relationship to Patient: Witness Name/Signature: Date/Time: [facility] 07-01-2022 Discharge summary Date of Service [...] cancer, dyslipidemia, CVA. Patient originally presented to [facility] emergency department on 06/10/2022 after sustaining a [...] morning. Patient is stable for discharge to [facility] for long-term care. All questions answered. This [...] mouth daily at bedtime as needed Constipation. [id number] Milligram by mouth two (2) times a day. omega-3 polyunsaturated fatty acids ([place]-3 350 mg oral capsule)1 cap by mouth [...] follow-up appointment and it is in the [place] office. Where: [address] [place] [address]- Follow Up Appointments No qualifying data available. Follow Up Labs/Studies Discharge Labs No Follow-up Labs Discharge Studies No Follow-up Studies Discharge Diet No qualifying data available. Discharge Activity No qualifying data available. Condition on Discharge Stable Discharge Disposition [facility] Information Provided To Caregiver Time Spent 30 minutes Digitally Signed by JOAN HDZ on 07/01/2022 11:52 AM [facility] 06-28-2022 Nurse Progress note Patient asked [...] the link steady. Digitally Signed by Amalia Crotes LPN on 06/28/2022 07:38 PM [facility] 06-27-2022 Nurse Progress note PT asked [...] Amalia Cortes LPN on 06/27/2022 12:35 PM [facility] 06-26-2022 Note Date of Service 06/26/2022 [...] by JOAN HDZ on 06/26/2022 11:31 AM [facility] 06-22-2022 Note ORIGINAL HISTORY: Coarse crackles [...] Sign Date: 06/22/2022 11:58:38 AM Ordering Provider: [facility] 06-22-2022 Note ORIGINAL HISTORY: Coarse [...] Sign Date: 06/22/2022 11:58:38 AM Ordering Provider: [facility] 06-22-2022 Note Date of Service 06/22/2022 Subjective 82-year-old female with past medical history significant for hypertension, CKD, breast cancer, dyslipidemia, CVA. Patient originally presented to [facility] emergency department on 06/10/2022 after sustaining a [...] by TRISTON CHATMAN on 06/22/2022 09:55 AM [facility] 06-20-2022 Note Date of Service 06/20/2022 Subjective 82-year-old female with past medical history significant for hypertension, CKD, breast cancer, dyslipidemia, CVA. Patient originally presented to [facility] emergency department on 06/10/2022 after sustaining a [...] by TRISTON CHATMAN on 06/20/2022 02:12 PM [facility] 06-18-2022 Note Date of Service 06/18/2022 Chief Complaint Weakness History of Present Illness 82-year-old female with past medical history significant for hypertension, CKD, breast cancer, dyslipidemia, CVA. Patient originally presented to [facility] emergency department on 06/10/2022 after sustaining a [...] of Magnesia 30 mL, PRN, Oral, qHS Wilmington-3 350 mg oral capsule 350 mg = [...] by TRISTON CHATMAN on 06/18/2022 06:16 PM [facility] 06-18-2022 Hospital Discharg e instructions Follow Up Care 06/18/2022 12:23:43 With:VICKIE AMES PA-C Address: [address] [place] [address]- When:09/01/2022 12:40:00 Comments:This appointment is your neurosurgery follow-up appointment and it is in the [place] office. [facility] 1. Asthenia 2. Essential hypertension Ordered: [...] Date:08/03/2022 09:30:00 AM Scheduled Provider:JEREMIAS VALERIO DO Location:[facility] Appointment Type:PC OV [facility] 03-02-2023 Note Date of Service 06/18/2022 Discharge orders were placed yesterday, 06/17/2022 however pre-CERT was not obtained and patient did not leave. Today, pre-CERT was obtained and the patient left for [employer] before I was able tosee the patient this morning. Please refer to discharge summary from 06/17/2022 for further details. Digitally Signed by JAMISON BECK on 06/18/2022 12:[address] [id number] Hospital Discharge instructions Patient Education 06/18/2022 09:52:48 [...] in which the aneurysm is filled with small,cahto coils (endovascular coiling). ?Opening the skull (craniotomy) to reach the aneurysm and put a clip at the base of the aneurysm (surgical clipping). Surgery to relieve pressure on the brain by placing a tube (external ventricular drain, EVD) in thebrain to drain blood. Physical, occupational, or speech-language therapy to improve any mental (cognitive) and qwj-ki-vloeggdjjccc that are affected by your condition. Other treatment depends on the cause and severity of symptoms, and how long the symptoms have lasted. Actions may be taken to prevent short-term and long-term problems, including lung infection (pneumonia) and blood clots in your legs. Follow these instructions at home: Medicines Take hmls-ine-qkjtbak and prescription medicines only as told by [...] 02/20/2005 Document Revised: 09/25/2019 Document Reviewed: 01/13/2018 ubigrate Patient Education 2020 [employer]. Follow Up Care 06/10/2022 11:08:46 With:[facility] Address:Unknown When:1-2 days With:JEREMIAS VALERIO DO Address: [address] [place] [phone] When:5 to 7 days With:[facility] Address: [address] [place] [address]- When: Unknown Comments:4-6 weeks to discuss follow up MRI brain [facility] 03-02-2023 Note Discharge Instructions Thank you for allowing [facility] to assist you with your healthcare needs. [...] 08/03/2022 09:30 AM EDT JEREMIAS VALERIO DO [facility] [address] [phone] Follow Up Appointments Follow Up with [facility] When Within 1-2 days Follow Up with JEREMIAS VALERIO DO When Within 5 to 7 days Where: [address] [place] [phone] Follow Up with [facility] When Why: 4-6 weeks to discuss follow up MRI brain Where: [address] [place] [address]- The Following Activity and Diet Have Been Ordered for You Transfer of Care Activity - Ordered -- Activity As Tolerated, 06/17/22 10:27:00 EST Transfer of Care Diet - Ordered -- Type of Diet: Vxjfpo-NMCGX-2, 06/17/22 10:27:00 EST The Following Equipment Has Been Ordered for You Discharge Home Equipment Discharge Communication Order - Ordered -- remove sutures from left baptist on 3-6, 06/17/22 10:27:29 EST Discharge Communication [...] Essential hypertension Unchanged omega-3 polyunsaturated fatty acids (Wil[place]-3 350 mg oral capsule) 1 cap by [...] which the aneurysm is filled with small, cahto coils (endovascular coiling). ? Opening the skull (craniotomy) to reach the aneurysm and put a clip at the base of the aneurysm (surgical clipping). Surgery to relieve pressure on the brain by placing a tube (external ventricular drain, EVD) in thebrain to drain blood. Physical, occupational, or speech-language therapy to improve any mental (cognitive) and gwm-mu-icumdfxfxevy that are affected by your condition. Other treatment depends on the cause and severity of symptoms, and how long the symptoms have lasted. Actions may be taken to prevent short-term and long-term problems, including lung infection (pneumonia) and blood clots in your legs. Follow these instructions at home: Medicines Take cfgp-aoy-falrqtr and prescription medicines only as told by [...] 02/20/2005 Document Revised: 09/25/2019 Document Reviewed: 01/13/2018 ubigrate Patient Education 2020 [employer]. Additional Information VACCINATE! IT SAVES LIVES! Members of the community who have not yet received the COVID-19 vaccine and would like to receive it can visit one of [facility] vaccine clinics. There are many vaccine clinic locations within the [facility]. For locations and available times, please visit [email or web address].[place].gov/. It is important to note that some COVID mobile vaccine clinics are held outdoors and may be canceled in rainy or stormy conditions. To learn more about pediatric vaccinations (ages 5-11), we invite you to visit the [facility] webpage. https://www.[facility].org/pages/3153-Bblmb-Qdvckycahve-Jmwldvknlg-Gjmxv-Zik stions.htmlTo learn more about the COVID-19 vaccine, we invite you to visit the CDC website for a list of frequently asked questions. https://www.cdc.gov/coronavirus/2019-ncov/vaccines/faq.html [facility] [employer] Patient Portal Access Instructions: Stay connected with your healthcare team and access your personal medical information anytime with the [facility] [employer] Patient Portal.If you would like a full copy of your medical records, please contact the [facility] Medical Records Department, Wednesday through Wednesday between 8a.m. and 4:30p.m. Please follow the directions below to access the portal: 1.Access the email account you provided upon registration to the hospital.2.Look for an invitation email from [facility].3.Open the email and access the invitation link: Accept Invitation to AnnyE-Sign4.Fill in the required miller to create your account. Sign into [email or web address] with your username and password that you [...] you will allow to register on the AnnyE-Sign Patient Portal for access to your information. You can also access the AnnyE-Sign Patient Portal on the [employer]. Simply click on Health Records under [employer] and then click on the Anny logo. [...] Call your local pharmacy or go to http://TravelTipz.ru.IP Street/5V0Eg4i to find one close to you.3.Make use of household items: Use cat litter or old coffee grounds to dispose medications if other options arenot available. Mix your drugs with these household products, seal them in an airtight container andthrow it into the garbage. Call [facility]: [phone] to be sure your drugs can be [...] aware that I should contact my doctor. Patient/Account Contact Associate Signature: Date/Time: Relationship to Patient: Witness Name/Signature: Date/Time: [facility] [id number] Note Discharge Instructions Thank you for allowing [...] 08/03/2022 09:30 AM EDT JEREMIAS VALERIO DO [facility] [address] [place] [address] Follow Up Appointments Follow Up with [facility] When Within 1-2 days Follow Up with JEREMIAS VALERIO DO When Within 5 to 7 days Where: [address] [place] [phone] Follow Up with [facility] When Why: 4-6 weeks to discuss follow up MRI brain Where: [address] [place] [address]- The Following Activity and Diet Have Been Ordered for You Transfer of Care Activity - Ordered -- Activity As Tolerated, 06/17/22 10:27:00 EST Transfer of Care Diet - Ordered -- Type of Diet: Fzwcia-EPHYE-0, 06/17/22 10:27:00 EST The Following Equipment Has Been Ordered for You Discharge Home Equipment Discharge Communication Order - Ordered -- remove sutures from left baptist on 3-6, 06/17/22 10:27:29 EST Discharge Communication [...] Essential hypertension Unchanged omega-3 polyunsaturated fatty acids (Wil[place]-3 350 mg oral capsule) 1 cap by [...] to receive it can visit one of [facility] vaccine clinics. There are many vaccine clinic locations within the [facility]. For locations and available times, please visit https://[email or web address].[place].gov/. It is important to note that some COVID mobile vaccine clinics are held outdoors and may be canceled in rainy or stormy conditions. To learn more about pediatric vaccinations (ages 5-11), we invite you to visit the [facility] webpage. https://www.[facility].org/pages/6979-Clwyg-Roasveirajv-Pyktlyjtay-Uunnb-Pqe stions.htmlTo learn more about the COVID-19 vaccine, we invite you to visit the CDC website for a list of frequently asked questions. https://www.cdc.gov/coronavirus/2019-ncov/vaccines/faq.html [facility] [employer] Patient Portal Access Instructions: Stay connected with your healthcare team and access your personal medical information anytime with the AnnyE-Sign Patient Portal.If you would like a full copy of your medical records, please contact the [facility] Medical Records Department, Wednesday through Wednesday between 8a.m. and 4:30p.m. Please follow the directions below to access the portal: 1.Access the email account you provided upon registration to the hospital.2.Look for an invitation email from [facility].3.Open the email and access the invitation link: Accept Invitation to AnnyE-Sign4.Fill in the required miller to create your account. Sign into [email or web address] with your username and password that you [...] you will allow to register on the AnnyE-Sign Patient Portal for access to your information. You can also access the AnnyE-Sign Patient Portal on the [employer] mitra. Simply click on Health Records under [employer] and then click on the [employer] logo. HOW TO SAFELY DISPOSE OF PRESCRIPTION [...] Call your local pharmacy or go to http://TravelTipz.ru.IP Street/6J7Vd5f to find one close to you.3.Make use of household items: Use cat litter or old coffee grounds to dispose medications if other options arenot available. Mix your drugs with these household products, seal them in an airtight container andthrow it into the garbage. Call [facility]: [phone] to be sure your drugs can be [...] aware that I should contact my doctor. Patient/Account Contact Associate Signature: Date/Time: Relationship to Patient: Witness Name/Signature: Date/Time: [facility] [id number] Discharge summary Date of Service 06-17-2022 Discharge [...] ICD-10-CM) Essential hypertension (I10 - ICD-10-CM) Fall ([id number] - PNED) Additional Orders: Ordered: Augmentin,Dose : 875 mg = 1 tab(s), Oral, BIDM, 0 Refill(s), 56.1 Other status: Calorie Count,06/14/22 16:02:00 EST, Daily for 3 day(s), Stop date 06/17/22 9:00:00 EST(Status Change) Ordered: Colace 100 mg oral capsule,Dose : 100 mg = 1 cap(s), Oral, BID, PRN Constipation, 0 Refill(s) Ordered: Discharge,06/17/22 10:27:00 EST, [facility]charged to: [facility] Ordered: Discharge Communication Order,Per ikeran Lindsay to resume aggrenox 3-2., 06/17/22 10:28:01 EST Ordered: Discharge Communication Order,remove sutures from left baptist on 3-6, 06/17/22 10:27:29 EST Other status: [...] Ordered: Transfer of Care Diet,Type of Diet: Ldaije-DVSSC-1, 06/17/22 10:27:00 EST Ordered: Transfer of Care [...] subarachnoid hemorrhage. Has been seen by neurosurgery, bag cutter, and neurology as well as ENT. Imaging [...] made for patient to be discharged to [facility] bed. Reviewed neurosurgery documentation, patient will be [...] left side of face, sutures to left baptist. ENT: hearing grossly intact, mucous membranes moist, [...] mouth daily at bedtime as needed Constipation. [id number] Milligram by mouth two (2) times a [...] day. Refills: 0. omega-3 polyunsaturated fatty acids (Wil[place]-3 350 mg oral capsule)1 cap by mouth [...] follow up MRI brain Where: [address] [place] [address]- Follow Up Appointments Transfer of Care OT - Ordered -- Reason for therapy: debility, fall, 06/17/22 10:27:00 EST Transfer of Care PT - Ordered -- Reason for therapy: debility, fall, 06/17/22 10:27:00 EST Transfer of Care Speech Therapy - Ordered -- Reason for therapy: dysphagia, on modified diet., 06/17/22 10:27:00 EST Discharge Diet Transfer of Care Diet - Ordered -- Type of Diet: Cfnqqm-MLFVD-1, 06/17/22 10:27:00 EST Discharge Activity Transfer of [...] by KAELYN GASPAR on 06/17/2022 01:[address] [facility] [id number] Note Date of Service 06/16/2022 Chief Complaint Hypertension, weakness Subjective Patient is an 82-year-old female with past medical history of hypertension, CKD, breast cancer, dyslipidemia, prior stroke on Aggrenox, recent UTI and fall who was admitted to the hospital on June 10 due to subarachnoid hemorrhage. Has been seen by neurosurgery, bag cutter, and neurology as well as ENT. Imaging [...] at this time. Reports she is at [facility] but unsure of the day. Son reports she was up most of the night and has been sleeping mostly this morning. Is asking about discharge, we are planning for discharge to [facility] tomorrow, patient and son are in agreement. [...] Heparin for DVT prophylaxis. Anticipate discharge to [facility] tomorrow Discussed w/ Dr. Jarrell Discussed w/ Son at bedside Time Spent A total of 35 minutes reviewing patient's diagnostic, labs/tests, seeing and examining the patient and documenting in the medical record, please see assessment for further details. Digitally Signed by KAELYN GASPAR on 06/16/2022 02:[address] [facility] [id number] Neurology Progress note Date of Service June [...] J GOMEZ MD on 06/15/2022 04:[address] [facility] [id number] Note Date of Service 04/14/2023 Chief Complaint weak Subjective Patient is an 82-year-old female with past medical history of hypertension, CKD, breast cancer, dyslipidemia, prior stroke on Aggrenox, recent UTI and fall who was admitted to the hospital on June 10 due to subarachnoid hemorrhage. Has been seen by neurosurgery, bag cutter, and neurology as well as ENT. Imaging [...] her name and that she is at [facility]. Reports she ate peaches for breakfast today. Patient appears calm during my evaluation. Discussed with her son atthe bedside who is asking about [facility] paperwork, I asked him to please call [...] at the bedside. Their first choice is [facility] bed. Reviewed telemetry. Discussed w/ Dr. Meyers Digitally Signed by KAELYN GASPAR on 06/15/2022 12:[address] [facility] [id number] Note Date of Service 06/14/2022 Chief Complaint Delirium Subjective Patient is an 82-year-old female with past medical history of hypertension, CKD, breast cancer, dyslipidemia, prior stroke on Aggrenox, recent UTI and fall who was admitted to the hospital on June 10 due to subarachnoid hemorrhage. Has been seen by neurosurgery, bag cutter, and neurology as well as ENT. Imaging [...] by KAELYN GASPAR on 06/14/2022 04:[address] [facility] [id number] Note. MICRO - Microbiology PROCEDURE: Urine Culture [...] Locations *1: This test was performed at: [facility], [address] [place] [address], [facility] , [facility]06-13-2022 Note Date of Service [...] RENETTA FANG MD on 06/13/2022 09:[address] [facility] [id number] Neurology Consult note Date of Service June [...] place. She is oriented to self and [facility]. She said it was summer instead of [...] tablet, 100 mg= 1 tab(s), Oral, qDay Wilmington-3 350 mg oral capsule, 350 mg= 1 [...] J GOMEZ MD on 06/12/2022 03:[address] [facility] [id number] Note Date of Service 06/12/2022 Subjective 81 [...] son at the bedside Natalio Richardson M.D., [facility] Digitally Signed by NATALIO RICHARDSON MD on 06/12/2022 12:[address] [facility] [id number] Progress note Date of Service 06/11/2022 Chief [...] by YAS ROSALES on 06/11/2022 08:[address] [facility] [id number] Note ORIGINAL EXAMINATION: ONE SUPINE XRAY VIEW(S) [...] Sign Date: 06/11/2022 11:26:11 AM Ordering Provider: [facility]02-23-2023 Note ORIGINAL EXAMINATION: ONE SUPINE XRAY VIEW(S) [...] Sign Date: 06/11/2022 11:26:11 AM Ordering Provider: [facility]02-23-2023 Note Date of Service 06/11/2022 Split/shared visit with Dr Justin Neurosurgery CC: Small acute traumatic subarachnoid hemorrhage s/p witnessed fall without LOC. Coagulopathy secondary to Aggrenox use. HD #1 82-year-old female with has medical history significant for prior CVA x2 on Aggrenox (no residual deficits per family), history of recurrent UTIs, hypertension who presented initially to [facility] emergency department 06/10/2022 after suffering a witnessed [...] was contacted and patient was transported to [facility] ED. Family reports patient with altered mental [...] findings, and recommended patient be transferred to [facility] for further evaluation and care. Admitted to SICU; bag cutter, maxillofacial surgery and trauma physicians consulted. Patient presented to [facility] with altered mental status, repeatedly stated help me and was also quite agitated; she received several doses of IV Ativan prior to transfer to [facility] ED. Upon arrival to [facility] ED, patient was noted to be drowsy, [...] hemorrhage expected to resolve on it's own. [facility] physicians following for assistance with medical management. [...] DVT prophylaxis starting today; discussed with ICU ADVERTISING ASSOCIATE. Please refer to Dr. Justin's addendum for additional information and details regarding neurosurgical input and recommendations. Patient's son/haplpqin-ia-gof, and nephew were updated at the bedside today. Digitally Signed by SAUL GASPAR on 06/11/2022 10:20 PM Digitally Signed by WES JUSTIN MD on 06/15/2022 12:[address] [facility] [address] [facility] [id number] Note Date of Service 06/11/2022 Reason for [...] air Face Left - Skin Abnormality Color: Jena, Purple, Red Face Left - Skin Abnormality [...] loss mattress Present For Wound Observation: Other: piece hand ------Recommendations------ Recommended Skin/Wound Interventions: Low air loss mattress, Turn and position system, Prophylacticfoam, Turn and reposition every 2 hours Digitally Signed by HELLEN Rivera July06/11/2022 09:[address] [facility] [id number] Note Date of Service 06/11/2022 Subjective 81 [...] minutes critical care time Natalio Richardson M.D., [facility] Digitally Signed by NATALIO RICHARDSON MD on 06/11/2022 10:[address] [facility] [id number] Progress note Date of Service 06/11/2022 Chief [...] by YAS ROSALES on 06/11/2022 08:[address] [facility] [id number] Otolaryngology Consult note Date of Service 06/11/2022 Reason for Consultation Fall/Left Zygomatic Fracture Referring Physician Dr. Justin History of Present Illness Dariusz is a 82 year old female whom presented to [facility] ER yesterday after a fall at home [...] Facture 82 [facility]. Landed [...] tablet, 100 mg= 1 tab(s), Oral, qDay [place]-3 350 mg oral capsule, 350 mg= 1 [...] J ETIENNE MD on 06/13/2022 09:[address] [id number] Note ORIGINAL EXAMINATION: CT OF THE HEAD [...] 06/11/2022 8:07:25 AM Ordering Provider: SAUL GASPAR [id number] Note ORIGINAL EXAMINATION: CT OF THE HEAD [...] Date: 06/11/2022 8:07:25 AM Ordering Provider: SAUL [facility]02-22-2023 Consult note Date of Service 06/10/2022 Reason for Consultation Same level fall, tertiary trauma survey Referring Physician Dr. Justin History of Present Illness This is a split shared visit between myself and Dr. Ocasio. This is an 82-year-old female with past medical history of breast cancer, chronic edema, CKD, hypertension, CVA, hyperlipidemia and osteoporosis. Patient originally presented to [facility] ED after experiencing a witnessed same level [...] was taken to the closest ER in [place]. Patient has been significantly declining over the past several weeks per family report. Progressively getting weaker with frequent falls. During her work-up at [place] ER had a CT scan of her head that showed is of small left frontal subarachnoid hemorrhage with left zygomatic fracture and left maxillary hemosinus per radiology dictation. Also found to have a 1.5 cm forehead laceration repaired with sutures by ER physician. Due to her head bleed patient was to [facility] admitted under neurosurgery service. General surgery has [...] tablet, 100 mg= 1 tab(s), Oral, qDay [place]-3 350 mg oral capsule, 350 mg= 1 [...] by LOBO RAMOS on 06/10/2022 03:[address] [id number] Critical care medicine Consult note Date of [...] tablet, 100 mg= 1 tab(s), Oral, qDay [place]-3 350 mg oral capsule, 350 mg= 1 [...] RENETTA FANG MD on 06/10/2022 03:[address] [facility] [id number] Consult note Date of Service 06/10/2022 Reason for Consultation Same level fall, tertiary trauma survey Referring Physician Dr. Justin History of Present Illness This is a split shared visit between myself and Dr. Ocasio. This is an 82-year-old female with past medical history of breast cancer, chronic edema, CKD, hypertension, CVA, hyperlipidemia and osteoporosis. Patient originally presented to [facility] ED after experiencing a witnessed same level [...] was taken to the closest ER in [place]. Patient has been significantly declining over the past several weeks per family report. Progressively getting weaker with frequent falls. During her work-up at [place] ER had a CT scan of her head that showed is of small left frontal subarachnoid hemorrhage with left zygomatic fracture and left maxillary hemosinus per radiology dictation. Also found to have a 1.5 cm forehead laceration repaired with sutures by ER physician. Due to her head bleed patient was to [facility] admitted under neurosurgery service. General surgery has [...] tablet, 100 mg= 1 tab(s), Oral, qDay [place]-3 350 mg oral capsule, 350 mg= 1 [...] by LOBO RAMOS on 06/10/2022 03:[address] [facility] [id number] History and physical note Date of Service 06/10/2022 Split shared H&P with Dr. Justin Chief Complaint Fall History of Present Illness This is an 82-year-old female with has medical history significant for prior CVA x2 on Aggrenox (noresidual deficits per family), history of breast cancer, history of recurrent UTIs, hypertension, hyperlipidemia, osteoporosis, vitamin D deficiency who presented initially to [facility] emergency department after suffering a witnessed fall [...] was contacted and patient was transported to [place] ED. Family provided that patient has had [...] these findings,and recommended patient be transferred to [facility] for further evaluation and care. UA Negative for nitrites, leukocyte esterase, bacteria; WBC 0-5. Reportedly, patient presented with altered mental status and repeatedly stated help me at [place]. She was also quite agitated and received several doses of IV Ativan prior to transfer to [facility] ED. Patient is prescribed Aggrenox, although family indicates she has not been compliant with taking prescribed medications, and it is unknown when she last had a dose. Upon arrival to [facility] ED, patient was noted to be drowsy, [...] General survey: 82-year-old female. Well developed. Patient's son/flkxsktb-tu-bae presentat the bedside. Patient does not cooperate [...] increased drowsiness, and nonverbal upon arrival to [facility] ED. Another head CT was obtained. This showed no significant changes or new intracranial hemorrhages, and displayed slight improvement of left frontal subarachnoid hemorrhage previously seen on initial CT. It is noted that she was given several doses of IV Ativan prior to transfer to [facility] ED and this may be contributing to her decreased mental status. Dr. Justin will admit patient under his primary service to the surgical intensive care unit for closeobservation and care. [facility] physicians will be consulted for assistance with [...] laceration Left frontal laceration was repaired at [facility] with suture closure. Keep site [...] details regarding neurosurgical input and recommendations. Patient's son/frqkchya-yh-czf were provided updates at the bedside, and [...] 100 mg = 1 tab(s), Oral, qDay [place]-3 350 mg oral capsule , Oral, qDay [...] by SAUL GASPAR on 06/10/2022 01:[address] [address] [id number] Evaluation + Plan noteExtracted from: Title:History and [...] increased drowsiness, and nonverbal upon arrival to [facility] ED. Another head CT was obtained. This showed no significant changes or new intracranial hemorrhages, and displayed slight improvement of left frontal subarachnoid hemorrhage previously seen on initial CT. It is noted that she was given several doses of IV Ativan prior to transfer to [facility] ED and this may be contributing to her decreased mental status. Dr. Justin will admit patient under his primary service to the surgical intensive care unit for close observation and care. [facility] physicians will be consulted for assistance with [...] laceration Left frontal laceration was repaired at [facility] with suture closure. Keep site [...] details regarding neurosurgical input and recommendations. Patient's son/hvcqsbqv-qn-cdj were provided updates at the bedside, and plan of care was discussed. They are in agreement. Patient's son provides CODE STATUS is DNR CCA/DNI. Addendum by SAUL GASPAR APRN-CAKE PRESS OPERATOR on June 10, 2022 13:56:[address] uJstin, if patient's mentation does not improve and [...] scan done in the emergency room at [facility] this was compared to her prior CT [...] Date:08/03/2022 09:30:00 AM Scheduled Provider:JEREMIAS VALERIO DO Location:[facility] Appointment Type:PC OV [facility] 02-22-2023 History and physical note Date of Service 06/10/2022 Split shared H&P with Dr. Justin Chief Complaint Fall History of Present Illness This is an 82-year-old female with has medical history significant for prior CVA x2 on Aggrenox (noresidual deficits per family), history of breast cancer, history of recurrent UTIs, hypertension, hyperlipidemia, osteoporosis, vitamin D deficiency who presented initially to [facility] emergency department after suffering a witnessed fall [...] was contacted and patient was transported to [place] ED. Family provided that patient has had [...] these findings,and recommended patient be transferred to [facility] for further evaluation and care. UA Negative for nitrites, leukocyte esterase, bacteria; WBC 0-5. Reportedly, patient presented with altered mental status and repeatedly stated help me at [place]. She was also quite agitated and received several doses of IV Ativan prior to transfer to [facility] ED. Patient is prescribed Aggrenox, although family indicates she has not been compliant with taking prescribed medications, and it is unknown when she last had a dose. Upon arrival to [facility] ED, patient was noted to be drowsy, nonverbal and had a decreased GCS of 8.Not following any commands. Head CT was repeated here, and shows no significant change, in fact left frontal subarachnoid hemorrhage is slightly improved from initial CT. Patient evaluated in the emergency department in conjunction with Dr. uJstin. Patient is drowsy, and does not open [...] General survey: 82-year-old female. Well developed. Patient's son/frdidose-vm-pnx presentat the bedside. Patient does not cooperate [...] increased drowsiness, and nonverbal upon arrival to [facility] ED. Another head CT was obtained. This showed no significant changes or new intracranial hemorrhages, and displayed slight improvement of left frontal subarachnoid hemorrhage previously seen on initial CT. It is noted that she was given several doses of IV Ativan prior to transfer to [facility] ED and this may be contributing to her decreased mental status. Dr. Justin will admit patient under his primary service to the surgical intensive care unit for closeobservation and care. [facility] physicians will be consulted for assistance with [...] laceration Left frontal laceration was repaired at [facility] with suture closure. Keep site [...] details regarding neurosurgical input and recommendations. Patient's son/uspklole-od-igx were provided updates at the bedside, and [...] 100 mg = 1 tab(s), Oral, qDay [place]-3 350 mg oral capsule , Oral, qDay [...] by SAUL GASPAR on 06/10/2022 01:[address] [facility] [address] [facility] [id number] History and physical note Date of Service 06/10/2022 Split shared H&P with Dr. Justin Chief Complaint Fall History of Present Illness This is an 82-year-old female with has medical history significant for prior CVA x2 on Aggrenox (noresidual deficits per family), history of breast cancer, history of recurrent UTIs, hypertension, hyperlipidemia, osteoporosis, vitamin D deficiency who presented initially to [facility] emergency department after suffering a witnessed fall [...] was contacted and patient was transported to [place] ED. Family provided that patient has had [...] these findings,and recommended patient be transferred to [place] for further evaluation and care. UA Negative for nitrites, leukocyte esterase, bacteria; WBC 0-5. Reportedly, patient presented with altered mental status and repeatedly stated help me at [place]. She was also quite agitated and received several doses of IV Ativan prior to transfer to [place] ED. Patient is prescribed Aggrenox, although family indicates she has not been compliant with taking prescribed medications, and it is unknown when she last had a dose. Upon arrival to [place] ED, patient was noted to be drowsy, [...] General survey: 82-year-old female. Well developed. Patient's son/xdonvgne-pc-cqv presentat the bedside. Patient does not cooperate [...] Result Date: June 10, 2022 Verified By: CAMREN TORIBIO MD CLINICAL STATEMENT: IMPRESSION: Significantly degraded [...] increased drowsiness, and nonverbal upon arrival to [facility] ED. Another head CT was obtained. This showed no significant changes or new intracranial hemorrhages, and displayed slight improvement of left frontal subarachnoid hemorrhage previously seen on initial CT. It is noted that she was given several doses of IV Ativan prior to transfer to [place] ED and this may be contributing to her decreased mental status. Dr. Justin will admit patient under his primary service to the surgical intensive care unit for closeobservation and care. [facility] physicians will be consulted for assistance with [...] laceration Left frontal laceration was repaired at [facility] with suture closure. Keep site [...] details regarding neurosurgical input and recommendations. Patient's son/ephomieg-gn-fcm were provided updates at the bedside, and [...] 100 mg = 1 tab(s), Oral, qDay [place]-3 350 mg oral capsule , Oral, qDay [...] by SAUL GASPAR on 06/10/2022 01:[address] [facility] [id number] Note ORIGINAL HISTORY: Fall, injury COMPARISON: 3 [...] Sign Date: 06/10/2022 12:05:41 PM Ordering Provider: [facility]02-22-2023 Note ORIGINAL HISTORY: Fall, injury COMPARISON: [...] Sign Date: 06/10/2022 12:05:41 PM Ordering Provider: [facility]-22-2023 Note ORIGINAL EXAMINATION: CT OF THE [...] Date: 06/10/2022 9:00:35 AM Ordering Provider: ADALID [facility]02-22-2023 Note ORIGINAL EXAMINATION: CT OF THE HEAD [...] 06/10/2022 9:00:35 AM Ordering Provider: ADALID HOFF [facility]02-22-2023 Note ORIGINAL EXAMINATION: CT OF THE [...] Date: 06/10/2022 9:00:35 AM Ordering [facility] Note ORIGINAL EXAMINATION: CT OF THE [...] Date: 06/10/2022 9:00:35 AM Ordering [facility] Note ORIGINAL HISTORY: Fall COMPARISON: No [...] Sign Date: 06/10/2022 8:20:47 AM Ordering Provider: [facility]02-22-2023 Note ORIGINAL HISTORY: Altered mental status [...] Sign Date: 06/10/2022 8:19:44 AM Ordering Provider: [facility]02-22-2023 Note ORIGINAL HISTORY: Altered mental status [...] Sign Date: 06/10/2022 8:19:44 AM Ordering Provider: [facility]02-22-2023 Note ORIGINAL HISTORY: Fall COMPARISON: No FINDINGS: [...] Sign Date: 06/10/2022 8:20:47 AM Ordering Provider: [facility]02-22-2023 SARS-CoV-2 (COVID-19) RNA ANNABELLA+probe Ql (Nph)Negative *NA* (06/10/22 8:13 AM)AO Auto Urine [id number] Note. MICRO - Microbiology PROCEDURE: Urine Culture [...] Locations *1: This test was performed at: [address], [facility] , [facility] ([place])05-06-2022 Note. MICRO - Microbiology [...] Locations *1: This test was performed at: [facility], [address] [place] [address], [id number] , [facility] ([place]05-04-2022 Hospital Discharge instructions Patient [...] swelling in the outer vaginal area (labia) [id number] [employer] [address] [place] [address]. All rights reserved. This information is not [...] or as directed by your healthcare provider [phone] [employer] [address] [place] [address], [place] [address]. All rights reserved. This information is not intended as a substitute for professional medical care. Always follow yourhealthcare professional's instructions. Follow Up Care 05/04/2022 12:21:03 With:JEREMIAS VALERIO DO Address: [address] [place] [phone] When:2-4 days With:Go to emergency room if symptoms worsen Address:Unknown When:2-4 days [facility] 01-16-2023 Emergency department Discharge summary Discharge Instructions Thank you for allowing [facility] to assist you with your healthcare needs. The following is importantdischarge information regarding your hospital visit. Diagnosis from Today's Visit Weakness Weakness or fatigue What to Do Next Instructions from Your Care Team No qualifying data available. Post Acute Orders No qualifying data available. You Need to Schedule the Following Appointments Follow Up with JEREMIAS VALERIO DO When Within 2-4 days Where: [address] [place] [phone] Follow Up with Go to emergency room [...] Essential hypertension Unchanged omega-3 polyunsaturated fatty acids ([place]-3 350 mg oral capsule) by mouth Once [...] swelling in the outer vaginal area (labia) [phone] [employer] [address] [place] [address], [place] [address]. All rights reserved. This information is not [...] or as directed by your healthcare provider [phone] [employer] [address] [place] [address]. All rights reserved. This information is not intended as a substitute for professional medical care. Always follow yourhealthcare professional's instructions. Additional Information VACCINATE! IT SAVES LIVES! Members of the community who have not yet received the COVID-19 vaccine and would like to receive it can visit one of [facility] vaccine clinics. There are many vaccine clinic locations within the [facility]. For locations and available times, please visit [email or web address]. It is important to note that some COVID mobile vaccine clinics are held outdoors and may be canceled in rainy orstormy conditions. To learn more about pediatric vaccinations (ages 5-11), we invite you to visit the [facility] webpage. [email or web address]/[email or web address]-Hlptojzgzjo-Qbaaiybipx-Fakde-Xml stions.htmlTo learn more about the COVID-19 vaccine, we invite you to visit the [facility] website for a list of frequently asked questions. [email or web address]-[email or web address]-Myqlfnu-Imnvaoesde _[email or web address]-Questions.pdf [facility] Patient Portal Access Instructions: Stay connected with your healthcare team and access your personal medical information anytime with the [facility] Patient Portal. If you would like a full copy of your medical records please contact the [facility] Medical Records Department Wednesday through Wednesday between 8a.m. and 4:30p.m. Please follow the directions below to access the portal: 1.Access the email account you provided upon registration to the hospital.2.Look for an invitation email from [facility].3.Open the email and access the invitation link: Accept Invitation to [facility]4.Fill in the required miller to create your account. Sign into [email or web address] with your username and password that you [...] you will allow to register on the [facility] Patient Portal for access to your information. You can also access the [facility] Patient Portal on the [employer] mitra. Simply click on Health Records under [employer] and then click on the Anny logo. [...] Call your local pharmacy or go to http://[email or web address] Street/[email or web address] to find one close to you.3.Make use of household items: Use cat litter or old coffee grounds to dispose medications if other options arenot available. Mix your drugs with these household products, seal them in an airtight container andthrow it into the garbage. Call [facility]: [phone] to be sure your drugs can be [...] aware that I should contact my doctor. Patient/Account Contact Associate Signature: Date/Time: Relationship to Patient: Witness Name/Signature: Date/Time: [facility]01-16-2023 Note ORIGINAL EXAMINATION: TWO XRAY VIEWS [...] Sign Date: 05/04/2022 2:25:33 PM Ordering Provider: [facility]01-16-2023 Note ADDENDUM ADDENDUM: An additional impression [...] 05/04/2022 2:09:20 PM Ordering Provider: CLAUDETTE LIMON [facility]01-16-2023 Note ORIGINAL EXAMINATION: TWO XRAY VIEWS [...] Sign Date: 05/04/2022 2:25:33 PM Ordering Provider: [facility]01-16-2023 Note ADDENDUM ADDENDUM: An additional impression [...] Sign Date: 05/04/2022 2:09:20 PM [facility] App[facility]ments Appointment Date:02/19/2021 08:30:00 AM Scheduled Provider: Location:[facility] Appointment Type:PC Nurse Injection Appointment Date:08/08/2021 11:00:00 AM Scheduled Provider:JEREMIAS VALERIO DO Location:[facility] Appointment Type:PC OV Follow Up Future Scheduled Tests Radiology* XR Hip Minimum 2 Views Left 01/31/21 [facility] Evaluation + Plan note Future Appointments Appointment Date:02/09/2022 10:00:00 AM Scheduled Provider:JEREMIAS VALERIO DO Location:[facility] Appointment Type:PC OV Future Scheduled Tests Radiology* XR Hip Minimum 2 Views Left 01/31/21 [facility] Evaluation + Plan note Future Appointments Appointment Date:08/03/2022 09:30:00 AM Scheduled Provider:JEREMIAS VALERIO DO Location:[facility] Appointment Type:PC OV [facility] Evaluation + Plan note Future Appointments Appointment Date:05/05/2022 09:30:00 AM Scheduled Provider:JEREMIAS VALERIO DO Location:[facility] Appointment Type:PC OV Appointment Date:08/03/2022 09:30:00 AM Scheduled Provider:JEREMIAS VALERIO DO Location:[facility] Appointment Type:PC OV Diagnostic Tests Pending * Urine Culture 05/04/22 [facility] Evaluation + Plan note Future Appointments Appointment Date:08/03/2022 09:30:00 AM Scheduled Provider:JEREMIAS VALERIO DO Location:[facility] Appointment Type:PC OV Diagnostic Tests Pending * Troponin I High Sensitivity 06/10/22 * Urine Culture 06/10/22 [facility] Hospital course Narrative No data available for this section [facility] Hospital Discharge instructions No data available for this section [facility] Note* CLAUDETTE LIMON MD: SIGN, VERIFY Event Display: EKG [ED AOH] - CV Authored Date: [id number] [facility] Note* ADALID HOFF MD: SIGN, VERIFY Event Display: EKG [ED AOH] - CV Authored Date: [id number] [facility] Progress note No data available for this section [facility] Summary Purpose Family History No Family History Records FoundNo Family History Records Found Advance Directives No Advanced Directives Records FoundNo Advanced Directives Records Found Additional Source Comments INFORMATION SOURCE (unrecogn ized section and content) DATE CREATED AUTHOR AUTHOR'S ORGANIZ ATION 07/06/2022 [facility] ([place]) Care Team (unrecognized sect ion and content) Personnel Name: JEREMIAS VALERIO DO Address: [address] [place] [address] Care Team Personnel Name: JEREMIAS VALEROI DO Position: P4 Physician - Primary Care Member Role: Primary Care Physician Address: Address: [address] [place] [address] Care Team Related Persons Name: GIGI RON Name: SMITA RON Name: SMITA RON Care Team (unrecognized sect ion and content) Care Team Personnel Name: JEREMIAS VALERIO DO Position: P4 Physician - Primary Care Member Role: Primary Care Physician Address: Address: [address] [place] [address] Care Team Related Persons Name: GIGI RON Name: SMITA RON Name: SMITA RON Care Team Personnel Name: JEREMIAS VALERIO DO Position: P4 Physician - Primary Care Member Role: Primary Care Physician Address: Address: [address] [place] [address] Care Team Related Persons Name: GIGI RON Name: SMITA RON Name: SMITA RON Care Team Personnel Name: JEREMIAS VALERIO DO Position: P4 Physician - Primary Care Member Role: Primary Care Physician Address: Address: [address] [place] [phone] [place] [address] Name: CLAUDETTE LIMON MD Position: ED Physician Member Role: ED Physician Address: Address: [facility] [address] [place] [address] Name: Vee Ponce RN Position: ED RN Member Role: ED RN Care Team Related Persons Name: GIGI RON Name: SMITA RON Name: SMITA RON Care Team Personnel Name: JEREMIAS VALERIO DO Position: P4 Physician - Primary Care Member Role: Primary Care Physician Address: Address: [address] [place] [address] Name: ADALID HOFF MD Position: ED Physician Member Role: Attending Physician Address: Address: [address] Name: HELLEN Her Position: RN Member Role: ED RN Care Team Related Persons Name: GIGI RON Name: SMITA RON Name: SMITA RON Care Team Personnel Name: JEREMIAS VALERIO DO Position: P4 Physician - Primary Care Member Role: Primary Care Physician Address: Address: [address] [place] [address] Name: GENARO DOUGLAS DO Position: Resident Member Role: Resident Address: Address: [address] [place] [address] ED Resident [address] Name: Vickie Rendon RN Position: P3 computational geneticist Member Role: computational geneticist Name: Link Sagastume Position: P3 Registration- [employer] Washing System Operator Member Role: Registrar Name: FERNANDO SWIFT DO Position: Resident Member Role: Resident Address: Address: [address] [place] [address] ED Resident [place] [phone] Name: Es Pastor crystal slicer Position: PharmNet: [employer] Thresher/Tech Member Role: Manager Inside Name: PABLO MONTES MD Position: ED Physician Member Role: ED Physician Address: Address: [address] [place] [address] [address] Care Team Related Persons Name: GIGI [...] BE BASED ON THE PRIMARY CLINICAL RECORDS. [facility], [facility]. provides no warranty or guarantee of the accuracy or completeness of information in this document.
[2023-04-17] VITALS (12 sets, daily range): BP systolic 133–156; BP diastolic 61–91; PULSE 77–98; RESP 18–24; TEMP 36.8–37.5; O2SAT 95–100; BMI 21.4
[2023-04-17] MEDS: Vancomycin HCl 1,500 MG in 0.9% Normal Saline (500mL Bag) 500 ML 250 MG IV (00:39)
[2023-04-17] MEDS: Acetaminophen 325 MG Tablet 650 MG PO ×2 (02:17→14:38)
[2023-04-17] MEDS: Mirtazapine 15 MG Tablet PO ×2 (02:27→22:39)
[2023-04-17] MEDS: MELATONIN 3 MG TABLET PO ×2 (02:27→22:40)
[2023-04-17] MEDS: Lidocaine 5% Patch 1 PATCH TOPICAL (02:27)
--- NOTE | 2023-04-17 02:43 | PCM.RX.CS ---
Consult Antibiotic Management Pharmacy has been consulted to manage selected antibiotic: Vancomycin Type of Intervention Type of Consult: New start Labs Labs: Sodium 138 mmol/L (136-145) 04/16/23 21:00 Potassium 4.6 mmol/L (3.5-5.1) 04/16/23 21:00 Chloride 109 mmol/L (98-107) H 04/16/23 21:00 Carbon Dioxide 23.0 mmol/L (21.0-32.0) 04/16/23 21:00 Anion Gap 6 (5-15) 04/16/23 21:00 BUN 43 mg/dL (7-18) H 04/16/23 21:00 Creatinine 1.30 mg/dL (0.55-1.02) H 04/16/23 21:00 Est GFR (MDRD) Af Amer 50 mL/min (>60) L 04/16/23 21:00 Est GFR (MDRD) Non-Af 42 mL/min (>60) L 04/16/23 21:00 BUN/Creatinine Ratio 33.1 RATIO (10-20) H 04/16/23 21:00 Glucose 156 mg/dL (74-106) H 04/16/23 21:00 Microbiology Microbiology: Microbiology 04/16/23 23:07 Mucosa - Nose RSV RNA Qualitative (PCR) - Final RSV 04/16/23 21:30 Nasal Secretion SARS-CoV-2 & FLU Antigen (Rapid) - Final Dosing Weight Weight used for dosin.8 kg Estimated Creatinine Clearance Estimated Creatinine Clearance: 27 Pharmacy Plan for Drug Dosing Pharmacy Plan for Drug Dosing: Pharmacy Service will continue to monitor and adjust dosing as required. Follow-Up Labs Follow-Up Labs: Trough: Vancomycin Date/Time Labs Ordered Labs to be done on [date and time ordered]: 04/19 @ 0036
[2023-04-17] MEDS: 0.9% Saline Lock 10 ML Syringe IV ×2 (05:31→14:38)
[2023-04-17] MEDS: Piperacil/Tazobactam 3.375 GM in 0.9% Normal Saline (50mL MB+) 50 ML IV ×3 (05:32→22:39)
[2023-04-17] MEDS: Ipratropium/Albuterol Sulfate 3 ML AMPUL.NEB INHALATION ×3 (07:04→19:11)
[2023-04-17 08:27] LABS: Hematocrit 28.2 % (37-47); Hemoglobin 8.9 g/dL (12.0-15.0); Mean Corp Hgb Conc 31.6 g/dL (32-36); Mean Corpuscular Hgb 28.4 pg (27.0-32.0); Mean Corpuscular Volume 90.1 fL (81-99); Platelet Count 150 K/mm3 (150-450); RBC Distribution Width CV 15.1 % (11.6-14.6); RBC Distribution Width SD 49.5 fl (35.1-43.9); Red Blood Count 3.13 M/mm3 (4.2-5.4); White Blood Count 7.2 K/mm3 (4.4-11.0)
[2023-04-17 08:49] LABS: Anion Gap 6 (5-15); BUN 36 mg/dL (7-18); BUN/Creat Ratio 29.5 RATIO (10-20); Calcium,Total 8.4 mg/dL (8.5-10.1); Chloride 112 mmol/L (98-107); Creatinine, Serum 1.22 mg/dL (0.55-1.02); EST Glomerular Filtration Rate 45 mL/min (>60); Est Glom Filt Rate - Afr Amer 54 mL/min (>60); Glucose 121 mg/dL (74-106); Potassium 4.1 mmol/L (3.5-5.1); Sodium Level 140 mmol/L (136-145)
[2023-04-17] MEDS: Docusate Sodium 100 MG Capsule PO ×2 (10:54→22:39)
[2023-04-17] MEDS: Escitalopram Oxalate 20 MG Tablet PO (10:54)
[2023-04-17] MEDS: Heparin Injection (Vial) 5,000 UNIT/ML VIAL 5000 UNIT SC ×2 (10:54→22:39)
[2023-04-17] MEDS: busPIRone 5 MG Tablet 2.5 MG PO (10:54)
[2023-04-17] MEDS: Menthol/Lanolin/Calamine/Znox 113 GM Tube 1 APPLIC TOPICAL ×2 (10:54→22:40)
[2023-04-17] MEDS: Memantine Hydrochloride 5 MG Tablet PO ×2 (10:54→22:40)
--- NOTE | 2023-04-17 11:28 | CASEMGMT ---
Addendum entered by Nel Butt 04/17/23 11:45: Social Work Pt can return to [facility] when ready as per [facility] in [facility]. Green sheet w/transport form placed on chart. GILLIAN Virgen Original Note: Social Work SW called son Kelin to confirm pt is from [facility] and plan is to return. Son confirms pt has been there since May. He is not happy w/the care there. He is okay w/pt returning on the weekend if medically ready. If pt is still here Wednesday however, may want to consider another facility. He states pt is on a wait list for [facility] but there are 40 people ahead of her. SW educated son that if there is another facility he may be interested in, [facility] should assist him in getting pt moved. SW explained would leave a list for him of other facilities that take her insurance for his review and suggested he look into other options. SW did leave list from [facility] in room for son, of SNFs in pt's preferred geographic area, in pt's insurance network and complete w/quality and resource use data. SW sent updates to [facility] via [facility] to see if pt would be able to return if ready on the weekend. If pt is still here Wednesday, SW to follow up w/son to see if he wants to make a change of facility. GILLIAN Virgen
--- NOTE | 2023-04-17 13:35 | PN_ITS ---
Subjective Subjective Patient seen and examined. She was lying comfortably in bed. She complained of lower back pain. She denied any fever or chills, shortness of breath, palpitations, dizziness, nausea vomiting or any other symptoms. Review of systems otherwise negative. Objective Data Objective Data Vital Signs: Vital Signs Temp Pulse Resp BP Pulse Ox O2 Del Method O2 Flow Rate 98.4 F 90 18 148/91 H 98 Nasal Cannula 2 04/17/23 10:53 04/17/23 10:53 04/17/23 10:53 04/17/23 10:53 04/17/23 10:53 04/17/23 10:53 04/17/23 10:53 Oxygen Flow Rate (L/min) 2 Oxygen Delivery Method Nasal Cannula Weight: 120 lb 13.013 oz Body Mass Index (BMI) 21.4 Intake & Output: Intake and Output for Last 24 Hours 04/15/23 04/16/23 04/17/23 23:59 23:59 23:59 Intake Total 920 / 920 Output Total 250 / 250 Balance 670 / 670 Lab / Micro Data 04/17/23 06:50 04/17/23 06:50 Labs: Laboratory Results - last 24 hr 04/16/23 21:00: WBC 11.7 H, RBC 3.49 L, Hgb 9.8 L, Hct 31.4 L, MCV 90.0, MCH 28.1, MCHC 31.2 L, RDW Std Deviation 50.0 H, RDW Coeff of Han 15.2 H, Plt Count 196, MPV 11.6, Immature Gran % (Auto) 0.900, Neut % (Auto) 74.5 H, Lymph % (Auto) 14.8 L, [place] % (Auto) 9.6, Eos % (Auto) 0.0, Baso % (Auto) 0.2, Absolute Neuts (auto) 8.7 H, Absolute Lymphs (auto) 1.74, Nucleated RBC % 0, Sodium 138, Potassium 4.6, Chloride 109 H, Carbon Dioxide 23.0, Anion Gap 6, BUN 43 H, Creatinine 1.30 H, Estim Creat Clear Calc 28.99, Est GFR (MDRD) Af Amer 50 L, Est GFR (MDRD) Non-Af 42 L, BUN/Creatinine Ratio 33.1 H, Glucose 156 H, Calcium 9.1, Troponin I High Sens 12, B-Natriuretic Peptide 89.1 04/17/23 06:50: WBC 7.2, RBC 3.13 L, Hgb 8.9 L, Hct 28.2 L, MCV 90.1, MCH 28.4, MCHC 31.6 L, RDW Std Deviation 49.5 H, RDW Coeff of Han 15.1 H, Plt Count 150, MPV 11.0, Sodium 140, Potassium 4.1, Chloride 112 H, Carbon Dioxide 22.0, Anion Gap 6, BUN 36 H, Creatinine 1.22 H, Estim Creat Clear Calc 28.40, Est GFR (MDRD) Af Amer 54 L, Est GFR (MDRD) Non-Af 45 L, BUN/Creatinine Ratio 29.5 H, Glucose 121 H, Calcium 8.4 L Micro: Microbiology 04/16/23 23:07 Mucosa - Nose RSV RNA Qualitative (PCR) - Final RSV 04/16/23 21:30 Nasal Secretion SARS-CoV-2 & FLU Antigen (Rapid) - Final Radiography Diagnostic Testing: Radiology Impression Lumbar Spine X-Ray 04/16/23 21:09 IMPRESSION: 1. No acute fracture or subluxation. 2. Status post transpedicular fixation from L2 through S1. 3. Focal degenerative disc disease L1/L2 with 5 mm retrolisthesis of L1 on L2. Electronically Signed: Isaac Scanlon MD at 22:22 EST Reading Location ID and State: [id number] / [employer] Tel , Service support , Pelvis X-Ray 04/16/23 21:09 IMPRESSION: Normal x-ray examination of the pelvis. Electronically Signed: Isaac Scanlon MD at 22:23 EST , Chest X-Ray 04/16/23 21:51 IMPRESSION: 1. Focal right lower lobe pneumonia or atelectasis.. 2. Cardiomegaly. Electronically Signed: Isaac Scanlon MD at 22:21 EST , Rhythm Strip Rhythm Strip: Sinus Rhythm Rate: 80 Ectopy: None Physical Exam Const alert and oriented x3 Constitutional Narrative: in moderate distress due to low back pain General Appearance: cooperative HEENT normocephalic and head/scalp atraumatic Mouth: dry mucous membranes Eyes PERRL and EOMs intact bilaterally Neck no lymphadenopathy, supple and no JVD Lymph Lymphatic: no lymphadenopathy noted and no lymphedema noted Resp Resp Narrative: mildly diminished breath sounds bibasally, no wheezes or crackles. on 3L of oxygen by nasal canula Cardio regular rate, regular rhythm, S1 normal heart sound, S2 normal heart sound and no murmurs GI normal to inspection, nondistended, normoactive bowel sounds, soft to palpation and non-tender Extremity normal capillary refill, no clubbing, cyanosis or edema and no calf tenderness General Extremity: no tenderness to palpation of joints or extremities Skin General Skin Exam: no breakdown Neuro CN's II-XII intact bilaterally, no focal motor deficits, no sensory deficits noted and deep tendon reflexes 2+ bilaterally Motor Exam: strength 5/5 throughout and general weakness Psych thought process normal Activity / Motor Behavior: restless Assessment & Plan Assessment/Plan (1) RSV infection: (2) Hypoxia: (3) Fall: PLAN: Plan #Hypoxia due to RSV infectin with super imposed pneumonia * Currently on 2 L of oxygen. * On IV vancomycin and Zosyn due to concerns for health assisted pneumonia. Chest x-ray showed right lower lobe pneumonia. * Blood cultures and sputum cultures pending. Urine for strep and Legionella negative. * Breathing treatments of bronchodilators. Titrate oxygen to maintain saturation above 90%. * #Debility due to mechanical fall with low back pain * X-ray of the lumbar spine and pelvis were unremarkable. * PT OT on board. Fall precautions. * #ALAINA: Resolving. Likely due to dehydration. Continue hydrating with IV fluids and monitor. Creatinine is down to 1.22 from 1.3. #Depression and anxiety: On escitalopram, mirtazapine and BuSpar. #Hyperlipidemia: Statin Hypertension: On losartan and metoprolol. These were held on admission due to mild ALAINA. 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 Will monitor. DVT prophylaxis: heparin Charges/Coding Visit Charges Inpatient E&M: 74866 Subs Hosp L2
[2023-04-17] MEDS: oxyCODONE 5 MG Tablet PO (18:40)
[2023-04-17] MEDS: Atorvastatin Calcium 40 MG Tablet PO (22:39)
[2023-04-18] VITALS (10 sets, daily range): BP systolic 135–157; BP diastolic 76–100; PULSE 82–110; RESP 16–18; TEMP 36.6–37.4; O2SAT 92–99
[2023-04-18] MEDS: Vancomycin IV 500 MG/100 ML BAG 100 MG IV (02:40)
[2023-04-18] MEDS: oxyCODONE 5 MG Tablet PO ×3 (03:33→15:51)
[2023-04-18 06:01] LABS: Absolute Lymphocyte Count 0.53 X10^3/uL (0.83-4.51); Basophil# 0.02 X10^3/uL; Basophil% 0.3 % (0-1); Eosinophil# 0.01 X10^3/uL; Eosinophils% 0.1 % (0-5); Hematocrit 27.6 % (37-47); Hemoglobin 8.4 g/dL (12.0-15.0); Lymphocyte # 0.53 X10^3/ul (0.83-4.51); Lymphocyte % 7.1 % (19-41); Mean Corp Hgb Conc 30.4 g/dL (32-36); Mean Corpuscular Hgb 27.5 pg (27.0-32.0); Mean Corpuscular Volume 90.2 fL (81-99); Mean Platelet Vol. 11.4 fl (6.2-12.0); Monocyte# 0.77 X10^3/uL; Monocyte% 10.4 % (0-10); NRBC Flagged by Analyzer 0 % (0-5); Neutrophil # 6.02 X10^3/uL (2.7-7.7); Neutrophil % 81.2 % (47-70); POSITIVE DIFFERENTIAL YES; Platelet Count 131 K/mm3 (150-450); RBC Distribution Width CV 14.9 % (11.6-14.6); RBC Distribution Width SD 49.8 fl (35.1-43.9); Red Blood Count 3.06 M/mm3 (4.2-5.4); White Blood Count 7.4 K/mm3 (4.4-11.0)
[2023-04-18 06:08] LABS: Differential Indicated SCAN CRITERIA MET
[2023-04-18 06:21] LABS: Anion Gap 7 (5-15); BUN 31 mg/dL (7-18); BUN/Creat Ratio 27.2 RATIO (10-20); Calcium,Total 8.6 mg/dL (8.5-10.1); Chloride 112 mmol/L (98-107); Creatinine, Serum 1.14 mg/dL (0.55-1.02); EST Glomerular Filtration Rate 48 mL/min (>60); Est Glom Filt Rate - Afr Amer 58 mL/min (>60); Estimated Creatinine Clearance 30.39 ml/min; Glucose 147 mg/dL (74-106); Potassium 3.6 mmol/L (3.5-5.1); Sodium Level 142 mmol/L (136-145)
[2023-04-18] MEDS: Piperacil/Tazobactam 3.375 GM in 0.9% Normal Saline (50mL MB+) 50 ML IV ×3 (06:30→20:57)
[2023-04-18] MEDS: Ipratropium/Albuterol Sulfate 3 ML AMPUL.NEB INHALATION ×3 (06:38→20:12)
[2023-04-18 07:08] LABS: Differential Comment SCANNED
[2023-04-18] MEDS: Lidocaine 5% Patch 1 PATCH TOPICAL (08:55)
[2023-04-18] MEDS: busPIRone 5 MG Tablet 2.5 MG PO (08:57)
[2023-04-18] MEDS: Escitalopram Oxalate 20 MG Tablet PO (08:58)
[2023-04-18] MEDS: Heparin Injection (Vial) 5,000 UNIT/ML VIAL 5000 UNIT SC ×2 (08:58→20:56)
[2023-04-18] MEDS: Menthol/Lanolin/Calamine/Znox 113 GM Tube 1 APPLIC TOPICAL ×2 (08:58→20:56)
[2023-04-18] MEDS: Memantine Hydrochloride 5 MG Tablet PO ×2 (08:58→21:03)
[2023-04-18] MEDS: Docusate Sodium 100 MG Capsule PO ×2 (08:58→20:56)
[2023-04-18] MEDS: Acetaminophen 325 MG Tablet 650 MG PO ×2 (09:05→15:50)
--- NOTE | 2023-04-18 12:00 | PN_ITS ---
Subjective Subjective Patient seen and examined. She complained of tremors in upper extremities. She denied any fever, chills, palpitations, dizziness, nausea, vomiting or any other symptoms. Review of sysems is otherwisee negative. Objective Data Objective Data Vital Signs: Vital Signs Temp Pulse Resp BP Pulse Ox O2 Del Method O2 Flow Rate 99.3 F H 100 16 155/77 H 94 Room Air 1 04/18/23 08:51 04/18/23 08:51 04/18/23 08:51 04/18/23 08:51 04/18/23 08:51 04/18/23 09:24 04/18/23 06:38 Oxygen Flow Rate (L/min) 1 Oxygen Delivery Method Room Air Weight: 120 lb 13.013 oz Body Mass Index (BMI) 21.4 Intake & Output: Intake and Output for Last 24 Hours 04/16/23 04/17/23 04/18/23 23:59 23:59 23:59 Intake Total 1210 / 1450 390 / 390 Output Total 250 / 250 275 / 275 Balance 960 / 1200 115 / 115 Lab / Micro Data 04/18/23 05:27 04/18/23 05:27 Labs: Laboratory Results - last 24 hr 04/18/23 05:27: WBC 7.4, RBC 3.06 L, Hgb 8.4 L, Hct 27.6 L, MCV 90.2, MCH 27.5, MCHC 30.4 L, RDW Std Deviation 49.8 H, RDW Coeff of Han 14.9 H, Plt Count 131 L, MPV 11.4, Immature Gran % (Auto) 0.900, Neut % (Auto) 81.2 H, Lymph % (Auto) 7.1 L, [place] % (Auto) 10.4 H, Eos % (Auto) 0.1, Baso % (Auto) 0.3, Absolute Neuts (au to) 6.0, Absolute Lymphs (auto) 0.53 L, Nucleated RBC % 0, Differential Comment SCANNED, Sodium 142, Potassium 3.6, Chloride 112 H, Carbon Dioxide 23.0, Anion Gap 7, BUN 31 H, Creatinine 1.14 H, Estim Creat Clear Calc 30.39, Est GFR (MDRD) Af Amer 58 L, Est GFR (MDRD) Non-Af 48 L, BUN/Creatinine Ratio 27.2 H, Glucose 147 H, Calcium 8.6 Micro: Microbiology 04/16/23 23:07 Mucosa - Nose RSV RNA Qualitative (PCR) - Final RSV 04/16/23 21:30 Nasal Secretion SARS-CoV-2 & FLU Antigen (Rapid) - Final Rhythm Strip Rhythm Strip: Sinus Rhythm Rate: 80 Ectopy: None Physical Exam Const alert, oriented x3 and no apparent distress Constitutional Narrative: in mild distress due to LE and low back pain General Appearance: cooperative and comfortable HEENT normocephalic, head/scalp atraumatic, hearing grossly normal bilaterally and nasal mucous membranes and turbinates normal Eyes PERRL, EOMs intact bilaterally and conjunctivae normal Neck full ROM, no lymphadenopathy, supple and no JVD Lymph Lymphatic: no lymphadenopathy noted and no lymphedema noted Chest inspection of chest normal Resp Resp Narrative: mildly diminished breath sounds bibasally, no wheezes or crackles. on 3L of oxygen by nasal canula Cardio regular rate, regular rhythm, S1 normal heart sound, S2 normal heart sound, no murmurs and peripheral pulses 2+ throughout GI normal to inspection, nondistended, normoactive bowel sounds, soft to palpation, non-tender and non-distended Extremity normal to inspection, normal capillary refill, no clubbing, cyanosis or edema, no calf tenderness and no pedal edema General Extremity: no tenderness to palpation of joints or extremities Skin no rashes or lesions noted General Skin Exam: no breakdown Neuro CN's II-XII intact bilaterally, moves all extremities, no focal motor deficits, no sensory deficits noted and deep tendon reflexes 2+ bilaterally Speech: speech normal Motor Exam: strength 5/5 throughout and general weakness Psych mental status grossly normal and thought process normal Activity / Motor Behavior: restless Assessment & Plan Assessment/Plan (1) RSV infection: (2) Hypoxia: (3) Fall: PLAN: Plan #Hypoxia due to RSV infection with super imposed pneumonia * now on room air. * On IV vancomycin and Zosyn due to concerns for health assisted pneumonia. Chest x-ray showed right lower lobe pneumonia. * Blood cultures and sputum cultures pending. Urine for strep and Legionella negative. * Breathing treatments of bronchodilators. Titrate oxygen to maintain saturation above 90%. * Patient is still febrile today. She had a low-grade fever overnight and yesterday as well as this morning. Will watch at least overnight to make sure fever resolves. * wbc has resolved * #Debility due to mechanical fall with low back pain * X-ray of the lumbar spine and pelvis were unremarkable. * PT OT on board. Fall precautions. * #ALAINA: Resolved. Creatinine is down to 1.14. #Depression and anxiety: On escitalopram, mirtazapine and BuSpar. #Hyperlipidemia: on Statin Hypertension: On losartan and metoprolol. These were held on admission due to mild ALAINA. 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 On memantine. Will monitor. DVT prophylaxis: heparin Disposition: Anticipate discharge tomorrow if she remains hemodynamically stable. Charges/Coding Visit Charges Inpatient E&M: 11549 Subs Hosp L2
[2023-04-18] MEDS: MELATONIN 3 MG TABLET PO (20:56)
[2023-04-18] MEDS: Mirtazapine 15 MG Tablet PO (20:56)
[2023-04-18] MEDS: Atorvastatin Calcium 40 MG Tablet PO (20:57)
[2023-04-19] VITALS (19 sets, daily range): BP systolic 85–187; BP diastolic 51–98; PULSE 70–160; RESP 15–24; TEMP 36.9–37.2; O2SAT 92–100
[2023-04-19] MEDS: oxyCODONE 5 MG Tablet PO ×4 (00:23→22:18)
[2023-04-19] MEDS: Acetaminophen 325 MG Tablet 650 MG PO ×4 (00:24→22:18)
[2023-04-19] MEDS: Vancomycin Trough/Random Due 1 LAB MC (00:26)
[2023-04-19 00:55] LABS: Absolute Lymphocyte Count 1.73 X10^3/uL (0.83-4.51); Absolute Neutrophil Count 6.2 X10^3/uL (2.0-7.7); Basophil# 0.03 X10^3/uL; Basophil% 0.3 % (0-1); Eosinophil# 0.04 X10^3/uL; Eosinophils% 0.4 % (0-5); Hematocrit 26.3 % (37-47); Hemoglobin 8.1 g/dL (12.0-15.0); Lymphocyte # 1.73 X10^3/ul (0.83-4.51); Mean Corp Hgb Conc 30.8 g/dL (32-36); Mean Corpuscular Hgb 27.4 pg (27.0-32.0); Mean Corpuscular Volume 88.9 fL (81-99); Mean Platelet Vol. 10.8 fl (6.2-12.0); Monocyte# 0.99 X10^3/uL; Monocyte% 10.9 % (0-10); NRBC Flagged by Analyzer 0 % (0-5); Neutrophil # 6.23 X10^3/uL (2.7-7.7); Neutrophil % 68.5 % (47-70); Platelet Count 148 K/mm3 (150-450); RBC Distribution Width CV 15.2 % (11.6-14.6); RBC Distribution Width SD 48.9 fl (35.1-43.9); Red Blood Count 2.96 M/mm3 (4.2-5.4); White Blood Count 9.1 K/mm3 (4.4-11.0)
[2023-04-19 01:13] LABS: Anion Gap 6 (5-15); BUN 31 mg/dL (7-18); Chloride 108 mmol/L (98-107); Creatinine, Serum 1.15 mg/dL (0.55-1.02); EST Glomerular Filtration Rate 48 mL/min (>60); Est Glom Filt Rate - Afr Amer 58 mL/min (>60); Estimated Creatinine Clearance 30.12 ml/min; Glucose 102 mg/dL (74-106); Potassium 3.5 mmol/L (3.5-5.1); Sodium Level 139 mmol/L (136-145)
[2023-04-19 01:15] LABS: Vancomycin, Trough Level 12.6 ug/mL (5.0-15.0)
--- NOTE | 2023-04-19 01:23 | PCM.RX.CS ---
Consult Antibiotic Management Pharmacy has been consulted to manage selected antibiotic: Vancomycin Type of Intervention Type of Consult: Follow-up Labs Labs: Sodium 139 mmol/L (136-145) 04/19/23 00:40 Potassium 3.5 mmol/L (3.5-5.1) 04/19/23 00:40 Chloride 108 mmol/L (98-107) H 04/19/23 00:40 Carbon Dioxide 25.0 mmol/L (21.0-32.0) 04/19/23 00:40 Anion Gap 6 (5-15) 04/19/23 00:40 BUN 31 mg/dL (7-18) H 04/19/23 00:40 Creatinine 1.15 mg/dL (0.55-1.02) H 04/19/23 00:40 Est GFR (MDRD) Af Amer 58 mL/min (>60) L 04/19/23 00:40 Est GFR (MDRD) Non-Af 48 mL/min (>60) L 04/19/23 00:40 BUN/Creatinine Ratio 27.0 RATIO (10-20) H 04/19/23 00:40 Glucose 102 mg/dL (74-106) 04/19/23 00:40 Vancomycin Trough 12.6 ug/mL (5.0-15.0) 04/19/23 00:40 Microbiology Microbiology: Microbiology 04/16/23 23:07 Mucosa - Nose RSV RNA Qualitative (PCR) - Final RSV 04/16/23 21:30 Nasal Secretion SARS-CoV-2 & FLU Antigen (Rapid) - Final Goal Trough Goal Trough: 15-20 mcg/mL Pharmacy Plan for Drug Dosing Pharmacy Plan for Drug Dosing: Pharmacy Service will continue to monitor and adjust dosing as required. TROUGH 12.6 @ 22 HOURS. INCREASE TO 750MG QD AND FOLLOW UP TROUGH PRIOR TO 3RD DOSE Follow-Up Labs Follow-Up Labs: Trough: Vancomycin Date/Time Labs Ordered Labs to be done on [date and time ordered]: 04/21 @ 0100
[2023-04-19] MEDS: Vancomycin HCl 750 MG in 0.9% Normal Saline (250mL Bag) 250 ML 250 MG IV (01:31)
[2023-04-19 04:44] LABS: Magnesium 2.2 mg/dL (1.6-2.6)
[2023-04-19] MEDS: Piperacil/Tazobactam 3.375 GM in 0.9% Normal Saline (50mL MB+) 50 ML IV ×3 (05:06→21:31)
[2023-04-19] MEDS: Ipratropium/Albuterol Sulfate 3 ML AMPUL.NEB INHALATION ×3 (07:03→20:57)
[2023-04-19] MEDS: busPIRone 5 MG Tablet 2.5 MG PO (09:16)
[2023-04-19] MEDS: Docusate Sodium 100 MG Capsule PO ×2 (09:16→21:15)
[2023-04-19] MEDS: Heparin Injection (Vial) 5,000 UNIT/ML VIAL 5000 UNIT SC ×2 (09:16→21:14)
[2023-04-19] MEDS: Memantine Hydrochloride 5 MG Tablet PO ×2 (09:16→21:15)
[2023-04-19] MEDS: Escitalopram Oxalate 20 MG Tablet PO (09:17)
[2023-04-19] MEDS: Lidocaine 5% Patch 1 PATCH TOPICAL (09:17)
[2023-04-19] MEDS: Menthol/Lanolin/Calamine/Znox 113 GM Tube 1 APPLIC TOPICAL ×2 (09:17→21:15)
--- NOTE | 2023-04-19 10:14 | PN.HOSP_ITS ---
Subjective Subjective No issues overnight, remains confused and disoriented currently on room air Objective Data Objective Data Vital Signs: Vital Signs Temp Pulse Resp BP Pulse Ox O2 Del Method O2 Flow Rate 98.9 F 88 20 H 152/98 H 94 Room Air 1 04/19/23 04:00 04/19/23 07:02 04/19/23 07:02 04/19/23 04:38 04/19/23 07:02 04/19/23 09:44 04/18/23 06:38 Oxygen Flow Rate (L/min) 1 Oxygen Delivery Method Room Air Weight: 120 lb 13.013 oz Body Mass Index (BMI) 21.4 Intake & Output: Intake and Output for Last 24 Hours 04/18/23 04/19/23 04/20/23 03:59 03:59 03:59 Intake Total 870 / 870 1435 / 1435 530 / 530 Output Total 250 / 250 575 / 575 100 / 100 Balance 620 / 620 860 / 860 430 / 430 Lab / Micro Data 04/19/23 00:40 04/19/23 00:40 Labs: Laboratory Results - last 24 hr 04/19/23 00:40: WBC 9.1, RBC 2.96 L, Hgb 8.1 L, Hct 26.3 L, MCV 88.9, MCH 27.4, MCHC 30.8 L, RDW Std Deviation 48.9 H, RDW Coeff of Han 15.2 H, Plt Count 148 L, MPV 10.8, Immature Gran % (Auto) 0.900, Neut % (Auto) 68.5, Lymph % (Auto) 19.0, [place] % (Auto) 10.9 H, Eos % (Auto) 0.4, Baso % (Auto) 0.3, Absolute Neuts (auto) 6.2, Absolute Lymphs (auto) 1.73, Nucleated RBC % 0, Sodium 139, Potassium 3.5, Chloride 108 H, Carbon Dioxide 25.0, Anion Gap 6, BUN 31 H, Creatinine 1.15 H, Estim Creat Clear Calc 30.12, Est GFR (MDRD) Af Amer 58 L, Est GFR (MDRD) Non-Af 48 L, BUN/Creatinine Ratio 27.0 H, Glucose 102, Calcium 9.0, Vancomycin Trough 12.6 04/19/23 00:45: Magnesium 2.2 Micro: Microbiology 12/29/23 23:07 Mucosa - Nose RSV RNA Qualitative (PCR) - Final RSV 04/16/23 21:30 Nasal Secretion SARS-CoV-2 & FLU Antigen (Rapid) - Final Rhythm Strip Rhythm Strip: Sinus Rhythm Rate: 80 Ectopy: None Physical Exam Narrative General: Alert, Oriented x2, Cooperative, No apparent distress HEENT: Atraumatic, PERRLA, EOMI, Normocephalic Oral: Moist Mucosa Neck: Supple, No JVD Lungs: Diminished, Normal air movement, No rhonchi, No wheeze, No rales Cardiovascular: Regular rate, Regular Rhythm, Normal S1, Normal S2, No murmurs Abdomen: Soft, Non Tender, Non-Distended, No Hepato-splenomegaly Extremities: No edema, Capillary Refill Less than 3 Seconds Skin: No rashes, No breakdown Musculoskeletal: No Tenderness to Palpation of Joints or Extremities Neurological: Moves all extremities, no focal deficits, sensory exam intact to light touch and pain Psych/Mental Status: Flat Assessment & Plan Assessment/Plan (1) RSV infection: (2) Hypoxia: (3) Fall: PLAN: Plan #Hypoxia due to RSV infection with super imposed pneumonia/ALAINA/debility mechan ical fall and low back pain * now on room air. * On IV vancomycin and Zosyn due to concerns for healthcare associated pneumonia. Chest x-ray showed right lower lobe pneumonia. Will obtain a MRSA swab and if negative can discontinue vancomycin * Blood cultures and sputum cultures pending. Urine for strep and Legionella negative. * Breathing treatments of bronchodilators. Titrate oxygen to maintain saturation above 90%. * Patient is still febrile today * wbc has resolved, creatinine back to baseline * PT/OT for return to SNF #Depression and anxiety: On escitalopram, mirtazapine and BuSpar. #Hyperlipidemia: on Statin #Hypertension: On losartan and metoprolol. These were held on admission due to mild ALAINA. 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 On memantine. Will monitor. DVT: Heparin Charges/Coding Visit Charges Inpatient E&M: 20243 Subs Hosp L2
[2023-04-19 11:09] LABS: Iron 20 ug/dL (50-170); Iron Binding Capacity,Total 236 ug/dL (250-450); PERCENT IRON SATURATION 8.5 % (15.0-55.0)
[2023-04-19] MEDS: Losartan Potassium 100 MG Tablet PO (11:16)
[2023-04-19 14:05] LABS: M R Staph aureus DNA By PCR Negative (Negative); Probe Check PASS; Specimen Processing Control PASS
--- NOTE | 2023-04-19 17:02 | ECHOD_ITS ---
Reason For Study: ATRIALL FIBRILLATION/FLUTTER Procedure This was a 2D Doppler, Color Flow transthoracic echocardiogram. Exam performed portable in patient room. Left Ventricle Normal LV size. Mild concentric left ventricular hypertrophy. The left ventricular ejection fraction is 60 %. Normal diastology for age. Right Ventricle Mildly dilated right ventricle. Normal systolic function. Atria Normal left atrium. The right atrium is moderately enlarged. Mitral Valve Trivial mitral valve insufficiency. Tricuspid Valve Severe (4+) tricuspid valve insufficiency. Right ventricular systolic pressure estimated to be 43 mmHg. Aortic Valve Aortic sclerosis, no stenosis. Mild focal aortic valve calcification. Pulmonic Valve The pulmonic valve is not well visualized. Great Vessels Normal sized aortic root. Pericardium/Pleural No pericardial effusion. MMode/2D Measurements & Calculations LVIDd: 4.0 cm IVSd: 1.2 cm Ao root diam: 3.6 cm LVIDs: 2.9 cm LVPWd: 1.3 cm RVDd: 3.1 cm FS: 28.5 % LAV(MOD-bp): 40.2 ml LVAd ap4: 17.1 cm2 SV(MOD-sp4): 22.3 ml LAV(MOD-bp) Indexed: 25.8 ml/m2 LVLd ap4: 6.3 cm LAV(MOD-sp2): 51.2 ml EDV(MOD-sp4): 41.2 ml LAV(MOD-sp4): 30.3 ml EDV(sp4-el): 39.5 ml LVAs ap4: 10.1 cm2 LVLs ap4: 5.0 cm ESV(MOD-sp4): 18.9 ml ESV(sp4-el): 17.0 ml EF(MOD-sp4): 54.1 % EF(sp4-el): 56.8 % SV(sp4-el): 22.4 ml LA A4 area: 14.3 cm2 LA dimension(2D): 4.3 cm RA A4 area: 21.5 cm2 TAPSE: 1.8 cm Time Measurements MV dec time: 0.24 sec Doppler Measurements & Calculations MV E max scooby: 64.7 cm/sec Lat Peak E' Scooby: 7.3 cm/sec Med Peak E' Scooby: 7.1 cm/sec MV A max scooby: 67.4 cm/sec E/E' lat: 8.8 E/E' med: 9.1 MV E/A: 0.96 MV V2 max: 75.5 cm/sec Ao V2 max: 120.7 cm/sec MV max P.3 mmHg MV dec slope: 275.1 cm/sec2 Ao max P.8 mmHg MV V2 mean: 41.4 cm/sec Ao V2 mean: 72.6 cm/sec MV mean P.82 mmHg Ao mean P.5 mmHg MV V2 VTI: 24.9 cm Ao V2 VTI: 28.8 cm AV (velocity ratio): 0.73 LV V1 max: 94.8 cm/sec PA V2 max: 101.1 cm/sec TR max scooby: 267.4 cm/sec LV V1 max P.6 mmHg PA V2 mean: 57.6 cm/sec TR max P.6 mmHg LV V1 mean P.0 mmHg LV V1 mean: 68.5 cm/sec LV V1 VTI: 21.1 cm ECHO/Echo Complete Interpretation Summary Mild concentric left ventricular hypertrophy. The left ventricular ejection fraction is 60 %. Mildly dilated right ventricle. The right atrium is moderately enlarged. Severe (4+) tricuspid valve insufficiency. Right ventricular systolic pressure estimated to be 43 mmHg. Mild focal aortic valve calcification. Ordering Physician: Maximiliano Benedict Referring Physician: Joselyn Lawrence Performed By: Mitra Foster, GARIMA, RVT
[2023-04-19] MEDS: Metoprolol Tartrate 5 MG/5 ML Vial IV (17:21)
[2023-04-19] MEDS: 0.9% Saline Lock 10 ML Syringe IV (17:23)
[2023-04-19] MEDS: Digoxin 125 MCG Tablet PO (18:07)
[2023-04-19] MEDS: Sodium Ferric Gluconat/Sucrose 250 MG in 0.9% Normal Saline (250mL Bag) 250 ML 135 MG IV (19:01)
[2023-04-19 19:02] LABS: Mucous, Urine 0 SEEN /hpf (<or=2+); Red Blood Cells-Urine 0 SEEN /hpf (0-5)
[2023-04-19 19:10] LABS: Color, Urine Yellow (Yellow); Glucose, Dipstick Normal (Normal); Ketone-Dipstick 5 mg/dl (Negative); Leukocyte Esterase-Dipstick 25 /ul (Negative); Nitrite-Dipstick Negative (Negative); Occult Blood-Urine 10 /ul (Negative); Protein-Dipstick 30 mg/dl (Negative); Specific Gravity, Urine 1.015 (1.002-1.030); Urine Bilirubin Dipstick Negative (Negative); Urine Clarity Clear (Clear); Urine Urobilinogen Normal (Normal)
[2023-04-19 19:18] LABS: Squamous Epithelial Cells - UA 0-5 SEEN /hpf (5-10); White Blood Cells 0-5 SEEN /hpf (0-5)
[2023-04-19 19:19] LABS: Bacteria RARE /hpf (None Seen)
[2023-04-19] MEDS: MELATONIN 3 MG TABLET PO (21:15)
[2023-04-19] MEDS: Mirtazapine 15 MG Tablet PO (21:15)
[2023-04-19] MEDS: Atorvastatin Calcium 40 MG Tablet PO (21:16)
[2023-04-19] MEDS: Diltiazem 125 MG in Dextrose 5%-Water (100mL Bag) 100 ML CONT INF (21:16)
[2023-04-19] MEDS: guaiFENesin 10 ML UDC (200MG/10ML) PO (21:31)
[2023-04-20] VITALS (30 sets, daily range): BP systolic 99–162; BP diastolic 42–81; PULSE 59–107; RESP 11–21; TEMP 36.9–37.2; O2SAT 88–100
[2023-04-20] MEDS: Piperacil/Tazobactam 3.375 GM in 0.9% Normal Saline (50mL MB+) 50 ML IV ×3 (05:24→20:45)
[2023-04-20] MEDS: Ipratropium/Albuterol Sulfate 3 ML AMPUL.NEB INHALATION ×3 (07:47→19:34)
[2023-04-20] MEDS: Diltiazem 125 MG in Dextrose 5%-Water (100mL Bag) 100 ML CONT INF (08:11)
[2023-04-20 08:13] LABS: Absolute Lymphocyte Count 0.47 X10^3/uL (0.83-4.51); Absolute Neutrophil Count 9.1 X10^3/uL (2.0-7.7); Basophil# 0.02 X10^3/uL; Basophil% 0.2 % (0-1); Hematocrit 27.2 % (37-47); Hemoglobin 8.1 g/dL (12.0-15.0); Lymphocyte # 0.47 X10^3/ul (0.83-4.51); Lymphocyte % 4.4 % (19-41); Mean Corp Hgb Conc 29.8 g/dL (32-36); Mean Corpuscular Hgb 27.1 pg (27.0-32.0); Monocyte# 1.05 X10^3/uL; Monocyte% 9.8 % (0-10); NRBC Flagged by Analyzer 0 % (0-5); Neutrophil # 9.09 X10^3/uL (2.7-7.7); Neutrophil % 84.6 % (47-70); POSITIVE DIFFERENTIAL YES; Platelet Count 183 K/mm3 (150-450); RBC Distribution Width CV 15.4 % (11.6-14.6); RBC Distribution Width SD 50.9 fl (35.1-43.9); Red Blood Count 2.99 M/mm3 (4.2-5.4); White Blood Count 10.7 K/mm3 (4.4-11.0)
[2023-04-20] MEDS: Menthol/Lanolin/Calamine/Znox 113 GM Tube 1 APPLIC TOPICAL (08:13)
[2023-04-20 08:19] LABS: Differential Indicated SCAN CRITERIA MET
[2023-04-20 09:26] LABS: Thyroid Stim Hormone (TSH) 0.85 uIU/mL (0.358-3.74)
--- NOTE | 2023-04-20 09:38 | PN.HOSP_ITS ---
Subjective Subjective Went into A-fib last night with no chest pain or lightheadedness or dizziness. She became hypotensive with heart rate in the 160s so she was given a dose of Lopressor which lowered her rate some but made her more hypotensive, she was given a dose of digoxin which stabilized her rate even lower and allowed her blood pressure to recover a little bit and then was placed on a Cardizem drip overnight. Blood pressures today are much more stable and her heart rate is normal today Objective Data Objective Data Vital Signs: Vital Signs Temp Pulse Resp BP Pulse Ox O2 Del Method O2 Flow Rate 98.9 F 73 18 128/52 H 92 Room Air 4 04/20/23 04:00 04/20/23 08:11 04/20/23 08:11 04/20/23 08:11 04/20/23 08:19 04/20/23 08:19 04/20/23 07:49 Oxygen Flow Rate (L/min) 4 Oxygen Delivery Method Room Air Weight: 120 lb 13.013 oz Body Mass Index (BMI) 21.4 Intake & Output: Intake and Output for Last 24 Hours 04/19/23 04/20/23 04/21/23 03:59 03:59 03:59 Intake Total 1435 / 1435 951.17 / 961.17 51.83 / 51.83 Output Total 575 / 575 750 / 750 0 / 0 Balance 860 / 860 201.17 / 211.17 51.83 / 51.83 Lab / Micro Data 04/20/23 07:30 04/19/23 00:40 Labs: Laboratory Results - last 24 hr 04/19/23 00:45: Iron 20 L, TIBC 236 L, Iron Saturation 8.5 L 04/19/23 11:20: MRSA (PCR) Negative 04/19/23 17:33: Urine Color Yellow, Urine Clarity Clear, Urine pH 5.0, Ur Specific [place] 1.015, Urine Protein 30 H, Urine Glucose (UA) Normal, Urine Ketones 5 H, Urine Occult Blood 10 H, Urine Nitrite Negative, Urine Bilirubin Negative, Urine Urobilinogen Normal, Ur Leukocyte Esterase 25 H, Urine RBC 0 SEEN, Urine WBC 0-5 SEEN, Ur Squamous Epith Cells 0-5 SEEN, Urine Bacteria RARE, Urine Mucus 0 SEEN 04/20/23 07:30: WBC 10.7, RBC 2.99 L, Hgb 8.1 L, Hct 27.2 L, MCV 91.0, MCH 27.1, MCHC 29.8 L, RDW Std Deviation 50.9 H, RDW Coeff of Han 15.4 H, Plt Count 183, MPV 11.0, Immature Gran % (Auto) 1.000 H, Neut % (Auto) 84.6 H, Lymph % (Auto) 4.4 L, [place] % (Auto) 9.8, Eos % (Auto) 0.0, Baso % (Auto) 0.2, Absolute Neuts (auto) 9.1 H, Absolute Lymphs (auto) 0.47 L, Nucleated RBC % 0, Differential Comment COMMENT, TSH 0.85 Micro: Microbiology 04/16/23 23:07 Mucosa - Nose RSV RNA Qualitative (PCR) - Final RSV 04/16/23 21:30 Nasal Secretion SARS-CoV-2 & FLU Antigen (Rapid) - Final Rhythm Strip Rhythm Strip: Sinus Rhythm Rate: 80 Ectopy: None Physical Exam Narrative General: Alert, Oriented x2, Cooperative, No apparent distress HEENT: Atraumatic, PERRLA, EOMI, Normocephalic Oral: Moist Mucosa Neck: Supple, No JVD Lungs: Diminished, Normal air movement, No rhonchi, No wheeze, No rales Cardiovascular: Regular rate, Regular Rhythm, Normal S1, Normal S2, No murmurs Abdomen: Soft, Non Tender, Non-Distended, No Hepato-splenomegaly Extremities: No edema, Capillary Refill Less than 3 Seconds Skin: No rashes, No breakdown Musculoskeletal: No Tenderness to Palpation of Joints or Extremities Neurological: Moves all extremities, no focal deficits, sensory exam intact to light touch and pain Psych/Mental Status: Flat Assessment & Plan Assessment/Plan (1) RSV infection: (2) Hypoxia: (3) Fall: PLAN: Plan 1. Hypoxia due to RSV infection with super imposed pneumonia/ALAINA/debility mechanical fall and low back pain * now on room air. * MRSA was negative will discontinue vancomycin, continue with Zosyn due to concerns for healthcare associated pneumonia. Chest x-ray showed right lower lobe pneumonia. * Urine for strep and Legionella negative. * Breathing treatments of bronchodilators. Titrate oxygen to maintain saturation above 90%. * Remains afebrile * wbc has resolved, creatinine back to baseline * PT/OT for return to SNF 2. HTN/HLD/new onset A-fib ? Unclear if she never had A-fib before however she went into A-fib last night will restart her home metoprolol today and wean off her Cardizem drip and see if she can maintain normal sinus rhythm ? Will obtain an echo ? TSH was normal ? Continue with her cholesterol medications ? Can resume her losartan 3. Depression and anxiety ? Stable ? On escitalopram, mirtazapine and BuSpar. 4. Mild cognitive impairment. ? Has a history of traumatic subarachnoid hemorrhage ? On memantine. Will monitor. DVT: Heparin Charges/Coding Visit Charges Inpatient E&M: 45936 Subs Hosp L2
[2023-04-20 10:08] LABS: Anion Gap 8 (5-15); BUN 29 mg/dL (7-18); BUN/Creat Ratio 22.7 RATIO (10-20); Calcium,Total 8.3 mg/dL (8.5-10.1); Chloride 109 mmol/L (98-107); Creatinine, Serum 1.28 mg/dL (0.55-1.02); EST Glomerular Filtration Rate 42 mL/min (>60); Est Glom Filt Rate - Afr Amer 51 mL/min (>60); Estimated Creatinine Clearance 27.06 ml/min; Glucose 114 mg/dL (74-106); Sodium Level 140 mmol/L (136-145)
[2023-04-20] MEDS: Lidocaine 5% Patch 1 PATCH TOPICAL (10:11)
[2023-04-20] MEDS: Metoprolol Tartrate 50 MG Tablet PO ×2 (10:12→20:46)
[2023-04-20] MEDS: Memantine Hydrochloride 5 MG Tablet PO ×2 (10:12→20:45)
[2023-04-20] MEDS: Escitalopram Oxalate 20 MG Tablet PO (10:13)
[2023-04-20] MEDS: busPIRone 5 MG Tablet 2.5 MG PO (10:13)
[2023-04-20] MEDS: Losartan Potassium 100 MG Tablet PO (10:13)
[2023-04-20] MEDS: Docusate Sodium 100 MG Capsule PO ×2 (10:13→20:46)
[2023-04-20] MEDS: Heparin Injection (Vial) 5,000 UNIT/ML VIAL 5000 UNIT SC ×2 (10:14→20:46)
[2023-04-20] MEDS: Acetaminophen 325 MG Tablet 650 MG PO ×2 (10:15→16:58)
[2023-04-20] MEDS: oxyCODONE 5 MG Tablet PO ×2 (10:15→16:59)
--- NOTE | 2023-04-20 10:27 | CASEMGMT ---
SW called patient's son Kelin and asked if he was still okay with patient returning to [facility]. Kelin said he left a note that staff was supposed to give to SW. SW let him know SW did not get any notes. Kelin asked SW to send referrals to [facility]. SW told Kelin SW will send referrals. SW asked [facility] d/c manager planning to please send referrals. Lynne Doshi PATHOLOGY LABORATORY DIRECTOR [place]
--- NOTE | 2023-04-20 10:39 | CASEMGMT ---
Discharge Planning Referral sent via [facility] to [facility] and [facility]. Barb Moore, Discharge Planning Asst.
[2023-04-20] MEDS: 0.9% Saline Lock 10 ML Syringe IV (13:15)
--- NOTE | 2023-04-20 15:57 | CASEMGMT ---
Patient's son, Kelin asked to talk with CAILIN. SW met with Kelin. SW updated him that [facility] said they could take patient and SW has not heard back from [facility] ([facility]). Kelin would like to see if [facility] will take patient and if not then he would like patient to go to [facility]. Lynne Doshi AEROSPACE TECHNICIAN TREE WRAPPER
--- NOTE | 2023-04-20 16:14 | CHAPLAIN ---
Type of Pastoral Visit _x__ Initial Visit ___ Follow-up Visit ___ On-call Visit ___ General Patient Visit ___ Spiritual Assessment ___ Family Conference ___ Bereavement ___ Rapid Response ___ Code Blue ___ Other (describe below) Pastoral Care Referral From ___ Patient _x__ Family ___ Nurse ___ Physician ___ Ivory Carver ___ Court Clerk ___ Other (describe below) Sacrament/Intervention _x__ Active listening ___ Anointing ___ Caodaism ___ Bereavement ___ Communion _x__ Lilia exploration ___ ___ Life review _x__ Prayer ___ Reconciliation ___ Sacrament of Sick _x__ Supportive presence ___ Wedding ___ Other (describe below) Pastoral Comments patient is resting in bed and a son and a daughter are in the room; pt is welcoming and admits that she continues to suffer and they have not be able to help me ; pt admits some frustrations with slow response to treatments or even clear answers; pt's son speaks up about the need to test in God for support; after exploring pt emotional or spiritual concerns she does welcome prayer and presence of this engineering specialist technician
[2023-04-20] MEDS: Potassium Chloride Oral Tablet 20 MEQ 40 MEQ PO (17:17)
[2023-04-20] MEDS: Atorvastatin Calcium 40 MG Tablet PO (20:45)
[2023-04-20] MEDS: MELATONIN 3 MG TABLET PO (20:45)
[2023-04-20] MEDS: Mirtazapine 15 MG Tablet PO (20:45)
[2023-04-20] MEDS: guaiFENesin 10 ML UDC (200MG/10ML) PO (20:46)
[2023-04-21] VITALS (13 sets, daily range): BP systolic 138–173; BP diastolic 62–73; PULSE 68–84; RESP 12–20; TEMP 36.4–37.3; O2SAT 95–99
[2023-04-21] MEDS: oxyCODONE 5 MG Tablet PO ×3 (02:22→18:41)
[2023-04-21] MEDS: Acetaminophen 325 MG Tablet 650 MG PO ×3 (02:22→18:42)
[2023-04-21] MEDS: Piperacil/Tazobactam 3.375 GM in 0.9% Normal Saline (50mL MB+) 50 ML IV ×3 (05:14→22:11)
[2023-04-21] MEDS: 0.9% Saline Lock 10 ML Syringe IV (05:15)
[2023-04-21 07:17] LABS: Absolute Lymphocyte Count 1.26 X10^3/uL (0.83-4.51); Basophil# 0.01 X10^3/uL; Basophil% 0.1 % (0-1); Eosinophil# 0.01 X10^3/uL; Eosinophils% 0.1 % (0-5); Hemoglobin 8.1 g/dL (12.0-15.0); Lymphocyte # 1.26 X10^3/ul (0.83-4.51); Lymphocyte % 10.2 % (19-41); Mean Corpuscular Hgb 27.4 pg (27.0-32.0); Mean Corpuscular Volume 91.2 fL (81-99); Mean Platelet Vol. 10.3 fl (6.2-12.0); Monocyte# 0.98 X10^3/uL; Monocyte% 7.9 % (0-10); NRBC Flagged by Analyzer 0.4 % (0-5); Neutrophil # 9.97 X10^3/uL (2.7-7.7); Neutrophil % 80.8 % (47-70); Platelet Count 208 K/mm3 (150-450); RBC Distribution Width CV 15.7 % (11.6-14.6); RBC Distribution Width SD 51.7 fl (35.1-43.9); Red Blood Count 2.96 M/mm3 (4.2-5.4); White Blood Count 12.3 K/mm3 (4.4-11.0)
[2023-04-21] MEDS: Ipratropium/Albuterol Sulfate 3 ML AMPUL.NEB INHALATION ×3 (07:26→19:55)
[2023-04-21 08:03] LABS: Anion Gap 7 (5-15); BUN 36 mg/dL (7-18); Calcium,Total 8.5 mg/dL (8.5-10.1); Chloride 110 mmol/L (98-107); Creatinine, Serum 1.24 mg/dL (0.55-1.02); EST Glomerular Filtration Rate 44 mL/min (>60); Est Glom Filt Rate - Afr Amer 53 mL/min (>60); Estimated Creatinine Clearance 27.94 ml/min; Glucose 96 mg/dL (74-106); Potassium 3.5 mmol/L (3.5-5.1); Sodium Level 139 mmol/L (136-145)
[2023-04-21] MEDS: Losartan Potassium 100 MG Tablet PO (09:00)
[2023-04-21] MEDS: Docusate Sodium 100 MG Capsule PO ×2 (09:00→22:13)
[2023-04-21] MEDS: Metoprolol Tartrate 50 MG Tablet PO ×2 (09:00→22:16)
[2023-04-21] MEDS: busPIRone 5 MG Tablet 2.5 MG PO (09:00)
[2023-04-21] MEDS: Escitalopram Oxalate 20 MG Tablet PO (09:00)
[2023-04-21] MEDS: Memantine Hydrochloride 5 MG Tablet PO ×2 (09:00→22:13)
[2023-04-21] MEDS: Heparin Injection (Vial) 5,000 UNIT/ML VIAL 5000 UNIT SC ×2 (09:01→22:17)
[2023-04-21] MEDS: Menthol/Lanolin/Calamine/Znox 113 GM Tube 1 APPLIC TOPICAL ×2 (09:01→22:17)
--- NOTE | 2023-04-21 09:52 | PCM.PN.HOSP ---
Subjective Subjective No issues overnight Objective Data Objective Data Vital Signs: Vital Signs Temp Pulse Resp BP Pulse Ox O2 Del Method O2 Flow Rate 99.2 F H 84 12 152/72 H 97 Nasal Cannula 2 04/21/23 08:57 04/21/23 09:00 04/21/23 08:57 04/21/23 09:00 04/21/23 09:10 04/21/23 09:10 04/21/23 09:10 Oxygen Flow Rate (L/min) 2 Oxygen Delivery Method Nasal Cannula Weight: 120 lb 13.013 oz Body Mass Index (BMI) 21.4 Intake & Output: Intake and Output for Last 24 Hours 04/20/23 04/21/23 04/22/23 03:59 03:59 03:59 Intake Total 951.17 / 961.17 576.33 / 576.33 50 / 50 Output Total 750 / 750 300 / 300 Balance 201.17 / 211.17 276.33 / 276.33 50 / 50 Lab / Micro Data 04/21/23 07:00 04/21/23 07:00 Labs: Laboratory Results - last 24 hr 04/20/23 07:30: Sodium 140, Potassium 3.0 L, Chloride 109 H, Carbon Dioxide 23.0, Anion Gap 8, BUN 29 H, Creatinine 1.28 H, Estim Creat Clear Calc 27.06, Est GFR (MDRD) Af Amer 51 L, Est GFR (MDRD) Non-Af 42 L, BUN/Creatinine Ratio 22.7 H, Glucose 114 H, Calcium 8.3 L 04/21/23 07:00: WBC 12.3 H, RBC 2.96 L, Hgb 8.1 L, Hct 27.0 L, MCV 91.2, MCH 27.4, MCHC 30.0 L, RDW Std Deviation 51.7 H, RDW Coeff of Han 15.7 H, Plt Count 208, MPV 10.3, Immature Gran % (Auto) 0.900, Neut % (Auto) 80.8 H, Lymph % (Auto) 10.2 L, [place] % (Auto) 7.9, Eos % (Auto) 0.1, Baso % (Auto) 0.1, Absolute Neuts (auto) 10.0 H, Absolute Lymphs (auto) 1.26, Nucleated RBC % 0.4, Sodium 139, Potassium 3.5, Chloride 110 H, Carbon Dioxide 22.0, Anion Gap 7, BUN 36 H, Creatinine 1.24 H, Estim Creat Clear Calc 27.94, Est GFR (MDRD) Af Amer 53 L, Est GFR (MDRD) Non-Af 44 L, BUN/Creatinine Ratio 29.0 H, Glucose 96, Calcium 8.5 Micro: Microbiology 04/16/23 23:07 Mucosa - Nose RSV RNA Qualitative (PCR) - Final RSV 04/16/23 21:30 Nasal Secretion SARS-CoV-2 & FLU Antigen (Rapid) - Final Radiography Diagnostic Testing: Radiology Impression Echocardiogram 04/19/23 17:02 Interpretation Summary Mild concentric left ventricular hypertrophy. The left ventricular ejection fraction is 60 %. Mildly dilated right ventricle. The right atrium is moderately enlarged. Severe (4+) tricuspid valve insufficiency. Right ventricular systolic pressure estimated to be 43 mmHg. Mild focal aortic valve calcification. Ordering Physician: Maximiliano Benedict Referring Physician: Joselyn Lawrence Performed By: Mitra Foster, GARIMA, RVT Rhythm Strip Rhythm Strip: Sinus Rhythm Rate: 80 Ectopy: None Physical Exam Narrative General: Alert, Oriented x2, Cooperative, No apparent distress HEENT: Atraumatic, PERRLA, EOMI, Normocephalic Oral: Moist Mucosa Neck: Supple, No JVD Lungs: Diminished, Normal air movement, No rhonchi, No wheeze, No rales Cardiovascular: Regular rate, Regular Rhythm, Normal S1, Normal S2, No murmurs Abdomen: Soft, Non Tender, Non-Distended, No Hepato-splenomegaly Extremities: No edema, Capillary Refill Less than 3 Seconds Skin: No rashes, No breakdown Musculoskeletal: No Tenderness to Palpation of Joints or Extremities Neurological: Moves all extremities, no focal deficits, sensory exam intact to light touch and pain Psych/Mental Status: Flat Assessment & Plan Assessment/Plan (1) RSV infection: (2) Hypoxia: (3) Fall: PLAN: Plan 1. Hypoxia due to RSV infection with super imposed pneumonia/ALAINA/debility mechanical fall and low back pain ?MRSA was negative will discontinue vancomycin, continue with Zosyn due to concerns for healthcare associated pneumonia. Chest x-ray showed right lower lobe pneumonia. ?Urine for strep and Legionella negative. ?Breathing treatments of bronchodilators. Titrate oxygen to maintain saturation above 90%. ?Remains afebrile, white count spiked a little bit today to 12,000, will monitor continue with Zosyn ?Creatinine back to baseline ?PT/OT for return to SNF 2. HTN/HLD/new onset A-fib ? Unclear if she never had A-fib before however she went into A-fib and she was started on a Cardizem drip, her A-fib resolved and she was transition back to her oral metoprolol and has not had any recurrent A-fib ? Echo with an EF of 60% and RVSP of 43 mmHg ? TSH was normal ? Continue with her cholesterol medications ? Can resume her losartan 3. Depression and anxiety ? Stable ? On escitalopram, mirtazapine and BuSpar. 4. Mild cognitive impairment. ? Has a history of traumatic subarachnoid hemorrhage ? On memantine. Will monitor. DVT: Heparin Charges/Coding Visit Charges Inpatient E&M: 26276 Subs Hosp L2
--- NOTE | 2023-04-21 10:06 | CASEMGMT ---
[facility] ([facility]) could take patient skilled, but once she finishes skilled patient would have to move to another facility. [facility] accepted patient. CAILIN called [facility] and spoke with Phuong asking if they have adjunct faculty for medical terminology beds. Phuong was thinking they do, but she will check and get back to . CAILIN called patient's son Kelin and let him know this information. Kelin would prefer patient go to [facility] if they have adjunct faculty for medical terminology beds. CAILIN told Kelin CAILIN will be in touch. Lynne BUSTILLO
[2023-04-21] MEDS: Sodium Ferric Gluconat/Sucrose 250 MG in 0.9% Normal Saline (250mL Bag) 250 ML 135 MG IV (10:08)
--- NOTE | 2023-04-21 10:58 | CASEMGMT ---
[facility] has fdc beds. They will try and get patient skilled. Await pre-cert for [facility]. Plan: [facility] pending insurance approval. Lynne BUSTILLO
[2023-04-21] MEDS: Atorvastatin Calcium 40 MG Tablet PO (22:12)
[2023-04-21] MEDS: Mirtazapine 15 MG Tablet PO (22:13)
[2023-04-21] MEDS: MELATONIN 3 MG TABLET PO (22:13)
[2023-04-22] VITALS (11 sets, daily range): BP systolic 121–182; BP diastolic 61–72; PULSE 63–77; RESP 18–19; TEMP 36.7–36.9; O2SAT 90–98
[2023-04-22] MEDS: Piperacil/Tazobactam 3.375 GM in 0.9% Normal Saline (50mL MB+) 50 ML IV ×2 (05:14→14:00)
[2023-04-22] MEDS: Ipratropium/Albuterol Sulfate 3 ML AMPUL.NEB INHALATION (06:35)
[2023-04-22 07:53] LABS: Absolute Lymphocyte Count 1.25 X10^3/uL (0.83-4.51); Absolute Neutrophil Count 6.3 X10^3/uL (2.0-7.7); Basophil# 0.03 X10^3/uL; Basophil% 0.3 % (0-1); Eosinophil# 0.01 X10^3/uL; Eosinophils% 0.1 % (0-5); Hematocrit 26.8 % (37-47); Hemoglobin 7.9 g/dL (12.0-15.0); Lymphocyte # 1.25 X10^3/ul (0.83-4.51); Lymphocyte % 14.3 % (19-41); Mean Corp Hgb Conc 29.5 g/dL (32-36); Mean Corpuscular Hgb 27.1 pg (27.0-32.0); Mean Corpuscular Volume 91.8 fL (81-99); Mean Platelet Vol. 10.5 fl (6.2-12.0); Monocyte# 0.89 X10^3/uL; Monocyte% 10.2 % (0-10); NRBC Flagged by Analyzer 0.2 % (0-5); Neutrophil # 6.34 X10^3/uL (2.7-7.7); Neutrophil % 72.8 % (47-70); Platelet Count 232 K/mm3 (150-450); RBC Distribution Width CV 15.6 % (11.6-14.6); RBC Distribution Width SD 51.8 fl (35.1-43.9); Red Blood Count 2.92 M/mm3 (4.2-5.4); White Blood Count 8.7 K/mm3 (4.4-11.0)
[2023-04-22 08:19] LABS: Anion Gap 9 (5-15); BUN 31 mg/dL (7-18); BUN/Creat Ratio 29.5 RATIO (10-20); Calcium,Total 8.5 mg/dL (8.5-10.1); Chloride 112 mmol/L (98-107); Creatinine, Serum 1.05 mg/dL (0.55-1.02); EST Glomerular Filtration Rate 53 mL/min (>60); Est Glom Filt Rate - Afr Amer 64 mL/min (>60); Estimated Creatinine Clearance 32.99 ml/min; Glucose 96 mg/dL (74-106); Potassium 3.2 mmol/L (3.5-5.1); Sodium Level 144 mmol/L (136-145)
--- NOTE | 2023-04-22 10:37 | PN.HOSP_ITS ---
Reason for Visit Reason for Visit: Diagnoses Other specified viral diseases (04/16/23) Hypoxemia (04/16/23) Unspecified fall, initial encounter (04/16/23) Subjective Subjective Patient is an 83-year-old gentleman resident of [facility] brought in with progressive generalized weakness with falls as well as shortness of breath. An assessment of acute hypoxia secondary to pneumonia made admitted to a monitored bed for subsequent care Objective Data Objective Data Vital Signs: Vital Signs Temp Pulse Resp BP Pulse Ox O2 Del Method O2 Flow Rate 98.1 F 72 19 H 157/67 H 95 Nasal Cannula 2 04/22/23 03:36 04/22/23 06:36 04/22/23 06:36 04/22/23 03:36 04/22/23 09:16 04/22/23 06:36 04/22/23 09:16 Oxygen Flow Rate (L/min) 2 Oxygen Delivery Method Nasal Cannula Weight: 54.8 kg Body Mass Index (BMI) 21.4 Intake & Output: Intake and Output for Last 24 Hours 04/20/23 04/21/23 04/22/23 23:59 23:59 23:59 Intake Total 616.33 / 616.33 860 / 980 270 / 270 Output Total 300 / 300 Balance 316.33 / 316.33 860 / 980 270 / 270 Lab / Micro Data 04/22/23 07:24 04/22/23 07:24 Labs: Laboratory Results - last 24 hr 04/22/23 07:24: WBC 8.7, RBC 2.92 L, Hgb 7.9 L, Hct 26.8 L, MCV 91.8, MCH 27.1, MCHC 29.5 L, RDW Std Deviation 51.8 H, RDW Coeff of Han 15.6 H, Plt Count 232, MPV 10.5, Immature Gran % (Auto) 2.300 H, Neut % (Auto) 72.8 H, Lymph % (Auto) 14.3 L, [place] % (Auto) 10.2 H, Eos % (Auto) 0.1, Baso % (Auto) 0.3, Absolute Neuts (auto) 6.3, Absolute Lymphs (auto) 1.25, Nucleated RBC % 0.2, Sodium 144, Potassium 3.2 L, Chloride 112 H, Carbon Dioxide 23.0, Anion Gap 9, BUN 31 H, Creatinine 1.05 H, Estim Creat Clear Calc 32.99, Est GFR (MDRD) Af Amer 64, Est GFR (MDRD) Non-Af 53 L, BUN/Creatinine Ratio 29.5 H, Glucose 96, Calcium 8.5 Micro: Microbiology 04/16/23 23:07 Mucosa - Nose RSV RNA Qualitative (PCR) - Final RSV 04/16/23 21:30 Nasal Secretion SARS-CoV-2 & FLU Antigen (Rapid) - Final Rhythm Strip Rhythm Strip: Sinus Rhythm Rate: 80 Ectopy: None Physical Exam Narrative GENERAL: cooperative HEENT: Atraumatic; normocephalic EYES; Anicteric, Normal Conjunctiva NECK; supple, normal thyroid, RESPIRATORY: Diminished to auscultation CARDIOVASCULAR: Regular S1 S2, GI: soft, normoactive bowel sounds, : No Renal angle tenderness; EXTREMITIES: No edema, no clubbing, MUSCULOSKELETAL: no muscle wasting NEURO: Awake; no lateralizing signs. SKIN: No Rash PSYCH; Flat affect Assessment & Plan Assessment/Plan (1) RSV infection: (2) Hypoxia: (3) Fall: PLAN: Plan Patient is an 83-year-old gentleman resident of [facility] brought in with progressive generalized weakness with falls as well as shortness of breath. An assessment of acute hypoxia secondary to pneumonia made admitted to a monitored bed for subsequent care 1. Acute hypoxia ? Secondary to RSV infection with superimposed bacterial pneumonia ? Admitted to regular nursing floor managed with supplemental oxygen, pulmonary toileting as well as broad-spectrum antibiotic therapy with Zosyn 2. Physical deconditioning - Requested for PT OT eval and psych social worker to assist with discharge planning 3. Hypertension - Blood pressure controlled, home medications continued with dose adjustment as needed 4. Dyslipidemia -Patient is on statin therapy, continued at home dose 5. Paroxysmal A-fib ?? New onset A-fib patient was on Cardizem drip has since been weaned off. Patient currently on metoprolol. Patient not candidate for systemic anticoagulation due to significant risk for falls 6. Depression with anxiety ? Patient is on escitalopram as well as BuSpar 7. Mild cognitive impairment ? Can is on Namenda in addition to supportive care 8. DVT prophylaxis ? SC heparin Time spent in the patient's overall evaluation,decision-making process, review of diagnostic data, adjustment of management, discussion with other providers, nursing nursing and ancillary staff involved in patient's care documentation, 40 Minutes Charges/Coding Visit Charges Inpatient E&M: 54357 Subs Hosp L2
[2023-04-22] MEDS: Acetaminophen 325 MG Tablet 650 MG PO ×2 (10:43→17:24)
[2023-04-22] MEDS: Memantine Hydrochloride 5 MG Tablet PO (10:43)
[2023-04-22] MEDS: Losartan Potassium 100 MG Tablet PO (10:44)
[2023-04-22] MEDS: Docusate Sodium 100 MG Capsule PO (10:44)
[2023-04-22] MEDS: Escitalopram Oxalate 20 MG Tablet PO (10:44)
[2023-04-22] MEDS: oxyCODONE 5 MG Tablet PO ×2 (10:44→17:24)
[2023-04-22] MEDS: busPIRone 5 MG Tablet 2.5 MG PO (10:44)
[2023-04-22] MEDS: Metoprolol Tartrate 50 MG Tablet PO (10:44)
[2023-04-22] MEDS: Heparin Injection (Vial) 5,000 UNIT/ML VIAL 5000 UNIT SC (10:55)
--- NOTE | 2023-04-22 15:24 | TREXTCAR_ITS ---
Diet Diet Order/Speech Therapy: 04/17/23 01:04 Diet: Regular - General Food consistency:: Regular Liquid Consistency:: Regular/Thin Routine Orders/Code Status Code Status: DNRCC-A Therapies Physical Therapy: Eval and Treat Occupational Therapy: Eval and Treat Problem/Diagnosis (1) RSV infection: Status: Acute Code(s): B33.8 - Other specified viral diseases (2) Hypoxia: Status: Acute Code(s): R09.02 - Hypoxemia (3) Fall: Status: Acute Code(s): W19.XXXA - Unspecified fall, initial encounter Plan Patient is an 83-year-old gentleman resident of [facility] care [facility] brought in with progressive generalized weakness with falls as well as shortness of breath. An assessment of acute hypoxia secondary to pneumonia made admitted to a monitored bed for subsequent care 1. Acute hypoxia ? Secondary to RSV infection with superimposed bacterial pneumonia ? Admitted to regular nursing floor managed with supplemental oxygen, pulmonary toileting as well as broad-spectrum antibiotic therapy with Zosyn 2. Physical deconditioning - Requested for PT OT eval and delinquency prevention social worker to assist with discharge planning 3. Hypertension - Blood pressure controlled, home medications continued with dose adjustment as needed 4. Dyslipidemia -Patient is on statin therapy, continued at home dose 5. Paroxysmal A-fib ?? New onset A-fib patient was on Cardizem drip has since been weaned off. Patient currently on metoprolol. Patient not candidate for systemic antic oagulation due to significant risk for falls 6. Depression with anxiety ? Patient is on escitalopram as well as BuSpar 7. Mild cognitive impairment ? Can is on Namenda in addition to supportive care 8. DVT prophylaxis ? SC heparin Time spent in the patient's overall evaluation,decision-making process, review of diagnostic data, adjustment of management, discussion with other providers, nursing nursing and ancillary staff involved in patient's care documentation, 40 Minutes Allergies/Procedures Done in Hospital Allergies lisinopril Allergy (Unknown, Verified 04/16/23 20:48) PT UNABLE TO RESPOND-NEEDS F/U morphine Allergy (Unknown, Verified 04/16/23 20:48) PT UNABLE TO RESPOND-NEEDS F/U Type of Care/Length of Stay Estimated LOS: Convalescent Care Less Than 30 days Type of Care Needed: Skilled Rehab Potential: Good Prognosis: Good Additional Orders/Day of Discharge Day of Discharge: 04/22/23 Dietary and Speech Recommendations Dietitian Recommendations/Changes: Continue Regular diet to optimize oral intakes. Discharge Plan Admission Admit Date/Time: 04/16/23 23:26 Attending Provider: Gopal Nevarez Primary Care Provider: Serina Liu Consulting Providers: Rodger Carranza; Karmen Odell; Maximiliano Benedict Discharge Orders/Prescriptions Prescriptions: New acetaminophen 325 mg Tablet 650 mg PO Q6H PRN PRN (Reason: Pain 1-10 Or Fever>100.7) Qty: 0 0RF ipratropium-albuterol 0.5 mg-3 mg(2.5 mg base)/3 mL Solution For Nebulization 3 ml inhalation Q6HWA.RT Qty: 0 0RF menthol-zinc oxide [Calmoseptine] 0.44-20.6 % Ointment 1 applic topical BID Qty: 0 0RF Protocol: *Topical Application Instructions APPLICATION INSTRUCTIONS: buttocks amoxicillin-pot clavulanate 875-125 mg tablet 1 tab PO BID Qty: 14 0RF Continued aluminum-magnesium hydroxide 200-200 mg/5 mL suspension 30 ml PO Q4H PRN (Reason: GI distress) aspirin-dipyridamole 25-200 mg capsule, ER multiphase 12 hr 1 cap PO BID buspirone 5 mg tablet 2.5 mg PO DAILY docusate sodium [Col-Rite] 100 mg capsule 100 mg PO BID ergocalciferol (vitamin D2) 50 mcg (2,000 unit) capsule 50 mcg PO DAILY omega 3-ltj-jcj-fish oil [Fish Oil] 300-1,000 mg capsule 1 cap PO DAILY glucagon HCl [Glucagon (HCl) Emergency Kit] 1 mg recon soln 1 mg IM Q20M PRN (Reason: hypoglycemia) Rx Instructions: until target blood sugar attained guaifenesin [Adult Tussin Chest Congestion] 100 mg/5 mL liquid 200 mg PO Q4H PRN (Reason: congestion) escitalopram oxalate [Lexapro] 20 mg tablet 20 mg PO DAILY losartan 100 mg tablet 100 mg PO DAILY memantine 5 mg tablet 5 mg PO BID melatonin 3 mg capsule 3 mg PO QHS metoprolol tartrate 50 mg tablet 50 mg PO BID magnesium hydroxide [Dulcolax (magnesium hydroxide)] 400 mg/5 mL suspension 30 ml PO DAILY PRN (Reason: constipation) potassium chloride 10 mEq tablet extended release 10 meq PO BID mirtazapine [Remeron] 15 mg tablet 15 mg PO QHS simvastatin 80 mg tablet 80 mg PO QHS Referrals / Follow Up: Serina Liu MD [Primary Care Provider] - Within 2 Weeks Care Physician,No Primary [Non-Staff] - Disposition Disposition (needs filled in before D/C Order can be placed): Shelter Facility
[2023-04-22] MEDS: Potassium Chloride Oral Tablet 20 MEQ PO ×2 (15:40→16:21)
--- NOTE | 2023-04-22 15:42 | PCM.DC.SUM ---
Providers Date of Admission: 04/16/23 Date of Discharge: 04/22/23 Primary Care Physician: Dr. Serina Liu MD Reason For Visit: RSV INFECTION, HYPOXIA, DEBILITY Diagnosis Discharge Diagnosis (1) RSV infection: Status: Acute Code(s): B33.8 - Other specified viral diseases (2) Hypoxia: Status: Acute Code(s): R09.02 - Hypoxemia (3) Fall: Status: Acute Code(s): W19.XXXA - Unspecified fall, initial encounter Plan Patient is an 83-year-old gentleman resident of [facility] brought in with progressive generalized weakness with falls as well as shortness of breath. An assessment of acute hypoxia secondary to pneumonia made admitted to a monitored bed for subsequent care 1. Acute hypoxia ? Secondary to RSV infection with superimposed bacterial pneumonia ? Admitted to regular nursing floor managed with supplemental oxygen, pulmonary toileting as well as broad-spectrum antibiotic therapy with Zosyn 2. Physical deconditioning - Requested for PT OT eval and social sciences chair to assist with discharge planning 3. Hypertension - Blood pressure controlled, home medications continued with dose adjustment as needed 4. Dyslipidemia -Patient is on statin therapy, continued at home dose 5. Paroxysmal A-fib ?? New onset A-fib patient was on Cardizem drip has since been weaned off. Patient currently on metoprolol. Patient not candidate for systemic anticoagulation due to significant risk for falls 6. Depression with anxiety ? Patient is on escitalopram as well as BuSpar 7. Mild cognitive impairment ? Can is on Namenda in addition to supportive care 8. DVT prophylaxis ? SC heparin Time spent in the patient's overall evaluation,decision-making process, review of diagnostic data, adjustment of management, discussion with other providers, nursing nursing and ancillary staff involved in patient's care documentation, 40 Minutes Medications at Discharge Home Medications aluminum-magnesium hydroxide 200 mg-200 mg/5 mL oral suspension 30 ml PO Q4H PRN GI distress 04/16/23 aspirin 25 mg-dipyridamole 200 mg capsule,ext.release 12 hr multiphase 1 cap PO BID 04/16/23 buspirone 5 mg tablet 2.5 mg PO DAILY 04/16/23 docusate sodium 100 mg capsule (Col-Rite) 100 mg PO BID 04/16/23 ergocalciferol (vitamin D2) 50 mcg (2,000 unit) capsule 50 mcg PO DAILY 04/16/23 escitalopram oxalate 20 mg tablet (Lexapro) 20 mg PO DAILY 04/16/23 glucagon HCl 1 mg solution for injection (Glucagon (HCl) Emergency Kit) 1 mg IM Q20M PRN hypoglycemia 04/16/23 guaifenesin 100 mg/5 mL oral liquid (Adult Tussin Chest Congestion) 200 mg PO Q4H PRN congestion 04/16/23 losartan 100 mg tablet 100 mg PO DAILY 04/16/23 magnesium hydroxide 400 mg/5 mL oral suspension (Dulcolax (magnesium hydroxide)) 30 ml PO DAILY PRN constipation 04/16/23 melatonin 3 mg capsule 3 mg PO QHS 04/16/23 memantine 5 mg tablet 5 mg PO BID 04/16/23 metoprolol tartrate 50 mg tablet 50 mg PO BID 04/16/23 mirtazapine 15 mg tablet (Remeron) 15 mg PO QHS 04/16/23 omega 4-bqy-sej-fish oil 300 mg-1,000 mg capsule (Fish Oil) 1 cap PO DAILY 04/16/23 potassium chloride 10 mEq tablet,extended release 10 meq PO BID 04/16/23 simvastatin 80 mg tablet 80 mg PO QHS 04/16/23 acetaminophen 325 mg tablet 650 mg (2 x 325 mg) PO Q6H PRN PRN Pain 1-10 Or Fever>100.7 #0 tabs 04/22/23 amoxicillin 875 mg-potassium clavulanate 125 mg tablet 1 tab PO BID #14 tabs 04/22/23 ipratropium 0.5 mg-albuterol 3 mg (2.5 mg base)/3 mL nebulization soln 3 ml inhalation Q6HWA.RT #0 mL 04/22/23 menthol 0.44 %-zinc oxide 20.6 % topical ointment (Calmoseptine) 1 applic topical BID #0 grams 04/22/23 Hospital Course Summary of Care Provided Minutes Spent on Discharge: 40 Physical Exam Narrative GENERAL: cooperative HEENT: Atraumatic; normocephalic EYES; Anicteric, Normal Conjunctiva NECK; supple, normal thyroid, RESPIRATORY: Diminished to auscultation CARDIOVASCULAR: Regular S1 S2, GI: soft, normoactive bowel sounds, : No Renal angle tenderness; EXTREMITIES: No edema, no clubbing, MUSCULOSKELETAL: no muscle wasting NEURO: Awake; no lateralizing signs. SKIN: No Rash PSYCH; Flat affect Weight / BMI Weight Weight: 54.8 kg Body Mass Index (BMI) 21.4 ABG / Lab / Microbiology Data 04/22/23 07:24 04/22/23 07:24 Laboratory: Laboratory Results - last 24 hr 04/22/23 07:24: WBC 8.7, RBC 2.92 L, Hgb 7.9 L, Hct 26.8 L, MCV 91.8, MCH 27.1, MCHC 29.5 L, RDW Std Deviation 51.8 H, RDW Coeff of Han 15.6 H, Plt Count 232, MPV 10.5, Immature Gran % (Auto) 2.300 H, Neut % (Auto) 72.8 H, Lymph % (Auto) 14.3 L, Alfalfa % (Auto) 10.2 H, Eos % (Auto) 0.1, Baso % (Auto) 0.3, Absolute Neuts (auto) 6.3, Absolute Lymphs (auto) 1.25, Nucleated RBC % 0.2, Sodium 144, Potassium 3.2 L, Chloride 112 H, Carbon Dioxide 23.0, Anion Gap 9, BUN 31 H, Creatinine 1.05 H, Estim Creat Clear Calc 32.99, Est GFR (MDRD) Af Amer 64, Est GFR (MDRD) Non-Af 53 L, BUN/Creatinine Ratio 29.5 H, Glucose 96, Calcium 8.5 Microbiology: Microbiology 04/16/23 23:07 Mucosa - Nose RSV RNA Qualitative (PCR) - Final RSV 04/16/23 21:30 Nasal Secretion SARS-CoV-2 & FLU Antigen (Rapid) - Final D/C Instructions Discharge Diet: No restrictions Discharge Activity: Return to Normal Activity Call your doctor if you observe: Fever of 101 or Higher, Shortness of breath, Fainting spells and Chest pain Meaningful Use Info Meaningful Use Diagnoses (Choose all that apply): None applicable Discharge Plan Admission Admit Date/Time: 04/16/23 23:26 Attending Provider: Gopal Nevarez Primary Care Provider: Serina Liu Consulting Providers: Rodger Carranza; Karmen Odell; Maximiliano Benedict Discharge Orders/Prescriptions Prescriptions: New acetaminophen 325 mg Tablet 650 mg PO Q6H PRN PRN (Reason: Pain 1-10 Or Fever>100.7) Qty: 0 0RF ipratropium-albuterol 0.5 mg-3 mg(2.5 mg base)/3 mL Solution For Nebulization 3 ml inhalation Q6HWA.RT Qty: 0 0RF menthol-zinc oxide [Calmoseptine] 0.44-20.6 % Ointment 1 applic topical BID Qty: 0 0RF Protocol: *Topical Application Instructions APPLICATION INSTRUCTIONS: buttocks amoxicillin-pot clavulanate 875-125 mg tablet 1 tab PO BID Qty: 14 0RF Continued aluminum-magnesium hydroxide 200-200 mg/5 mL suspension 30 ml PO Q4H PRN (Reason: GI distress) aspirin-dipyridamole 25-200 mg capsule, ER multiphase 12 hr 1 cap PO BID buspirone 5 mg tablet 2.5 mg PO DAILY docusate sodium [Col-Rite] 100 mg capsule 100 mg PO BID ergocalciferol (vitamin D2) 50 mcg (2,000 unit) capsule 50 mcg PO DAILY omega 1-bzo-row-fish oil [Fish Oil] 300-1,000 mg capsule 1 cap PO DAILY glucagon HCl [Glucagon (HCl) Emergency Kit] 1 mg recon soln 1 mg IM Q20M PRN (Reason: hypoglycemia) Rx Instructions: until target blood sugar attained guaifenesin [Adult Tussin Chest Congestion] 100 mg/5 mL liquid 200 mg PO Q4H PRN (Reason: congestion) escitalopram oxalate [Lexapro] 20 mg tablet 20 mg PO DAILY losartan 100 mg tablet 100 mg PO DAILY memantine 5 mg tablet 5 mg PO BID melatonin 3 mg capsule 3 mg PO QHS metoprolol tartrate 50 mg tablet 50 mg PO BID magnesium hydroxide [Dulcolax (magnesium hydroxide)] 400 mg/5 mL suspension 30 ml PO DAILY PRN (Reason: constipation) potassium chloride 10 mEq tablet extended release 10 meq PO BID mirtazapine [Remeron] 15 mg tablet 15 mg PO QHS simvastatin 80 mg tablet 80 mg PO QHS Referrals / Follow Up: Serina Liu MD [Primary Care Provider] - Within 2 Weeks Care Physician,No Primary [Non-Staff] - Disposition Disposition (needs filled in before D/C Order can be placed): Long Term Facility Charges/Coding Visit Charges Inpatient E&M: 90667 Disch Hosp >30min
--- NOTE | 2023-04-22 15:57 | CASEMGMT ---
Patient was approved to go to [facility]. CAILIN sent orders to [facility] via [facility]. SW will ask RN to get a Covid test. CAILIN called [facility] and arranged for patient to get picked up at 18:00 via cot. SW called patient's son and left him a voice mail letting him know the above information. CAILIN notified church secretary as well. Plan: d/c to [facility] under skilled level of care. [facility] will transport via cot. Lynne BUSTILLO
[2023-04-22] MEDS: hydrALAZINE 20 MG/ML Vial IV (16:21)
--- NOTE | 2023-04-22 19:02 | NURSING ---
Report attempted to be called x2 this evening, no answer.
== END 2023-04-22 19:30 | disposition skilled nursing facility (03) | DRG 194 ==
LOC: ED 23:19 → PCU 04-17 07:05
PROVIDERS: Family Medicine; Student in an Organized Health Care Education/Training Program; Admitting Provider Hospitalist; Emergency Provider Emergency Medicine; PCP Internal Medicine; Referring Provider Emergency Medicine; Visit Provider Internal Medicine
DX: J15.9 Unspecified bacterial pneumonia (principal); N17.9 Acute kidney failure, unspecified; B97.4 Respiratory syncytial virus as the cause of diseases classified elsewhere; I48.0 Paroxysmal atrial fibrillation; D50.9 Iron deficiency anemia, unspecified; E86.0 Dehydration; F32.A Depression, unspecified; I10 Essential (primary) hypertension; I95.9 Hypotension, unspecified; E78.5 Hyperlipidemia, unspecified; E86.1 Hypovolemia; G31.84 Mild cognitive impairment of uncertain or unknown etiology; S30.0XXA Contusion of lower back and pelvis, initial encounter; W18.30XA Fall on same level, unspecified, initial encounter; F41.1 Generalized anxiety disorder; R53.81 Other malaise; Z66 Do not resuscitate; Y95 Nosocomial condition; R09.02 Hypoxemia; Y92.039 Unspecified place in apartment as the place of occurrence of the external cause; Z79.82 Long term (current) use of aspirin; Z79.899 Other long term (current) drug therapy; Z87.891 Personal history of nicotine dependence
CPT/HCPCS: 36415; 71045; 72100; 72170; 80048; 80202; 81001; 83540; 83550; 83735; 83880; 84443; 84484; 85025; 85027; 87428; 87634; 87641; 87811; 93005; 93306; 94640; 94762; 97162; 97166; 97530; 97535; 99285; J7040; J7050; A4216; J2916